=== PATIENT | female | born 2005 | race Caucasian/White ===

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

== ENCOUNTER 2024-11-23 14:45 | Emergency (ER) | payer BC, OTHER, SELFPAY ==
[2024-11-23 14:46] VITALS: BP 137/76; PULSE 130; RESP 18; TEMP 36.1; O2SAT 98; BMI 26.4
--- NOTE | 2024-11-23 15:07 | CT_ITS ---
PROCEDURE: ABDOMEN/PELVIS WITHOUT CONT 11/23/2024 REASON FOR EXAM: 19-year-old female, lower abdominal pain. TECHNIQUE: Abdomen and pelvis CT without intravenous contrast. Coronal and Sagittal reconstruction series were provided. One or more dose reduction techniques were used (e.g., Automated exposure control, adjustment of the mA and/or kV according to patient size, use of iterative reconstruction technique). PATIENT PREPARATION: Per protocol COMPARISON: None. FINDINGS: Noncontrast technique limits evaluation of the abdominal and pelvic viscera. Lung bases: The heart is normal in size. The lung bases are unremarkable. Liver: The unopacified liver is normal in size. No biliary ductal dilation. Gallbladder: No radiopaque stones within the gallbladder. Spleen: Unremarkable. Pancreas: The unopacified pancreas is unremarkable. Adrenals: Unremarkable. Kidneys: No hydronephrosis or nephrolithiasis. Bladder: The urinary bladder is minimally distended. Reproductive Organs: Normal uterine size and contour. Ovaries are unremarkable. Bowel: The bowel loops are normal in caliber. No ascites or pneumoperitoneum. Normal appendix. Lymph nodes: No suspicious lymph node enlargement. Vasculature: The abdominal aorta and IVC contours are normal. Noncontrast technique limits evaluation. Bones: No aggressive osseous lesions. CT/Abdomen/Pelvis without Cont IMPRESSION: NO ACUTE FINDINGS AT THE ABDOMEN OR PELVIS ON NONCONTRAST CT. Reading Location: [facility]
--- NOTE | 2024-11-23 15:08 | ED.VIS.GI ---
HPI HPI - GI History of Present Illness Chief Complaint: Abd Pain Detail of Chief Complaint: Abdominal pain Informant: patient Narrative Narrative: Patient presents with abdominal pain that started 6 days ago. Patient states that she has had pain off and on. She describes it like period cramping but her last menstrual period was about 2 weeks ago. She denies urinary symptoms. Yesterday the pain was severe and had nausea and did vomit once. She also had some watery stool over the last several days about twice a day. Denies any blood in her stool. No history of inflammatory bowel disease. Patient currently on control oral contraceptive. At his most severe the pain is about an 8 out of 10. No history of kidney stones or prior abdominal surgeries. [facility] Medical History (Updated 11/23/24 @ 16:[address] Graham Birmingham DO) Contraceptive management Home Medications ?Medication ?Instructions ?Recorded ?Last Taken ?Type desogestrel 0.15 mg-ethinyl 1 tab PO DAILY #84 tabs 11/01/24 Unknown Rx estradiol 0.03 mg tablet (Apri) dicyclomine 10 mg capsule 20 mg (2 x 10 mg) PO TIDAC #20 11/23/24 Unknown Rx CAPSULES Allergy/AdvReac Type Severity Reaction Status Date / Time No Known Allergies Allergy Verified 11/23/24 14:46 Family History Sister Asthma Surgical History (Updated 11/23/24 @ 14:56 by Swati Odonnell) H/O wrist surgery History of removal of cyst H/O of nasal cauterization Social History Smoking Status: Never smoker alcohol intake: never substance use type: does not use seatbelt use: always ROS ROS ED Review of Systems ROS Unobtainable: other Constitutional Constitutional ED: Reports lethargy; Denies chills, fever(s), sweats or weight loss Eyes Eyes: Denies blurry vision, change in vision or diplopia ENT ENT ED: Denies rhinorrhea or sore throat Cardiovascular Cardiovascular: Denies chest pain, orthopnea or racing heartbeat Respiratory/Chest Respiratory/Chest: Denies cough, dyspnea, dyspnea on exertion, orthopnea or sputum Gastrointestinal Gastrointestinal: Reports abdominal pain, diarrhea and nausea; Denies vomiting Genitourinary Genitourinary ED: Denies dysuria, hematuria or urinary frequency Musculoskeletal Musculoskeletal: Denies arthralgias, back pain, myalgias or neck pain Integumentary Denies abscess, Abrasions or rash Neurologic Neurologic: Denies headache(s) or weakness Psychiatric Psychiatric: Denies anxiety, depression or suicidal thoughts Endocrine Endocrinology: Denies polydipsia, polyphagia or polyuria Hematologic/Lymphatic Hematologic/Lymphatic: Denies easy bleeding, easy bruising or lymphadenopathy Allergic/Immunologic Allergic/Immunologic ED: Denies mouth swelling, tongue swelling or urticaria EXAM Physical Exam Const Vital Signs: 11/23/24 14:46 Temperature 97 F L Temperature Source Temporal Pulse Rate 130 H Respiratory Rate 18 Blood Pressure 137/76 H Blood Pressure Mean 96 Pulse Ox 98 Oxygen Delivery Method Room Air Positive well nourished and well developed General Appearance ED: well developed and NAD HEENT Reports TM's clear and moist mucous membranes normocephalic and atraumatic; Negative for trauma or tenderness Tympanic Membrane ED: Yes TM's clear Eyes PERRL and EOMs intact bilaterally General Eye ED: Negative for pale conjunctiva or scleral icterus Neck no lymphadenopathy, supple and no JVD General: Negative for tenderness Chest Wall inspection of chest normal and palpation of chest normal Chest: Negative for tenderness Resp normal respiratory effort and clear to auscultation bilaterally Effort and Inspection: Negative for respiratory distress or pain with movement Auscultation: Negative for rhonchi, wheezes or diminished lung sounds Cardio regular rhythm, S1 normal heart sound, S2 normal heart sound and no murmurs Rate: tachycardic Peripheral Pulses: pulses 2+ throughout GI normal to inspection, nondistended, normoactive bowel sounds, soft to palpation, non-distended and no masses GI Narrative: Mild tenderness over the right lower quadrant with some guarding. There is no rebound, rigidity, cranial signs. No mass palpated Back/Spine no CVA tenderness and no thoracic nor lumbar tenderness Extremity normal to inspection General Extremety ED: Negative for edema General Extremity: Negative for edema Neuro oriented x3, CN's II-XII intact bilaterally, no sensory deficits noted and gait normal Sensorium / Orientation: awake, alert, oriented to person, oriented to place and oriented to time Motor Exam: strength 5/5 throughout and strength abnormal Psych mental status grossly normal Skin no rashes or lesions noted and no wounds MDM MDM MDM Narrative Medical decision making narrative: Patient presented with abdominal pain off-and-on for last 6 days. She has had nausea and vomiting and also some water restool. Clinically looks well. Does have some tenderness over right lower quadrant. Last menstrual period was 2 weeks ago. In the differential would be appendicitis versus kidney stone or UTI. Also on the differential would be mittelschmerz or ovarian cyst with rupture. She was somewhat tachycardic on arrival. She had an IV line established. She was given a liter Mustain fluid bolus. CBC with differential obtained showed white count 6.5 with hemoglobin 12.4 and platelet count of 166. Chemistries unremarkable. LFTs unremarkable. Serum Prag was negative. Urinalysis without signs of infection. CT scan of the abdomen pelvis obtained was normal. This point patient will be discharged to home. Suspect possibly a gastroenteritis. Will order Bentyl for home. Advised to follow-up with primary care physician within next 3 to 5 days. Patient to return for [place]er pain, fever, vomiting, or condition worsening way. Lab Data Labs: Laboratory Results - last 24 hr 11/23/24 11/23/24 11/23/24 15:22 15:22 15:44 WBC Cancelled 6.5 Corrected WBC Cancelled RBC Cancelled 4.08 L Hgb Cancelled 12.4 Hct Cancelled 36.8 L MCV Cancelled 90.2 MCH Cancelled 30.4 MCHC Cancelled 33.7 RDW Std Deviation Cancelled 42.7 RDW Coeff of Carli Cancelled 12.9 Plt Count Cancelled 166 MPV Cancelled 11.5 Immature Gran % (Auto) Cancelled 0.200 Neut % (Auto) Cancelled 51.4 Lymph % (Auto) Cancelled 34.5 [place] % (Auto) Cancelled 9.9 Eos % (Auto) Cancelled 3.7 Baso % (Auto) Cancelled 0.3 Absolute Neuts (auto) Cancelled 3.3 Absolute Lymphs (auto) Cancelled 2.24 Total Counted Cancelled Neutrophils % (Manual) Cancelled Band Neutrophils % Cancelled Lymphocytes % (Manual) Cancelled Monocytes % (Manual) Cancelled Eosinophils % (Manual) Cancelled Basophils % (Manual) Cancelled Metamyelocytes % Cancelled Myelocytes % Cancelled Promyelocytes % Cancelled Blast Cells % Cancelled Plasma Cell % (Manual) Cancelled Other Cells % Cancelled Nucleated RBC % Cancelled 0 Nucleated RBCs/100 WBC Cancelled Differential Comment Cancelled Diff Path Review Cancelled Hypersegmented Neuts Cancelled Atypical Lymphocytes Cancelled Reactive Lymphocytes Cancelled Smudge Cells Cancelled Toxic Granulation Cancelled Toxic Vacuolation Cancelled Dohle Bodies Cancelled Kevin Rods Cancelled Platelet Estimate Cancelled Plt Morphology Comment Cancelled RBC Morphology Cancelled Cancelled Polychromasia Cancelled Hypochromasia Cancelled Basophilic Stippling Cancelled Anisocytosis Cancelled Microcytosis Cancelled Macrocytosis Cancelled Spherocytes Cancelled Sickle Cells Cancelled Target Cells Cancelled Tear Drop Cells Cancelled Ovalocytes Cancelled Stomatocytes Cancelled [place] [address] Bodies Cancelled Sammy Cells Cancelled Bite Cells Cancelled Crenated Cell Cancelled Acanthocytes (Spur) Cancelled Rouleaux Cancelled Schistocytes Cancelled Sodium 135 Potassium 4.5 Chloride 101 Carbon Dioxide 20.1 L Anion Gap 13 BUN 10 Creatinine 0.67 L Estim Creat Clear Calc 138.07 Est GFR (MDRD) Non-Af 128 BUN/Creatinine Ratio 14.8 Glucose 97 Calcium 9.6 Total Bilirubin 0.26 AST 47 H ALT 22 Alkaline Phosphatase 64 Total Protein 7.7 Albumin 4.5 Globulin 3.2 Albumin/Globulin Ratio 1.4 Serum , Qual NEGATIVE Urine Color Urine Clarity Urine pH Ur Specific [place] Urine Protein Urine Glucose (UA) Urine Ketones Urine Occult Blood Urine Nitrite Urine Bilirubin Urine Urobilinogen Ur Leukocyte Esterase 11/23/24 16:24 WBC Corrected WBC RBC Hgb Hct MCV MCH MCHC RDW Std Deviation RDW Coeff of Carli Plt Count MPV Immature Gran % (Auto) Neut % (Auto) Lymph % (Auto) [place] % (Auto) Eos % (Auto) Baso % (Auto) Absolute Neuts (auto) Absolute Lymphs (auto) Total Counted Neutrophils % (Manual) Band Neutrophils % Lymphocytes % (Manual) Monocytes % (Manual) Eosinophils % (Manual) Basophils % (Manual) Metamyelocytes % Myelocytes % Promyelocytes % Blast Cells % Plasma Cell % (Manual) Other Cells % Nucleated RBC % Nucleated RBCs/100 WBC Differential Comment Diff Path Review Hypersegmented Neuts Atypical Lymphocytes Reactive Lymphocytes Smudge Cells Toxic Granulation Toxic Vacuolation Dohle Bodies Kevin Rods Platelet Estimate Plt Morphology Comment RBC Morphology Polychromasia Hypochromasia Basophilic Stippling Anisocytosis Microcytosis Macrocytosis Spherocytes Sickle Cells Target Cells Tear Drop Cells Ovalocytes Stomatocytes [place] Bodies [place] Cells Bite Cells Crenated Cell Acanthocytes (Spur) Rouleaux Schistocytes Sodium Potassium Chloride Carbon Dioxide Anion Gap BUN Creatinine Estim Creat Clear Calc Est GFR (MDRD) Non-Af BUN/Creatinine Ratio Glucose Calcium Total Bilirubin AST ALT Alkaline Phosphatase Total Protein Albumin Globulin Albumin/Globulin Ratio Serum , Qual Urine Color Yellow Urine Clarity Sl. Cloudy Urine pH 6.0 Ur Specific [place] 1.015 Urine Protein 15 H Urine Glucose (UA) Normal Urine Ketones Negative Urine Occult Blood Negative Urine Nitrite Negative Urine Bilirubin Negative Urine Urobilinogen Normal Ur Leukocyte Esterase 25 H Radiography Diagnostic Testing: Clinical Impression(s) from Imaging Studies Abdomen/Pelvis CT 11/23/24 15:07 IMPRESSION: NO ACUTE FINDINGS AT THE ABDOMEN OR PELVIS ON NONCONTRAST CT. Reading Location: [facility] Discharge Plan Triage Chief Complaint: Abd Pain ED Provider: Graham Birmingham Dx/Rx/DC Orders Clinical Impression: Abdominal pain, Gastroenteritis Instructions: ED Abdominal Pain Unkn Cause Fem, ED Gastroenteritis, Viral (Adult) Prescriptions: New dicyclomine 10 mg capsule 20 mg PO TIDAC Qty: 20 0RF No Action desogestrel-ethinyl estradiol [Apri] 0.15-0.03 mg tablet 1 tab PO DAILY Qty: 84 3RF Primary Care Provider: Rea Polo Referrals: Rea Polo MD [Primary Care Provider] - 3-5 Days Print Language: Irish Disposition Disposition: Home, Self Care
[2024-11-23] MEDS: 0.9% Normal Saline (1000mL) 1,000 ML 999 ML IV (15:24)
[2024-11-23 15:56] LABS: Absolute Lymphocyte Count 2.24 X10^3/uL (0.83-4.51); Absolute Neutrophil Count 3.3 X10^3/uL (2.0-7.7); Basophil# 0.02 X10^3/uL; Basophil% 0.3 % (0-1); Eosinophil# 0.24 X10^3/uL; Eosinophils% 3.7 % (0-5); Hematocrit 36.8 % (37-47); Hemoglobin 12.4 g/dL (12.0-15.0); Lymphocyte # 2.24 X10^3/ul (0.83-4.51); Lymphocyte % 34.5 % (19-41); Mean Corp Hgb Conc 33.7 g/dL (32-36); Mean Corpuscular Hgb 30.4 pg (27.0-32.0); Mean Corpuscular Volume 90.2 fL (81-99); Mean Platelet Vol. 11.5 fl (6.2-12.0); Monocyte# 0.64 X10^3/uL; Monocyte% 9.9 % (0-10); NRBC Flagged by Analyzer 0 % (0-5); Neutrophil # 3.34 X10^3/uL (2.7-7.7); Neutrophil % 51.4 % (47-70); Platelet Count 166 K/mm3 (150-450); RBC Distribution Width CV 12.9 % (11.6-14.6); RBC Distribution Width SD 42.7 fl (35.1-43.9); Red Blood Count 4.08 M/mm3 (4.2-5.4); White Blood Count 6.5 K/mm3 (4.4-11.0)
[2024-11-23 16:05] LABS: Internal QC Validated? YES +Cl - CLEAR BKGD; Pregnancy, Serum, hCG Quali. NEGATIVE Negative
[2024-11-23 16:33] LABS: Mucous, Urine 0 SEEN /hpf (<or=2+)
[2024-11-23 16:36] LABS: Color, Urine Yellow (Yellow); Glucose, Dipstick Normal (Normal); Ketone-Dipstick Negative (Negative); Leukocyte Esterase-Dipstick 25 /ul (Negative); Nitrite-Dipstick Negative (Negative); Occult Blood-Urine Negative /ul (Negative); Protein-Dipstick 15 mg/dl (Negative); Specific Gravity, Urine 1.015 (1.002-1.030); Urine Bilirubin Dipstick Negative (Negative); Urine Clarity Sl. Cloudy (Clear); Urine Urobilinogen Normal (Normal)
[2024-11-23 16:37] LABS: ALB/GLOB Ratio 1.4 RATIO (0.9-2.4); AST(SGOT) 47 U/L (<=31); Alanine Aminotransfer ALT/SGPT 22 U/L (<=34); Albumin, Serum 4.5 g/dL (3.5-5.0); Alkaline Phosphatase 64 U/L (35-104); Anion Gap 13 (5-15); BUN 10 mg/dL (4-19); BUN/Creat Ratio 14.8 RATIO (10-20); Calcium,Total 9.6 mg/dL (7.6-11.0); Carbon Dioxide 20.1 mmol/L (21.0-32.0); Chloride 101 mmol/L (98-108); Creatinine, Serum 0.67 mg/dL (0.70-1.20); EST Glomerular Filtration Rate 128 (>60); Estimated Creatinine Clearance 138.07 ml/min (50-250); Globulin 3.2 g/dL (2.2-4.2); Glucose 97 mg/dL (70-99); Potassium 4.5 mmol/L (3.3-5.1); Protein, Total 7.7 g/dL (5.9-8.4); Sodium Level 135 mmol/L (133-145); Total Bilirubin 0.26 mg/dL (0.00-1.30)
[2024-11-23 16:59] LABS: Bacteria 1+ /hpf (None Seen); Red Blood Cells-Urine 0-5 SEEN /hpf (0-5); Squamous Epithelial Cells - UA 10-25 SEEN /hpf (5-10); White Blood Cells 5-10 SEEN /hpf (0-5)
[2024-11-23 17:01] VITALS: PULSE 73; RESP 14; O2SAT 100
[2024-11-23 17:06] VITALS: BP 106/69; PULSE 72; RESP 15; O2SAT 100
== END 2024-11-23 17:11 | disposition home or self-care (01) ==
PROVIDERS: Emergency Provider Emergency Medicine; PCP Pediatrics; Visit Provider Emergency Medicine
DX: K52.9 Noninfective gastroenteritis and colitis, unspecified (principal); Z79.3 Long term (current) use of hormonal contraceptives
CPT/HCPCS: 74176; 80053; 81001; 84703; 85025; 96360; 99282; A4216

== ENCOUNTER → 2024-11-28 | Outpatient (CLI) | payer BC, OTHER, SELFPAY ==
[2024-11-30 10:08] LABS: Chlamydia By Nucleic Acid AMP Negative (Negative); Gonococcus By Nucleic Acid AMP Negative (Negative)
== END | disposition home or self-care (01) ==
LOC: LABSPEC 09:52
PROVIDERS: PCP Pediatrics; Referring Provider Nurse Practitioner Family; Visit Provider Nurse Practitioner Family
DX: R10.2 Pelvic and perineal pain (principal)
CPT/HCPCS: 87070; 87077; 87205; 87491; 87591

== ENCOUNTER → 2024-12-09 | Outpatient (CLI) | payer BC, SELFPAY ==
--- NOTE | 2024-12-09 16:32 | US_ITS ---
PROCEDURE: PELVIC W/ TRANSVAGINAL (USPELTVAG), 12/09/2024 REASON FOR EXAM: PERSISTANT PELVIC PAIN TECHNIQUE: Grayscale and color doppler transabdominal and transvaginal pelvic ultrasound was performed. COMPARISON: 11/23/2024 FINDINGS: Uterus: 7.13.3 x 2.8 cm, Anteverted. Unremarkable echotexture. Endometrium: 4 mm, faintly trilaminar possibly proliferative phase appearance. Cervix: Unremarkable. Right ovary: 2.3 x 1.6 x 1.6 cm (estimated volume 4.5 mL), unremarkable. Left ovary: 3.8 x 2.7 x 2.6 cm (estimated volume 14.0 mL), unremarkable. Free fluid: None visualized. Other: Estimated bladder volume 284 mL. US/Pelvic w/ Transvaginal IMPRESSION: 1. Relative enlargement of the LEFT ovary is of uncertain significance and coul d indeed be related to small size of the RIGHT ovary given that LEFT ovarian volume is high-normal for age. If there is zeina rn for ovarian torsion, recommend a repeat exam with spectral Doppler for evaluation of arterial and venous waveforms. Otherwi se if unexplained symptoms persist, consider a repeat CT abdomen/pelvis with contrast. 2. Additional description as above. Reading Location: [facility]
== END | disposition home or self-care (01) ==
LOC: US 16:29
PROVIDERS: PCP Pediatrics; Referring Provider Nurse Practitioner Family; Visit Provider Nurse Practitioner Family
DX: R10.2 Pelvic and perineal pain (principal)
CPT/HCPCS: 76830; 76856

== ENCOUNTER → 2024-12-30 | Outpatient (CLI) | payer BC, SELFPAY ==
--- NOTE | 2024-12-30 10:11 | US_ITS ---
PROCEDURE: ABDOMEN LIMITED (USABDL), 12/30/2024 REASON FOR EXAM: ABDOMINAL PAIN. N/V COMPARISON: Noncontrast CT abdomen and pelvis 11/23/2024 FINDINGS: Liver: Unremarkable. 15.0 cm in length. Gallbladder: Question faint layering sludge versus artifact. No visualized stones, wall thickening or pericholecystic fluid. Reportedly, sonographic Koroma's was negative. Biliary tree: Unremarkable. CBD measures 4 mm. Pancreas: Partially obscured by shadowing bowel gas, grossly unremarkable as visualized. Right kidney: Unremarkable. 10.6 cm in length. Other: No visualized free fluid. US/Abdomen Limited IMPRESSION: 1. No acute findings. If unexplained symptoms persist, consider repeat CT abdo men/pelvis with IV contrast. 2. Additional description as above. Reading Location: [id number]
== END | disposition home or self-care (01) ==
LOC: US 10:08
PROVIDERS: PCP Pediatrics; Referring Provider Nurse Practitioner Acute Care; Visit Provider Nurse Practitioner Acute Care
DX: R19.7 Diarrhea, unspecified (principal); R10.2 Pelvic and perineal pain; R11.0 Nausea; R68.81 Early satiety; R63.4 Abnormal weight loss
CPT/HCPCS: 76705

== ENCOUNTER → 2025-02-26 | Outpatient (CLI) | payer BC, OTHER, SELFPAY ==
--- NOTE | 2025-02-26 08:40 | CT_ITS ---
PROCEDURE: ABDOMEN/PELVIS WITH CONTRAST 02/26/2025 REASON FOR EXAM: ABDOMINAL PAIN TECHNIQUE: ABDOMEN/PELVIS WITH CONTRAST Coronal and Sagittal reconstruction series were provided. CONTRAST: Isovue 3 7 VOLUME: 95 mL One or more dose reduction techniques were used (e.g., Automated exposure control, adjustment of the mA and/or kV according to patient size, use of iterative reconstruction technique. RADIATION DOSE SUMMARY: CTDlvol: 8.6 mGy DLP: 411.66 mGycm COMPARISON: Prior study dated November 23, 2024. FINDINGS: Lung bases: Clear. Liver: Normal size. No mass. Gallbladder: Unremarkable Spleen: Borderline splenomegaly. Pancreas: Normal size without evidence of mass surrounding inflammation or ductal dilation. Adrenals: Unremarkable Kidneys: Normal renal sizes. No hydronephrosis. Bladder: Unremarkable Reproductive Organs: Unremarkable Bowel: Unremarkable Appendix: Unremarkable Lymph nodes: No significant lymph nodes are seen. Vasculature: The abdominal aorta and IVC are normal. Peritoneum / Retroperitoneum: Unremarkable Bones: Straightening of the normal lumbar lordosis. Reading Location: [id number]
== END | disposition home or self-care (01) ==
PROVIDERS: PCP Pediatrics; Referring Provider Nurse Practitioner Acute Care; Visit Provider Nurse Practitioner Acute Care
DX: R11.0 Nausea (principal); R10.2 Pelvic and perineal pain; R19.7 Diarrhea, unspecified
CPT/HCPCS: 74177; Q9967

== ENCOUNTER → 2025-04-03 | Outpatient (CLI) | payer OTHER, BC, SELFPAY ==
[2025-04-03 10:18] LABS: Hematocrit 39.8 % (37-47); Hemoglobin 13.6 g/dL (12.0-15.0); Immature Granulocytes Count 0.010 X10^3/uL (0.0-0.0); Mean Corp Hgb Conc 34.2 g/dL (32-36); Mean Corpuscular Volume 88.1 fL (81-99); Mean Platelet Vol. 11.0 fl (6.2-12.0); NRBC Flagged by Analyzer 0 % (0-5); Platelet Count 191 K/mm3 (150-450); RBC Distribution Width CV 12.1 % (11.6-14.6); RBC Distribution Width SD 39.1 fl (35.1-43.9); Red Blood Count 4.52 M/mm3 (4.2-5.4); White Blood Count 5.1 K/mm3 (4.4-11.0)
[2025-04-03 11:12] LABS: AST(SGOT) 19 U/L (<=31); Alanine Aminotransfer ALT/SGPT 13 U/L (<=34); Albumin, Serum 4.7 g/dL (3.5-5.0); Alkaline Phosphatase 75 U/L (35-104); Anion Gap 13 (5-15); BUN 10 mg/dL (4-19); BUN/Creat Ratio 12.6 RATIO (10-20); Calcium,Total 9.6 mg/dL (7.6-11.0); Carbon Dioxide 22.1 mmol/L (21.0-32.0); Chloride 103 mmol/L (98-108); Globulin 3.0 g/dL (2.2-4.2); Glucose 84 mg/dL (70-99); Potassium 4.0 mmol/L (3.3-5.1)
== END | disposition home or self-care (01) ==
PROVIDERS: PCP Pediatrics; Referring Provider Nurse Practitioner Acute Care; Visit Provider Nurse Practitioner Acute Care
DX: R11.0 Nausea (principal); R19.7 Diarrhea, unspecified; R10.2 Pelvic and perineal pain; R10.84 Generalized abdominal pain; R63.4 Abnormal weight loss
CPT/HCPCS: 36415; 80053; 84443; 85025

== ENCOUNTER 2025-04-29 06:12 | Day surgery (SDC) | payer BC, SELFPAY ==
[2025-04-29] VITALS (7 sets, daily range): BP systolic 104–119; BP diastolic 57–85; PULSE 71–88; RESP 18; TEMP 36.1–36.9; O2SAT 99–100; BMI 24.2
--- OUTSIDE RECORDS SUMMARY | 2025-04-29 06:16 | XMS RPT_ITS | CCD ---
Author Organization [facility] Care Team Providers Care Analyst Name Role Phone Rea Polo MD Primary Care Provider SHRADDHA LOZOYA Referring Unavailable CHRIST, REA Primary Care Unavailable DRU NOWAK Referring Unavailable CHRIST, REA Primary Care Unavailable CHRIST, REA Primary Care Unavailable PROVIDER, UNKNOWN Attending Unavailable PROVIDER, UNKNOWN Admitting Unavailable Rea Polo MD Primary Care Provider Christ PAEZ, Dr. Lucia Primary Care Provider Dr. Rea Polo MD Referring Provider Bharati Beth CNM Attending Provider Dr. Graham Birmingham DO Emergency Provider Dr. Graham Birmingham DO Attending Provider Yashira DOUGH BRAKE MACHINE OPERATOR-CCourtney Attending Provider Yashira DOUGH BRAKE MACHINE OPERATOR-CCourtney Referring Provider Pranav DOUGH BRAKE MACHINE OPERATOR-COpal Attending Provider Pranav DOUGH BRAKE MACHINE OPERATOR-COpal Referring Provider Dr. Rea Polo MD Primary Care Provider [phone] Dr. Rea Polo MD Referring Provider [phone] Ariadne Westfall Attending Provider REA POLO Attending Unavailable CHRIST, REA Primary Care Unavailable CHRIST, REA Referring Unavailable CHRIST, REA Primary Care Unavailable JEANNETTE DALAL Attending Unavailable CHRIST, REA Primary Care Unavailable CHRIST, REA Primary Care Unavailable RAJGURU, JEANNETTE J Attending Unavailable RAJGURU, JEANNETTE J Referring Unavailable CHRIST, REA Primary Care Unavailable BRICE WHITE Attending Unavailable BRICE WHITE Referring Unavailable CHRIST, REA Primary Care Unavailable CHRIST, REA Primary Care Unavailable RAJGURU, JEANNETTE J Attending Unavailable RAJGURU, JEANNETTE J Referring Unavailable CHRIST, REA Primary Care Unavailable RAJGURU, JEANNETTE J Attending Unavailable RAJGURU, JENANETTE J Referring Unavailable CHRIST, REA Primary Care Unavailable CHRIST, REA Primary Care Unavailable KANDACE URRUTIA Attending Unavailable RAJGURU, JEANNETTE J Attending Unavailable RAJGURU, JEANNETTE J Referring Unavailable CHRIST, REA Primary Care Unavailable RAJGURU, JEANNETTE J Referring Unavailable CHRIST, REA Primary Care Unavailable RAJGURU, JEANNETTE J Attending Unavailable CHRIST, REA Primary Care Unavailable SHRADDHA LOZOYA Attending Unavailable BRICE WHITE Referring Unavailable CHRIST, REA Primary Care Unavailable CHRIST, RAE Attending Unavailable CHRIST, REA Primary Care Unavailable Christ , Dr. Lucia Primary Care Provider Christ Dr. Rea PAEZ Referring Provider [phone] Christ, Rea Primary Care Unavailable Courtney Ac Referring Unavailable Courtney Ac Attending Unavailable Graham Birmingham Attending Unavailable Christ, Rea Primary Care Unavailable Christ, Rea Primary Care Unavailable Christ, Rea Referring Unavailable Marvel Ogden Attending Unavailable PranavOpal Referring Unavailable PranavOpal Attending Unavailable Christ, Rea Primary Care Unavailable Christ, Rea Primary Care Unavailable Christ, Rea Referring Unavailable Bharati Beth Attending Unavailable Christ, Rea Primary Care Unavailable Christ, Rea Referring Unavailable Bharati Beth Attending Unavailable Christ, Rea Primary Care Unavailable Christ, Rea Referring Unavailable Pranav Opal Attending Unavailable Christ, Rea Primary Care Unavailable Christ, Rea Referring Unavailable Pranav, Opal Attending Unavailable Christ, Rea Referring Unavailable Christ, Rea Primary Care Unavailable Ariadne Garrett Attending Unavailable Christ, Rea Referring Unavailable Courtney Ac Attending Unavailable Christ, Rea Primary Care Unavailable [facility], Rea Referring Unavailable [facility], [place] Primary Care Unavailable Ariadne Garrett Attending Unavailable [facility], [facility] Care Unavailable Courtney Ac Referring Unavailable Courtney Ac Attending Unavailable [facility], [place] Primary Care Unavailable Opal Rock Referring Unavailable Opal Rock Attending Unavailable Opal Rock Referring Unavailable Opal Rock Attending Unavailable [facility], [facility] Care Unavailable Medications Current Medications Medication Drug Class(es) Dates Sig (Normalized) Sig (Original) acetaminophen 325 mg / HYDROcodone bitartrate 5 mg oral tablet (1 source) Opioid Agonist Start: 04-03-2024 End: 04-10-2024 take 1 tablet by mouth every eight hours as needed for pain HYDROcodone-acet aminophen (NORCO) 5-325 mg per tablet Indications: Ganglion cyst of dorsum of right wrist Take 1 tablet by mouth every 8 hours as needed for pain for up to 7 days. 10 tablet 0 04/03/2024 04/10/2024 Active 24 hr buPROPion hydrochloride 150 mg extended release oral tablet (5 sources) Aminoketone Start: 01-13-2025 End: 03-14-2025 take 1 tablet by mouth once daily in the morning buPROPion XL (WELLBUTRIN XL) 150 mg 24 hr tablet Take 1 tablet by mouth every morning. 30 tablet 1 01/13/2025 Active cetirizine hydrochloride 10 mg oral capsule (20 sources) Histamine-1 Receptor Antagonist Start: 03-03-2025 take 1 capsule by mouth once daily as needed Cetirizine (Zyrtec) 10 mg capsule Active 10 mg PO daily as needed March 03, 2025 12:00am Start: 02-16-2024 End: 03-05-2025 take 1 tablet by mouth once daily cetirizine (ZYRTEC) 10 mg tablet Indications: Seasonal allergies TAKE 1 TABLET BY MOUTH EVERY DAY 90 tablet 03/05/2025 Active Desogestrel / Ethinyl Estradiol (20 sources) Progestin, Estrogen Start: 11-10-2024 APRI 0.15- 0.03 mg per tablet 11/10/2024 Active Start: 11-01-2024 take 0.15 tablet by mouth once daily Desogestrel-Ethinyl Estradiol (Apri) 0.15-0.03 mg tablet Active 1 {tbl} PO DAILY 84 3 November 01, 2024 1:00am Start: 11-01-2024 take 0.15 tablet by mouth once daily Desogestrel-Ethinyl Estradiol (Apri) 0.15-0.03 mg tablet Active 1 {tbl} PO DAILY 84 November 01, 2024 1:00am Start: 09-24-2023 End: 04-12-2024 APRI 0.15-0.03 mg per tablet 09/24/2023 04/12/2024 Discontinued (Discontinued by another Health Care Provider) Start: 09-24-2023 End: 04-12-2024 APRI 0.15-0.03 mg per tablet Start: 09-24-2023 APRI 0.15-0.03 mg per tablet Start: 02-13-2023 End: 05-07-2024 take 0.15 tablet by mouth once daily Desogestrel-Ethinyl Estradiol (Apri) 0.15-0.03 mg tablet Discontinued 1 {tbl} PO daily 84 4 February 13, 2023 12:00am May 07, 2024 2:13pm Start: 02-13-2023 End: 05-07-2024 take 0.15 tablet by mouth once daily Desogestrel-Ethinyl Estradiol (Apri) 0.15-0.03 mg tablet Discontinued 1 {tbl} PO daily 84 February 13, 2023 12:00am May 07, 2024 2:13pm 24 hr desvenlafaxine 100 mg extended release oral tablet (20 sources) Serotonin and Norepinephrine Reuptake Inhibitor Start: 11-28-2024 take 1 tablet by mouth once daily Desvenlafaxine 100 mg tablet extended release 24 hr Active 100 mg PO daily November 28, 2024 12:00am Start: 11-18-2024 End: 04-13-2025 take 1 tablet by mouth once daily desvenlafaxine ER (PRISTIQ) 100 mg 24 hr tablet TAKE 1 TABLET BY MOUTH EVERY DAY 90 tablet 02/04/2025 03/21/2025 Discontinued Start: 07-12-2024 End: 01-26-2025 take 1 tablet by mouth once daily in the morning desvenlafaxine ER (PRISTIQ) 50 mg 24 hr tablet Take 1 tablet by mouth every morning. Take with 25 mg dose to equal 75 mg total. 90 tablet 10/28/2024 11/18/2024 Discontinued (Course of therapy completed) Start: 04-12-2024 End: 01-26-2025 take 1 tablet by mouth once daily in the morning desvenlafaxine ER (PRISTIQ) 25 mg 24 hr tablet Take 1 tablet by mouth every morning. Take with 50 mg dose to equal 75 mg. 90 tablet 10/28/2024 11/18/2024 Discontinued (Course of therapy completed) Start: 04-12-2024 End: 06-14-2024 take 1 tablet by mouth once daily at breakfast desvenlafaxine ER (PRISTIQ) 50 mg 24 hr tablet TAKE 1 TABLET BY MOUTH DAILY WITH BREAKFAST. START AFTER COMPLETING 7 DAYS OF THE 25 MG DOSE. 90 tablet 1 05/07/2024 06/14/2024 Discontinued etodolac 400 mg oral tablet (20 sources) Nonsteroidal Anti-inflammatory Drug Start: 01-20-2024 End: 05-09-2024 take 1 tablet by mouth twice daily etodolac (LODINE) 400 mg tablet Take 1 tablet by mouth two times a day. 30 tablet 02/21/2024 05/09/2024 Discontinued Start: 10-06-2023 End: 01-18-2024 take 1 tablet by mouth twice daily etodolac (LODINE) 400 mg tablet Take 1 tablet by mouth two times a day. 30 tablet 0 12/04/2023 01/18/2024 Discontinued Comment on above: Take 1 tablet by miko two times a day. famotidine 20 mg oral tablet (6 sources) Histamine-2 Receptor Antagonist Start: 03-03-20 End: 03-03-20 take 1 tablet by mouth at bedtime Famotidine 20 mg tablet Active 20 mg PO AT BEDTIME 30 March 03, 2025 8:33am hydrOXYzine hydrochloride 50 mg oral tablet (20 sources) Antihistamine Start: 01-14-20 End: 03-14-20 take 2 tablets by mouth once daily at bedtime hydrOXYzine HCl (ATARAX) 50 mg tablet Take 2 tablets by mouth daily at bedtime. 60 tablet 1 01/13/2025 03/14/2025 Active Start: 11-28-2024 take 1 tablet by miko th three times daily as needed Hydroxyzine Hcl 10 mg tablet Active 10 mg PO THREE TIMES A DAY as needed November 28, 2024 12:00am Start: 07-15-2024 End: 01-13-2025 take 1 tablet by mouth at bedtime Hydroxyzine Hcl 50 mg tablet Active 50 mg PO AT BEDTIME November 28, 2024 12:00am Start: 04-12-2024 End: 07-11-2024 take 1 tablet by mouth once daily at bedtime hydrOXYzine HCl (ATARAX) 50 mg tablet Take 1 tablet by mouth daily at bedtime. 90 tablet 04/12/2024 07/11/2024 Active Start: 01-26-2024 End: 04-25-2024 take 1 tablet by mouth once daily at bedtime hydrOXYzine HCl (ATARAX) 25 mg tablet Take 1 tablet by mouth daily at bedtime. 90 tablet 0 01/26/2024 04/12/2024 Discontinued Start: 12-22-2023 End: 04-25-2024 take 1 tablet by mouth every eight hours as needed hydrOXYzine HCl (ATARAX) 10 mg tablet Take 1 tablet by mouth three times a day as needed for anxiety. 270 tablet 01/26/2024 04/25/2024 Active meloxicam 15 mg oral tablet (6 sources) Nonsteroidal Anti-inflammatory Drug Start: 05-09-2024 End: 06-08-2024 take 1 tablet by mouth once daily meloxicam (MOBIC) 15 mg tablet Indications: Ganglion cyst of wrist, right Take 1 tablet by mouth once daily. 30 tablet 05/09/2024 06/08/2024 Active nitrofurantoin, macrocrystals 25 mg / nitrofurantoin, monohydrate 75 mg oral capsule (6 sources) Nitrofuran Antibacterial Start: 01-30-2025 End: 02-04-2025 take 1 capsule by mouth twice daily nitrofurantoin monohydrate and macrocrystal (MACROBID) 100 mg capsule Indications: Urinary frequency Take 1 capsule by mouth two times a day for 5 days. 10 capsule 01/30/2025 02/04/2025 Active Start: 11-04-2024 End: 11-09-2024 take 1 capsule by mouth twice daily nitrofurantoin monohydrate and macrocrystal (MACROBID) 100 mg capsule Take 1 capsule by mouth two times a day for 5 days. 10 capsule 11/04/2024 11/09/2024 Active Start: 01-28-2024 End: 02-02-2024 take 1 capsule by mouth twice daily at mealtime nitrofurantoin monohydrate and macrocrystal (MACROBID) 100 mg capsule Take 1 capsule by mouth two times a day with meals for 5 days. 10 capsule 0 01/28/2024 02/02/2024 Active ondansetron 4 mg oral tablet (10 sources) Serotonin-3 Receptor Antagonist Start: 04-12-2024 End: 04-27-2024 take 1 tablet by mouth every twelve hours as needed ondansetron (ZOFRAN) 4 mg tablet Take 1 tablet by mouth every 12 hours as needed for nausea/vomiting for up to 15 days. 15 tablet 04/12/2024 04/27/2024 Active Start: 12-20-2021 End: 06-22-2022 take 1 tablet by mouth every eight hours as needed for nausea and vomiting Ondansetron 4 mg tablet,disintegrating Discontinued 4 mg PO Q8H as needed for nausea and vomiting 14 0 December 20, 2021 12:00am June 22, 2022 2:10pm pantoprazole 40 mg delayed release oral tablet (8 sources) Proton Pump Inhibitor Start: 12-24-2024 End: 02-25-2025 take 1 tablet by mouth once daily Pantoprazole 40 mg tablet,delayed release (DR/EC) Active 40 mg PO daily 90 February 25, 2025 8:17am polymyxin b [id number] unt/ml / trimethoprim 1 mg/ml ophthalmic solution (1 source) Dihydrofolate Reductase Inhibitor Antibacterial, Polymyxin-class Antibacterial Start: 03-22-2024 End: 03-27-2024 take 2 drop(s) into the eye(s) three times daily trimethoprim-polymy kacie (POLYTRIM) 10,000 unit- 1 mg/mL ophthalmic solution Use 2 Drops in both eyes three times a day for 5 days. 10 mL 0 03/22/2024 03/27/2024 Active triamcinolone acetonide 5 mg/ml topical cream (20 sources) Corticosteroid Start: 05-09-2024 triamcinolone acetonide (KENALOG) 0.5 % cream Apply to affected area three times a day. 15 g 05/09/2024 Active Completed/Discontinued Medications Medication Drug Class(es) Dates Sig (Normalized) Sig (Original) amoxicillin 500 mg oral capsule (6 sources) Penicillin-class Antibacterial Start: 12-02-2024 End: 12-09-2024 take 1 capsule by mouth twice daily Amoxicillin 500 mg capsule Discontinued 500 mg PO TWICE A DAY 14 7 0 December 02, 2024 12:00am December 08, 2024 12:00am December 09, 2024 12:12am dicyclomine hydrochloride 10 mg oral capsule (11 sources) Anticholinergic Start: 12-24-2024 End: 01-09-2025 take 1 capsule by mouth three times daily before mealtime Dicyclomine 10 mg capsule Discontinued 10 mg PO THREE TIMES A DAY 90 December 24, 2024 12:00am January 09, 2025 3:17pm TID before meals Start: 11-23-2024 End: 12-24-2024 take 2 capsules by mouth three times daily before mealtime Dicyclomine 10 mg capsule Discontinued 20 mg PO THREE TIMES DAILY BEFORE MEALS 20 November 23, 2024 12:00am December 24, 2024 8:33am escitalopram 10 mg oral tablet (12 sources) Serotonin Reuptake Inhibitor Start: 11-03-2023 End: 12-22-2023 take 1.5 tablets by mouth once daily escitalopram oxalate (LEXAPRO) 10 mg tablet Indications: MDD (major depressive disorder), single episode, moderate (HCC) Take 1.5 tablets by mouth once daily. 45 tablet 0 11/03/2023 12/22/2023 Discontinued Start: 10-17-2023 End: 11-03-2023 take 1 tablet by mouth once daily escitalopram oxalate (LEXAPRO) 10 mg tablet Indications: MDD (major depressive disorder), single episode, moderate (HCC) Take 1 tablet by mouth once daily. 30 tablet 0 10/17/2023 11/03/2023 Discontinued Start: 10-02-2023 End: 10-17-2023 take 0.5 tablet by mouth once daily escitalopram oxalate (LEXAPRO) 10 mg tablet Indications: MDD (major depressive disorder), single episode, moderate (HCC) Take 0.5 tablets by mouth once daily. 30 tablet 0 10/02/2023 10/17/2023 Discontinued Comment on above: Take 0.5 tablets by mouth once daily. Take 1 tablet by miko th once daily. Take 1.5 tablets by mouth once daily. Levonorgestrel-Et hinyl Estrad (14 sources) Progestin, Estrogen, Progestin-containing Intrauterine Device Start: 12-26-2022 End: 02-13-2023 take 1 tablet by mouth once daily Levonorgestrel-Ethiny l Estrad (Aviane) 0.1-20 mg-mcg tablet Discontinued 1 {tbl} PO DAILY 84 December 26, 2022 11:53am February 13, 2023 11:48am Start: 12-26-2022 End: 02-13-2023 take 1 tablet by mouth once daily Levonorgestrel-Ethinyl Estrad (Aviane) 0.1-20 mg-mcg tablet Discontinued 1 {tbl} PO DAILY 84 December 26, 2022 11:53am February 13, 2023 11:48am Start: 08-15-2022 End: 12-26-2022 take 1 tablet by mouth once daily Levonorgestrel-Ethinyl Estrad (Aviane) 0.1-20 mg-mcg tablet Discontinued 1 {tbl} PO DAILY 84 August 15, 2022 1:00am December 26, 2022 11:53am Start: 08-15-2022 End: 12-26-2022 take 1 tablet by mouth once daily Levonorgestrel-Ethinyl Estrad (Aviane) 0.1-20 mg-mcg tablet Discontinued 1 {tbl} PO DAILY 84 August 15, 2022 1:00am December 26, 2022 11:53am etonogestrel 68 mg drug implant (18 sources) Progestin End: 11-18-2024 etonogestrel (NEXPLANON) 68 mg impl subdermal implant 68 mg by SUBDERMAL route one time only. 11/18/2024 Discontinued (Course of therapy completed) FLUoxetine 10 mg oral capsule (7 sources) Serotonin Reuptake Inhibitor Start: 11-24-2023 End: 12-22-2023 take 1 capsule by mouth once daily FLUoxetine (PROZAC) 10 mg capsule Take 1 capsule by mouth once daily. 30 capsule 0 12/09/2023 12/22/2023 Discontinued (Lack of Efficacy) Comment on above: Take 1 capsule by [facility] once daily. metroNIDAZOLE 250 mg oral tablet (4 sources) Nitroimidazole Antimicrobial Start: 01-01-2025 End: 01-11-2025 take 1 tablet by mouth three times daily Metronidazole 250 mg tablet Discontinued 250 mg PO THREE TIMES A DAY 30 January 01, 2025 12:00am January 10, 2025 12:00am January 11, 2025 12:10am predniSONE 10 mg oral tablet (1 source) Start: 09-25-2023 End: 10-03-2023 take 4 tablets by mouth once daily, then take 2 tablets by mouth once daily, then take 1 tablet by mouth once daily predniSONE (DELTASONE) 10 mg tablet Indications: Acute wrist pain, right Take 4 tablets by mouth once daily for 3 days, THEN 2 tablets once daily for 3 days, THEN 1 tablet once daily for 3 days. Take with food.. 21 tablet 09/25/2023 10/03/2023 tranexamic acid 650 mg oral tablet (7 sources) Antifibrinolytic Agent Start: 06-22-2022 End: 08-15-2022 Tranexamic Acid (Lysteda) 650 mg tablet Discontinued 1300 mg PO THREE TIMES A DAY 60 2 June 22, 2022 12:00am August 15, 2022 1:56pm may take up to 5 days Start: 06-22-2022 End: 08-15-2022 Tranexamic Acid (Lysteda) 65 0 mg tablet Discontinued 1300 mg PO THREE TIMES A DAY 60 June 22, 2022 12:00am August 15, 2022 1:56pm venlafaxine 50 mg oral tablet (20 sources) Serotonin and Norepinephrine Reuptake Inhibitor Start: 01-26-2024 End: 04-12-2024 take 1 tablet by mouth once daily at breakfast venlafaxine (EFFEXOR) 50 mg tablet TAKE 1 TABLET BY MOUTH EVERY DAY WITH BREAKFAST 90 tablet 1 02/19/2024 04/12/2024 Discontinued Start: 12-22-2023 End: 01-26-2024 take 1 tablet by mouth once daily at breakfast venlafaxine (EFFEXOR) 25 mg tablet TAKE 1 TABLET BY MOUTH EVERY DAY WITH BREAKFAST 90 tablet 1 01/15/2024 01/26/2024 Discontinued Problems Active Problems Problem Classification Problem Date Documented Da te Episodic/Chronic Abdominal pain (20 sources) Abdominal pain; Translations: [Unspecified abdominal pain] Onset: 11-29-2024 11-23-2024 Episodic Comment on above: improved since on di cyclomine. 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, unspecified] Onset: 08-11-2017 08-11-2017 Chronic Conditions associated with dizziness or vertigo (1 source) Dizziness; Translations: [Dizziness and giddiness] 04-12-2024 Episodic Genitourinary symptoms and ill-defined conditions (9 sources) Increased frequency of urination; Translations: [Frequency of micturition] Onset: 01-30-2025 11-04-2024 Episodic Immunizations and screening for infectious disease (20 sources) Patient encounter status; Translations: [Encounter for immunization] Episodic Comment on above: No PA needed with in surance type Inflammation; infection of eye (except that caused by tuberculosis or sexually transmitteddisease) (1 source) Acute infectious conjunctivitis; Translations: [Unspecified acute conjunctivitis, right eye] 03-22-2024 Episodic Menstrual disorders (20 sources) Dysmenorrhea; Translations: [Dysmenorrhea, unspecified] Onset: 04-18-2022 Chronic Miscellaneous mental health disorders (9 sources) Eating disorder; Translations: [Eating disorder, unspecified] Onset: 06-14-2024 12-27-2023 Chronic Mood disorders (20 sources) Moderate major depression, single episode; Translations: [Major depressive disorder, single episode, moderate] Onset: 11-03-2023 10-17-2023 Chronic Nausea and vomiting (17 sources) Nausea; Translations: [Nausea] Onset: 06-14-2024 04-12-2024 Episodic Noninfectious gastroenteritis (7 sources) Gastroenteritis; Translations: [Noninfective gastroenteritis and colitis, unspecified] 11-23-2024 Episodic Other aftercare (4 sources) Long-term current use of drug therapy; Translations: [Other chcf (current) drug therapy] 08-25-2024 Episodic Other connective tissue disease (2 sources) Ganglion cyst of right dorsal wrist; Translations: [Ganglion, right wrist] 10-06-2023 Episodic Other connective tissue disease (1 source) Ganglion cyst; Translations: [Ganglion, unspecified site] 12-18-2023 Episodic Other connective tissue disease (5 sources) Ganglion cyst of right wrist; Translations: [Ganglion, right wrist] 12-20-2023 Episodic Other gastrointestinal disorders (2 sources) Drug-induced constipation; Translations: [Drug induced constipation] 08-25-2024 Episodic Other gastrointestinal disorders (12 sources) Diarrhea; Translations: [Diarrhea, unspecified] 12-24-2024 Episodic Other gastrointestinal disorders (1 source) Diarrhea, unspecified; Translations: [Diarrhea, unspecified] Onset: 02-12-2025 Episodic Other inflammatory condition of skin (1 source) Pruritic rash; Translations: [Other prurigo] 03-03-2025 Episodic Other non-traumatic joint disorders (2 sources) Pain in wrist; Translations: [Pain in right wrist] 10-06-2023 Episodic Other non-traumatic joint disorders (3 sources) Pain of right wrist; Translations: [Pain in right wrist] 12-18-2023 Episodic Other nutritional; endocrine; and metabolic disorders (8 sources) Weight decreased; Translations: [Abnormal weight loss] 12-24-2024 Episodic Other nutritional; endocrine; and metabolic disorders (1 source) Abnormal weight loss; Translations: [Abnormal weight loss] Onset: 02-12-2025 Episodic Other skin disorders (2 sources) Eruption; Translations: [Rash and other nonspecific skin eruption] 03-22-2024 Episodic Other upper respiratory disease (8 sources) Seasonal allergy; Translations: [Other seasonal allergic rhinitis] 02-16-2024 Chronic Other upper respiratory infections (1 source) Acute upper respiratory infection; Translations: [Acute upper respiratory infection, unspecified] 02-16-2024 Episodic Residual codes; unclassified (1 source) Procedure not done; Translations: [Procedure and treatment not carried out, unspecified reason] Episodic Residual codes; unclassified (1 source) Reduced libido; Translations: [Decreased libido] 04-12-2024 Episodic Residual codes; unclassified (1 source) Pain; Translations: [Pain, unspecified] 02-25-2021 Episodic Residual codes; unclassified (7 sources) Past history of procedure; Translations: [Other specified postprocedural states] 06-22-2022 Episodic Residual codes; unclassified (8 sources) Early satiety; Translations: [Early satiety] 12-24-2024 Episodic Residual codes; unclassified (1 source) Early satiety; Translations: [Early satiety] Onset: 02-12-2025 Episodic Unclassified (1 source) First encounter by subject 11-21-2024 Unclassified (2 sources) Long-term current use of drug therapy 11-25-2024 Urinary tract infections (3 sources) Acute urinary tract infection; Translations: [Urinary tract infection, site not specified] Onset: 01-30-2025 01-28-2024 Episodic Past or Other Problems Problem Classification Problem Date Documented Da te Episodic/Chronic Contraceptive and procreative management (1 source) Encounter for contraceptive management, unspecified; Translations: [Encounter for contraceptive management, unspecified] Onset: 11-29-2024 Episodic Genitourinary symptoms and ill-defined conditions (20 sources) Nocturnal enuresis; Translations: [Nocturnal enuresis] Onset: 07-08-2014 Resolved: 04-18-2022 07-08-2014 Chronic Malaise and fatigue (3 sources) Malaise and fatigue; Translations: [Other malaise] Onset: 06-13-2024 06-13-2024 Episodic Other aftercare (1 source) 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; Translations: [Encounter for long-term (current) use of medications] Onset: 08-19-2024 Episodic Other connective tissue disease (2 sources) Ganglion, right wrist; Translations: [Ganglion cyst of wrist, right] Onset: 10-24-2023 Episodic Other gastrointestinal disorders (1 source) Drug induced constipation; Translations: [Drug-induced constipation] Onset: 08-19-2024 Episodic Substance-related disorders (5 sources) Marijuana user; Translations: [Cannabis use, unspecified, uncomplicated] Onset: 06-14-2024 12-27-2023 Episodic Results Test Name Value Interpretation Reference Range Facility Absolute lymphocyte countOrd ered By: Opal Rock on 04-03-2025 Lymphocytes Auto (Unsp spec) [#/Vol] 1.46 10*3/uL 0.83-4.51 [facility] Absolute neutrophil countOrd ered By: Opal Rock on 04-03-2025 Neutrophils (Bld) [#/Vol] 3.0 10*3/uL 2.0[facility]7 [facility] [place] Anion gap in Serum or Plasma Ordered By: Opal Rock on 04-03-2025 Anion gap [Moles/Vol] 13 mmol/L 5-[address] [facility] Automated lymphocyte count a s percentage of total leukocytesOrdered By: Opal Rock on 04-03-2025 Lymphocytes/100 WBC Auto (Unsp spec) 28.8 % 19- [facility] BUN/creatinine ratioOrdered By: Opal Rock on 04-03-2025 Urea nitrogen/Creatinine [Mass ratio] 12.6 mg/mg 10- [facility] Basophil percentageOrdered B y: Opal Rock on 04-03-2025 Basophils/100 WBC (Bld) 0.6 % 0-1 [facility] Bilirubin, totalOrdered By: Opal Rock on 04-03-2025 Bilirubin [Mass/Vol] 0.44 mg/dL 0.00-1.30 [facility] CBC W/Diff, Automatedon 03-06 Absolute Lymph 1.46 X10 3/uL Normal 0.83-4.51 [facility] Comment on above: Performed By: #### L 500.4050, L100.0100, L501.9520 #### [facility] [address] [place], [address] Absolute Neut 3.0 X10 3/uL Normal 2.0-7.7 [facility] Comment on above: Performed By: #### L 500.4050, L100.0100, L501.9520 #### [facility] [address] [place], [address] Basophils/100 WBC (Bld) 0.6 % Normal 0-1 [facility] Comment on above: Performed By: #### L 500.4050, L100.0100, L501.9520 #### [facility] [address] [place], [address] Eosinophils/100 WBC (Bld) 1.6 % Normal 0-5 [facility] Comment on above: Performed By: #### L 500.4050, L100.0100, L501.9520 #### [facility] [address] [place], [address] Erythrocyte distribution width (RBC) [Ratio] 12.1 % Normal 11.6-14.6 [facility] Comment on above: Performed By: #### L 500.4050, L100.0100, L501.9520 #### [facility] [address] [place], [address] Hematocrit (Bld) [Volume fraction] 39.8 % Normal 37-47 [facility] Comment on above: Performed By: #### L 500.4050, L100.0100, L501.9520 #### [facility] [address] [place], [address] Hemoglobin (Bld) [Mass/Vol] 13.6 g/dL Normal 12.0-15.0 [facility] Comment on above: Performed By: #### L 500.4050, L100.0100, L501.9520 #### [facility] [address] [place], [address] IG% 0.200 Normal 0.0-0.9 [facility] Comment on above: Result Comment: IG% - Immature Granulocytes (promyelocytes, myelocytes and metamyelocytes) > 1% indicates that a LEFT SHIFT is Present. Performed By: #### L 500.4050, L100.0100, L501.9520 #### [facility] [address] [place], [address] Lymphocytes/100 WBC (Bld) 28.8 % Normal 19-41 [facility] Comment on above: Performed By: #### L 500.4050, L100.0100, L501.9520 #### [facility] [address] [place], [address] MCH (RBC) [Entitic mass] 30.1 pg Normal 27.0-32.0 [facility] Comment on above: Performed By: #### L 500.4050, L100.0100, L501.9520 #### [facility] [address] [place], [address] MCHC (RBC) [Mass/Vol] 34.2 g/dL Normal 32-[address] [facility] Comment on above: Performed By: #### L 500.4050, L100.0100, L501.9520 #### [facility] [address] [place], [address] MCV (RBC) [Entitic vol] 88.1 fL Normal 81-99 [facility] Comment on above: Performed By: #### L 500.4050, L100.0100, L501.9520 #### [facility] [address] [place], [address] Monocytes/100 WBC (Bld) 10.1 % High 0-10 [facility] Comment on above: Performed By: #### L 500.4050, L100.0100, L501.9520 #### [facility] [address] [place], [address] Neutrophils/100 WBC (Bld) 58.7 % Normal 47-70 [facility] Comment on above: Performed By: #### L 500.4050, L100.0100, L501.9520 #### [facility] [address] [place], [address] Nucleated RBC (Bld) [#/Vol] 0 10*3/uL Normal 0-5 [facility] Comment on above: Performed By: #### L 500.4050, L100.0100, L501.9520 #### [facility] [address] [place], [address] Platelet mean volume (Bld) [Entitic vol] 11.0 fL Normal 6.2-12.0 [facility] Comment on above: Performed By: #### L 500.4050, L100.0100, L501.9520 #### [facility] [address] [place], [address] Platelets (Bld) [#/Vol] 191 10*3/uL Normal 150-450 [facility] Comment on above: Performed By: #### L 500.4050, L100.0100, L501.9520 #### [facility] [address] [place], [address] RBC (Bld) [#/Vol] 4.52 10*6/uL Normal 4.2-5.4 [facility] Comment on above: Performed By: #### L 500.4050, L100.0100, L501.9520 #### [facility] [address] [place], [address] RDW SD 39.1 fl Normal 35.1-43.9 [facility] Comment on above: Performed By: #### L 500.4050, L100.0100, L501.9520 #### [facility] [address] [place], [address] WBC (Bld) [#/Vol] 5.1 10*3/uL Normal 4.4-11.0 [facility] Comment on above: Performed By: #### L 500.4050, L100.0100, L501.9520 #### [facility] [address] [place], [address] Carbon dioxide, total [Moles /volume] in Central venous bloodOrdered By: Opal Rock on 04-03-2025 CO2 [Moles/Vol] 22.1 mmol/L 21.0-32.0 [facility] Chloride assayOrdered By: Lam bustoscong Rock on 04-03-2025 Chloride [Moles/Vol] 103 mmol/L 98-108 [facility] Comprehensive Metabolic Prof ilon 04-03-2025 Albumin [Mass/Vol] 4.7 g/dL Normal 3.5-5.0 [facility] Comment on above: Performed By: #### L 500.4050, L100.0100, L501.9520 #### [facility] [address] [place], [address] Albumin/Globulin [Mass ratio] 1.6 {ratio} Normal 0.9-2.4 [facility] Comment on above: Performed By: #### L 500.4050, L100.0100, L501.9520 #### [facility] [address] [place], [address] ALK PHOS 75 U/L Normal 35-104 [facility] Comment on above: Performed By: #### L 500.4050, L100.0100, L501.9520 #### [facility] [address] [place], [address] ALT [Catalytic activity/Vol] 13 U/L Normal <=34 [facility] Comment on above: Performed By: #### L 500.4050, L100.0100, L501.9520 #### [facility] [address] [place], [address] AST [Catalytic activity/Vol] 19 U/L Normal <=31 [facility] Comment on above: Performed By: #### L 500.4050, L100.0100, L501.9520 #### [facility] [address] [place], [address] Bilirubin [Mass/Vol] 0.44 mg/dL Normal 0.00-1.30 [facility] Comment on above: Performed By: #### L 500.4050, L100.0100, L501.9520 #### [facility] [address] [place], [address] BUN/CRE 12.6 RATIO Normal 10-20 [facility] Comment on above: Performed By: #### L 500.4050, L100.0100, L501.9520 #### [facility] [address] [place], [address] Calcium [Mass/Vol] 9.6 mg/dL Normal 7.6-11.0 [facility] Comment on above: Performed By: #### L 500.4050, L100.0100, L501.9520 #### [facility] [address] [place], [address] Chloride [Moles/Vol] 103 mmol/L Normal 98-108 [facility] Comment on above: Performed By: #### L 500.4050, L100.0100, L501.9520 #### [facility] [address] [place], [address] CO2 [Moles/Vol] 22.1 mmol/L Normal 21.0-32.0 [facility] Comment on above: Performed By: #### L 500.4050, L100.0100, L501.9520 #### [facility] [address] [place], [address] Creatinine [Mass/Vol] 0.79 mg/dL Normal 0.70-1.[address] [facility] Comment on above: Performed By: #### L 500.4050, L100.0100, L501.9520 #### [facility] [address] [place], [address] GAP 13 Normal 5-15 [facility] Comment on above: Performed By: #### L 500.4050, L100.0100, L501.9520 #### [facility] [address] [place], [address] GFR/1.73 sq M.predicted among non-blacks MDRD (S/P/Bld) [Vol rate/Area] 110 mL/min/{1.73_m2} Normal >60 [facility] Comment on above: Result Comment: mL/m in/1.73m2 CKD-EPI Creatinine Equation (2020) Performed By: #### L 500.4050, L100.0100, L501.9520 #### [facility] [address] [place], [address] Globulin (S) [Mass/Vol] 3.0 g/dL Normal 2.2-4.2 [facility] Comment on above: Performed By: #### L 500.4050, L100.0100, L501.9520 #### [facility] [address] [place], [address] Glucose [Mass/Vol] 84 mg/dL Normal 70-99 [facility] Comment on above: Performed By: #### L 500.4050, L100.0100, L501.9520 #### [facility] [address] [place], [address] Potassium [Moles/Vol] 4.0 mmol/L Normal 3.3-5.[address] [facility] Comment on above: Performed By: #### L 500.4050, L100.0100, L501.9520 #### [facility] [address] [place], [address] Sodium [Moles/Vol] 138 mmol/L Normal 133-145 [facility] Comment on above: Performed By: #### L 500.4050, L100.0100, L501.9520 #### [facility] [address] [place], [address] T PROT 7.7 g/dL Normal 5.9-8.4 [facility] Comment on above: Performed By: #### L 500.4050, L100.0100, L501.9520 #### [facility] [address] [place], [address] Urea nitrogen [Mass/Vol] 10 mg/dL Normal 4-19 [facility] Comment on above: Performed By: #### L 500.4050, L100.0100, L501.9520 #### [facility] [address] [place], [address] Comprehensive metabolic 2000 panelon 04-03-2025 Albumin [Mass/Vol] 4.6 g/dL Normal 3.9-4.[address] [facility] Comment on above: Order Comment: Speci men Type: BLOOD SPECIMENOrdering Facility: [facility] Address: [address] [place] [address] Performed By: #### 2 4323-8 ####[facility] LABCLIA [id number] [place] [address] [place] ALP [Catalytic activity/Vol] 71 U/L Normal 34-123 [facility] Comment on above: Order Comment: Speci men Type: BLOOD SPECIMENOrdering Facility: [facility] Address: [address] [place] [address] Performed By: #### 2 4323-8 ####[facility] LABCLIA [id number] [address] [address] [place] ALT [Catalytic activity/Vol] 14 U/L Normal 7-38 [facility] Comment on above: Order Comment: Speci men Type: BLOOD SPECIMENOrdering Facility: [facility] Address: [address] [place] [address] Performed By: #### 2 4323-8 ####[facility] LABCLIA [id number] [address] [address] [place] Anion gap [Moles/Vol] 15 mmol/L Normal 8-15 [facility] Comment on above: Order Comment: Speci men Type: BLOOD SPECIMENOrdering Facility: [facility] Address: [address] [place], [place] [address] Performed By: #### 2 4323-8 ####[facility] LABCLIA [id number] [address] [address] [place] AST [Catalytic activity/Vol] 15 U/L Normal 13-35 [facility] Comment on above: Order Comment: Speci men Type: BLOOD SPECIMENOrdering Facility: [facility] Address: [address] [place] [address] Performed By: #### 2 4323-8 ####[facility] LABCLIA [id number] [place] [id number] [place] Bilirubin [Mass/Vol] 0.4 mg/dL Normal 0.2-1.3 [facility] Comment on above: Order Comment: Speci men Type: BLOOD SPECIMENOrdering Facility: [facility] Address: [address] [place] [address] Performed By: #### 2 4323-8 ####[facility] LABCLIA [id number] [address] [address] [place] Calcium [Mass/Vol] 9.6 mg/dL Normal 8.5-10.[address] [facility] Comment on above: Order Comment: Speci men Type: BLOOD SPECIMENOrdering Facility: [facility] Address: [address] [place], [place] [address] Performed By: #### 2 4323-8 ####[facility] LABCLIA [id number] [address] [address] [place] Chloride [Moles/Vol] 101 mmol/L Normal 98-107 [facility] Comment on above: Order Comment: Speci men Type: BLOOD SPECIMENOrdering Facility: [facility] Address: [address] [place], [place] [address] Performed By: #### 2 4323-8 ####[facility] LABCLIA [id number] [address] [address] [place] CO2 [Moles/Vol] 21 mmol/L Low 22-30 [facility] Comment on above: Order Comment: Speci men Type: BLOOD SPECIMENOrdering Facility: [facility] Address: [address] [place] [address] Performed By: #### 2 4323-8 ####[facility] LABCLIA [id number] [place] [address] [place] Creatinine [Mass/Vol] 0.76 mg/dL Normal 0.58-0.96 [facility] Comment on above: Order Comment: Speci men Type: BLOOD SPECIMENOrdering Facility: [facility] Address: [address] [place] [address] Performed By: #### 2 4323-8 ####[facility] LABCLIA [id number] [place] [address] [place] eGFRcr SerPlBld CKD-EPI 2020 115 mL/min/1.73m??? Normal >=60 [facility] Comment on above: Order Comment: Speci men Type: BLOOD SPECIMENOrdering Facility: [facility] Address: [address] [place] [address] Result Comment: Ashely mated Glomerular Filtration Rate (eGFR) is calculated using the 2020 CKD-EPI creatinine equation. This equation utilizes serum creatinine, sex, and age as parameters. The creatinine assay has traceable calibration to isotope dilution-mass spectrometry. Refer to KDIGO guidelines for clinical interpretation. In patients with unstable renal function, e.g. those with acute kidney injury, the eGFR may not accurately reflect actual GFR. Performed By: #### 2 4323-8 ####[facility] LABCLIA [id number] [place] [address] [place] Glucose [Mass/Vol] 85 mg/dL Normal 74-[address] [facility] Comment on above: Order Comment: Speci men Type: BLOOD SPECIMENOrdering Facility: [facility] Address: [address] [place] [address] Result Comment: The [place] [employer] (ADA) provides guidance for cutoff values for fasting glucose and random glucose. The ADA defines fasting as no caloric intake for at least 8 hours. Fasting plasma glucose results between 100 to 125 mg/dL indicate increased risk for diabetes (prediabetes). Fasting plasma glucose results greater than or equal to 126 mg/dL meet the criteria for diagnosis of diabetes. In the absence of unequivocal hyperglycemia, results should be confirmed by repeat testing. In a patient with classic symptoms of hyperglycemia or hyperglycemic crisis, random plasma glucose results greater than or equal to 200 mg/dL meet the criteria for diagnosis of diabetes. Reference: Standards of Medical Care in Diabetes 2016, [place] [employer]. Diabetes Care. 2016.39(Suppl 1). Performed By: #### 2 4323-8 ####[facility] LABCLIA [id number] [place] [address] [place] Potassium [Moles/Vol] 3.8 mmol/L Normal 3.7-5.1 [facility] Comment on above: Order Comment: Speci men Type: BLOOD SPECIMENOrdering Facility: [facility] Address: [address] [place] [address] Performed By: #### 2 4323-8 ####[facility] LABCLIA [id number] [place] [address] [place] Protein [Mass/Vol] 7.6 g/dL Normal 6.3-8.[address] [facility] Comment on above: Order Comment: Speci men Type: BLOOD SPECIMENOrdering Facility: [facility] Address: [address] [place] [address] Performed By: #### 2 4323-8 ####[facility] LABCLIA [id number] [place] [id number] [place] Sodium [Moles/Vol] 137 mmol/L Normal 136-[address] [facility] Comment on above: Order Comment: Speci men Type: BLOOD SPECIMENOrdering Facility: [facility] Address: [address] [place] [address] Performed By: #### 2 4323-8 ####[facility] LABCLIA [id number] [place] [address] [place] Urea nitrogen [Mass/Vol] 9 mg/dL Normal 7-21 [facility] Comment on above: Order Comment: Speci men Type: BLOOD SPECIMENOrdering Facility: [facility] Address: [address] [place] [address] Performed By: #### 2 4323-8 ####[facility] [id number] [place] [address] [place] Eosinophil percentageOrdered By: Opal Rock on 04-03-2025 Eosinophils/100 WBC (Bld) 1.6 % 0-5 [facility] Erythrocyte distribution wid th ratioOrdered By: Opal Rock on 04-03-2025 Erythrocyte distribution width (RBC) [Ratio] 12.1 % 11.6-14.6 [facility] Erythrocyte distribution wid th standard deviationOrdered By: Opal Rock on 04-03-2025 Erythrocyte distribution width (RBC) [Ratio] 39.1 fl 35.1-43.9 [facility] Glomerular filtration rate ( GFR) estimation/1.73 sq m using serum, plasma, or whole bOrdered By: Opal Rock on 04-03-2025 GFR/1.73 sq M.predicted among non-blacks MDRD (S/P/Bld) [Vol rate/Area] 110 mL/min/{1.73_m2} >60 [facility] Comment on above: mL/min/1.73m2 CKD-EP I Creatinine Equation (2020) Hematocrit Auto (Bld) [Volum e fraction]Ordered By: Opal Rock on 04-03-2025 Hematocrit (Bld) [Volume fraction] 39.8 % 37-47 [facility] Hemoglobin measurementOrdere d By: Opal Rock on 04-03-2025 Hemoglobin (Bld) [Mass/Vol] 13.6 g/dL 12.0-15.0 [facility] Immature granulocytes/100 WB C Auto (Bld)Ordered By: Opal Rock on 04-03-2025 Immature granulocytes/100 WBC (Bld) 0.200 % 0.0-0.9 [facility] Comment on above: IG% - Immature Granu locytes (promyelocytes, myelocytes and metamyelocytes) > 1% indicates that a LEFT SHIFT is Present. Laboratory - Chemistry and C hemistry - challengeOrdered By: Opal Rock on 04-03-2025 AST [Catalytic activity/Vol] 19 U/L <32 [facility] MCV (mean corpuscular volume ) determinationOrdered By: Opal Rock on 04-03-2025 MCV (RBC) [Entitic vol] 88.1 fL 81-99 [facility] Mean corpuscular hemoglobin (MCH) determinationOrdered By: Opal Rock on 04-03-2025 MCH (RBC) [Entitic mass] 30.1 pg 27.0-32.0 [facility] Mean corpuscular hemoglobin concentration (MCHC) determinationOrdered By: Opal Rock on 04-03-2025 MCHC (RBC) [Mass/Vol] 34.2 g/dL 32-[address] [facility] Mean platelet volume determi nationOrdered By: Opal Rock on 04-03-2025 Platelet mean volume (Bld) [Entitic vol] 11.0 fL 6.2-12.0 [facility] Monocyte percentageOrdered B y: Opal Rock on 04-03-2025 Monocytes/100 WBC (Bld) 10.1 % High 0-10 [facility] Neutrophil percentageOrdered By: Opal Rock on 04-03-2025 Neutrophils/100 WBC (Bld) 58.7 % 47-70 [facility] Nucleated red blood cell per centageOrdered By: Opal Rock on 04-03-2025 Nucleated RBC/100 WBC (Bld) [Ratio] 0 % 0-5 [facility] Platelet countOrdered By: Lam Rock on 04-03-2025 Platelets (Bld) [#/Vol] 191 10*3/uL 150-450 [facility] Potassium measurement (mass/ volume)Ordered By: Opal Rock on 04-03-2025 Potassium (Unsp spec) [Mass/Vol] 4.0 mmol/L 3.3-5.1 [facility] RBC Auto (Bld) [#/Vol]Ordere d By: Opal Rock on 04-03-2025 RBC (Bld) [#/Vol] 4.52 10*6/uL 4.2-5.4 [facility] Serum creatinine measurement (mass/volume)Ordered By: Opal Rock on 04-03-2025 Creatinine [Mass/Vol] 0.79 mg/dL 0.70-1.[address] [facility] Serum globulin measurementOr dered By: Opal Rock on 04-03-2025 Globulin (S) [Mass/Vol] 3.0 g/dL 2.2-4.2 [facility] Serum glucose measurement (m ass/volume)Ordered By: Opal Rock on 04-03-2025 Glucose [Mass/Vol] 84 mg/dL 70-99 [facility] Serum or plasma alanine victor otransferase (ALT) measurementOrdered By: Opal Rock on 04-03-2025 ALT [Catalytic activity/Vol] 13 U/L <35 [facility] Serum or plasma albumin yady urement (mass/volume)Ordered By: Opal Rock on 04-03-2025 Albumin [Mass/Vol] 4.7 g/dL 3.5-5.0 [facility] Serum or plasma albumin/glob ulin mass ratioOrdered By: Opal Rock on 04-03-2025 Albumin/Globulin [Mass ratio] 1.6 {ratio} 0.9-2.4 [facility] Serum or plasma alkaline ava sphatase measurementOrdered By: Opal Rock on 04-03-2025 ALP [Catalytic activity/Vol] 75 U/L 35-104 [facility] Serum or plasma calcium yady urement (mass/volume)Ordered By: Opal Rock on 04-03-2025 Calcium [Mass/Vol] 9.6 mg/dL 7.6-11.0 [facility] Serum or plasma urea nitroge n measurement (mass/volume)Ordered By: Opal Rock on 04-03-2025 Urea nitrogen [Mass/Vol] 10 mg/dL 4-19 [facility] Sodium levelOrdered By: Luep Rock on 04-03-2025 Sodium [Moles/Vol] 138 mmol/L 133-145 [facility] TSH DL <= 0.005 mIU/L QnOrde red By: Opal Rock on 04-03-2025 TSH Qn 6.030 uIU/mL High 0.300-4.200 [facility] Thyroid Stim Hormone (TSH)on 04-03-2025 TSH 6.030 uIU/mL High 0.300-4.200 [facility] Comment on above: Performed By: #### L 500.4050, L100.0100, L501.9520 ####[facility] [id number] [facility] [place], [place], [id number] Total proteinOrdered By: Layla Rock on 04-03-2025 Protein [Mass/Vol] 7.7 g/dL 5.9-8.4 [facility] White blood cell (WBC) count Ordered By: Opal Rock on 04-03-2025 WBC (Bld) [#/Vol] 5.1 10*3/uL 4.4-11.0 [facility] Abdomen/Pelvis WITH Contrast on 02-26-2025 Abdomen/Pelvis WITH Contrast [facility] [address] [place] [address] Abdomen/Pelvis WITH Contrast MR#: [id number] Acct: [id number] Name: MARITZA GARAY Rep #: [id number] : 2005 F 19 From: José lindsey MD PCP: Dr. 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 CONTRAST: Isovue 3 7 VOLUME: 95 mL One or more dose reduction techniques were used (e.g., Automated exposure control, adjustment of the mA and/or kV according to patient size, use of iterative reconstruction technique. RADIATION DOSE SUMMARY: CTDlvol: 8.6 mGy DLP: 411.66 mGycm COMPARISON: Prior study dated November 23, 2024. FINDINGS: Lung bases: Clear. Liver: Normal size. No mass. Gallbladder: Unremarkable Spleen: Borderline splenomegaly. Pancreas: Normal size without evidence of mass surrounding inflammation or ductal dilation. Adrenals: Unremarkable Kidneys: Normal renal sizes. No hydronephrosis. Bladder: Unremarkable Reproductive Organs: Unremarkable Bowel: Unremarkable Appendix: Unremarkable Lymph nodes: No significant lymph nodes are seen. Vasculature: The abdominal aorta and IVC are normal. Peritoneum / Retroperitoneum: Unremarkable Bones: Straightening of the normal lumbar lordosis. Reading Location: [id number] CC: JOSH Rock; Dr. 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 Susceptibility testing not performed on beta hemolytic streptococci due to predictable susceptibility to penicillin and other beta lactams. For testing, call Microbiology within 72 hours. Normal [facility] Comment on above: Performed By: #### 6 30-4 ####[facility] LABCLIA [id number] [address] [place] CNOVon 01-30-2025 CNOV Office Visit (UCWSTR ) MARITZA GARAY ([id number]) 3 F Date Time Provider Department 01/30/25 2:15 PM KANDACE URRUTIA WSTR During your visit today, we recorded the following information about you: Temperature Pulse Respiration Blood pressure 97.4 degrees 81/minute 18/minute 119/82 Weight Last Period 72 kg 01/30/25 Kandace Urrutia APRN.PIER HAND 01/30/2025 2:42 PM Signed [facility] Subjective Maritza Garay is a 19 year old female. Patient presents with: Urinary Problem: Frequency and burning x 1 week HPI Urinary Symptoms: - Onset approximately one week ago. - Symptoms include urinary frequency, dysuria, and lower abdominal pain. - Took Azo for symptom relief. - Reports mild back pain. - Denies fever, chills, nausea, or emesis. - Recent menstruation ended about a week ago. Review of Systems Constitutional: Negative for chills and fever. Respiratory: Negative. Cardiovascular: Negative. Gastrointestinal: Positive for abdominal pain. Negative for nausea and vomiting. Genitourinary: Positive for dysuria and frequency. Negative for difficulty urinating, flank pain, hematuria and urgency. Musculoskeletal: Positive for back pain. Skin: Negative for rash. Constitutional: (-) fever, (-) chills Genitourinary: (+) urinary frequency, (+) dysuria, (+) lower abdominal pain Musculoskeletal: (+) back pain Objective BP 119/82 Pulse 81 Temp 36.3 ?C (97.4 ?F) Resp 18 Wt 72 kg (158 lb 11.7 oz) LMP 01/30/2025 (Approximate) SpO2 100% BMI 25.62 kg/m? PAST MEDICAL HISTORY Diagnosis Date - NEGATIVE MEDICAL HISTORY PAST SURGICAL HISTORY Procedure Laterality Date - EXCISION GANGLION WRIST DORSAL/VOLAR PRIMARY Right 04/03/2024 Right wrist, 4th extensor compartment tenosynovectomy - NASAL/SINUS NDSC DSTRJ RF ABLATION PST NSL NRV ALLERGIES Patient has no known allergies. MEDICATIONS - hydrOXYzine HCl (ATARAX) 50 mg tablet Take 2 tablets by mouth daily at bedtime. - desvenlafaxine ER (PRISTIQ) 100 mg 24 hr tablet Take 1 tablet by mouth once daily. - APRI 0.15-0.03 mg per tablet - nitrofurantoin monohydrate and macrocrystal (MACROBID) 100 mg capsule Take 1 capsule by mouth two times a day for 5 days. - buPROPion XL (WELLBUTRIN XL) 150 mg 24 hr tablet Take 1 tablet by mouth every morning. (Patient not taking: Reported on 01/30/2025) - cetirizine (ZYRTEC) 10 mg tablet TAKE 1 TABLET BY MOUTH EVERY DAY (Patient not taking: Reported on 01/30/2025) - triamcinolone acetonide (KENALOG) 0.5 % cream Apply to affected area three times a day. (Patient not taking: Reported on 01/30/2025) FAMILY HISTORY Problem Relation Age of Onset - other (MVP) Mother Social History Tobacco Use - Smoking status: Never - Smokeless tobacco: Never Vaping Use - Vaping status: Never Used Substance Use Topics - Alcohol use: Never - Drug use: Never Physical Exam Vitals and nursing note reviewed. Constitutional: General: She is not in acute distress. Appearance: Normal appearance. She is not ill-appearing. Cardiovascular: Rate and Rhythm: Normal rate and regular rhythm. Heart sounds: Normal heart sounds. Pulmonary: Effort: Pulmonary effort is normal. No respiratory distress. Breath sounds: Normal breath sounds. No wheezing or rales. Abdominal: General: There is no distension. Palpations: Abdomen is soft. There is no mass. Tenderness: There is no abdominal tenderness. There is no right CVA tenderness, left CVA tenderness or guarding. Skin: General: Skin is warm and dry. Neurological: Mental Status: She is alert. General: No acute distress. CV: Heart sounds auscultated. Resp: Lung sounds auscultated. Back: No costovertebral angle tenderness. Abd: Lower abdominal tenderness. {1. Urinary frequency (R35.0) 2. Urinary tract infection with hematuria, site unspecified (N39.0) 3. Hematuria, unspecified type (R31.9) 4. Proteinuria, unspecified type (R80.9) - Urinalysis shows hematuria, proteinuria, and pyuria. - Initiated antibiotic therapy; prescription sent to pharmacy. - Urine sample sent for culture to identify specific bacteria and confirm antibiotic sensitivity. - Advised patient to maintain adequate hydration and avoid sugary beverages. - Instructed to complete the full course of antibiotics unless notified of a change based on culture results. - Follow-up with your PCP in 3-5 days if symptoms have not improved or sooner if symptoms worsen - Discussed red flags and need for immediate medical evaluation if any occur. - Discussed supportive care treatment with fluids, rest and analgesia. - Discussed expected course of illness Kandace Urrutia APRN.PIER HAND and Recording using [employer]deal[employer] software for draft documentation of the visit was discussed with the patient/authorized manufacturing sales representative; all questions welcomed and answered. Patient/ (more content not included)... Normal [facility] UA DIP, URINE (POC)on 2024 BILIRUBIN UA (POCT) Negative Negative [facility] CLARITY UA (POCT) Turbid [facility] COLOR UA (POCT) Dark yellow [facility] GLUCOSE UA (POCT) Negative Negative mg/dL [facility] Hemoglobin Ql (U) Moderate Abnormal Negative [facility] Interpretation and review of laboratory results Abnormal [facility] KETONE UA (POCT) Negative Negative mg/dL [facility] LEUKOCYTES UA (POCT) Small Abnormal Negative [facility] NITRITE UA (POCT) Negative Negative [facility] PH UA (POCT) 5.5 4.5 - 8.0 [facility] Protein Ql (U) 100 mg/dL Abnormal Negative [facility] SPECIFIC GRAVITY UA (POCT) >=1.030 1.005 - 1.030 [facility] UROBILINOGEN UA (POCT) 0.2 Natalie l E.U./dL [facility] Location:[address], [place], [place], [id number] [place] [address] POINT OF CARE [facility] Gastroenterology Visit Repor ton 01-09-2025 Gastroenterology Visit Report [facility] Gastroenterology [address] [facility] [place] [address] OFFICE VISIT Date of Service: 01/09/25 MR#: [id number] Acct: [id number] Name: MARITZA GARAY Rep #: [id number] : 2005 Provider: JOSH tapia Age/Sex: 19/F Location: [facility] [place] Status: Signed Intake Vital Signs 12/24/24 08:39 01/09/25 15:02 Height 5 ft 6 in 5 ft 6 in Weight: 155 lb 162 lb 4 oz BMI 25.0 26.2 BP 114/80 106/83 H Respiration 16 16 Pulse 91 82 Pulse Oximetry (%) 98 95 Oxygen Delivery Method room air room air Intake Visit Reasons: 2 W FU Chief Complaint: abdominal pain Service Car Operator Required: No Accompanied by: Self Is patient in pain?: No Allergies No Known Allergies Allergy (Verified 01/09/25 15:00) Medications ???Medication ???Instructions ???Recorded ???Confirmed ???Type desogestrel 0.15 mg-ethinyl 1 tab PO DAILY #84 tabs 11/01/24 0 01/09/25 Rx estradiol 0.03 mg tablet (Apri) desvenlafaxine 100 mg 100 mg PO QDAY 11/28/24 01/09/25 H istory tablet,extended release 24 hr hydroxyzine HCl 10 mg tablet 10 mg PO TID PRN 11/28/24 01/09/25 History hydroxyzine HCl 50 mg tablet 50 mg PO QHS 11/28/24 01/09/25 His tory pantoprazole 40 mg tablet,delayed 40 mg PO QDAY #30 tabs 12/24/24 0 01/09/25 Rx release metronidazole 250 mg tablet 250 mg PO TID 10 days #30 tabs 01/09/25 Rx PFSH Medical History Contraceptive management Surgical History H/O wrist surgery History of removal of cyst H/O of nasal cauterization Family History Sister Asthma Grandmother Celiac disease IBS (irritable bowel syndrome) Stomach ulcer Social History Smoking Status: Never smoker alcohol intake: current alcohol intake frequency: a few times a month Alcohol type: beer substance use type: marijuana seatbelt use: always HPI HPI Chief Complaint: abdominal pain Details: MARITZA GARAY, is a 19 F who presents to the office today for OV 12/24/2024 19y/o female presents for consultation with complaints abdominal cramping/pain and diarrhea x4-6 weeks, early satiety, and nausea with a 10 pound weight loss over the past 3 weeks. She was seen in the emergency department on 11/23/2024 with complaints of abdominal cramping, nausea and [address] scan and labs were unremarkable. Her symptoms have been severe enough that she has been unable to work. She is experiencing frequent diarrhea, nocturnal diarrhea, urgency and episodes of fecal incontinence. She previously noted mild improvement in symptoms with dicyclomine. I have ordered stool testing, abdominal ultrasound and started her on pantoprazole 40 mg once daily. She will follow-up in the office in 2 weeks. Patient Instructions: Complete PD4 GI stool testing - kit provided to patient Resume Dicyclomine 10mg TID AC Start pantoprazole 40mg daily after completion of stool tetsing ABD US Follow-up in 2 weeks - STOOL: Blastocystis Hominis - started on Metronidazole 250mg TID x10 days - weight is up 7lbs in the past 2 weeks - she reports early satiety has improved and she is eating better - she reports abdominal cramping.pain remains in the lower abdomen - no change with dicyclomine - dicycmoine causes dizziness and blurry vision - she is still having diarrhea, watery stools, 1-2x a day - urgency - [place] 5-6 - symptoms now ongoing for a couple months - denies any dietary changes - she reports she is missing work due to symptoms due to nausea and urgency with stools and abdominal cramping - c/o hot flashes - missing full days or work - denies any fevers - c/o night sweats - menstrual cycles are regular ROS Const Constitutional: Positive for fatigue and headache(s); No fever(s) or weight change ENT ENT: Positive for headache(s); No difficulty swallowing Gastro GI: Positive for abdominal pain, bloating, change in bowel habits, diarrhea, heartburn and nausea/dyspepsia; No belching, change in stool character, coffee ground emesis, constipation, cramping, difficulty swallowing, feeling full early, excessive flatus, incontinent of stools, Vomiting blood/hematemesis, Blood in stool, loose stools, Black,tarry stools, pain with swallowing or other Musc Musculoskeletal: Positive for back pain; No joint pain Skin Skin: No yellowing of the eye or itchy eyes Neuro Neurology: Positive for headache(s) Psych Psychiatric: Positive for anxiety, Positive for depression and Positive for inattentiveness Endo Endocrine: Positive for fatigue; No weight change Aller/Imm Allergy/Immunologic: No itchy (more content not included)... Normal [facility] Abdomen Limitedon 12-30-2024 Abdomen Limited [facility] Imaging Services [address] [place] [address] Abdomen Limited MR#: [id number] Acct: [id number] Name: MARITZA GARAY Rep #: [id number] : 2005 F 19 From: Ayo Temple MD PCP: Dr. Rea Polo MD Status: REG CLI Study: Abdomen Limited Date of Exam: 12/30/24 Exam# [id number] Ordering Dr: Opal Rock PROCEDURE: ABDOMEN LIMITED (USABDL), 12/30/2024 REASON FOR EXAM: ABDOMINAL PAIN. N/V COMPARISON: Noncontrast CT abdomen and pelvis 11/23/2024 FINDINGS: Liver: Unremarkable. 15.0 cm in length. Gallbladder: Question faint layering sludge versus artifact. No visualized stones, wall thickening or pericholecystic fluid. Reportedly, sonographic Koroma's was negative. Biliary tree: Unremarkable. CBD measures 4 mm. Pancreas: Partially obscured by shadowing bowel gas, grossly unremarkable as visualized. Right kidney: Unremarkable. 10.6 cm in length. Other: No visualized free fluid. US/Abdomen Limited IMPRESSION: 1. No acute findings. If unexplained symptoms persist, consider repeat CT abdomen/pelvis with IV contrast. 2. Additional description as above. Reading Location: [id number] CC: JOSH Rock; Dr. Rea oPlo MD Barrel Lathe Operator Inside: Signed Normal [facility] Gastroenterology Visit Repor ton 12-24-2024 Gastroenterology Visit Report [facility] Gastroenterology [address] [place] [address] OFFICE VISIT Date of Service: 12/24/24 MR#: [id number] Acct: [id number] Name: MARITZA GARAY Rep #: [id number] : 2005 Provider: JOSH tapia Age/Sex: 19/F Location: [facility] [place] Status: Signed Intake Vital Signs 11/28/24 09:02 12/24/24 08:39 Height 5 ft 6 in 5 ft 6 in Weight: 162 lb 4 oz 155 lb BMI 26.2 25.0 BP 124/78 H 114/80 Respiration 16 Pulse 91 Pulse Oximetry (%) 98 Oxygen Delivery Method room air Intake Visit Reasons: PELVIC AND PERINEAL PAIN Chief Complaint: abdominal pain Service Car Operator Required: No Is patient in pain?: Yes Allergies No Known Allergies Allergy (Verified 12/24/24 08:33) Medications ???Medication ???Instructions ???Recorded ???Confirmed ???Type desogestrel 0.15 mg-ethinyl 1 tab PO DAILY #84 tabs 11/01/24 0 12/24/24 Rx estradiol 0.03 mg tablet (Apri) desvenlafaxine 100 mg 100 mg PO QDAY 11/28/24 12/24/24 H istory tablet,extended release 24 hr hydroxyzine HCl 10 mg tablet 10 mg PO TID PRN 11/28/24 12/24/24 History hydroxyzine HCl 50 mg tablet 50 mg PO QHS 11/28/24 12/24/24 His tory dicyclomine 10 mg capsule 10 mg PO TID #90 caps 12/24/24 Rx pantoprazole 40 mg tablet,delayed 40 mg PO QDAY #30 tabs 12/24/24 0 12/24/24 Rx release Nurse's Note: Cramp like pain in mid abdomen that comes and goes for no reason but is there more than it is not. Has a lot of nausea and gets really hot sometimes too. Has frequent diarrhea throughout the day. Had bleeding vaginally about two weeks ago that was after she saw GROUNDS [employer]ERSON and she reported it to them but didn't hear back. Was taking calcium, biotin, chlorophyl as a natural deodorant and probiotic but she stopped taking them when this all started. [facility] Medical History Contraceptive management Surgical History H/O wrist surgery History of removal of cyst H/O of nasal cauterization Family History Sister Asthma Grandmother Celiac disease IBS (irritable bowel syndrome) Stomach ulcer Social History Smoking Status: Never smoker alcohol intake: current alcohol intake frequency: a few times a month Alcohol type: beer substance use type: marijuana seatbelt use: always HPI HPI Chief Complaint: abdominal pain Details: MARITZA GARAY, is a 19 F who presents to the office today for ER 11/23/2024 Patient presents with abdominal pain that started 6 days ago. Patient states that she has had pain off and on. She describes it like period cramping but her last menstrual period was about 2 weeks ago. She denies urinary symptoms. Yesterday the pain was severe and had nausea and did vomit once. She also had some watery stool over the last several days about twice a day. Denies any blood in her stool. No history of inflammatory bowel disease. Patient currently on control oral contraceptive. At his most severe the pain is about an 8 out of 10. No history of kidney stones or prior abdominal surgeries. CBC CMP unremarkable 11/23/2024 CT 11/23/2024 NO ACUTE FINDINGS AT THE ABDOMEN OR PELVIS ON NONCONTRAST CT. AUDIO INSTALLER consult 11/28/2024 19 year old who presents for pelvic cramping; she reports they feel like period cramps--she is not due to start her menses until next week. Pelvic pain comes and goes; sometimes this is intense other times mild in nature. She reports this discomfort is across the pelvis; mildly worse on the right side. She has noticed this for about 2 weeks. She was given dicyclomine in the ER due to also having recent diarrhea-feels this has helped some. . She is currently sexually active. Denies fevers, chills, or vaginal symptoms. She is taking her OCP compliantly. test and urine UA in the ER on 11/23/24 negative. Pelvic US 12/09/2024 Right ovary: 2.3 x 1.6 x 1.6 cm (estimated volume 4.5 mL), unremarkable. Left ovary: 3.8 x 2.7 x 2.6 cm (estimated volume 14.0 mL), unremarkable. 1. Relative enlargement of the LEFT ovary is of uncertain significance and could indeed be related to small size of the RIGHT ovary given that LEFT ovarian volume is high-normal for age. If there is concern for ovarian torsion, recommend a repeat exam with spectral Doppler for evaluation of arterial and venous waveforms. Otherwise if unexplained symptoms persist, consider a repeat CT abdomen/pelvis with contrast. - c/o abdominal pain/cramping - diarrhea 5-6x a day - prior to onset of symptoms she rpeorts she would have occasional constipation and never more than 1 BM daily - symptoms for over a month - stomach (more content not included)... Normal [facility] Pelvic w/ Transvaginalon Pelvic w/ Transvaginal [facility] Imaging Services [address] [place] [address] Pelvic w/ Transvaginal MR#: [id number] Acct: [id number] Name: MARITZA GARAY Rep #: [id number] : 2005 F 19 From: Ayo Temple MD PCP: Dr. Rea Polo MD Status: REG CLI Study: Pelvic w/ Transvaginal Date of Exam: 12/09/24 Exam# [id number] Ordering Dr: Courtney Ac DOUGH BRAKE MACHINE OPERATOR-C PROCEDURE: PELVIC W/ TRANSVAGINAL (USPELTVAG), 12/09/2024 REASON FOR EXAM: PERSISTANT PELVIC PAIN TECHNIQUE: Grayscale and color doppler transabdominal and transvaginal pelvic ultrasound was performed. COMPARISON: 11/23/2024 FINDINGS: Uterus: 7.13.3 x 2.8 cm, Anteverted. Unremarkable echotexture. Endometrium: 4 mm, faintly trilaminar possibly proliferative phase appearance. Cervix: Unremarkable. Right ovary: 2.3 x 1.6 x 1.6 cm (estimated volume 4.5 mL), unremarkable. Left ovary: 3.8 x 2.7 x 2.6 cm (estimated volume 14.0 mL), unremarkable. Free fluid: None visualized. Other: Estimated bladder volume 284 mL. US/Pelvic w/ Transvaginal IMPRESSION: 1. Relative enlargement of the LEFT ovary is of uncertain significance and could indeed be related to small size of the RIGHT ovary given that LEFT ovarian volume is high-normal for age. If there is concern for ovarian torsion, recommend a repeat exam with spectral Doppler for evaluation of arterial and venous waveforms. Otherwise if unexplained symptoms persist, consider a repeat CT abdomen/pelvis with contrast. 2. Additional description as above. Reading Location: [id number] CC: JOSH Ac; Dr. Rea Polo MD Barrel Lathe Operator Inside: Signed Normal [facility] Genital Culture Comprehensiv kisha 12-01-2024 VAC Reason for Exam: pelvic pain Normal vaginal luc isolated. No yeast, Gardnerella, or Neisseria isolated. Genital Culture Comprehensive Streptococcus group B Amount Growth Rare Normal [facility] Comment on above: Performed By: #### M 100.3200, M100.1999, L7000.1800 ####[facility] [id number] [place], [address] Chlamydia/GC VERONICA aptimaon CHLAMY,NUC ACID Negative Normal Negative [facility] Comment on above: Performed By: #### M 100.3200, M100.1999, L7000.1800 ####[facility] [id number] [place], [address] GC BY NUC ACID Negative Normal Negative [facility] Comment on above: Result Comment: Perf ormed at: =G - [facility] [address] [id number] Drum Stock Clerk: Cady Salgado MD, Phone: [phone] Performed By: #### M 100.3200, M100.1999, L7000.1800 ####[facility] [id number] [place], [address] C. trachomatis rRNA VERONICA+prob e Ql (Unsp spec)Ordered By: Courtney Ac on 11-28-2024 Chlamydia DNA (VERONICA) Negative Negative [facility] Chlamydia trachomatis rRNA d etection by probe and target amplification methodOrdered By: Courtney Ac on 11-28-2024 C. trachomatis rRNA VERONICA+probe Ql (Unsp spec) Negative Negative [facility] Genital cultureOrdered By: Arlin Ac on 11-28-2024 Genital Culture Streptococcus group B Abnormal [facility] Gram Stainon 11-28-2024 GS Reason for Exam: pelvic pain Gram Stain 4+ Gram positive rods No Gram negative diplococci 1+ Epithelial cells Score = 0 Interpretation: 0-3 Normal, 4-6 Intermediate, 7-10 Positive BV Normal [facility] Comment on above: Performed By: #### M 100.3200, M100.2000, L7000.1800 ####[facility] [id number] [place], [place], [id number] Gram stainOrdered By: Courtney Ac on 11-28-2024 Microscopic observation Gram stain Nom (Unsp spec) [facility] Neisseria gonorrhoeae nuclei c acid detection by amplified probe techniqueOrdered By: Courtney Ac on 11-28-2024 N. gonorrhoeae DNA VERONICA+probe Ql (Unsp spec) Negative Negative [facility] Comment on above: Performed at: =[address] [id number] Director: Cady Salgado MD, Phone: [phone] No Panel InformationOrdered By: Courtney Ac on 11-28-2024 POC Bacterial Vaginitis (Rapid) Negative [facility] POC Trichomonas (Rapid) Negative [facility] Chair Frame Builder Office Visit Reporton 11-28-2024 Chair Frame Builder Office Visit Report [facility] [address], [address] [place] [address] OFFICE VISIT Date of Service: 11/28/24 MR#: [id number] Acct: [id number] Name: MARITZA GARAY Rep #: [id number] : 2005 Provider: JOSH Mcgraw Age/Sex: 19/F Location: [facility] [place] Status: Signed Intake Vital Signs 11/01/24 15:43 11/23/24 14:46 11/28/24 09:02 Height 5 ft 6 in 5 ft 6 in 5 ft 6 in Weight: 162 lb 4 oz BMI 26.2 BP 124/78 H Intake Visit Reasons: pelvic cramping no bleeding Service Car Operator Required: No Is patient in pain?: Yes (pelvic pain, seems to randomly come and go, no specific pattern) Allergies No Known Allergies Allergy (Verified 11/28/24 09:05) Medications ???Medication ???Instructions ???Recorded ???Confirmed ???Type desogestrel 0.15 mg-ethinyl 1 tab PO DAILY #84 tabs 11/01/24 0 11/28/24 Rx estradiol 0.03 mg tablet (Apri) dicyclomine 10 mg capsule 20 mg (2 x 10 mg) PO TIDAC #20 11/28/24 Rx CAPSULES desvenlafaxine 100 mg 100 mg PO QDAY 11/28/24 11/28/24 H istory tablet,extended release 24 hr hydroxyzine HCl 10 mg tablet 10 mg PO TID PRN 11/28/24 11/28/24 History hydroxyzine HCl 50 mg tablet 50 mg PO QHS 11/28/24 11/28/24 His tory Post menopausal: No Patient : No : No PFSH Medical History Contraceptive management Surgical History H/O wrist surgery History of removal of cyst H/O of nasal cauterization Family History Sister Asthma Social History Smoking Status: Never smoker alcohol intake: never substance use type: does not use seatbelt use: always HPI pelvic cramping no bleeding Details: MARITZA GARAY is a 19 year old who presents for pelvic cramping; she reports they feel like period cramps--she is not due to start her menses until next week. Pelvic pain comes and goes; sometimes this is intense other times mild in nature. She reports this discomfort is across the pelvis; mildly worse on the right side. She has noticed this for about 2 weeks. She was given dicyclomine in the ER due to also having recent diarrhea-feels this has helped some. . She is currently sexually active. Denies fevers, chills, or vaginal symptoms. She is taking her OCP compliantly. test and urine UA in the ER on 11/23/24 negative. Female Reproductive History Last Menstrual Period: 11/07/24 Cycle Length: 21-35 Questions: metorrhagia: No, sexually active: Yes, dyspareunia: Yes and PCB: Yes (occasional) ROS Const Constitutional: Denies chills, fatigue, fever(s) or weight loss Resp Resp: Denies dyspnea GI GI: Reports abdominal pain and cramping : Reports pelvic pain (see HPI); Denies difficulty voiding, dysuria, vaginal discharge, vaginal dryness, vaginal odor or vaginal pruritus Exam Const General: cooperative and no acute distress Orientation: oriented x3 HENMT Head: normal to inspection and normocephalic Eyes General: appearance normal, both eyes and all related structures Neck Neck: normal visual inspection Resp Effort Inspection: normal respiratory effort External Female Exam: normal external appearance and normal appearance of the urethra Urethra: normal appearance of the urethra Speculum Exam - Vagina: normal appearance of the vagina, normal vaginal discharge, No vaginal bleeding and nontender Speculum Exam - Cervix: normal appearance of the cervix and nontender Bimanual Exam- Vagina Uterus: normal bimanual exam, normal palpation, uterine size normal, No tender and non-tender Bimanual Exam- Adnexa, other: normal adnexae, no masses and normal Pelvic Support: normal OB/External Speculum: No vaginal bleeding Speculum Exam: no vaginal bleeding Neuro Cognition: normal cognition Speech: speech normal Psych Appearance: grossly normal Mood: congruent mood Affect: normal affect Speech and Movement: speech and movement normal Attitude: cooperative Judgment: judgment good Coding Level of Care Code Established Pt Off vis,est,level 3 Patient Type Established Diagnoses Possible exposure to STI Z20.2 Pelvic pain R10.2 Assessment and Plan Assessment and Plan (1) Possible exposure to STI: Status: Acute Plan: Cultures obtained today; final plan with results. (2) Pelvic pain: Status: Acute Comment: improved since on dicyclomine. Plan: expectant management x 1 week. If symptoms persist and cultures negative consider ultrasound. Orders: Orders Chlamydia/GC VERONICA aptima Today R10.2 - Pelvic and perineal pain POC BV Blue Test Today R10.2 - Pelvic and perineal pain POC Trichomonas Vaginalis (more content not included)... Normal [facility] Abdomen/Pelvis without Conto n 11-23-2024 Abdomen/Pelvis without Cont [facility] Services [address] [place], [place] [id number] Abdomen/Pelvis without Cont MR#: [id number] Acct: [id number] Name: MARITZA GARAY Rep #: [id number] : 2005 F 19 From: Karolyn Ledezma nd, MD PCP: Dr. Rea Polo MD Status: REG ER Study: Abdomen/Pelvis without Cont Date of Exam: 11/03 10/29 Exam# [id number] Ordering Dr: Graham Birmingham DO PROCEDURE: ABDOMEN/PELVIS WITHOUT CONT 11/23/2024 REASON FOR EXAM: 19-year-old female, lower abdominal pain. TECHNIQUE: Abdomen and pelvis CT without intravenous contrast. Coronal and Sagittal reconstruction series were provided. One or more dose reduction techniques were used (e.g., Automated exposure control, adjustment of the mA and/or kV according to patient size, use of iterative reconstruction technique). PATIENT PREPARATION: Per protocol COMPARISON: None. FINDINGS: Noncontrast technique limits evaluation of the abdominal and pelvic viscera. Lung bases: The heart is normal in size. The lung bases are unremarkable. Liver: The unopacified liver is normal in size. No biliary ductal dilation. Gallbladder: No radiopaque stones within the gallbladder. Spleen: Unremarkable. Pancreas: The unopacified pancreas is unremarkable. Adrenals: Unremarkable. Kidneys: No hydronephrosis or nephrolithiasis. Bladder: The urinary bladder is minimally distended. Reproductive Organs: Normal uterine size and contour. Ovaries are unremarkable. Bowel: The bowel loops are normal in caliber. No ascites or pneumoperitoneum. Normal appendix. Lymph nodes: No suspicious lymph node enlargement. Vasculature: The abdominal aorta and IVC contours are normal. Noncontrast technique limits evaluation. Bones: No aggressive osseous lesions. CT/Abdomen/Pelvis without Cont IMPRESSION: NO ACUTE FINDINGS AT THE ABDOMEN OR PELVIS ON NONCONTRAST CT. Reading Location: [facility] CC: Dr. Rea Polo MD; Dr. Graham Birmingham DO Barrel Lathe Operator Inside: Signed Normal [facility] Absolute lymphocyte countOrd ered By: Graham Birmingham on 11-23-2024 Lymphocytes Auto (Unsp spec) [#/Vol] 2.24 10*3/uL 0.83-4.51 [facility] Absolute neutrophil countOrd ered By: Graham Birmingham on 11-23-2024 Neutrophils (Bld) [#/Vol] 3.3 10*3/uL 2.0-7.7 [facility] Anion gap in Serum or Plasma Ordered By: Graham Birmingham on 11-23-2024 Anion gap [Moles/Vol] 13 mmol/L 5-[address] [facility] Automated lymphocyte count a s percentage of total leukocytesOrdered By: Graham Birmingham on 11-23-2024 Lymphocytes/100 WBC Auto (Unsp spec) 34.5 % 19-41 [facility] BUN/creatinine ratioOrdered By: Graham Birmingham on 11-23-2024 Urea nitrogen/Creatinine [Mass ratio] 14.8 mg/mg 10-20 [facility] Basophil percentageOrdered B y: Graham Birmingham on 11-23-2024 Basophils/100 WBC (Bld) 0.3 % 0-1 [facility] Beta HCG ( test) Ql Ordered By: Graham Birmingham on 11-23-2024 Serum Test, Qualitative Negative [facility] Bilirubin Test strip Ql (U)O rdered By: Graham Birmingham on 11-23-2024 Bilirubin Ql (U) Negative Negative [facility] Bilirubin, totalOrdered By: Graham Birmingham on 11-23-2024 Bilirubin [Mass/Vol] 0.26 mg/dL 0.00-1.30 [facility] CBC W/Diff, Automatedon 11-03 Absolute Lymph 2.24 X10 3/uL Normal 0.83-4.51 [facility] Comment on above: Performed By: #### L 100.0100 ####[facility] [address] [place], [place], [id number] Absolute Neut 3.3 X10 3/uL Normal 2.0-7.7 [facility] Comment on above: Performed By: #### L 100.0100 ####[facility] [address] [place], [address] Basophils/100 WBC (Bld) 0.3 % Normal 0-1 [facility] Comment on above: Performed By: #### L 100.0100 ####[facility] [address] [place], [address] Eosinophils/100 WBC (Bld) 3.7 % Normal 0-5 [facility] Comment on above: Performed By: #### L 100.0100 ####[facility] [address] [place], [address] Erythrocyte distribution width (RBC) [Ratio] 12.9 % Normal 11.6-14.6 [facility] Comment on above: Performed By: #### L 100.0100 ####[facility] [address] [place], [address] Hematocrit (Bld) [Volume fraction] 36.8 % Low 37-47 [facility] Comment on above: Performed By: #### L 100.0100 ####[facility] [address] [place], [address] Hemoglobin (Bld) [Mass/Vol] 12.4 g/dL Normal 12.0-15.0 [facility] Comment on above: Performed By: #### L 100.0100 ####[facility] [address] [place], [address] IG% 0.200 Normal 0.0-0.9 [facility] Comment on above: Result Comment: IG% - Immature Granulocytes (promyelocytes, myelocytes and metamyelocytes) > 1% indicates that a LEFT SHIFT is Present. Performed By: #### L 100.0100 ####[facility] [address] [place], [address] Lymphocytes/100 WBC (Bld) 34.5 % Normal 19-41 [facility] Comment on above: Performed By: #### L 100.0100 ####[facility] [address] [place], [address] MCH (RBC) [Entitic mass] 30.4 pg Normal 27.0-32.0 [facility] Comment on above: Performed By: #### L 100.0100 ####[facility] [address] [place], [address] MCHC (RBC) [Mass/Vol] 33.7 g/dL Normal 32-[address] [facility] Comment on above: Performed By: #### L 100.0100 ####[facility] [address] [place], [address] MCV (RBC) [Entitic vol] 90.2 fL Normal 81-99 [facility] Comment on above: Performed By: #### L 100.0100 ####[facility] [address] [place], [address] Monocytes/100 WBC (Bld) 9.9 % Normal 0-10 [facility] Comment on above: Performed By: #### L 100.0100 ####[facility] [address] [place], [address] Neutrophils/100 WBC (Bld) 51.4 % Normal 47-70 [facility] Comment on above: Performed By: #### L 100.0100 ####[facility] [address] [place], [address] Nucleated RBC (Bld) [#/Vol] 0 10*3/uL Normal 0-5 [facility] Comment on above: Performed By: #### L 100.0100 ####[facility] [address] [place], [address] Platelet mean volume (Bld) [Entitic vol] 11.5 fL Normal 6.2-12.0 [facility] Comment on above: Performed By: #### L 100.0100 ####[facility] [address] [place], [address] Platelets (Bld) [#/Vol] 166 10*3/uL Normal 150-450 [facility] Comment on above: Performed By: #### L 100.0100 ####[facility] [address] [place], [address] RBC (Bld) [#/Vol] 4.08 10*6/uL Low 4.2-5.4 [facility] Comment on above: Performed By: #### L 100.0100 ####[facility] [address] [place], [address] RDW SD 42.7 fl Normal 35.1-43.9 [facility] Comment on above: Performed By: #### L 100.0100 ####[facility] [address] [place], [address] WBC (Bld) [#/Vol] 6.5 10*3/uL Normal 4.4-11.0 [facility] Comment on above: Performed By: #### L 100.0100 ####[facility] [address] [place], [address] Absolute Neut Normal 2.0-7.7 [facility] Comment on above: Result Comment: This specimen has been REJECTED due to Laboratory criteria: Clotted. MARLENE OLMOS (ED) has been notified of need of recollection. 11/23/24 1540 Radha Giles Performed By: #### L 700.6800, L100.0100, L500.4050 #### [facility] [address] [place], [address] HCT Normal 37-47 [facility] Comment on above: Result Comment: This specimen has been REJECTED due to Laboratory criteria: Clotted. MARLENE OLMOS (ED) has been notified of need of recollection. 11/23/24 1540 Radha Lollo Performed By: #### L 700.6800, L100.0100, L500.4050 #### [facility] [address] [place], [address] HGB Normal 12.0-15.0 [facility] Comment on above: Result Comment: This specimen has been REJECTED due to Laboratory criteria: Clotted. MARLENE OLMOS (ED) has been notified of need of recollection. 11/23/24 1540 Radha Lollo Performed By: #### L 700.6800, L100.0100, L500.4050 #### [facility] [address] [place], [address] MCH Normal 27.0-32.0 [facility] Comment on above: Result Comment: This specimen has been REJECTED due to Laboratory criteria: Clotted. MARLENE OLMOS (ED) has been notified of need of recollection. 11/23/24 1540 Radha Lollo Performed By: #### L 700.6800, L100.0100, L500.4050 #### [facility] [address] [place], [address] MCHC Normal 32-36 [facility] Comment on above: Result Comment: This specimen has been REJECTED due to Laboratory criteria: Clotted. MARLENE OLMOS (ED) has been notified of need of recollection. 11/23/24 1540 Radha Lollo Performed By: #### L 700.6800, L100.0100, L500.4050 #### [facility] [address] [place], [address] MCV Normal 81-99 [facility] Comment on above: Result Comment: This specimen has been REJECTED due to Laboratory criteria: Clotted. MARLENE OLMOS (ED) has been notified of need of recollection. 11/23/24 1540 Radha Lollo Performed By: #### L 700.6800, L100.0100, L500.4050 #### [facility] [address] [place], [address] NEUT% Normal 47-70 [facility] Comment on above: Result Comment: This specimen has been REJECTED due to Laboratory criteria: Clotted. MARLENE OLMOS (ED) has been notified of need of recollection. 11/23/24 1540 Radha Lollo Performed By: #### L 700.6800, L100.0100, L500.4050 #### [facility] [address] [place], [address] PLT Normal 150-450 [facility] Comment on above: Result Comment: This specimen has been REJECTED due to Laboratory criteria: Clotted. MARLENE OLMOS (ED) has been notified of need of recollection. 11/23/24 1540 Radha Lollo Performed By: #### L 700.6800, L100.0100, L500.4050 #### [facility] [address] [place], [address] RBC Normal 4.2-5.4 [facility] Comment on above: Result Comment: This specimen has been REJECTED due to Laboratory criteria: Clotted. MARLENE OLMOS (ED) has been notified of need of recollection. 11/23/24 1540 Radha Lollo Performed By: #### L 700.6800, L100.0100, L500.4050 #### [facility] [address] [place], [address] RDW CV Normal 11.6-14.6 [facility] Comment on above: Result Comment: This specimen has been REJECTED due to Laboratory criteria: Clotted. MARLENE OLMOS (ED) has been notified of need of recollection. 11/23/24 1540 Radha Lollo Performed By: #### L 700.6800, L100.0100, L500.4050 #### [facility] [address] [place], [address] RDW SD Normal 35.1-43.9 [facility] Comment on above: Result Comment: This specimen has been REJECTED due to Laboratory criteria: Clotted. MARLENE OLMOS (ED) has been notified of need of recollection. 11/23/24 1540 Radha Lollo Performed By: #### L 700.6800, L100.0100, L500.4050 #### [facility] [address] [place], [address] WBC Normal 4.4-11.0 [facility] Comment on above: Result Comment: This specimen has been REJECTED due to Laboratory criteria: Clotted. MARLENE OLMOS (ED) has been notified of need of recollection. 11/23/24 1540 Radha Lollo Performed By: #### L 700.6800, L100.0100, L500.4050 #### [facility] [address] [place], [address] Carbon dioxide, total [Moles /volume] in Central venous bloodOrdered By: Graham Birmingham on 11-23-2024 CO2 [Moles/Vol] 20.1 mmol/L Low 21.0-32.0 [facility] Chloride assayOrdered By: Lizbeth Birmingham on 11-23-2024 Chloride [Moles/Vol] 101 mmol/L 98-108 [facility] Comprehensive Metabolic Prof ilon 11-23-2024 Albumin [Mass/Vol] 4.5 g/dL Normal 3.5-5.0 [facility] Comment on above: Order Comment: This specimen has been REJECTED due to Laboratory criteria: Clotted. MARLENE OLMOS (ED) has been notified of need of recollection. 11/23/24 1539 Radha Lollo Performed By: #### L 700.6800, L100.0100, L500.4050 #### [facility] [address] [place], [address] Albumin/Globulin [Mass ratio] 1.4 {ratio} Normal 0.9-2.4 [facility] Comment on above: Order Comment: This specimen has been REJECTED due to Laboratory criteria: Clotted. MARLNEE OLMOS (ED) has been notified of need of recollection. 11/23/24 1539 Radha Lollo Performed By: #### L 700.6800, L100.0100, L500.4050 #### [facility] [address] [place], [address] ALK PHOS 64 U/L Normal 35-104 [facility] Comment on above: Order Comment: This specimen has been REJECTED due to Laboratory criteria: Clotted. MARLENE OLMOS (ED) has been notified of need of recollection. 11/23/24 1539 Radha Lollo Result Comment: Hemo lysis Present, Results may be affected. Performed By: #### L 700.6800, L100.0100, L500.4050 #### [facility] [address] [place], [address] ALT [Catalytic activity/Vol] 22 U/L Normal <=34 [facility] Comment on above: Order Comment: This specimen has been REJECTED due to Laboratory criteria: Clotted. MARLENE OLMOS (ED) has been notified of need of recollection. 11/23/24 1539 Radha Lollo Result Comment: Hemo lysis present, Results??could be affected. ?? Performed By: #### L 700.6800, L100.0100, L500.4050 #### [facility] [address] [place], [address] AST [Catalytic activity/Vol] 47 U/L High <=31 [facility] Comment on above: Order Comment: This specimen has been REJECTED due to Laboratory criteria: Clotted. MARLENE OLMOS (ED) has been notified of need of recollection. 11/23/24 153 Radha Lollo Result Comment: Hemo lysis present, Results??could be affected. ?? Performed By: #### L 700.6800, L100.0100, L500.4050 #### [facility] [address] [place], [address] Bilirubin [Mass/Vol] 0.26 mg/dL Normal 0.00-1.30 [facility] Comment on above: Order Comment: This specimen has been REJECTED due to Laboratory criteria: Clotted. MARLENE OLMOS (ED) has been notified of need of recollection. 11/23/24 1539 Radha Lollo Performed By: #### L 700.6800, L100.0100, L500.4050 #### [facility] [address] [place], [address] BUN/CRE 14.8 RATIO Normal 10-20 [facility] Comment on above: Order Comment: This specimen has been REJECTED due to Laboratory criteria: Clotted. MARLENE OLMOS (ED) has been notified of need of recollection. 11/23/24 1539 Radha Lollo Performed By: #### L 700.6800, L100.0100, L500.4050 #### [facility] [address] [place], [address] Calcium [Mass/Vol] 9.6 mg/dL Normal 7.6-11.0 [facility] Comment on above: Order Comment: This specimen has been REJECTED due to Laboratory criteria: Clotted. MARLENE OLMOS (ED) has been notified of need of recollection. 11/23/24 1539 Radha Lollo Performed By: #### L 700.6800, L100.0100, L500.4050 #### [facility] [address] [place], [address] Chloride [Moles/Vol] 101 mmol/L Normal 98-108 [facility] Comment on above: Order Comment: This specimen has been REJECTED due to Laboratory criteria: Clotted. MARLENE OLMOS (ED) has been notified of need of recollection. 11/23/24 1539 Radha Lollo Performed By: #### L 700.6800, L100.0100, L500.4050 #### [facility] [address] [place], [address] CO2 [Moles/Vol] 20.1 mmol/L Low 21.0-32.0 [facility] Comment on above: Order Comment: This specimen has been REJECTED due to Laboratory criteria: Clotted. MARLENE OLMOS (ED) has been notified of need of recollection. 11/23/24 1539 Radha Lollo Performed By: #### L 700.6800, L100.0100, L500.4050 #### [facility] [address] [place], [address] Creatinine [Mass/Vol] 0.67 mg/dL Low 0.70-1.[address] [facility] Comment on above: Order Comment: This specimen has been REJECTED due to Laboratory criteria: Clotted. MARLENE OLMOS (ED) has been notified of need of recollection. 11/23/24 1539 Radha Lollo Performed By: #### L 700.6800, L100.0100, L500.4050 #### [facility] [address] [place], [address] ECRCL 138.07 ml/min Normal 50-250 [facility] Comment on above: Order Comment: This specimen has been REJECTED due to Laboratory criteria: Clotted. MARLENE OLMOS (ED) has been notified of need of recollection. 11/23/24 1539 Radha Lollo Performed By: #### L 700.6800, L100.0100, L500.4050 #### [facility] [address] [place], [address] GAP 13 Normal 5-15 [facility] Comment on above: Order Comment: This specimen has been REJECTED due to Laboratory criteria: Clotted. MARLENE OLMOS (ED) has been notified of need of recollection. 11/23/24 1539 Radha Lollo Performed By: #### L 700.6800, L100.0100, L500.4050 #### [facility] [address] [place], [address] GFR/1.73 sq M.predicted among non-blacks MDRD (S/P/Bld) [Vol rate/Area] 128 mL/min/{1.73_m2} Normal >60 [facility] Comment on above: Order Comment: This specimen has been REJECTED due to Laboratory criteria: Clotted. MARLENE OLMOS (ED) has been notified of need of recollection. 11/23/24 1539 Radha Lollo Result Comment: mL/m in/1.73m2 CKD-EPI Creatinine Equation (2020) Performed By: #### L 700.6800, L100.0100, L500.4050 #### [facility] [address] [place], [address] Globulin (S) [Mass/Vol] 3.2 g/dL Normal 2.2-4.2 [facility] Comment on above: Order Comment: This specimen has been REJECTED due to Laboratory criteria: Clotted. MARLENE OLMOS (ED) has been notified of need of recollection. 11/23/24 1539 Radha Lollo Performed By: #### L 700.6800, L100.0100, L500.4050 #### [facility] [address] [place], [address] Glucose [Mass/Vol] 97 mg/dL Normal 70-99 [facility] Comment on above: Order Comment: This specimen has been REJECTED due to Laboratory criteria: Clotted. MARLENE OLMOS (ED) has been notified of need of recollection. 11/23/24 1539 Radha Lollo Performed By: #### L 700.6800, L100.0100, L500.4050 #### [facility] [address] [place], [address] Potassium [Moles/Vol] 4.5 mmol/L Normal 3.3-5.[address] [facility] Comment on above: Order Comment: This specimen has been REJECTED due to Laboratory criteria: Clotted. MARLENE OLMOS (ED) has been notified of need of recollection. 11/23/24 1539 Radha Lollo Result Comment: Hemo lysis present, Results??could be affected. ?? Performed By: #### L 700.6800, L100.0100, L500.4050 #### [facility] [address] [place], [address] Sodium [Moles/Vol] 135 mmol/L Normal 133-145 [facility] Comment on above: Order Comment: This specimen has been REJECTED due to Laboratory criteria: Clotted. MARLENE OLMOS (ED) has been notified of need of recollection. 11/23/24 1539 Radha Lollo Performed By: #### L 700.6800, L100.0100, L500.4050 #### [facility] [address] [place], [address] T PROT 7.7 g/dL Normal 5.9-8.4 [facility] Comment on above: Order Comment: This specimen has been REJECTED due to Laboratory criteria: Clotted. MARLENE OLMOS (ED) has been notified of need of recollection. 11/23/24 1539 Radha Lollo Performed By: #### L 700.6800, L100.0100, L500.4050 #### [facility] [address] [place], [address] Urea nitrogen [Mass/Vol] 10 mg/dL Normal 4-19 [facility] Comment on above: Order Comment: This specimen has been REJECTED due to Laboratory criteria: Clotted. MARLENE OLMOS (ED) has been notified of need of recollection. 11/23/24 1539 Radha Lollo Performed By: #### L 700.6800, L100.0100, L500.4050 #### [facility] [address] [place], [address] Emergency Department Summary on 11-23-2024 Emergency Department Summary [facility] Medical Records Department [address] [place] [address] Emergency Department Summary 11/23/24 MR#: [id number] Acct: [id number] Name: MARITZA GARAY Rep #: [id number] : 2005 19 From: Graham Birmingham DO PCP: Dr. Rea Polo MD Status:DEP ER Location: ED HPI HPI - GI History of Present Illness Chief Complaint: Abd Pain Detail of Chief Complaint: Abdominal pain Informant: patient Narrative Narrative: Patient presents with abdominal pain that started 6 days ago. Patient states that she has had pain off and on. She describes it like period cramping but her last menstrual period was about 2 weeks ago. She denies urinary symptoms. Yesterday the pain was severe and had nausea and did vomit once. She also had some watery stool over the last several days about twice a day. Denies any blood in her stool. No history of inflammatory bowel disease. Patient currently on control oral contraceptive. At his most severe the pain is about an 8 out of 10. No history of kidney stones or prior abdominal surgeries. [facility] Medical History (Updated 11/23/24 @ 16:[address] Graham Birmingham DO) Contraceptive management Home Medications ???Medication ???Instructions ???Recorded ???Last Taken ???Type desogestrel 0.15 mg-ethinyl 1 tab PO DAILY #84 tabs 11/01/24 U nknown Rx estradiol 0.03 mg tablet (Apri) dicyclomine 10 mg capsule 20 mg (2 x 10 mg) PO TIDAC #20 Unknown Rx CAPSULES Allergy/AdvReac Type Severity Reaction Status Date / Time No Known Allergies Allergy Verified 11/23/24 14:46 Family History Sister Asthma Surgical History (Updated 11/23/24 @ 14:56 by Swati Olmos) H/O wrist surgery History of removal of cyst H/O of nasal cauterization Social History Smoking Status: Never smoker alcohol intake: never substance use type: does not use seatbelt use: always ROS ROS ED Review of Systems ROS Unobtainable: other Constitutional Constitutional ED: Reports lethargy; Denies chills, fever(s), sweats or weight loss Eyes Eyes: Denies blurry vision, change in vision or diplopia ENT ENT ED: Denies rhinorrhea or sore throat Cardiovascular Cardiovascular: Denies chest pain, orthopnea or racing heartbeat Respiratory/Chest Respiratory/Chest: Denies cough, dyspnea, dyspnea on exertion, orthopnea or sputum Gastrointestinal Gastrointestinal: Reports abdominal pain, diarrhea and nausea; Denies vomiting Genitourinary Genitourinary ED: Denies dysuria, hematuria or urinary frequency Musculoskeletal Musculoskeletal: Denies arthralgias, back pain, myalgias or neck pain Integumentary Denies abscess, Abrasions or rash Neurologic Neurologic: Denies headache(s) or weakness Psychiatric Psychiatric: Denies anxiety, depression or suicidal thoughts Endocrine Endocrinology: Denies polydipsia, polyphagia or polyuria Hematologic/Lymphatic Hematologic/Lymphatic : Denies easy bleeding, easy bruising or lymphadenopathy Allergic/Immunologic Allergic/Immunologic ED: Denies mouth swelling, tongue swelling or urticaria EXAM Physical Exam Const Vital Signs: 11/23/24 14:46 Temperature 97 F L Temperature Source Temporal Pulse Rate 130 H Respiratory Rate 18 Blood Pressure 137/76 H Blood Pressure Mean 96 Pulse Ox 98 Oxygen Delivery Method Room Air Positive well nourished and well developed General Appearance ED: well developed and NAD HEENT Reports TM's clear and moist mucous membranes normocephalic and atraumatic; Negative for trauma or tenderness Tympanic Membrane ED: Yes TM's clear Eyes PERRL and EOMs intact bilaterally General Eye ED: Negative for pale conjunctiva or scleral icterus Neck no lymphadenopathy, supple and no JVD General: Negative for tenderness Chest Wall inspection of chest normal and palpation of chest normal Chest: Negative for tenderness Resp normal respiratory effort and clear to auscultation bilaterally Effort and Inspection: Negative for respiratory distress or pain with movement Auscultation: Negative for rhonchi, wheezes or diminished lung sounds Cardio regular rhythm, S1 normal heart sound, S2 normal heart sound and no murmurs Rate: tachycardic Peripheral Pulses: pulses 2+ throughout GI normal to inspection, nondistended, normoactive bowel sounds, soft to palpation, non-distended and no masses GI Narrative: Mild tenderness over the right lower quadrant with some guarding. There is no rebound, rigidity, cranial signs. No mass palpated Back/Spine no CVA tenderness and no thoracic nor lumbar tenderness Extremity normal to inspection General Extremety ED: Negative for edema General Extremity: Negative for edema Reginald (more content not included)... Normal [facility] Eosinophil percentageOrdered By: Graham Birmingham on 11-23-2024 Eosinophils/100 WBC (Bld) 3.7 % 0-5 [facility] Epithelial cells.squamous LM Ql (Urine sed)Ordered By: Graham Birmingham on 11-23-2024 Epithelial cells.squamous LM.HPF (Urine sed) [#/Area] 10 /[HPF] 5-10 [facility] Erythrocyte distribution wid th ratioOrdered By: Graham Birmingham on 11-23-2024 Erythrocyte distribution width (RBC) [Ratio] 12.9 % 11.6-14.6 [facility] Erythrocyte distribution wid th standard deviationOrdered By: Graham Birmingham on 11-23-2024 Erythrocyte distribution width (RBC) [Entitic vol] 42.7 fL 35.1-43.9 [facility] Erythrocyte distribution width (RBC) [Ratio] 42.7 fl 35.1-43.9 [facility] Estimation of creatinine suleman aranceOrdered By: Graham Birmingham on 11-23-2024 Estimated Creatinine Clearance Calc 138.07 ml/min 50-250 [facility] GFR/1.73 sq M.predicted kira g non-blacks MDRD (S/P/Bld) [Vol rate/Area]Ordered By: Graham Birmingham on 11-23-2024 Estimated GFR (MDRD) Non-Af Amer 128 >60 [facility] Comment on above: mL/min/1.73m2 CKD-EP I Creatinine Equation (2020) Glomerular filtration rate ( GFR) estimation/1.73 sq m using serum, plasma, or whole bOrdered By: Graham Birminhgam on 11-23-2024 GFR/1.73 sq M.predicted among non-blacks MDRD (S/P/Bld) [Vol rate/Area] 128 mL/min/{1.73_m2} >60 [facility] Comment on above: mL/min/1.73m2 CKD-EP I Creatinine Equation (2020) Glucose Ql (U)Ordered By: Lizbeth Birmingham on 11-23-2024 Urine Glucose (UA) Normal mg/dl Normal [facility] Hematocrit Auto (Bld) [Volum e fraction]Ordered By: Grhaam Birmingham on 11-23-2024 Hematocrit (Bld) [Volume fraction] 36.8 % Low 37-47 [facility] Hemoglobin measurementOrdere d By: Graham Birmingham on 11-23-2024 Hemoglobin (Bld) [Mass/Vol] 12.4 g/dL 12.0-15.0 [facility] Immature granulocytes/100 WB C Auto (Bld)Ordered By: Graham Birmingham on 11-23-2024 Immature granulocytes/100 WBC (Bld) 0.200 % 0.0-0.9 [facility] Comment on above: IG% - Immature Granu locytes (promyelocytes, myelocytes and metamyelocytes) > 1% indicates that a LEFT SHIFT is Present. Ketones Test strip Ql (U)Ord ered By: Graham Birmingham on 11-23-2024 Ketones Ql (U) Negative Negative [facility] Laboratory - Chemistry and C hemistry - challengeOrdered By: Graham Birmingham on 11-23-2024 AST [Catalytic activity/Vol] 47 U/L High <32 [facility] Comment on above: Hemolysis present, R esults could be affected. Lymphocytes Auto (Unsp spec) [#/Vol]Ordered By: Graham Birmingham on 11-23-2024 Lymphocytes (Bld) [#/Vol] 2.24 10*3/uL 0.83-4.51 [facility] Lymphocytes/100 WBC Auto (Un sp spec)Ordered By: Graham Birmingham on 11-23-2024 Lymphocytes/100 WBC (Bld) 34.5 % 19-41 [facility] MCV (mean corpuscular volume ) determinationOrdered By: Graham Birmingham on 11-23-2024 MCV (RBC) [Entitic vol] 90.2 fL 81-99 [facility] Mean corpuscular hemoglobin (MCH) determinationOrdered By: Graham Birmingham on 11-23-2024 MCH (RBC) [Entitic mass] 30.4 pg 27.0-32.0 [facility] Mean corpuscular hemoglobin concentration (MCHC) determinationOrdered By: Graham Birmingham on 11-23-2024 MCHC (RBC) [Mass/Vol] 33.7 g/dL 32-[address] [facility] Mean platelet volume determi nationOrdered By: Graham Birmingham on 11-23-2024 Platelet mean volume (Bld) [Entitic vol] 11.5 fL 6.2-12.0 [facility] Microscopic analysis of urin e for red blood cells (RBC)Ordered By: Graham Birmingham on 11-23-2024 Microscopic analysis of urine for red blood cells (RBC) 0-5 SEEN /hpf 0-5 [facility] Urine RBC 0-5 SEEN /hpf 0-5 [facility] Monocyte percentageOrdered B y: Graham Birmingham on 11-23-2024 Monocytes/100 WBC (Bld) 9.9 % 0-10 [facility] Mucus LM Ql (Urine sed)Order ed By: Graham Birmingham on 11-23-2024 Mucus Ql (Urine sed) 0 SEEN /hpf [facility] Neutrophil percentageOrdered By: Graham Birmingham on 11-23-2024 Neutrophils/100 WBC (Bld) 51.4 % 47-70 [facility] Nitrite Test strip Ql (U)Ord ered By: Graham Birmingham on 11-23-2024 Nitrite Ql (U) Negative Negative [facility] Nucleated red blood cell per centageOrdered By: Graham Birmingham on 11-23-2024 Nucleated RBC/100 WBC (Bld) [Ratio] 0 % 0-5 [facility] Platelet countOrdered By: Lizbeth Birmingham on 11-23-2024 Platelets (Bld) [#/Vol] 166 10*3/uL 150-450 [facility] Potassium (Unsp spec) [Mass/ Vol]Ordered By: Graham Birmingham on 11-23-2024 Potassium [Moles/Vol] 4.5 mmol/L 3.3-5.[address] [facility] Comment on above: Hemolysis present, R esults could be affected. Potassium measurement (mass/ volume)Ordered By: Graham Birmingham on 11-23-2024 Potassium (Unsp spec) [Mass/Vol] 4.5 mmol/L 3.3-5.1 [facility] Comment on above: Hemolysis present, R esults could be affected. ,Serum,hCG Quali.on 11-23-2024 HCG, SERUM QUAL Negative Normal [facility] Comment on above: Performed By: #### L 700.6800, L100.0100, L500.4050 #### [facility] [address] [place], [address] Protein Test strip Ql (U)Ord ered By: Graham Birmingham on 11-23-2024 Protein Ql (U) 15 mg/dl High Negative [facility] RBC Auto (Bld) [#/Vol]Ordere d By: Graham Birmingham on 11-23-2024 RBC (Bld) [#/Vol] 4.08 10*6/uL Low 4.2-5.4 [facility] Serum beta-hCG test, qualita tiveOrdered By: Graham Birmingham on 11-23-2024 Beta HCG ( test) Ql Negative [facility] Serum creatinine measurement (mass/volume)Ordered By: Graham Birmingham on 11-23-2024 Creatinine [Mass/Vol] 0.67 mg/dL Low 0.70-1.[address] [facility] Serum globulin measurementOr dered By: Graham Birmingham on 11-23-2024 Globulin (S) [Mass/Vol] 3.2 g/dL 2.2-4.2 [facility] Serum glucose measurement (m ass/volume)Ordered By: Graham Birmingham on 11-23-2024 Glucose [Mass/Vol] 97 mg/dL 70-99 [facility] Serum or plasma alanine victor otransferase (ALT) measurementOrdered By: [facility] Birmingham on 11-23-2024 ALT [Catalytic activity/Vol] 22 U/L <35 [facility] Comment on above: Hemolysis present, R esults could be affected. Serum or plasma albumin yady urement (mass/volume)Ordered By: Graham Birmingham on 11-23-2024 Albumin [Mass/Vol] 4.5 g/dL 3.5-5.0 [facility] Serum or plasma albumin/glob ulin mass ratioOrdered By: Graham Birmingham 11-23-2024 Albumin/Globulin [Mass ratio] 1.4 {ratio} 0.9-2.4 [facility] Serum or plasma alkaline ava sphatase measurementOrdered By: Graham Birmingham 11-23-2024 ALP [Catalytic activity/Vol] 64 U/L 35-104 [facility] Comment on above: Hemolysis Present, R esults may be affected. Serum or plasma calcium yady urement (mass/volume)Ordered By: Graham Birmingham on 11-23-2024 Calcium [Mass/Vol] 9.6 mg/dL 7.6-11.0 [facility] Serum or plasma urea nitroge n measurement (mass/volume)Ordered By: Graham Birmingham on 11-23-2024 Urea nitrogen [Mass/Vol] 10 mg/dL 4-19 [facility] Sodium levelOrdered By: Bebe s Valencia on 11-23-2024 Sodium [Moles/Vol] 135 mmol/L 133-145 [facility] Squamous epithelial cells de tection in urine sediment by light microscopyOrdered By: Graham Birmingham on 11-23-2024 Epithelial cells.squamous LM Ql (Urine sed) 10-25 SEEN /hpf 5-10 [facility] Total proteinOrdered By: Tamera Birmingham on 11-23-2024 Protein [Mass/Vol] 7.7 g/dL 5.9-8.4 [facility] Urinalysis, Completeon 11-23 BACTERIA 1+ /hpf Normal None Seen [facility] Comment on above: Order Comment: CLEAN CATCH Performed By: #### L 400.0001 #### [facility] [address] [place], [place], [id number] EPI,SQUAMOUS 10-25 SEEN Normal 5-10 [facility] Comment on above: Order Comment: CLEAN CATCH Performed By: #### L 400.0001 #### [facility] [address] [place], [address] RBC 0-5 SEEN Normal 0-5 [facility] Comment on above: Order Comment: CLEAN CATCH Performed By: #### L 400.0001 #### [facility] [address] [place], [address] WBC 5-10 SEEN Normal 0-5 [facility] Comment on above: Order Comment: CLEAN CATCH Performed By: #### L 400.0001 #### [facility] [address] [place], [address] Mucus Ql (Urine sed) 0 SEEN Normal [facility] Comment on above: Order Comment: CLEAN CATCH Performed By: #### L 400.0001 #### [facility] [address] [place], [place], [address] Urine blood detectionOrdered By: Remus Valencia on 11-23-2024 Urine Occult Blood Negative Negative [facility] Urine clarityOrdered By: Rem us Ungramin on 11-23-2024 Clarity (U) Sl. Cloudy Clear [facility] Urine color determinationOrd ered By: Remus Valencia on 11-23-2024 Color (U) Yellow Yellow [facility] Urine glucose detectionOrder ed By: Remus Valencia on 11-23-2024 Glucose Ql (U) Normal mg/dl Normal [facility] Urine leukocyte esterase det ection by dipstickOrdered By: Remus Valencia on 11-23-2024 Leukocyte esterase Test strip Ql (U) 25 /ul High Negative [facility] Urine pHOrdered By: Remus Un gur on 11-23-2024 pH (U) 6.0 [pH] 5.0 - 8.0 [facility] Urine sediment bacteria coun t by microscopy (number/high power field)Ordered By: Remus Birmingham on 11-23-2024 Bacteria LM.HPF (Urine sed) [#/Area] 1 /[HPF] None Seen [facility] Urine specific gravity measu rementOrdered By: Remus Valencia on 11-23-2024 Specific gravity (U) [Rel density] 1.015 1.002-1.030 [facility] Urine urobilinogen measureme ntOrdered By: Remus Ungramin on 11-23-2024 Urobilinogen Ql (U) Normal mg/dl Normal [facility] Urobilinogen Ql (U)Ordered B y: Remus Ungur on 11-23-2024 Urine Urobilinogen Normal mg/dl Normal [facility] White blood cell (WBC) count Ordered By: Remus Ungramin on 11-23-2024 WBC (Bld) [#/Vol] 6.5 10*3/uL 4.4-11.0 [facility] White blood cell countOrdere d By: Graham Birmingham on 11-23-2024 Urine WBC 5-10 SEEN /hpf 0-5 [facility] White blood cell count 5-10 SEEN /hpf 0-5 [facility] Bacteria Ur Culton Bacteria identified Cx Nom (U) ORGANISM ID: 1 50,000-<100,000 CFU/ml Normal urogenital luc Streptococcus agalactiae (Group B streptococcus) was identified in this specimen, which is clinically relevant if the individual is . Normal [facility] Comment on above: Performed By: #### 6 30-4 ####[facility] LABCLIA [id number] [address] CNOVon 11-19-2024 CNOV Office Visit (UCWSTR ) MARITZA GARAY ([id number]) 3 F Date Time Provider Department 11/19/24 5:45 PM LANI NUR [facility] During your visit today, we recorded the following information about you: Temperature Pulse Respiration Blood pressure 98.8 degrees 76/minute 18/minute 112/80 Weight 73 kg Lani Nur PA 11/19/2024 5:53 PM Signed [facility] Subjective Maritza Lópeze is a 19 year old female. Patient presents with: Urinary Frequency: Frequency and lower abdominal pain and cramping x 1 week HPI 19-year-old female presents for UTI symptoms. Patient has had urinary frequency, urgency and some lower abdominal pain for the past week. She denies any fevers or vomiting. No back pain. She was seen here 3/ for UTI and was prescribed Macrobid. She states that she took several days of the medication and then did not finish it and then waited a couple of days and then finish the medication. She feels symptoms have now returned. She denies any vaginal discharge or itching. No concern for STD or . LMP 2 weeks ago. No other complaint PAST MEDICAL HISTORY Diagnosis Date NEGATIVE MEDICAL HISTORY PAST SURGICAL HISTORY Procedure Laterality Date EXCISION GANGLION WRIST DORSAL/VOLAR PRIMARY Right 04/03/2024 Right wrist, 4th extensor compartment tenosynovectomy NASAL/SINUS NDSC DSTRJ RF ABLATION PST NSL NRV ALLERGIES Patient has no known allergies. MEDICATIONS APRI 0.15-0.03 mg per tablet hydrOXYzine HCl (ATARAX) 50 mg tablet Take 1 tablet by mouth daily at bedtime. desvenlafaxine ER (PRISTIQ) 100 mg 24 hr tablet Take 1 tablet by mouth once daily. cetirizine (ZYRTEC) 10 mg tablet TAKE 1 TABLET BY MOUTH EVERY DAY triamcinolone acetonide (KENALOG) 0.5 % cream Apply to affected area three times a day. FAMILY HISTORY Problem Relation Age of Onset other (MVP) Mother Social History Tobacco Use Smoking status: Never Smokeless tobacco: Never Vaping Use Vaping status: Never Used Substance Use Topics Alcohol use: Never Drug use: Never Review of Systems Constitutional: Negative for chills and fever. HENT: Negative for congestion, ear pain and sore throat. Respiratory: Negative for cough and shortness of breath. Cardiovascular: Negative for chest pain. Gastrointestinal: Negative for abdominal pain, diarrhea and vomiting. Genitourinary: Positive for dysuria, frequency and urgency. Negative for hematuria, vaginal bleeding and vaginal discharge. Objective BP 112/80 Pulse 76 Temp 37.1 ?C (98.8 ?F) (Tympanic) Resp 18 Wt 73 kg (160 lb 15 oz) LMP 02/28/2024 (Approximate) SpO2 97% BMI 25.98 kg/m? Physical Exam Vitals and nursing note reviewed. Constitutional: General: She is not in acute distress. Appearance: Normal appearance. She is not toxic-appearing. HENT: Nose: Nose normal. Mouth/Throat: Mouth: Mucous membranes are moist. Eyes: Conjunctiva/sclera: Conjunctivae normal. Cardiovascular: Rate and Rhythm: Normal rate and regular rhythm. Pulmonary: Effort: Pulmonary effort is normal. Breath sounds: Normal breath sounds. Abdominal: General: Abdomen is flat. Palpations: Abdomen is soft. Tenderness: There is no abdominal tenderness. There is no right CVA tenderness, left CVA tenderness, guarding or rebound. Skin: General: Skin is warm and dry. Neurological: Mental Status: She is alert. {ASSESSMENT/PLAN: 1. Urinary frequency - ICD9: 788.41, ICD10: R35.0 acute - UA positive for proteinuria-trace -Will send urine for culture. Please treat based on result -Patient declines STD or testing. LMP 2 weeks ago - Patient education for prevention given - UA DIP, URINE (POC) - BACTERIAL CULTURE, URINE Diagnosis and treatment plan were discussed and questions were answered to the patient's satisfaction. Pt acknowledged understanding of concepts and follow up plan. Specific signs and symptoms that would indicate the need for higher level of care were discussed in detail warranting prompt ER evaluation. MASSIEL Hyman History and Record Review External record(s) reviewed: prior outpatient record. Findings from review of outpatient records: Seen /, urine culture grew E. coli. Treated with Macrobid Differential Diagnoses - Urinary frequency is more likely for the following reason(s): suggested by HANDP - Pyelonephritis is less likely for the following reason(s): HANDP not suggestive - Nephrolithiasis is less likely for the following reason(s): HANDP not suggestive Disposition The patient was discharged. Procedures Allergies As of Date: 11/19/2024 (No Known Allergies) Date Reviewed: 11/19/2024 Reviewed by: Erinn Solis LPN - Fully Assessed Reason for Visit: Urinary Frequency [1086] Cmt: Frequency and lower abdominal pain and cramping x 1 week Primary Visit Diagnosis:Uri (more content not included)... Normal [facility] UA DIP, URINE (POC)on 2024 BILIRUBIN UA (POCT) Negative Negative [facility] CLARITY UA (POCT) Clear [facility] COLOR UA (POCT) Yellow [facility] GLUCOSE UA (POCT) Negative Negative mg/dL [facility] Hemoglobin Ql (U) Negative [facility] Interpretation and review of laboratory results Abnormal [facility] KETONE UA (POCT) Negative Negative mg/dL [facility] LEUKOCYTES UA (POCT) Negative Negative [facility] NITRITE UA (POCT) Negative Negative [facility] PH UA (POCT) 7 4.5 - 8.0 [facility] Protein Ql (U) Trace Abnormal Negative mg/dL [facility] SPECIFIC GRAVITY UA (POCT) 1.025 1.005 - 1.030 [facility] UROBILINOGEN UA (POCT) 0.2 Natalie l E.U./dL [facility] Location:[facility], [address], [place], [address] [facility] CNCOon 11-07-2024 CNCO Letter Text Normal [facility] CNPNon 11-07-2024 CNPN Telephone (PSWSTR) MARITZA GARAY ([id number]) 3 F Date Time Provider Department 11/07/24 JEANNETTE DALAL PSWSTR During your visit today, we recorded the following information about you: Vandana Barrera LPN 11/07/2024 9:59 AM Signed SELMA letter is on your desk ready to go. SHELBIE Steanrs Nishi J, [facility] 11/12/2024 4:13 PM Signed Letter signed and sent to the patient. Allergies As of Date: 11/07/2024 (No Known Allergies) Date Reviewed: 11/04/2024 Reviewed by: Erinn Solis LPN - Fully Assessed Prescriptions as of 11/12/2024 - desvenlafaxine ER (PRISTIQ) 25 mg 24 hr tablet Take 1 tablet by mouth every morning. Take with 50 mg dose to equal 75 mg. - desvenlafaxine ER (PRISTIQ) 50 mg 24 hr tablet Take 1 tablet by mouth every morning. Take with 25 mg dose to equal 75 mg total. - hydrOXYzine HCl (ATARAX) 50 mg tablet TAKE 1 TABLET BY MOUTH EVERYDAY AT BEDTIME - cetirizine (ZYRTEC) 10 mg tablet TAKE 1 TABLET BY MOUTH EVERY DAY - etonogestrel (NEXPLANON) 68 mg impl subdermal implant 68 mg by SUBDERMAL route one time only. - triamcinolone acetonide (KENALOG) 0.5 % cream Apply to affected area three times a day. Problem List As Of Date 11/07/2024 Noted Resolved Nocturnal enuresis [N39.44] 07/08/2014 04/18/2022 Social anxiety disorder of childhood [F40.10] 08/11/2017 Dysmenorrhea [N94.6] 04/18/2022 MDD (major depressive disorder), single episode*11/03/2023 Encounter Status:Closed by VANDANA BARRERA on 11/07/24 Normal [facility] Bacteria Ur Culton Bacteria identified Cx Nom (U) ORGANISM ID: 1 50,000-<100,000 CFU/ml Escherichia coli ORGANISM ID: 2 50,000-<100,000 CFU/ml Normal urogenital luc ORGANISM ID: 1 (ESCHERICHIA COLI) ------ ANTIBIOTIC INTERPRETATION DEMETRI STATUS REFERENCE RANGE ------ Ampicillin S <=2 F Susceptible <=8 , Intermediate >8 , Resistant >16 Cefazolin S <=4 F Susceptible 0-16 , Intermediate <0 or >16 , Resistant >16 For uncomplicated urinary tract infections, cefazolin results can be used to predict susceptibility or resistance to cephalexin. Ceftriaxone S <=1 F Susceptible <=1 , Intermediate >1 , Resistant >=4 Cefepime S <=1 F Susceptible <=2 , Susceptible-Dose Dependent >2 , Resistant >=16 Ertapenem S <=0.5 F Susceptible <=0.5 , Intermediate >.5 , Resistant >1 Meropenem S <=0.25 F Susceptible <=1 , Intermediate >1 , Resistant >2 Ampicillin/Sulbact S <=2 F Susceptible <=8 , Intermediate >8 , Resistant >16 Piperacillin/Tazobac S <=4 F Susceptible <16 , Susceptible-Dose Dependent >=16 , Resistant >=32 Gentamicin S <=1 F Susceptible <=2 , Intermediate >2 , Resistant >=8 Tobramycin S <=1 F Susceptible <4 , Intermediate >=4 , Resistant >=8 Trimeth sulfameth S <=20 F Susceptible <=40 , Resistant >40 Ciprofloxacin S <=0.25 F Susceptible <0.5 , Intermediate >=.5 , Resistant >=1 Nitrofurantoin S <=16 F Susceptible <=32 , Intermediate >32 , Resistant >64 Abnormal [facility] Comment on above: Performed By: #### 6 30-4 ####[facility] LABIA [id number] [address] CNOVon 11-04-2024 CNOV Office Visit (UCWSTR ) MARITZA GARAY ([id number]) 3 F Date Time Provider Department 11/04/24 3:45 PM LANI NUR [facility] During your visit today, we recorded the following information about you: Temperature Pulse Respiration Blood pressure 97.8 degrees 92/minute 18/minute 128/82 Weight 76.1 kg Lani Nur PA 11/04/2024 4:05 PM Signed This note was created using NoteWriter. Subjective Samanguru Arlin Dumont Tanisha is a 19 year old female. HPI 19-year-old female presents for urinary frequency, urgency and dysuria x 4 days. Patient denies any hematuria, abdominal pain. States she has had a little bit of back pain. No vomiting. She has had UTIs in the past and this feels similar. She took Azo for symptoms which did help. Patient denies any vaginal discharge. She denies any concern for STD. No concern for . She just had her Nexplanon implant removed, but again denies any concern for . PAST MEDICAL HISTORY Diagnosis Date NEGATIVE MEDICAL HISTORY PAST SURGICAL HISTORY Procedure Laterality Date EXCISION GANGLION WRIST DORSAL/VOLAR PRIMARY Right 04/03/2024 Right wrist, 4th extensor compartment tenosynovectomy NASAL/SINUS NDSC DSTRJ RF ABLATION PST NSL NRV ALLERGIES Patient has no known allergies. MEDICATIONS desvenlafaxine ER (PRISTIQ) 25 mg 24 hr tablet Take 1 tablet by mouth every morning. Take with 50 mg dose to equal 75 mg. desvenlafaxine ER (PRISTIQ) 50 mg 24 hr tablet Take 1 tablet by mouth every morning. Take with 25 mg dose to equal 75 mg total. hydrOXYzine HCl (ATARAX) 50 mg tablet TAKE 1 TABLET BY MOUTH EVERYDAY AT BEDTIME cetirizine (ZYRTEC) 10 mg tablet TAKE 1 TABLET BY MOUTH EVERY DAY triamcinolone acetonide (KENALOG) 0.5 % cream Apply to affected area three times a day. etonogestrel (NEXPLANON) 68 mg impl subdermal implant 68 mg by SUBDERMAL route one time only. (Patient not taking: Reported on 11/04/2024) FAMILY HISTORY Problem Relation Age of Onset other (MVP) Mother Social History Tobacco Use Smoking status: Never Smokeless tobacco: Never Vaping Use Vaping status: Never Used Substance Use Topics Alcohol use: Never Drug use: Never Review of Systems Constitutional: Negative for chills and fever. HENT: Negative for congestion, ear pain and sore throat. Respiratory: Negative for cough and shortness of breath. Cardiovascular: Negative for chest pain. Gastrointestinal: Negative for diarrhea and vomiting. Genitourinary: Positive for dysuria, frequency and urgency. Negative for vaginal discharge. Objective BP 128/82 Pulse 92 Temp 36.6 ?C (97.8 ?F) (Tympanic) Resp 18 Wt 76.1 kg (167 lb 12.3 oz) LMP 02/28/2024 (Approximate) SpO2 96% BMI 27.08 kg/m? Physical Exam Vitals and nursing note reviewed. Constitutional: General: She is not in acute distress. Appearance: Normal appearance. She is not toxic-appearing. HENT: Nose: Nose normal. Mouth/Throat: Mouth: Mucous membranes are moist. Eyes: Conjunctiva/sclera: Conjunctivae normal. Cardiovascular: Rate and Rhythm: Normal rate and regular rhythm. Pulmonary: Effort: Pulmonary effort is normal. Breath sounds: Normal breath sounds. Abdominal: General: Abdomen is flat. Palpations: Abdomen is soft. Tenderness: There is no abdominal tenderness. There is no right CVA tenderness, left CVA tenderness, guarding or rebound. Skin: General: Skin is warm and dry. Neurological: Mental Status: She is alert. Assessment and Plan ASSESSMENT/PLAN: 1. Urinary frequency - ICD9: 788.41, ICD10: R35.0 acute - UA positive for dallin esterase, hematuria, proteinuria, and nitrates (on AZO) - Send urine for culture - Begin treatment with Macrobid 100 mg BID for 5 days - Patient education for prevention given - UA DIP, URINE (POC) - BACTERIAL CULTURE, URINE Diagnosis and treatment plan were discussed and questions were answered to the patient's satisfaction. Pt acknowledged understanding of concepts and follow up plan. Specific signs and symptoms that would indicate the need for higher level of care were discussed in detail warranting prompt ER evaluation. MASSIEL Hyman Allergies As of Date: 11/04/2024 (No Known Allergies) Date Reviewed: 11/04/2024 Reviewed by: Erinn Solis LPN - Fully Assessed Reason for Visit: Urinary Frequency [1086] Cmt: Frequency x 4 days Primary Visit Diagnosis:Urinary frequency [R35.0] Order(s):UA DIP, URINE (POC) [1544845] Order #: [id number]. #:[id number] BACTERIAL CULTURE, URINE [SQURCUL] Order #: [id number]. #:[id number] nitrofurantoin monohydrate and macrocrystal (MACROBID) 100 mg capsuleTake 1 capsule by mouth two times a day for 5 days.Disp: 10 capsuleRfl: 0 Prescriptions as of 11/04/2024 - nitrofurantoin monohydrate and macrocrystal (MACROBID) 100 mg capsule Take 1 cap (more content not included)... Normal [facility] UA DIP, URINE (POC)on 2024 BILIRUBIN UA (POCT) Small Abnormal Negative [facility] CLARITY UA (POCT) Slightly Cloudy [facility] COLOR UA (POCT) Red [facility] GLUCOSE UA (POCT) 250 mg/dL Abnormal [facility] Hemoglobin Ql (U) Trace-intact Abnormal Negative [facility] Interpretation and review of laboratory results Abnormal [facility] KETONE UA (POCT) 15 mg/dL Abnormal Negative [facility] LEUKOCYTES UA (POCT) Large Abnormal [facility]) Positive Abnormal Negative [facility] PH UA (POCT) 5 4.5 - 8.0 [facility] Protein Ql (U) 100 mg/dL Abnormal Negative [facility] SPECIFIC GRAVITY UA (POCT) 1.02 1.005 - 1.030 [facility] UROBILINOGEN UA (POCT) 4 Abnormal Natalie l E.U./dL [facility] Location:[address], [address] [place] [address] POINT OF CARE [facility] Chair Frame Builder Office Visit Reporton 11-01-2024 Chair Frame Builder Office Visit Report [facility], [address] [place] [address] OFFICE VISIT Date of Service: 11/01/24 MR#: [id number] Acct: [id number] Name: MARITZA GARAY Rep #: [id number] : 2005 Provider: MARK Hernandez ams Age/Sex: 19/F Location: [facility] Status: Signed Intake Vital Signs 05/07/24 14:07 11/01/24 15:39 11/01/24 15:43 Height 5 ft 6 in 5 ft 6 in 5 ft 6 in Weight: 162 lb 6 oz BMI 26.2 BP 114/62 Intake Visit Reasons: NEXPLANON REMOVAL/DISCUSS DIFFERENT BC Chief Complaint: Nexplanon removal Service Car Operator Required: No Is patient in pain?: No Allergies No Known Allergies Allergy (Verified 11/01/24 15:43) Medications ???Medication ???Instructions ???Recorded ???Confirmed ???Type desogestrel 0.15 mg-ethinyl 1 tab PO DAILY #84 tabs 11/01/24 0 11/01/24 Rx estradiol 0.03 mg tablet (Apri) Is last menstrual period known: No Post menopausal: No Patient : No : No PFSH PFSH Medical History Contraceptive management Surgical History H/O of nasal cauterization Family History Sister Asthma Social History Smoking Status: Never smoker alcohol intake: never substance use type: does not use seatbelt use: always HPI NEXPLANON REMOVAL/DISCUSS DIFFERENT BC Details: MARITZA GARAY is a 19 year old who presents for Nexplanon removal. Reports it is making her face breaking out and she is not having menses with the nexplanon, which concerns her. She would like to go back on OCP. ROS Const Constitutional: Reports system reviewed and no additional complaints, except as documented Cardio Card: Reports system reviewed and no additional complaints, except as documented Resp Resp: Reports system reviewed and no additional complaints, except as documented GI GI: Reports system reviewed and no additional complaints, except as documented : Reports system reviewed and no additional complaints, except as documented Musc Musc: Reports system reviewed and no additional complaints, except as documented Skin Skin/Breast: Reports system reviewed and no additional complaints, except as documented Neuro Neuro: Reports system reviewed and no additional complaints, except as documented Psych Psych: Reports system reviewed and no additional complaints, except as documented Endo Endo: Reports system reviewed and no additional complaints, except as documented [place]/Lymph Hematologic/Lymphatic : Reports system reviewed and no additional complaints, except as documented Aller/Immun Allergic/Immunologic: Reports system reviewed and no additional complaints, except as documented Exam Const General: cooperative, healthy appearing and comfortable Neck Neck: normal visual inspection and full ROM Resp Effort Inspection: normal respiratory effort, able to speak in complete sentences and symmetric chest movement GI Inspection: normal to inspection Palpation: soft Neuro General: patient alert, patient awake and patient oriented x3 Cognition: normal cognition Speech: speech normal Gait: normal gait Extrem General: normal to inspection and full ROM Psych Appearance: grossly normal and well kempt Mental Status: mental status grossly normal Mood: congruent mood Affect: normal affect Speech and Movement: speech and movement normal Attitude: cooperative Thought Process: normal Thought Content: normal Office Procedures Nexplanon Removal Nexplanon Removal Consent Signed: Yes Time out checklist: patient, procedure, site marked/identified, positioning of patient, supplies available, allergies confirmed and team agrees on procedure Time out time: 15:45 Details: Sign in Communication: Completed Sign out Discussion: Completed Technique: Patient place din supine position with left arm bent at the elbow and placed of the head. Skin cleansed with betadine. 1 mL of 1% lidocaine with epi injected subQ along insertion site. Scalpel used to make a 5mm stab incision superficially at distal end of nexplanon. Device removed under sterile technique with a small hemostat. Sterile pressure dressing applied. Coding Level of Care Code Attention Lianne Diagnoses Contraceptive management Z30.9 CPT Codes Nexplanon Removal (97990) Assessment and Plan Assessment and Plan (1) Contraceptive management: Status: Acute Comment: No PA needed with insurance type Plan: nexplanon removed without difficulty OCP started Discussed the use, risks, benefits, and side effects of oral contraception. Instructed on how and when to start. Condoms now and firs (more content not included)... Normal [facility] 07-10-2024 [facility] Telephone (PSWSTR) MARITZA GARAY ([id number]) 3 F Date Time Provider Department 07/10/24 JEANNETTE DALAL PSWSTR During your visit today, we recorded the following information about you: Vandana Barrera LPN 07/10/2024 12:00 PM Signed Call placed to patient after receiving refill request on Pristiq. Medication was increased at last visit and wanted to make sure patient was tolerating medication well without side effects. Message left for patient to return call to [phone]. Vandana Barrera LPN Allergies As of Date: 07/10/2024 (No Known Allergies) Date Reviewed: 06/13/2024 Reviewed by: Kiara Maya LPN - Fully Assessed Prescriptions as of 07/10/2024 - desvenlafaxine ER (PRISTIQ) 25 mg 24 hr tablet Take 3 tablets by mouth daily with breakfast. Start after completing 7 days of the 25 mg dose. - cetirizine (ZYRTEC) 10 mg tablet Take 1 tablet by mouth once daily. - etonogestrel (NEXPLANON) 68 mg impl subdermal implant 68 mg by SUBDERMAL route one time only. - triamcinolone acetonide (KENALOG) 0.5 % cream Apply to affected area three times a day. - hydrOXYzine HCl (ATARAX) 50 mg tablet Take 1 tablet by mouth daily at bedtime. 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] 08/11/2017 Dysmenorrhea [N94.6] 04/18/2022 MDD (major depressive disorder), single episode*11/03/2023 Encounter Status:Closed by VANDANA BARRERA on 07/10/24 Normal [facility] CBC panel Auto (Bld)on 06-13 Erythrocyte distribution width (RBC) [Ratio] 12.7 % Normal 11.5-15.0 [facility] Comment on above: Order Comment: Speci men Type: BLOOD SPECIMENOrdering Facility: [facility] Address: [address] [place] [address] Performed By: #### 5 8410-2 ####[facility] LABCLIA [id number] [place] [address] [place] Hematocrit (Bld) [Volume fraction] 40.4 % Normal 36.0-46.0 [facility] Comment on above: Order Comment: Speci men Type: BLOOD SPECIMENOrdering Facility: [facility] Address: [address] [place] [address] Performed By: #### 5 8410-2 ####[facility] LABIA [id number] [place] [address] [place] Hemoglobin (Bld) [Mass/Vol] 13.3 g/dL Normal 11.5-15.5 [facility] Comment on above: Order Comment: Speci men Type: BLOOD SPECIMENOrdering Facility: [facility] Address: [address] [place] [address] Performed By: #### 5 8410-2 ####[facility] LABIA [id number] [place] [address] [place] MCH (RBC) [Entitic mass] 29.6 pg Normal 26.0-34.0 [facility] Comment on above: Order Comment: Speci men Type: BLOOD SPECIMENOrdering Facility: [facility] Address: [address] [place] [address] Performed By: #### 5 8410-2 ####[facility] [id number] [place] [address] [place] MCHC (RBC) [Mass/Vol] 32.9 g/dL Normal 30.5-36.0 [facility] Comment on above: Order Comment: Speci men Type: BLOOD SPECIMENOrdering Facility: [facility] Address: [address] [place] [address] Performed By: #### 5 8410-2 ####[facility] LABIA [id number] [place] [address] [place] MCV (RBC) [Entitic vol] 89.8 fL Normal 80.0-100.0 C [facility] Comment on above: Order Comment: Speci men Type: BLOOD SPECIMENOrdering Facility: [facility] Address: [address] [place] [address] Performed By: #### 5 8410-2 ####[facility] LABIA [id number] [place] [address] [place] Nucleated RBC (Bld) [#/Vol] 10*3/uL Normal <0.01 [facility] Comment on above: Order Comment: Speci men Type: BLOOD SPECIMENOrdering Facility: [facility] Address: [address] [place] [address] Performed By: #### 5 8410-2 ####[facility] LABCLIA [id number] [place] [address] [place] Platelet mean volume (Bld) [Entitic vol] 11.7 fL Normal 9.0-12.7 [facility] Comment on above: Order Comment: Speci men Type: BLOOD SPECIMENOrdering Facility: [facility] Address: [address] [place] [address] Performed By: #### 5 8410-2 ####[facility] LABCLIA [id number] [place] [address] [place] Platelets (Bld) [#/Vol] 211 10*3/uL Normal 150-400 [facility] Comment on above: Order Comment: Speci men Type: BLOOD SPECIMENOrdering Facility: [facility] Address: [address] [place] [address] Performed By: #### 5 8410-2 ####[facility] LABCLIA [id number] [place] [address] [place] RBC (Bld) [#/Vol] 4.50 10*6/uL Normal 3.90-5.20 [facility] Comment on above: Order Comment: Speci men Type: BLOOD SPECIMENOrdering Facility: [facility] Address: [address] [place] [address] Performed By: #### 5 8410-2 ####[facility] LABCLIA [id number] [place] [address] [place] WBC (Bld) [#/Vol] 6.42 10*3/uL Normal 3.70-11.00 [facility] Comment on above: Order Comment: Jeffy plasencia Type: BLOOD SPECIMENOrdering Facility: [facility] Address: [address] [place] [address] Performed By: #### 5 8410-2 ####[facility] LABCLIA [id number] [place] [address] [place] CELIAC SCREENon 06-13-2024 GLIAD DEAMIDATED IGA QUAL Negative Normal Negative, Test not Indicated [facility] Comment on above: Order Comment: Specfco men Type: BLOOD SPECIMENOrdering Facility: [facility] Address: [address] [place] [address] Result Comment: This is used as an aid in diagnosis of celiac disease. Clinical correlation is required. The following results were obtained with an Bio[employer]antis QUANTA Lite Gliadin IgA JESSICA Gliadin. Gliadin IgA values obtained with different manufacturers' assay methods may not be used interchangeably. The magnitude of the reported IgA levels cannot be correlated to an endpoint titer. Performed By: #### L [id number] ####[facility] LABCLIA [id number] [place] [address] [place] Gliadin peptide IgA Qn (S) 4 Units Normal <20 [facility] Comment on above: Order Comment: Jeffy plasencia Type: BLOOD SPECIMENOrdering Facility: [facility] Address: [address] [place] [address] Performed By: #### L [id number] ####[facility] LABCLIA [id number] [place] [address] [place] INTERPRETATION No serological evidence of celiac disease, however, if celiac disease is clinically suspected and patient is not on gluten-free diet, histological diagnosis may be considered. HLA testing may help with risk assessment. Normal [facility] Comment on above: Order Comment: Jeffy plasencia Type: BLOOD SPECIMENOrdering Facility: [facility] Address: [address] [place] [address] Performed By: #### L [id number] ####[facility] LABCLIA [id number] [address] [place] TRANSGLUTAMINASE IGA ABS INTERPRETATION Negative Normal Negative [facility] Comment on above: Order Comment: Jeffy plasencia Type: BLOOD SPECIMENOrdering Facility: [facility] Address: [address] [place] [address] Result Comment: The following results were obtained with [employer] QUANTA Lite R h-tTG IgA JESSICA.???R h-tTG IgA values obtained with different manufacturers' assay methods may not be used interchangeably. The magnitude of the reported IgA levels cannot be corelated to an endpoint???concentration. This is used as an aid in diagnosis of celiac disease. Clinical correlation is required. Performed By: #### L [id number] ####[facility] LABCLIA [id number] [address] [place] tTG IgA Qn (S) <2 Normal <4 [facility] Comment on above: Order Comment: Jeffy plasencia Type: BLOOD SPECIMENOrdering Facility: [facility] Address: [address] [place] [address] Performed By: #### L [id number] ####[facility] LABCLIA [id number] [address] [place] CNOVon 06-13-2024 CNOV Office Visit (PEDSWS ) MARITZA GARAY ([id number]) 3 F Date Time Provider Department 06/13/24 3:45 PM REA POLO During your visit today, we recorded the following information about you: Temperature Pulse Respiration Blood pressure 98.4 degrees 96/minute 20/minute 126/82 Weight 75.3 kg Rea Polo MD 06/13/2024 5:26 PM Signed Patient brought in today by self presents today with fatigue for the past few years. This has been present even when Paiten is getting enough sleep. More recently, she has not been sleeping well b/c she and her boyfriend got two kittens. She also recently moved in with her boyfriend. She does not snore. She does not fall asleep while at work or while driving She drinks coffee and tea, not usually past 4pm. Feels that mood is good ROS Gen; weight has been stable HEENT: neg Resp; neg GI; neg Skin nails are thin, no changes in hair Neuro: sometimes has a CAMPBELL in the morning PAST MEDICAL HISTORY Diagnosis Date NEGATIVE MEDICAL HISTORY ACTIVE PROBLEM LIST Social Anxiety Disorder of Childhood Dysmenorrhea Mdd (Major Depressive Disorder), Single Episode, Moderate (Hcc) Current Outpatient Medications on File Prior to Visit Medication Sig etonogestrel (NEXPLANON) 68 mg impl subdermal implant 68 mg by SUBDERMAL route one time only. cetirizine (ZYRTEC) 10 mg tablet Take 1 tablet by mouth once daily. triamcinolone acetonide (KENALOG) 0.5 % cream Apply to affected area three times a day. desvenlafaxine ER (PRISTIQ) 50 mg 24 hr tablet TAKE 1 TABLET BY MOUTH DAILY WITH BREAKFAST. START AFTER COMPLETING 7 DAYS OF THE 25 MG DOSE. desvenlafaxine ER (PRISTIQ) 25 mg 24 hr tablet Take 1 tablet by mouth daily with breakfast for 7 days. hydrOXYzine HCl (ATARAX) 50 mg tablet Take 1 tablet by mouth daily at bedtime. No current facility-administered medications on file prior to visit. GENERAL: alert and active in no apparent distress EYES: conjunctiva clear, no drainage EARS: Right color pale, light reflex normal, Left color pale, light reflex normal NOSE/SINUSES : no drainage OROPHARYNX:moist mucous membranes, tonsils without hypertrophy, and no exudates present NECK: supple, no adenopathy CARDIOVASCULAR : Regular Rate and Rhythm without murmurs or clicks LUNGS: clear to auscultation ABDOMEN : Abdomen is soft, nontender, without organomegaly or masses. ASSESSMENT: fatigue PLAN: Per orders. Will check screening labs I spent a total of 30 minutes on the date of the service which included preparing to see the patient, [id number] patient care, completing clinical documentation, obtaining and/or reviewing separately obtained history, performing a medically appropriate examination, counseling and educating the patient/family/caregi amando, and ordering medications, tests, or procedures. Rea Polo MD Allergies As of Date: 06/13/2024 (No Known Allergies) Date Reviewed: 06/13/2024 Reviewed by: Kiara Maya LPN - Fully Assessed Reason for Visit: Fatigue [46] Cmt: Chronic issue, headache every morning, would like to get bloodwork to check for anemia, eats a vegetarian diet Primary Visit Diagnosis:Malaise and fatigue [R53.81, R53.83] Order(s):THYROID STIMULATING HORMONE [SQTSH] Order #: [id number] FUTURE T4 FREE/FREE THYROXINE [SQFT4] Order #: [id number] FUTURE FERRITIN [SQFERR] Order #: [id number] FUTURE IRON AND TIBC [SQIRON] Order #: [id number] FUTURE COMPLETE BLOOD COUNT [SQCBC] Order #: [id number] FUTURE CELIAC SCREEN WITH REFLEX [SQCELSCR] Order #: [id number] FUTURE Prescriptions as of 06/13/2024 - cetirizine (ZYRTEC) 10 mg tablet Take 1 tablet by mouth once daily. - etonogestrel (NEXPLANON) 68 mg impl subdermal implant 68 mg by SUBDERMAL route one time only. - triamcinolone acetonide (KENALOG) 0.5 % cream Apply to affected area three times a day. - desvenlafaxine ER (PRISTIQ) 50 mg 24 hr tablet TAKE 1 TABLET BY MOUTH DAILY WITH BREAKFAST. START AFTER COMPLETING 7 DAYS OF THE 25 MG DOSE. - desvenlafaxine ER (PRISTIQ) 25 mg 24 hr tablet Take 1 tablet by mouth daily with breakfast for 7 days. - hydrOXYzine HCl (ATARAX) 50 mg tablet Take 1 tablet by mouth daily at bedtime. Problem List As Of Date 06/13/2024 Noted Resolved Nocturnal enuresis [N39.44] 07/08/2014 04/18/2022 Social anxiety disorder of childhood [F40.10] 08/11/2017 Dysmenorrhea [N94.6] 04/18/2022 MDD (major depressive disorder), single episode*11/03/2023 Encounter Status:Closed by REA POLO on 06/13/24 Normal [facility] Fer[facility]in [Mass/Vol] 55.5 ng/mL Normal 14.7-205.1 [facility] Comment on above: Order Comment: Speci men Type: BLOOD SPECIMENOrdering Facility: [facility] Address: [address] [place] [address] Performed By: #### 2 276-4, 3024-7, 3016-3, 24288-1 ####[facility] LABCLIA [id number] [place] [address] [place] IgA SerPl-mCncon 06-13-2024 IgA [Mass/Vol] 140 mg/dL Normal 61-348 [facility] Comment on above: Order Comment: Speci men Type: BLOOD SPECIMENOrdering Facility: [facility] Address: [address] [place] [address] Performed By: #### 2 458-8 ####[facility] LABCLIA [id number] [address] [address] [place] Iron and Iron binding capaci panel 06-13-2024 Iron [Mass/Vol] 65 ug/dL Normal 41-186 [facility] Comment on above: Order Comment: Speci men Type: BLOOD SPECIMENOrdering Facility: [facility] Address: [address] [place] [address] Performed By: #### 2 276-4, 3024-7, 3016-3, 72834-5 ####[facility] LABCLIA [id number] [address] [address] [place] Iron binding capacity [Mass/Vol] 307 ug/dL Normal 232-386 [facility] Comment on above: Order Comment: Speci men Type: BLOOD SPECIMENOrdering Facility: [facility] Address: [address] [place] [address] Performed By: #### 2 276-4, 3024-7, 3016-3, 14368-3 ####[facility] LABCLIA [id number] [address] [address] [place] Iron/TIBC [Molar ratio] 21.2 % Normal 15.0-57.0 C [facility] Comment on above: Order Comment: Speci men Type: BLOOD SPECIMENOrdering Facility: [facility] Address: [address] [place] [address] Performed By: #### 2 276-4, 3024-7, 3016-3, 36622-7 ####[facility] LABCLIA [id number] [place] [id number] [place] T4 [facility] 0[facility] Free T4 [Mass/Vol] 1.2 ng/dL Normal 0.9-1.[address] [facility] Comment on above: Order Comment: Speci men Type: BLOOD SPECIMENOrdering Facility: [facility] Address: [address] [place] [address] Performed By: #### 2 276-4, 3024-7, 3016-3, 82585-8 ####[facility] LABCLIA [id number] [place] [id number] [place] TSH SerPl-aCncon 06-13-2024 TSH Qn 3.130 m[IU]/L Normal 0.510-4.300 [facility] Comment on above: Order Comment: Speci men Type: BLOOD SPECIMENOrdering Facility: [facility] Address: [address] [place] [address] Result Comment: If t he patient is , TSH reference range varies by gestational period: First Trimester (weeks 9-12): 0.180-2.990 mIU/L Second Trimester: 0.110-3.980 mIU/L Third Trimester: 0.480-4.710 mIU/L Dax Roca et al. A Practical Approach for the Verifications and Determination of Site- and Trimester-Specific Reference Intervals for Thyroid Function tests in . Thyroid, 2019:29:3:412-420. Jg Lara, et al. 2017 Guidelines of the [place] Thyroid Association for the Diagnosis and Management of Thyroid Disease during and the . Thyroid, 2017:27:3:315-389. Reference ranges were not locally established for this patient's age group. The normal values are based on the following source: Maura Mccollum V. Reference Ranges for Adults and Children: Pre-analytical Considerations. [employer] Performed By: #### 2 276-4, 3024-7, 3016-3, 72616-6 ####[facility] LABCLIA [id number] [place] [id number] [facility] [id number] 05-15-2024 [id number] HNO ID: [id number] Author: MEY AGUILERA OT/L Service: ? Author Type: Occupational Therapist Type: [id number] Filed: 05/15/2024 10:22 Note Text: [facility] Occupational Therapy Plan of Care Certification Patient Name: Maritza Garay : 2005 [facility] #: [id number] Date: 05/14/2024 To: Shraddha Lozoya PA-C From Therapist: IVELISSE Cook RE: Patient Certification/ Recertification Your review, approval and electronic signature are required in order to comply with Payor: REGI / Plan: BLUE ACCESS PPO / Product Type: PPO / regulations. The identified Occupational Therapy PLAN OF CARE for the patient is as follows: M67.431 Ganglion cyst of wrist, right PLAN OF CARE: Assessment: Maritza Garay presents with chief complaint of wrist stiffness after surgery that interferes with lifting, gripping, weight bearing, pinching . She presents with impairments in range of motion. PROMIS? (Patient-Reported Outcomes Measurement Information System) scores were reviewed and identified as a rehabilitation concern. Prognosis for therapy is Good due to: current objective clinical presentation . She will benefit from skilled therapy services to meet the goals established for this plan of care as noted below. Goals for Episode of Care: established 05/14/24 Patient will report a good understanding of diagnosis and OT recommendations for progression of program. Patient will have normal wrist AROM Patient will have increased outsole cutter machine strength by 5 lbs Patient Goals: to regain full motion Time Frame for Goals and Treatment : 07/12/24 Planned Interventions, Frequency, and Duration: Current Frequency: 1x/week Duration: 2 weeks Total Number of Visits Planned: 2 Planned Treatment Interventions: Therapeutic exercise (56954), Self-correction management (71894) PLAN FOR NEXT VISIT:JAMIE wills Patient demonstrates good understanding of plan of care and treatment. The above goals and plan of care were discussed and agreed upon by patient/family. For further details regarding this patient refer to the Occupational Therapy electronically documented visit dated 05/14/2024. Provider Attestation I have reviewed the treatment plan for Maritza Garay, [facility]# [id number] for the period of 05/14/24 -- 06/21/24, established on 05/14/2024. Signature certifies the need for therapy services. [facility] CNTHERAPYon 05-14-2024 CNTHERAPY OT/PT/Speech Visit (OTMMC) MARITZA GARAY ([id number]) 3 F Date Time Provider Department 05/14/24 5:15 PM MEY AGUILERA [facility] Date Time Provider Department Center 05/14/2024 5:15 PM [id number] AGUILERA [facility] Reason for Visit: OT EVAL [748] OT Discharge [750] Visit Diagnosis:Ganglion cyst of wrist, right [M67.431] Allergies As of Date: 05/14/2024 (No Known Allergies) Date Reviewed: 05/13/2024 Reviewed by: Sophia Quevedo MA - Fully Assessed Prescriptions as of 09/24/2024 - cetirizine (ZYRTEC) 10 mg tablet TAKE 1 TABLET BY MOUTH EVERY DAY - desvenlafaxine ER (PRISTIQ) 50 mg 24 hr tablet Take 1 tablet by mouth every morning. Take with 25 mg dose to equal 75 mg total. - desvenlafaxine ER (PRISTIQ) 25 mg 24 hr tablet Take 1 tablet by mouth every morning. Take with 50 mg dose to equal 75 mg. - hydrOXYzine HCl (ATARAX) 50 mg tablet TAKE 1 TABLET BY MOUTH EVERYDAY AT BEDTIME - etonogestrel (NEXPLANON) 68 mg impl subdermal implant 68 mg by SUBDERMAL route one time only. - triamcinolone acetonide (KENALOG) 0.5 % cream Apply to affected area three times a day. Annotated image of OT HAND POST-OPERATIVE WRIST EXERCISES last updated by Mey Aguilera OT/L on 05/14/2024 5:32 PM Annotated image of OT HAND SCAR MANAGEMENT PAGE 1 OF 2 last updated by Mey Aguilera OT/L on 05/14/2024 5:32 PM Annotated image of OT HAND POST-OPERATIVE ELBOW/FOREARM EXERCISES last updated by Mey Aguilera OT/Abelino on 05/14/2024 5:32 PM [facility] 05-13-2024 [facility] Office Visit (ADI ) MARITZA GARAY ([id number]) 3 F Date Time Provider Department 05/13/24 8:00 AM BRICE WHITE During your visit today, we recorded the following information about you: Brice White MD 05/13/2024 8:33 AM Signed Brice White MD Department of Orthopaedics Orthopaedics [address] [facility] [address] Dept: [phone] Dept May 13, 2024 CHIEF COMPLAINT: Post Op of the Right Wrist and 5 weeks 5 days post op Right 4th compartment syndrome. HPI Patient here for post op visit right wrist. States she is continuing to still have some pain. Patient is continuing to have stiffness in her wrist. She is starting Occupational therapy tomorrow. Taking no med's for the pain. ASSESSMENT: M67.431 Ganglion cyst of wrist, right (primary encounter diagnosis) M25.531 Right wrist pain SUMMARY/PLAN: She is just a bit stiff and sore, appropriately for surgery. She is can get in with occupational therapy tomorrow. She does feel the meloxicam is helping. She can follow-up as needed. Exam: Healed surgical incision. Swelling is down from even preoperatively. Some limitations with motion as noted. Supporting Information Below: Medications: Current Outpatient Medications Medication Sig meloxicam (MOBIC) 15 mg tablet Take 1 tablet by mouth once daily. etonogestrel (NEXPLANON) 68 mg impl subdermal implant 68 mg by SUBDERMAL route one time only. triamcinolone acetonide (KENALOG) 0.5 % cream Apply to affected area three times a day. desvenlafaxine ER (PRISTIQ) 50 mg 24 hr tablet TAKE 1 TABLET BY MOUTH DAILY WITH BREAKFAST. START AFTER COMPLETING 7 DAYS OF THE 25 MG DOSE. hydrOXYzine HCl (ATARAX) 50 mg tablet Take 1 tablet by mouth daily at bedtime. cetirizine (ZYRTEC) 10 mg tablet Take 1 tablet by mouth once daily. desvenlafaxine ER (PRISTIQ) 25 mg 24 hr tablet Take 1 tablet by mouth daily with breakfast for 7 days. No current facility-administered medications for this visit. Allergies: Patient has no known allergies. Brice White MD Referring Provider: BRICE WHITE [[id number]] Allergies As of Date: 05/13/2024 (No Known Allergies) Date Reviewed: 05/13/2024 Reviewed by: Sophia Quevedo MA - Fully Assessed Reason for Visit: Post Op [174] 5 weeks 5 days post op Right 4th compartment syndrome [Other] Primary Visit Diagnosis:Ganglion cyst of wrist, right [M67.431] Other Visit Diagnosis:Right wrist pain [M25.531] Prescriptions as of 05/13/2024 - meloxicam (MOBIC) 15 mg tablet Take 1 tablet by mouth once daily. - etonogestrel (NEXPLANON) 68 mg impl subdermal implant 68 mg by SUBDERMAL route one time only. - triamcinolone acetonide (KENALOG) 0.5 % cream Apply to affected area three times a day. - desvenlafaxine ER (PRISTIQ) 50 mg 24 hr tablet TAKE 1 TABLET BY MOUTH DAILY WITH BREAKFAST. START AFTER COMPLETING 7 DAYS OF THE 25 MG DOSE. - desvenlafaxine ER (PRISTIQ) 25 mg 24 hr tablet Take 1 tablet by mouth daily with breakfast for 7 days. - hydrOXYzine HCl (ATARAX) 50 mg tablet Take 1 tablet by mouth daily at bedtime. - cetirizine (ZYRTEC) 10 mg tablet Take 1 tablet by mouth once daily. Problem List As Of Date 05/13/2024 Noted Resolved Nocturnal enuresis [N39.44] 07/08/2014 04/18/2022 Social anxiety disorder of childhood [F40.10] 08/11/2017 Dysmenorrhea [N94.6] 04/18/2022 MDD (major depressive disorder), single episode*11/03/2023 Encounter Status:Closed by BRICE WHITE on 05/13/24 [facility] CNOVon 05-09-2024 CNOV Office Visit (PEDSWS ) MARITZA GARAY ([id number]) 3 F Date Time Provider Department 05/09/24 9:00 AM REA POLO During your visit today, we recorded the following information about you: Temperature Pulse Respiration Weight 98.8 degrees 88/minute 16/minute 77.1 kg Rea Polo MD 05/17/2024 5:15 PM Signed Patient brought in today by self presents today for f/u scalp lesion. Maritza had been Dx with possible tinea and has been applying clotrimazole cream for the past few wks. Fungal cx of hair was negative. Lesion is slightly pruritic ROS Gen; no fever Skin; no other lesions GENERAL: alert and active in no apparent distress SKIN : posterior/inferior scalp with slightly rash pink lesion about 3mm x 7mm, no scaling or flaking ASSESSMENT: Skin lesion - most c/w mild eczema. Could be early psoriasis PLAN: Per orders Call if not improved in 1 month Rea Polo MD Allergies As of Date: 05/09/2024 (No Known Allergies) Date Reviewed: 04/15/2024 Reviewed by: Polina Griffiths MA - Fully Assessed Reason for Visit: Rash [1087] Cmt: On scalp, back of head-ongoing issue, also has bump behind right ear and left axilla Primary Visit Diagnosis:Rash and nonspecific skin eruption [R21] Order(s):triamcinolon e acetonide (KENALOG) 0.5 % creamApply to affected area three times a day.Disp: 15 gRfl: 0 Prescriptions as of 05/17/2024 - meloxicam (MOBIC) 15 mg tablet Take 1 tablet by mouth once daily. - etonogestrel (NEXPLANON) 68 mg impl subdermal implant 68 mg by SUBDERMAL route one time only. - triamcinolone acetonide (KENALOG) 0.5 % cream Apply to affected area three times a day. - desvenlafaxine ER (PRISTIQ) 50 mg 24 hr tablet TAKE 1 TABLET BY MOUTH DAILY WITH BREAKFAST. START AFTER COMPLETING 7 DAYS OF THE 25 MG DOSE. - desvenlafaxine ER (PRISTIQ) 25 mg 24 hr tablet Take 1 tablet by mouth daily with breakfast for 7 days. - hydrOXYzine HCl (ATARAX) 50 mg tablet Take 1 tablet by mouth daily at bedtime. - cetirizine (ZYRTEC) 10 mg tablet Take 1 tablet by mouth once daily. Problem List As Of Date 05/09/2024 Noted Resolved Nocturnal enuresis [N39.44] 07/08/2014 04/18/2022 Social anxiety disorder of childhood [F40.10] 08/11/2017 Dysmenorrhea [N94.6] 04/18/2022 MDD (major depressive disorder), single episode*11/03/2023 Prescriptions ordered this encounter Disp Refills Start End TRIAMCINOLONE ACETONIDE 0.5 % TOPICA* 15 g 0 05/09/2024 Route: TOPICAL Sig: Apply to affected area three times a day. Encounter Status:Closed by REA POLO on 05/17/24 Normal [facility] Chair Frame Builder Office Visit Reporton 05-07-2024 Chair Frame Builder Office Visit Report [facility] [address] [place] [address], [address] [place] [address] OFFICE VISIT Date of Service: 05/07/24 MR#: [id number] Acct: [id number] Name: MARITZA GARAY Rep #: [id number] : 2005 Provider: MARK Hernandez ams Age/Sex: 18/F Location[facility] Status: Signed Intake Vital Signs 02/13/23 11:44 05/07/24 14:02 05/07/24 14:07 Height 5 ft 6 in 5 ft 6 in 5 ft 6 in Weight: 166 lb BMI 26.8 BP 126/81 H Intake Visit Reasons: NEXPLANON INSERTION Service Car 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 Female Reproductive History Cycle Length: 21-35 Questions: sexually active: Yes, dyspareunia: No and PCB: No ROS Const Constitutional: Reports system reviewed and no additional complaints, except as documented Cardio Card: Reports system reviewed and no additional complaints, except as documented Resp Resp: Reports system reviewed and no additional complaints, except as documented GI GI: Reports system reviewed and no additional complaints, except as documented : Reports system reviewed and no additional complaints, except as documented Musc Musc: Reports system reviewed and no additional complaints, except as documented Skin Skin/Breast: Reports system reviewed and no additional complaints, except as documented Neuro Neuro: Reports system reviewed and no additional complaints, except as documented Psych Psych: Reports system reviewed and no additional complaints, except as documented Endo Endo: Reports system reviewed and no additional complaints, except as documented [place]/Lymph Hematologic/Lymphatic : Reports system reviewed and no additional complaints, except as documented Aller/Immun Allergic/Immunologic: Reports system reviewed and no additional complaints, except as documented Exam Const General: cooperative, healthy appearing and comfortable Neck Neck: normal visual inspection and full ROM Resp Effort Inspection: normal respiratory effort, able to speak in complete sentences and symmetric chest movement GI Inspection: normal to inspection Palpation: soft Neuro General: patient alert, patient awake and patient oriented x3 Cognition: normal cognition Speech: speech normal Gait: normal gait Extrem General: normal to inspection and full ROM Psych Appearance: grossly normal and well kempt Mental Status: mental status grossly normal Mood: congruent mood Affect: normal affect Speech and Movement: speech and movement normal Attitude: cooperative Thought Process: normal Thought Content: normal Office Procedures Nexplanon Insertion Nexplanon Insertion Test: Yes Negative Consent Signed: Yes Time out checklist: patient, procedure, site marked/identified, positioning of patient, supplies available, allergies confirmed and team agrees on procedure Time out time: 14:00 Details: Sign in Communication: Completed Sign out Discussion: Completed Technique: Patient placed in supine position with left arm bent at the elbow and placed over the head. Skin cleansed with betadine. 1mL of 1% lidocaine with epinephrine injected subQ along insertion site. 5mm stab incision made with a scalpel and Nexplanon gin inserted under sterile technique. The gin was palpable under the skin after insertion and the notch visible on the trochar after insertion. Steristrips and sterile pressure dressing applied. Nexplanon Insertion Nexplanon Insertion Details: Sign in Communication: Completed Sign out Discussion: Completed Technique: Patient placed in supine position with left arm bent at the elbow and placed over the head. Skin cleansed with betadine. 1mL of 1% lidocaine with epinephrine injected subQ along insertion site. 5mm stab incision made with a scalpel and Nexplanon gin inserted under sterile technique. The gin was palpable under the skin after insertion and the notch visible on the trochar after insertion. Steristrips and sterile pressure dressing applied. Office Meds Nexplanon 68 mg subdermal implant Performing Provider: Bharati Beth CNM Performing Location: [facility] Administered by: NAYA Tomlinson (more content not included)... [place] 04-22-2024 CNPN Telephone (PEDSWS) MARITZA GARAY ([id number]) 3 F Date Time Provider Department 04/22/24 REA POLO During your visit today, we recorded the following information about you: Rea Polo MD 04/22/2024 2:37 PM Signed Please notify pt that hair Cx was negative for fungal infection. If the pink lesion is still present, I recommend that she schedule an appt MD Mel Green Amanda S, RN 04/22/2024 2:48 PM Signed Message left for patient to return call. BEBA Stone Cherryle, RN 04/23/2024 9:04 AM Signed unable to reach patient via telephone, message left for patient to call office, also below information sent via [employer] BEBA Calero Cherryle, RN 04/24/2024 12:52 PM Signed per [employer] message with below information has been read by patient Allergies As of Date: 04/22/2024 (No Known Allergies) Date Reviewed: 04/15/2024 Reviewed by: Polina Griffiths MA - Fully Assessed Reason for Visit: Results [95] Prescriptions as of 04/24/2024 - ondansetron (ZOFRAN) 4 mg tablet Take 1 tablet by mouth every 12 hours as needed for nausea/vomiting for up to 15 days. - desvenlafaxine ER (PRISTIQ) 25 mg 24 hr tablet Take 1 tablet by mouth daily with breakfast for 7 days. - desvenlafaxine ER (PRISTIQ) 50 mg 24 hr tablet Take 1 tablet by mouth daily with breakfast. Start after completing 7 days of the 25 mg dose. - hydrOXYzine HCl (ATARAX) 50 mg tablet Take 1 tablet by mouth daily at bedtime. - etodolac (LODINE) 400 mg tablet Take 1 tablet by mouth two times a day. - cetirizine (ZYRTEC) 10 mg tablet Take 1 tablet by mouth once daily. - hydrOXYzine HCl (ATARAX) 10 mg tablet Take 1 tablet by mouth three times a day as needed for anxiety. Problem List As Of Date 04/22/2024 Noted Resolved Nocturnal enuresis [N39.44] 07/08/2014 04/18/2022 Social anxiety disorder of childhood [F40.10] 08/11/2017 Dysmenorrhea [N94.6] 04/18/2022 MDD (major depressive disorder), single episode*11/03/2023 Encounter Status:Closed by LIOR JIANG on 04/24/24 [facility] CNOVjesse 04-15-2024 CNOV Office Visit (ORTHWS ) MARITZA GARAY ([id number]) 3 F Date Time Provider Department 04/15/24 8:30 AM SHRADDHA LOZOYA During your visit today, we recorded the following information about you: Polina Griffiths MA 04/15/2024 8:58 AM Signed AMB ROOMING INTAKE FLOWSHEET DATA Pain Pain Level: 3 (as high as 7) Pain Location: Wrist-Right Description: Aching, Sharp Duration Amount of Time: (post op) Frequency: Continuous Intervention/Comfort measure: Other: See comment (none) Patient is 1 week 5 days post op right wrist 4th extensor compartment tenosynovectomy. Patient has a small amount of pain. She has been taking tylenol and icing for pain relief. Shraddha Lozoya PA-C 04/15/2024 8:58 AM Signed Shraddha Lozoya PA-C Department of Orthopaedics Orthopaedics [address] [facility] [address] Dept: [phone] Dept April 15, 2024 CHIEF COMPLAINT: Established Patient and Post Op of the Right Wrist. ASSESSMENT: M67.431 Ganglion cyst of wrist, right (primary encounter diagnosis) M25.531 Right wrist pain SUMMARY/PLAN: Patient presents 1 week and 4 days status post right fourth extensor compartment release. She is having some 3-7 out of 10 aching pain in the wrist especially with activity, has some bruising as well. We discussed some gentle range of motion and scar massage. She can continue with her functional brace as needed during activities. She will be off work for an additional month, works at [employer]. Will see her back prior to her return to work. Exam: Incision site is well-approximated without erythema or drainage. Mild but appropriate edema in the dorsum of the wrist extending up into the hand. Patient is able to form a loose composite fist and extend all digits. Sensation is intact to the right hand. Imaging: Deferred today. Ms. Maritza Garay was advised as to contrast therapies and/or to take analgesics/anti-infla mmatories as needed and all contraindications were reviewed. Supporting Information Below: Medications: Current Outpatient Medications Medication Sig hydrOXYzine HCl (ATARAX) 50 mg tablet Take 1 tablet by mouth daily at bedtime. cetirizine (ZYRTEC) 10 mg tablet Take 1 tablet by mouth once daily. ondansetron (ZOFRAN) 4 mg tablet Take 1 tablet by mouth every 12 hours as needed for nausea/vomiting for up to 15 days. desvenlafaxine ER (PRISTIQ) 25 mg 24 hr tablet Take 1 tablet by mouth daily with breakfast for 7 days. desvenlafaxine ER (PRISTIQ) 50 mg 24 hr tablet Take 1 tablet by mouth daily with breakfast. Start after completing 7 days of the 25 mg dose. etodolac (LODINE) 400 mg tablet Take 1 tablet by mouth two times a day. hydrOXYzine HCl (ATARAX) 10 mg tablet Take 1 tablet by mouth three times a day as needed for anxiety. No current facility-administered medications for this visit. Allergies: Patient has no known allergies. This note was partially generated using [employer] voice recognition system, and there may be some incorrect words, spellings, and punctuation that were not noted in checking the note before saving. Shraddha Lozoya PA-C Referring Provider: BRICE WHITE [[id number]] Allergies As of Date: 04/15/2024 (No Known Allergies) Date Reviewed: 04/15/2024 Reviewed by: Polina Griffiths MA - Fully Assessed Reason for Visit: Established Patient [175] Post Op [174] Primary Visit Diagnosis:Ganglion cyst of wrist, right [M67.431] Other Visit Diagnosis:Right wrist pain [M25.531] Prescriptions as of 04/15/2024 - ondansetron (ZOFRAN) 4 mg tablet Take 1 tablet by mouth every 12 hours as needed for nausea/vomiting for up to 15 days. - desvenlafaxine ER (PRISTIQ) 25 mg 24 hr tablet Take 1 tablet by mouth daily with breakfast for 7 days. - desvenlafaxine ER (PRISTIQ) 50 mg 24 hr tablet Take 1 tablet by mouth daily with breakfast. Start after completing 7 days of the 25 mg dose. - hydrOXYzine HCl (ATARAX) 50 mg tablet Take 1 tablet by mouth daily at bedtime. - etodolac (LODINE) 400 mg tablet Take 1 tablet by mouth two times a day. - cetirizine (ZYRTEC) 10 mg tablet Take 1 tablet by mouth once daily. - hydrOXYzine HCl (ATARAX) 10 mg tablet Take 1 tablet by mouth three times a day as needed for anxiety. 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] 08/11/2017 Dysmenorrhea [N94.6] 04/18/2022 MDD (major depressive disorder), single episode*11/03/2023 Encounter Status:Closed by SHRADDHA LOZOYA on 04/15/24 [facility] ANES POSTPROC EVALon 024 ANES POSTPROC EVAL HNO ID: [id number] Author: MICHAEL VEE MD Service: Anesthesiology Author Type: Anesthesiologist Type: Anesthesia Postprocedure Evaluation Filed: 04/03/2024 12:59 Note Text: POST ANESTHESIA EVALUATION NOTE : 2004 Procedure Summary Date: 04/03/24 Room / Location: [place] OR / [place] OR Anesthesia Start: 1049 Anesthesia Stop: 1138 Procedure: EXCISION GANGLION WRIST (Right: Wrist) Diagnosis: Ganglion cyst of wrist, right (Ganglion cyst of wrist, right [M67.431]) Surgeons: Brice White MD Responsible Provider: Michael Vee MD Anesthesia Type: MAC ASA Status: 3 Anesthesia Type: MAC Last Vitals Vitals Value Taken Time BP 119/68 04/03/24 1215 Temp 36.1 ?C (97 ?F) 04/03/24 1140 Pulse 67 04/03/24 1232 Resp 12 04/03/24 1218 SpO2 95 % 04/03/24 1232 Vitals shown include unfiled device data. Post Anesthesia Patient Status Patient Evaluation: PACU. PACU/ICU Patient Condition: stable. Anticipated Disposition: phase 2 then home. Neurological Status: aware and responsive. Pulmonary Status: breathing comfortably on room air Airway Control: returned to baseline unsupported. Cardiovascular Status: stable. Pain Management: clinically adequate - multimodal analgesia pain management approach Postoperative Hydration: acceptable. Intraoperative Events: no significant anesthesia events Recommendation: continue current plan of care. Anesthesia Observations No Documentation SIGNATURE: Michael Vee MD PATIENT NAME: Maritaz Garay DATE: April 03, 2024 TIME: 12:59 PM CSN: [id number] [facility] ANES PRE-OPon 04-03-2024 ANES PRE-OP HNO ID: [id number] Author: MICHAEL VEE MD Service: Anesthesiology Author Type: Anesthesiologist Type: Anesthesia Preprocedure Evaluation Filed: 04/03/2024 08:19 Note Text: ANESTHESIOLOGY DAY OF SURGERY NOTE : 2004 Procedure Information Date/Time: 04/03/24 0855 Procedure: EXCISION GANGLION WRIST (Right: Wrist) Location: [place] [address] / [place] Surgeons: Brice White MD Estimated body mass index is 26.31 kg/m? as calculated from the following: Height as of 03/20/24: 167.6 cm (5' 6). Weight as of 03/22/24: 73.9 kg (163 lb). Most recent hematocrit and potassium results: Hematocrit 37.1 01/21/2013 Relevant Problems No relevant active problems I - PHYSICAL EVALUATION AIRWAY Patient intubated: No. Tracheostomy tube not present Mallampati: II. TM distance: >3 FB. Neck ROM: full ROM without neurological symptoms. Short neck: no. Thick neck: no DENTAL Dental findings: poor dentition. Additional exam findings: no II - ANESTHESIA PLAN ASA Score: 3 Anesthetic Plan: MAC NPO Status: adequate Beta Maddie Monitoring Plan Monitoring plan: Standard ASA. Post Procedure Analgesic Plan Postoperative analgesic plan: parenteral or oral opioids. Informed Consent Anesthetic risks, benefits, alternatives, personnel and consent discussed: yes. Patient / Responsible Republican agrees to proceed: yes Patient / Surrogate agrees to blood products: blood products not planned DNR status not reviewed with patient and/or family prior to surgery. Significant changes in the patient condition since the History and Physical, not otherwise documented in primary service progress note: no. Potential Anesthesia issues that may suggest increased risk of complications or contraindication to planned procedure: none. No vitals data found for the desired time range. Facility-Administered Medications as of 04/03/2024 Medication Dose Route Frequency - lidocaine (PF) 10 mg/mL (1 %) 1-2 mg injection (XYLOCAINE) 0.1-0.2 mL INTRADERMAL PRN - lactated ringers iv infusion 5-30 mL/hr INTRAVENOUS CONTINUOUS - NaCl 0.9% iv flush bag 20 mL INTRAVENOUS PRN - acetaminophen 1,000 mg tab(s) (TYLENOL) 1,000 mg ORAL As Directed - promethazine 12.5 mg tab(s) (PHENERGAN) 12.5 mg ORAL ONCE - lactated ringers iv infusion 5-30 mL/hr INTRAVENOUS CONTINUOUS - scopolamine 1 mg over 3 days 1 Patch (TRANSDERM-SCOP) 1 Patch TRANSDERMAL ONCE Outpatient Medications as of 04/03/2024 Medication Sig - APRI 0.15-0.03 mg per tablet I have interviewed and examined the patient. I have reviewed the medical record and/or the pre-anesthesia evaluation, pertinent labs, and test results. This contains updated information obtained within 48 hours of Surgery/Procedure. SIGNATURE: Michael Vee MD PATIENT NAME: Maritza Garay DATE: April 03, 2024 TIME: 8:18 AM CSN: [id number] [facility] OPERATIVE NOon 04-03-2024 OPERATIVE NO HNO ID: [id number] Author: BRICE WHITE MD Service: Orthopaedic Surgery Author Type: Physician Type: Operative Report Filed: 04/05/2024 15:24 Note Text: OPERATIVE/PROCEDURE REPORT LOG ID: [id number] SURGERY/PROCEDURE DATE: 04/03/2024 INCISION/PROCEDURE START TIME: 11:14 AM INCISION CLOSE/PROCEDURE END TIME: 11:29 AM SURGEON(S)/PROCEDURAL IST(S) AND ENGINEERING RECRUITER(S): Surgeon(s) and Role: * Brice White MD - Primary Physician Drama Critic: Shraddha Lozoya PA-C SURGERY/PROCEDURE(S): Right wrist, fourth extensor compartment tenosynovectomy. ANESTHESIA: Monitored Anesthesia Care with local. SURGERY/PROCEDURE DETAILS: PT reported fluctuating swelling on the dorsum of the wrist which caused pain and functional problems at times. Today, there did not appear to have much swelling, however reviewed the risks, benefits, alternatives and potential complications with op and non-op and she wished to proceed with surgery for the wrist. She was identified in the preoperative area marked accordingly on the right wrist just ulnar to the Ana Paula's tubercle. No antibiotics were necessary as it was a soft tissue procedure of less than 2 hours. She was taken the operative suite and placed in a supine position with an armboard on the right. Anesthesia assumed care of the head and neck for the remainder the case and began a MAC anesthetic. A well-padded upper brachium tourniquet was applied with cotton padding and set at 250 mmHg but not yet inflated. All other bony landmarks were appropriately padded in standard fashion. The right upper extremity was then sterilely prepped and draped in standard fashion. An appropriate timeout was conducted and all in the room were in agreement, signed consent form was on the chart. Local anesthetic was provided with 1% lidocaine 1-200,000 epinephrine for total of 3 cc on the dorsum of the wrist. The upper extremity was then exsanguinated with an Esmarch bandage and the tourniquet was applied at 250 mmHg. Longitudinal incision was made with a 15 blade superficially through the dermis and I dissected down to the level of the retinaculum. Small crossing vein was cauterized with bipolar. There did not appear to be any obvious ganglion per se, however some fullness at the fourth compartment. I released the distal edge of the retinaculum to get into the fourth compartment and there was a moderate amount of synovitis. I debrided the synovium off of the fourth compartment tendons and decompressing the fourth compartment. I copiously irrigated and then closed the retinaculum down with an 0 Vicryl. The wound was again irrigated and the skin edges were closely approximated with 3-0 Monocryl'sand the final skin closure was done with a 4-0 Monocryl in a subcuticular weaves with Steri-Strips, Xeroform, 4 x 4 and final bandages with a light Brant wrap. There were no complications during the procedure. Patient was safely awoken and transferred to the postanesthetic care unit in stable condition. PRE-OP/PRE-PROCEDURE DIAGNOSIS: Right wrist, ganglion cyst POST-OP/POST-PROCEDUR E DIAGNOSIS: Right wrist, dorsal fourth compartment tenosynovitis. ESTIMATED BLOOD LOSS: 0 ml SPECIMENS: None IMPLANTABLE DEVICES: NONE DRAINS: None COMPLICATIONS: None CLOSURE TECHNIQUE: Primary PARTICIPATION IN SURGERY/PROCEDURE: I/primary surgeon/proceduralist performed the entire procedure. Patient was accompanied to the next level of care by a licensed practitioner from the surgical team pending completion of this brief op note (or operative note) SIGNATURE: Brice White MD PATIENT NAME: Maritza Garay DATE: April 03, 2024 TIME: 12:01 PM Normal [facility] UA DIP, URINE (POC)on 2023 BILIRUBIN UA (POCT) Moderate Abnormal Negative [facility] CLARITY UA (POCT) Cloudy [facility] COLOR UA (POCT) Yellow [facility] GLUCOSE UA (POCT) Negative Negative mg/dL [facility] Hemoglobin Ql (U) Negative Negative [facility] Interpretation and review of laboratory results Abnormal [facility] KETONE UA (POCT) Negative Negative mg/dL [facility] LEUKOCYTES UA (POCT) Small Abnormal Negative [facility] NITRITE UA (POCT) Positive Abnormal Negative [facility] PH UA (POCT) 6.0 4.5 - 8.0 [facility] Protein Ql (U) Negative Negative mg/dL [facility] SPECIFIC GRAVITY UA (POCT) 1.020 1.005 - 1.030 [facility] UROBILINOGEN UA (POCT) 0.2 Natalie l E.U./dL [facility] Location:[facility], [address], [place], [address] [facility] POINT OF CARE [facility] MRI WRIST WO IVCON RTon 02-2 MRI WRIST WO IVCON RT * * *Final Report* * * DATE OF EXAM: Oct 24 2023 6:50PM MDM 0266 - MRI WRIST WO IVCON RT / PROCEDURE REASON: M67.431-Ganglion cyst of dorsum of right wrist * * * * Physician Interpretation * * * * EXAMINATION: MRI WRIST WO IVCON RT PATIENT/TECHNOLOGIST PROVIDED HISTORY: right wrist pain/mass off and on x3 years CLINICAL HISTORY: 18 years old Female with Ganglion cyst of dorsum of right wrist. Mass. COMPARISON: Right wrist radiographs 09/25/2023 TECHNIQUE: Multiplanar PD, T1 and T2 weighted images. RESULT: Two markers are placed in dorsal aspect of the wrist at the site of palpable abnormality. Triangular fibrocartilage: Intact. Scapholunate ligament: Intact. Lunotriquetral ligament: Intact. Flexor tendons and carpal tunnel: Within normal limits. Carpal tunnel is within normal limits. Extensor tendons: There is trace fluid within the 2nd and 3rd extensor compartments (5: 13-20). There is fluid signal surrounding the EPL tendon as it crosses the 2nd extensor compartment (5:15-17) with adjacent 9 x 4 x 11 mm ganglion cyst just distal to the Ana Paula's tubercle at the site of palpable abnormality. Remainder of the extensor compartments are within normal limits. Bones and bone marrow: No fractures or marrow replacing lesions. Joint fluid: Trace fluid within the pisotriquetral recess. No joint effusion or synovitis. Other: 4 x 2 x 5 mm ganglion volar radial aspect of the radiocarpal joint (5:16, 7:8). 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 Barrel Lathe Operator Inside: [facility] Transcribe Date/Time: Oct 26 2023 11:11A Dictated by : JT MCKEON DO This examination was interpreted and the report reviewed and electronically signed by: JT MCKEON DO on Oct 26 2023 11:41AM EST [id number] [facility] NURSING PROGon 10-24-2023 NURSING PROG HNO ID: [id number] Author: LORRAINE SOSA RT(R) Service: Radiology Author Type: Technologist Type: Nursing Progress Note Filed: 10/24/2023 18:23 Note Text: Radiology Service Progress Note PATIENT NAME: Maritza Garay DATE OF SERVICE: October 24, 2023 TIME: 6:23 PM PATIENT IDENTITY VERIFICATION COMPLETED USING TWO (2) IDENTIFIERS: Name and Date of confirmed by patient verbally and Name and Date of confirmed by identification band. FALL SCREENING: Has the patient had 2 falls in the last year or 1 fall with injury or currently using an Ambulatory Assistive Device (Walker, Cane, Wheelchair, Crutches, etc.)? No PATIENT GENDER DATA: Female. status: : No status: NO. PATIENT RELEVANT IMPLANT DATA REVIEWED: Yes PATIENT PRESENTS WITH AN IMPLANTABLE OR ATTACHED CURRENCY EXAMINER: No RADIOLOGY DEPARTMENT: MR; Exam(s) Completed: Upper MSK: Wrist, right PERIPHERAL IV DATA: Not applicable SIGNED BY: RT Boris(R) October 24, 2023 6:23 PM [facility] XR Wrist - right PA and Late ral and Obliqueon 09-25-2023 IMPRESSION: Within normal limits. No acute changes. Barrel Lathe Operator Inside: [facility] Transcribe Date/Time: Sep 25 2023 6:27P Dictated by : GAYLE WHITE MD This examination was interpreted and the report reviewed and electronically signed by: GAYLE WHITE MD on Sep 25 2023 6:29PM [facility] DIVISION OF RADIOLOGY * * *Final Report* * * DATE OF EXAM: Sep 25 2023 5:56PM WOX 5271 - XR WRIST 3V PA/LAT/OBL RT / PROCEDURE REASON: Acute wrist pain, right * * * * Physician Interpretation * * * * RIGHT WRIST, 3 VIEWS, 09/25/2023 HISTORY: Acute right wrist pain. COMPARISON: 02/25/2021 TECHNIQUE: AP, lateral, and oblique views. RESULTS: The bones appear intact. There is a old small corticated ossicle distal to the ulna. This could be developmental or from remote trauma. Bone alignment is normal. No underlying bone lesions are seen. The joint spaces appear normal. There are no periarticular calcifications. DIVISION OF RADIOLOGY Provider, [facility] Tomkarina [facility] - 09/25/2023 * * *Final Report* * * DATE OF EXAM: Sep 25 2023 5:56PM WOX 5271 - XR WRIST 3V PA/LAT/OBL RT / PROCEDURE REASON: Acute wrist pain, right * * * * Physician Interpretation * * * * RIGHT WRIST, 3 VIEWS, 09/25/2023 HISTORY: Acute right wrist pain. COMPARISON: 02/25/2021 TECHNIQUE: AP, lateral, and oblique views. RESULTS: The bones appear intact. There is a old small corticated ossicle distal to the ulna. This could be developmental or from remote trauma. Bone alignment is normal. No underlying bone lesions are seen. The joint spaces appear normal. There are no periarticular calcifications. IMPRESSION IMPRESSION: Within normal limits. No acute changes. Barrel Lathe Operator [facility] Transcribe Date/Time: Sep 25 2023 6:27P Dictated by : GAYLE WHITE MD This examination was interpreted and the report reviewed and electronically signed by: GAYLE WHITE MD on Sep 25 2023 6:29PM [facility] Radiology Study observation (narrative) [facility] XR Wrist - right PA and Late ral and ObliqueOrdered By: [facility] Provider on 09-25-2023 [facility] XR Wrist - right PA and Late ral and Obliqueon 02-25-2021 IMPRESSION: Mild wrist soft tissue swelling. No acute radiographic abnormality. Barrel Lathe Operator Inside: [facility] Transcribe Date/Time: Feb 25 2021 9:33A Dictated by : BIANCA LOU DO This examination was interpreted and the report reviewed and electronically signed by: MILTON COMBS MD on Feb 25 2021 10:57AM [facility] DIVISION OF RADIOLOGY * * *Final Report* * * DATE OF EXAM: Feb 25 2021 9:08AM STX 5271 - XR WRIST 3V PA/LAT/OBL RT / PROCEDURE REASON: Pain * * * * Physician Interpretation * * * * EXAMINATION: XR WRIST 3V PA/LAT/OBL RT HISTORY: BUMP ON DORSAL WRIST FOR 2 WEEKS. NO KNOWN INJURIES. Pain . TECHNIQUE: XR WRIST 3V PA/LAT/OBL RT Laterality: RIGHT Number of different views (projections): 3 M: XB_1 COMPARISON: None. RESULT: Mild soft tissue swelling about the dorsal wrist. No acute fracture. Carpal bone alignment is within normal limits. No bony erosion. Bone mineralization is normal. Tiny rounded ossific density in the ulnocarpal joint likely heterotopic calcification. DIVISION OF RADIOLOGY Provider, Charlotte Briseno [facility] - 02/25/2021 * * *Final Report* * * DATE OF EXAM: Feb 25 2021 9:08AM STX 5271 - XR WRIST 3V PA/LAT/OBL RT / PROCEDURE REASON: Pain * * * * Physician Interpretation * * * * EXAMINATION: XR WRIST 3V PA/LAT/OBL RT HISTORY: BUMP ON DORSAL WRIST FOR 2 WEEKS. NO KNOWN INJURIES. Pain . TECHNIQUE: XR WRIST 3V PA/LAT/OBL RT Laterality: RIGHT Number of different views (projections): 3 M: XB_1 COMPARISON: None. RESULT: Mild soft tissue swelling about the dorsal wrist. No acute fracture. Carpal bone alignment is within normal limits. No bony erosion. Bone mineralization is normal. Tiny rounded ossific density in the ulnocarpal joint likely heterotopic calcification. IMPRESSION IMPRESSION: Mild wrist soft tissue swelling. No acute radiographic abnormality. 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 Rea Polo MD Work Phone: [facility] 03-03-2025 08:09-0400 Body mass index (BMI) [Ratio] 26.5 kg/m2 Dr. Rea Polo MD Work Phone: [facility] 03-03-2025 08:09-0400 Body temperature 97.8 [degF] Dr. Rea Polo MD Work Phone: [facility] 03-03-2025 08:09-0400 Body weight 74.[address] Rea Polo MD Work Phone: [facility] 03-03-2025 08:09-0400 Diastolic blood pressure 81 mm[Hg] Dr. Rea Polo MD Work Phone: 7(479)311-390428 [place] [address] 03-03-2025 08:09-0400 Heart rate 85 /min Dr. Rea Polo MD Work Phone: [facility] 03-03-2025 08:09-0400 Respiratory rate 16 /min Dr. Rea Polo MD Work Phone: [facility] 03-03-2025 08:09-0400 SaO2% (BldA) [Mass fraction] 98 % Dr. Rea Polo MD Work Phone: [facility] 03-03-2025 08:09-0400 Systolic blood pressure 116 mm[Hg] Dr. Rea Polo MD Work Phone: [facility] 01-30-2025 14:16-0400 Body mass index (BMI) [Ratio] 25.62 kg/m2 Kandace Lombardi-Kyle GLOVERN.PIER HAND Work Phone: [facility] 01-30-2025 14:16-0400 Body temperature 97.39 [degF] Kandace Zamoraler-Kyle MEDICAL CASE WORKER.PIER HAND Work Phone: [facility] 01-30-2025 14:16-0400 Body weight 72 kg Kandace Praeliasler-Kyle MEDICAL CASE WORKER.PIER HAND Work Phone: [facility] 01-30-2025 14:16-0400 Diastolic blood pressure 82 mm[Hg] Kandace Praeliasler-Kyle MEDICAL CASE WORKER.PIER HAND Work Phone: [facility] 01-30-2025 14:16-0400 Heart rate 81 /min Kandace Zamoraler-Kyle MEDICAL CASE WORKER.PIER HAND Work Phone: [facility] 01-30-2025 14:16-0400 Respiratory rate 18 /min Kandace Lombardi-Kyle MEDICAL CASE WORKER.PIER HAND Work Phone: [facility] 01-30-2025 14:16-0400 SaO2% (BldA) [Mass fraction] 100 % Kandace Lombardi-Kyle MEDICAL CASE WORKER.PIER HAND Work Phone: [facility] 01-30-2025 14:16-0400 Systolic blood pressure 119 mm[Hg] Kandace Lombardi-Kyle MEDICAL CASE WORKER.PIER HAND Work Phone: [facility] 01-09-2025 15:02-0400 Body height 167.[address] Rea Polo MD Work Phone: 4(084)452-641528 [place] [address] 01-09-2025 15:02-0400 Body mass index (BMI) [Ratio] 26.2 kg/m2 Dr. Rea Polo MD Work Phone: 8(698)819-240486 [place] [address] 01-09-2025 15:02-0400 Body weight 73.[address] Rea Polo MD Work Phone: 0(152)671-685986 [place] [address] 01-09-2025 15:02-0400 Diastolic blood pressure 83 mm[Hg] Dr. Rea Polo MD Work Phone: 9(915)632-369628 [place] [address] 01-09-2025 15:02-0400 Heart rate 82 /min Dr. Rea Polo MD Work Phone: 8(664)243-496628 [place] [address] 01-09-2025 15:02-0400 Respiratory rate 16 /min Dr. Rea Polo MD Work Phone: 6(673)531-701128 [place] [address] 01-09-2025 15:02-0400 SaO2% (BldA) [Mass fraction] 95 % Dr. Rea Polo MD Work Phone: 5(095)554-161386 [place] [address] 01-09-2025 15:02-0400 Systolic blood pressure 106 mm[Hg] Dr. Rea Polo MD Work Phone: 9(254)899-414686 [place] [address] 12-24-2024 08:39-0400 Body mass index (BMI) [Ratio] 25 kg/m2 Dr. Rea Polo MD Work Phone: 1(156)723-269886 [place] [address] 12-24-2024 08:39-0400 Body weight 70.[address] Rea Polo MD Work Phone: 7(159)312-973486 [place] [address] 12-24-2024 08:39-0400 Diastolic blood pressure 80 mm[Hg] Dr. Rea Polo MD Work Phone: 5(722)613-680086 [place] [address] 12-24-2024 08:39-0400 Heart rate 91 /min Dr. Rea Polo MD Work Phone: 5(159)461-897386 [place] [address] 12-24-2024 08:39-0400 Respiratory rate 16 /min Dr. Rea Polo MD Work Phone: 2(364)061-549586 [place] [address] 12-24-2024 08:39-0400 SaO2% (BldA) [Mass fraction] 98 % Dr. Rea Polo MD Work Phone: 0(250)886-712386 [place] [address] 12-24-2024 08:39-0400 Systolic blood pressure 114 mm[Hg] Dr. Rea Polo MD Work Phone: 0(241)469-206386 [place] [address] 11-28-2024 09:02-0400 Body height 167.[address] Rea Polo MD Work Phone: 2(044)462-466586 [place] [address] 11-28-2024 09:02-0400 Body mass index (BMI) [Ratio] 26.2 kg/m2 Dr. Rea Polo MD Work Phone: 8(134)535-449286 [place] [address] 11-28-2024 09:02-0400 Body weight 73.[address] Rea Polo MD Work Phone: 8(837)177-899986 [place] [address] 11-28-2024 09:02-0400 Diastolic blood pressure 78 mm[Hg] Dr. Rea Polo MD Work Phone: 4(176)943-972386 [place] [address] 11-28-2024 09:02-0400 Systolic blood pressure 124 mm[Hg] Dr. Rea Polo MD Work Phone: 5(892)668-133886 [place] [address] 11-23-2024 17:06-0400 Diastolic blood pressure 69 mm[Hg] Dr. Rea Polo MD Work Phone: 2(031)106-893328 [place] [address] 11-23-2024 17:06-0400 Heart rate 72 /min Dr. Rea Polo MD Work Phone: 3(486)900-713386 [place] [address] 11-23-2024 17:06-0400 Respiratory rate 15 /min Dr. Rea Polo MD Work Phone: 2(010)481-373486 [place] [address] 11-23-2024 17:06-0400 SaO2% (BldA) [Mass fraction] 100 % Dr. Rea Polo MD Work Phone: 6(958)942-541586 [place] [address] 11-23-2024 17:06-0400 Systolic blood pressure 106 mm[Hg] Dr. Rea Polo MD Work Phone: 5(377)780-352886 [place] [address] 11-23-2024 14:46-0400 Body height 167.[address] Rea Polo MD Work Phone: 3(827)414-421986 [place] [address] 11-23-2024 14:46-0400 Body mass index (BMI) [Ratio] 26.4 kg/m2 Dr. Rea Polo MD Work Phone: 8(829)855-945586 [place] [address] 11-23-2024 14:46-0400 Body temperature 97 [degF] Dr. Rea Polo MD Work Phone: 3(698)969-241986 [place] [address] 11-23-2024 14:46-0400 Body weight 74.[address] Rea Polo MD Work Phone: 9(617)485-364886 [place] [address] 11-19-2024 17:44-0400 Body mass index (BMI) [Ratio] 25.98 kg/m2 Lani Nur PA Work Phone: 5(259)758-883566 [place] [address] 11-19-2024 17:44-0400 Body temperature 98.8 [degF] Krispapo Nur PA Work Phone: 7(932)926-244366 [place] [address] 11-19-2024 17:44-0400 Body weight 73 kg Krispapo Nur PA Work Phone: [facility] 11-19-2024 17:44-0400 Diastolic blood pressure 80 mm[Hg] Krislyn Aberegg PA Work Phone: [facility] 11-19-2024 17:44-0400 Heart rate 76 /min Krislyn Aberegg PA Work Phone: [facility] 11-19-2024 17:44-0400 Respiratory rate 18 /min Krislyn Aberegg PA Work Phone: [facility] 11-19-2024 17:44-0400 SaO2% (BldA) [Mass fraction] 97 % Krislyn Aberegg PA Work Phone: [facility] 11-19-2024 17:44-0400 Systolic blood pressure 112 mm[Hg] Krislyn Aberegg PA Work Phone: [facility] 11-04-2024 15:55-0500 Body mass index (BMI) [Ratio] 27.08 kg/m2 Krislyn Aberegg PA Work Phone: [facility] 11-04-2024 15:55-0500 Body temperature 97.81 [degF] Krislyn Aberegg PA Work Phone: [facility] 11-04-2024 15:55-0500 Body weight 76.1 kg Krislyn Aberegg PA Work Phone: [facility] 11-04-2024 15:55-0500 Diastolic blood pressure 82 mm[Hg] Krislyn Aberegg PA Work Phone: [facility] 11-04-2024 15:55-0500 Heart rate 92 /min Krislyn Aberegg PA Work Phone: [facility] 11-04-2024 15:55-0500 Respiratory rate 18 /min Krislyn Aberegg PA Work Phone: [facility] 11-04-2024 15:55-0500 SaO2% (BldA) [Mass fraction] 96 % Krislyn Aberegg PA Work Phone: [facility] 11-04-2024 15:55-0500 Systolic blood pressure 128 mm[Hg] Lani Nur PA Work Phone: [facility] 11-01-2024 15:39-0500 Body mass index (BMI) [Ratio] 26.2 kg/m2 Dr. Rea Polo MD Work Phone: [facility] 11-01-2024 15:39-0500 Body weight 73.[address] Rea Polo MD Work Phone: 2([phone] [place] [address] 11-01-2024 15:39-0500 Diastolic blood pressure 62 mm[Hg] Dr. Rea Polo MD Work Phone: 3(814)[phone] [place] [address] 11-01-2024 15:39-0500 Systolic blood pressure 114 mm[Hg] Dr. Rea Polo MD Work Phone: [facility] 06-13-2024 15:47-0400 Body mass index (BMI) [Ratio] 26.79 kg/m2 Rea Polo MD Work Phone: [facility] 06-13-2024 15:47-0400 Body temperature 98.4 [degF] Rea Polo MD Work Phone: [facility] 06-13-2024 15:47-0400 Body weight 75.3 kg Rea Polo MD Work Phone: [facility] 06-13-2024 15:47-0400 Diastolic blood pressure 82 mm[Hg] Rea Polo MD Work Phone: [facility] 06-13-2024 15:47-0400 Heart rate 96 /min Rea Polo MD Work Phone: [facility] 06-13-2024 15:47-0400 Respiratory rate 20 /min Rea Polo MD Work Phone: [facility] 06-13-2024 15:47-0400 Systolic blood pressure 126 mm[Hg] Rea Polo MD Work Phone: [facility] 05-09-2024 09:04-0400 Body mass index (BMI) [Ratio] 27.44 kg/m2 Rea Polo MD Work Phone: [facility] 05-09-2024 09:04-0400 Body temperature 98.8 [degF] Rea Polo MD Work Phone: [facility] 05-09-2024 09:04-0400 Body weight 77.11 kg Rea Polo MD Work Phone: [facility] 05-09-2024 09:04-0400 Heart rate 88 /min Rea Polo MD Work Phone: [facility] 05-09-2024 09:04-0400 Respiratory rate 16 /min Rea Polo MD Work Phone: [facility] 03-22-2024 14:46-0400 Body mass index (BMI) [Ratio] 26.31 kg/m2 Rea Polo MD Work Phone: [facility] 03-22-2024 14:46-0400 Body temperature 98.01 [degF] Rea Polo MD Work Phone: [facility] 03-22-2024 14:46-0400 Body weight 73.94 kg Rea Polo MD Work Phone: [facility] 03-22-2024 14:46-0400 Heart rate 96 /min Rea Polo MD Work Phone: [facility] 03-22-2024 14:46-0400 Respiratory rate 20 /min Rea Polo MD Work Phone: [facility] 03-20-2024 15:39-0400 Body height 167.6 cm [facility] 1 Work Phone: [facility] 03-20-2024 15:39-0400 Body mass index (BMI) [Ratio] 26.31 kg/m2 Pac 1 Work Phone: [place] [address]-17-2024 15:39-0400 Body temperature 99 [degF] Pacc 1 Work Phone: [facility] 03-20-2024 15:39-0400 Body weight 73.94 kg Pacc 1 Work Phone: [facility] 03-20-2024 15:39-0400 Diastolic blood pressure 82 mm[Hg] Pacc 1 Work Phone: [facility] 03-20-2024 15:39-0400 Heart rate 96 /min Pacc 1 Work Phone: [facility] 03-20-2024 15:39-0400 Respiratory rate 14 /min Pacc 1 Work Phone: [facility] 03-20-2024 15:39-0400 SaO2% (BldA) [Mass fraction] 99 % Pacc 1 Work Phone: [facility] 03-20-2024 15:39-0400 Systolic blood pressure 130 mm[Hg] Pacc 1 Work Phone: [facility] 02-16-2024 15:52-0400 Body mass index (BMI) [Ratio] 25.61 kg/m2 Yvonne Cotterf MEDICAL CASE WORKER.PIER HAND Work Phone: [facility] 02-16-2024 15:52-0400 Body temperature 99.19 [degF] Yvonne Hansonhof MEDICAL CASE WORKER.PIER HAND Work Phone: [facility] 02-16-2024 15:52-0400 Body weight 72.7 kg Yvonne Hansonhof MEDICAL CASE WORKER.PIER HAND Work Phone: [facility] 02-16-2024 15:52-0400 Diastolic blood pressure 80 mm[Hg] Yvonne Tannhof MEDICAL CASE WORKER.PIER HAND Work Phone: [facility] 02-16-2024 15:52-0400 Heart rate 82 /min Yvonne Cotterf MEDICAL CASE WORKER.PIER HAND Work Phone: [facility] 02-16-2024 15:52-0400 Respiratory rate 18 /min Yvonne Cotterf MEDICAL CASE WORKER.PIER HAND Work Phone: [facility] 02-16-2024 15:52-0400 SaO2% (BldA) [Mass fraction] 100 % Yvonne Hansonhof MEDICAL CASE WORKER.PIER HAND Work Phone: [facility] 02-16-2024 15:52-0400 Systolic blood pressure 124 mm[Hg] Yvonne Cotterf MEDICAL CASE WORKER.PIER HAND Work Phone: [facility] 01-28-2024 08:59-0400 Body mass index (BMI) [Ratio] 25.46 kg/m2 Delfina Athy PA-C Work Phone: [facility] 01-28-2024 08:59-0400 Body temperature 97.9 [degF] Delfina Athy PA-C Work Phone: [facility] 01-28-2024 08:59-0400 Body weight 72.3 kg Delfina Athy PA-C Work Phone: [facility] 01-28-2024 08:59-0400 Diastolic blood pressure 80 mm[Hg] Delfina Athy PA-C Work Phone: [facility] 01-28-2024 08:59-0400 Heart rate 95 /min Delfina Athy PA-C Work Phone: [facility] 01-28-2024 08:59-0400 Respiratory rate 20 /min Delfina Athy PA-C Work Phone: [facility] 01-28-2024 08:59-0400 SaO2% (BldA) [Mass fraction] 99 % Delfina Athy PA-C Work Phone: [facility] 01-28-2024 08:59-0400 Systolic blood pressure 110 mm[Hg] Delfina Athy PA-C Work Phone: [facility] 11-24-2023 15:34-0400 Body height 168.5 cm Rea Polo MD Work Phone: [facility] 11-24-2023 15:34-0400 Body temperature 97.39 [degF] Rea Polo MD Work Phone: [facility] 11-24-2023 15:34-0400 Body weight 70.03 kg Rea Polo MD Work Phone: [facility] 11-24-2023 15:34-0400 Diastolic blood pressure 68 mm[Hg] Rea Polo MD Work Phone: [facility] 11-24-2023 15:34-0400 Heart rate 90 /min Rea Polo MD Work Phone: [facility] 11-24-2023 15:34-0400 Respiratory rate 16 /min Rea Polo MD Work Phone: [facility] 11-24-2023 15:34-0400 Systolic blood pressure 114 mm[Hg] Rea Polo MD Work Phone: [facility] 11-03-2023 15:46-0500 Body temperature 97.39 [degF] Rea Polo MD Work Phone: [facility] 11-03-2023 15:46-0500 Body weight 71.03 kg eRa Polo MD Work Phone: [facility] 11-03-2023 15:46-0500 Heart rate 88 /min Rea Polo MD Work Phone: [facility] 11-03-2023 15:46-0500 Respiratory rate 16 /min Rea Polo MD Work Phone: [facility] 10-17-2023 14:00-0500 Body temperature 98.1 [degF] Rea Polo MD Work Phone: [facility] 10-17-2023 14:00-0500 Body weight 68.86 kg Rea Polo MD Work Phone: [facility] 10-17-2023 14:00-0500 Heart rate 72 /min Rea Polo MD Work Phone: [facility] 10-17-2023 14:00-0500 Respiratory rate 16 /min Rea Polo MD Work Phone: [facility] 04-18-2022 16:37-0400 Body height 167.9 cm Rea Polo MD Work Phone: [facility] 04-18-2022 16:37-0400 Body mass index (BMI) [Percentile] Per age and sex 76.19 % Rea Polo MD Work Phone: [facility] 04-18-2022 16:37-0400 Body temperature 97.7 [degF] Rea Polo MD Work Phone: [facility] 04-18-2022 16:37-0400 Body weight 67.13 kg Rea Polo MD Work Phone: [facility] 04-18-2022 16:37-0400 Diastolic blood pressure 78 mm[Hg] Rea Polo MD Work Phone: [facility] 04-18-2022 16:37-0400 Heart rate 80 /min Rea Polo MD Work Phone: [facility] 04-18-2022 16:37-0400 Respiratory rate 20 /min Rea Polo MD Work Phone: [facility] 04-18-2022 16:37-0400 Systolic blood pressure 116 mm[Hg] Rea Polo MD Work Phone: [facility] Encounters Encounter Date Encounter Type Care Provider Facility Start: 04-03-2025 End: 04-03-2025 Patient encounter procedure Opal Rock DOUGH BRAKE MACHINE OPERATOR-C -Laboratory Work Phone: Start: 04-03-2025 End: 04-03-2025 ambulatory JEANNETTE DALAL Facility:[facility] Start: 04-03-2025 End: 04-03-2025 ambulatory Opal Rock Facility:[facility] Start: 03-21-2025 End: 03-21-2025 ambulatory JEANNETTE DALAL Facility:[facility] Start: 03-21-2025 End: 03-21-2025 [facility] Jeannette Dalal APRN.PIER HAND Work Phone: Psychiatry Comment on above: MDD (major depressiv e disorder), recurrent episode, moderate (HCC) (Primary Dx); KAREEM (generalized anxiety disorder); Psychosocial stressors; Encounter for long-term (current) use of medications; Insomnia due to other mental disorder Start: 03-04-2025 ambulatory Rea Polo Facilit y:[facility] Start: 03-03-2025 End: 03-03-2025 Patient encounter procedure Ariadne MORENO -[facility] Work Phone: Start: 03-03-2025 End: 03-03-[address] Rea Polo MD Work Phone: [facility] Start: 03-03-2025 End: 03-03-[address] Rea Polo MD Work Phone: -[facility] Start: 03-03-2025 End: 03-03-2025 Patient encounter procedure Opal MORENO -[facility] Work Phone: Start: 02-26-2025 End: 02-26-[address] Rea Polo MD Work Phone: -[facility] Start: 02-26-2025 End: 02-26-2025 Patient encounter procedure Opal MORENO -[facility] Work Phone: Start: 02-26-2025 End: 02-26-2025 ambulatory Opal Rock Facility:[facility] Start: 02-16-2025 End: 03-05-2025 Refill Rea Polo MD Work Phone: [facility] Comment on above: Refill Request Start: 02-04-2025 End: 02-04-2025 Refill Jeannette Dalal APRN.PIER HAND Work Phone: Psychiatry Comment on above: Med Change Request Start: 01-30-2025 End: 01-30-2025 Patient encounter procedure Kandace Urrutia APRN.PIER HAND Work Phone: [facility] Comment on above: Urinary frequency (P rimary Dx); Urinary tract infection with hematuria, site unspecified; Hematuria, unspecified type; Proteinuria, unspecified type Start: 01-30-2025 End: 01-30-2025 [facility] Facility:[facility] Start: 01-13-2025 End: 01-13-2025 [facility] Jeannette Dalal APRN.CNP Work Phone: Psychiatry Comment on above: KAREEM (generalized anx iety disorder) (Primary Dx); Encounter for long-term (current) use of medications; Severe episode of recurrent major depressive disorder, without psychotic features (HCC); Psychosocial stressors; Social anxiety disorder; Insomnia due to other mental disorder Start: 01-13-2025 End: 01-13-2025 [facility] JEANNETTE DALAL Facility:[facility] Start: 01-09-2025 End: 01-09-2025 [facility] Start: 01-09-2025 End: 01-09-2025 ambulatory [facility] Facility:[facility] Start: 12-30-2024 End: 12-30-2024 Patient encounter procedure Opal StevensUltrasound [facility] Work Phone: Start: 12-30-2024 End: 12-30-2024 [facility] Facility:[facility] Start: 12-24-2024 End: 12-24-2024 [facility] Start: 12-24-2024 End: 12-24-2024 ambulatory [facility] Facility:[facility] Start: 12-09-2024 End: 12-09-[address] Rea Polo MD Work Phone: [facility] Work Phone: Start: 12-09-2024 End: 12-09-2024 Patient encounter procedure Courtney StevensUltrasound, [facility] Work Phone: Start: 12-09-2024 End: 12-09-2024 ambulatory [facility] Facility:[facility] Start: 11-28-2024 End: 11-28-2024 Patient encounter procedure Courtney MORENO -[facility] Work Phone: Start: 11-28-2024 End: 11-28-[address] Rea Polo MD Work Phone: [facility] Work Phone: Start: 11-28-2024 End: 11-28-2024 ambulatory [facility] Facility:[facility] Start: 11-23-2024 End: 11-23-2024 Emergency department patient visit Dr. Rea Polo MD Work Phone: -Emergency Department Work Phone: Start: 11-19-2024 End: 11-19-2024 ambulatory [facility] Facility:[facility] Start: 11-19-2024 End: 11-19-2024 Patient encounter procedure Lani RANKIN Work Phone: [facility] Comment on above: Urinary frequency (P rimary Dx) Start: 11-19-2024 End: 11-21-2024 Refill Rea Polo MD Work Phone: [facility] Comment on above: Refill Request Start: 11-18-2024 End: 11-18-2024 [facility] Jeannette Dalal APRN.PIER HAND Work Phone: Psychiatry Comment on above: Encounter for long-t erm (current) use of medications (Primary Dx); KAREEM (generalized anxiety disorder); MDD (major depressive disorder), single episode, moderate (HCC); Social anxiety disorder; Eating disorder, unspecified type; Drug-induced constipation Start: 11-18-2024 End: 11-18-2024 ambulatory JEANNETTE DALAL Facility:[facility] Start: 11-07-2024 End: 11-07-2024 Telephone encounter Jeannette Dalal APRN.CNP Work Phone: Psychiatry Start: 11-06-2024 End: 01-06-2025 Follow-up encounter Anna Pearson APRN.PIER HAND Work Phone: [facility] Start: 11-04-2024 End: 11-04-2024 ambulatory [facility] Facility:[facility] Start: 11-04-2024 End: 11-04-2024 Patient encounter procedure Lani RANKIN Work Phone: [facility] Comment on above: Urinary frequency (P rimary Dx) Start: 11-01-2024 End: 11-01-2024 Patient encounter procedure Bharati Beth [facility] Work Phone: Start: 11-01-2024 End: 11-01-2024 ambulatory [facility] Facility:[facility] Start: 10-28-2024 End: 10-28-2024 Get Medical Advice Jeannette Dalal APRN.PIER HAND Work Phone: Psychiatry Comment on above: medication refill Start: 10-24-2024 End: 10-24-2024 Refill Jeannette Dalal APRN.PIER HAND Work Phone: Psychiatry Comment on above: Refill Request Start: 08-23-2024 End: 08-23-2024 Refill Rea Polo MD Work Phone: [facility] Comment on above: Refill Request Start: 08-19-2024 End: 08-19-2024 [facility] Jeannette Dalal APRN.PIER HAND Work Phone: Psychiatry Comment on above: KAREEM (generalized anx iety disorder) (Primary Dx); MDD (major depressive disorder), single episode, moderate (HCC); Social anxiety disorder; Eating disorder, unspecified type; Nausea; Drug-induced constipation; Encounter for long-term (current) use of medications Start: 08-19-2024 End: 08-19-2024 ambulatory JEANNETTE DALAL Facility:[facility] Start: 07-14-2024 End: 07-15-2024 Refill Jeannette Dalal APRN.PIER HAND Work Phone: Psychiatry Comment on above: Refill Request Start: 07-10-2024 End: 07-12-2024 Refill Jeannette Dalal APRN.PIER HAND Work Phone: Psychiatry Comment on above: Med Change Request Start: 07-10-2024 End: 07-10-2024 Telephone encounter Jeannette Dalal APRN.PIER HAND Work Phone: Psychiatry Start: 06-14-2024 End: 06-14-2024 [facility] Jeannette Dalal APRN.PIER HAND Work Phone: Psychiatry Comment on above: KAREEM (generalized anx iety disorder) (Primary Dx); MDD (major depressive disorder), single episode, moderate (HCC); Social anxiety disorder; Eating disorder, unspecified type; Marijuana use; Nausea Start: 06-13-2024 End: 06-13-2024 Patient encounter procedure Rea Polo MD Work Phone: [facility] Comment on above: Malaise and fatigue (Primary Dx) Start: 06-13-2024 End: 06-13-2024 ambulatory REA POLO Facility:[facility] Start: 05-28-2024 End: 05-28-2024 Refill Yvonne Huynh APRN.PIER HAND Work Phone: [facility] Comment on above: Refill Request Start: 05-14-2024 End: 05-15-2024 Patient encounter procedure Mey Aguilera OT/L Work Phone: [facility] Comment on above: Ganglion cyst of [address], right Start: 05-14-2024 End: 05-15-2024 ambulatory Mey Aguilera OT/L Work Phone: [facility] Start: 05-13-2024 End: 05-13-2024 ambulatory BRICE WHITE Facility:[facility] Start: 05-13-2024 End: 05-13-2024 Patient encounter procedure Brice White MD Work Phone: Orthopaedics Comment on above: Ganglion cyst of wri st, right (Primary Dx); Right wrist pain Start: 05-11-2024 End: 05-27-2024 Refill Jeannette Dalal APRN.CNP Work Phone: Psychiatry Comment on above: Refill Request Start: 05-09-2024 End: 05-09-2024 Orders Only Shraddha Vetovitz PA-C Work Phone: Orthopaedics Comment on above: Ganglion cyst of [address] st, right (Primary Dx) Rash and nonspecific skin eruption (Primary Dx) Start: 05-07-2024 End: 05-07-2024 Refill Jeannette Dalal APRN.PIER HAND Work Phone: Psychiatry Comment on above: Med Change Request Start: 05-07-2024 End: 05-07-2024 ambulatory Rea Polo Facility:[facility] Start: 05-03-2024 End: 05-07-2024 ambulatory Shraddha Vetovitz PA-C Work Phone: Orthopaedics Comment on above: Wrist movement Start: 05-02-2024 End: 05-02-2024 Refill Yvonne Huynh APRN.PIER HAND Work Phone: [facility] Comment on above: Med Change Request Start: 04-22-2024 End: 04-24-2024 Telephone encounter Rea Polo MD Work Phone: [facility] Comment on above: Results Start: 04-15-2024 End: 04-15-2024 ambulatory SHRADDHA VETOVITZ Facility:[facility] Start: 04-15-2024 End: 04-15-2024 Patient encounter procedure Shraddha Vetovitz PA-C Work Phone: Orthopaedics Comment on above: Ganglion cyst of [address]ri st, right (Primary Dx); Right wrist pain Start: 04-12-2024 End: 04-12-2024 [facility] Jeannette Dalal APRN.CNP Work Phone: Psychiatry Comment on above: KAREEM (generalized anx iety disorder) (Primary Dx); MDD (major depressive disorder), single episode, moderate (HCC); Social anxiety disorder; Eating disorder, unspecified type; Marijuana use; Decreased libido; Nausea; Dizziness Start: 04-05-2024 Refill Yvonne Huynh APRN.PIER HAND Work Phone: [facility] Comment on above: Med Change Request Start: 04-03-2024 End: 04-03-2024 ambulatory REA POLO Facility:[facility] Start: 03-25-2024 Telephone encounter Brice jean MD Work Phone: Orthopaedics Comment on above: Short term disabilit y paperwork Start: 03-22-2024 End: 03-22-2024 Patient encounter procedure Rea Polo MD Work Phone: [facility] Comment on above: Rash and nonspecific skin eruption (Primary Dx); Acute bacterial conjunctivitis of right eye Start: 03-20-2024 End: 03-20-2024 PAT [facility] 1 Work Phone: Pre Anesthesia Comment on above: Pre-operative examin ation (Primary Dx); MDD (major depressive disorder), single episode, moderate (HCC); Social anxiety disorder of childhood Start: 03-20-2024 End: 03-20-2024 Preprocedural examination done [facility] Vitaly 1 Work Phone: [facility] Work Phone: Start: 03-09-2024 Refill Yvonne Huynh APRN.PIER HAND Work Phone: [facility] Comment on above: Med Change Request Start: 02-20-2024 Refill Dru Meehan Work Phone: [facility] [place] Comment on above: Refill Request Start: 02-19-2024 Refill Jeannette camargo MEDICAL CASE WORKER.PIER HAND Work Phone: Psychiatry Comment on above: Med Change Request Start: 02-16-2024 End: 02-16-2024 Patient encounter procedure Yvonne Huynh APRN.PIER HAND Work Phone: [facility] Comment on above: URI, acute (Primary Dx); Seasonal allergies Start: 01-30-2024 Telephone encounter Iveth Key APRN.PIER HAND Work Phone: [facility] Comment on above: Results Start: 01-28-2024 End: 01-28-2024 Patient encounter procedure Delfina Jacobs PA-C Work Phone: [facility] Comment on above: Acute UTI (Primary D x) Start: 01-26-2024 End: 01-26-2024 [facility] Jeannette Dalal APRN.PIER HAND Work Phone: Psychiatry Comment on above: KAREEM (generalized anx iety disorder) (Primary Dx); MDD (major depressive disorder), single episode, moderate (HCC); Social anxiety disorder; Eating disorder, unspecified type; Marijuana use Start: 01-18-2024 Refill Dru Meehan Work Phone: [facility] Comment on above: Refill Request Start: 01-15-2024 Refill Jeannette camargo APRN.PIER HAND Work Phone: Psychiatry Comment on above: Med Change Request Start: 12-25-2023 Telephone encounter Brice jean MD Work Phone: Orthopaedics Comment on above: Patient Update Start: 12-22-2023 End: 12-22-2023 Telemedicine consultation with patient Jeannette Dalal APRN.PIER HAND Work Phone: Psychiatry Start: 12-22-2023 End: 12-22-2023 Admission to same day surgery center Shraddha Lozoya PA-C Work Phone: Orthopaedics Comment on above: Reschedule Surgery KAREEM (generalized anx iety disorder) (Primary Dx); MDD (major depressive disorder), single episode, moderate (HCC); Social anxiety disorder; Eating disorder, unspecified type; Marijuana use Start: 12-22-2023 ambulatory Shraddha sterling PA-C Work Phone: Orthopaedics Start: 12-20-2023 Telephone encounter Brice jean MD Work Phone: Orthopaedics Comment on above: Schedule Surgery Start: 12-18-2023 End: 12-18-2023 Patient encounter procedure Shraddha Lozoya PA-C Work Phone: Orthopaedics Comment on above: Ganglion cyst (Prima ry Dx); Right wrist pain Start: 12-09-2023 Refill Rea byrne MD Work Phone: [facility] Comment on above: Refill Request Start: 12-04-2023 Refill Dru Meehan Work Phone: [facility] [place] Comment on above: Refill Request Start: 11-24-2023 End: 11-24-2023 Patient encounter procedure Rea Polo MD Work Phone: [facility] Comment on above: MDD (major depressiv e disorder), single episode, moderate (HCC) (Primary Dx) Start: 11-03-2023 End: 11-03-2023 Patient encounter procedure Rea Polo MD Work Phone: [facility] Comment on above: MDD (major depressiv e disorder), single episode, moderate (HCC) Start: 10-27-2023 Telephone encounter Dru griffin DO Work Phone: Orthopaedics Comment on above: Results Start: 10-24-2023 ambulatory DRU NOWAK Facility:[facility] Start: 10-24-2023 End: 10-24-2023 Subsequent hospital visit by physician [facility] (1.5t) Radiology Comment on above: Ganglion cyst of robinson sum of right wrist [M67.431] Start: 10-17-2023 End: 10-17-2023 Patient encounter procedure Rea Polo MD Work Phone: [facility] Comment on above: MDD (major depressiv e disorder), single episode, moderate (HCC) Start: 10-06-2023 End: 10-06-2023 Patient encounter procedure Dru Nowak DO Work Phone: Family [facility] Comment on above: Ganglion cyst of robinson sum of right wrist (Primary Dx); Acute wrist pain, right Start: 09-25-2023 End: 09-25-2023 Subsequent hospital visit by physician [facility] Work Phone: Radiology Comment on above: Acute wrist pain, ri ght [M25.531] Start: 04-18-2022 End: 04-18-2022 Patient encounter procedure Rea Polo MD Work Phone: [facility] Comment on above: Encounter for immuni zation (Primary Dx); Dysmenorrhea; Encounter for routine child health examination without abnormal findings Start: 04-18-2022 End: 04-18-2022 Patient encounter status Rea Polo MD Work Phone: [facility] Start: 12-20-2021 End: 12-20-2021 Patient encounter procedure Jan Umberto MEDICAL CASE WORKER.[employer] Work Phone: [facility] Comment on above: Procedure not gómez d out (Primary Dx) Start: 02-25-2021 End: 02-25-2021 [facility] Comment on above: Pain [R52] Procedures Date Procedure Procedure Detail Performing Clinician Start: 02-26-2025 Computed tomography of abdomen and pelvis with contrast Dr. Rea Polo MD Work Phone: Start: 01-30-2025 Urnls dip stick/tabl et rgnt auto w/o microscopy Kandace Urrutia MEDICAL CASE WORKER.[employer] Work Phone: Start: 12-30-[address] Rea Polo MD Work Phone: Start: 12-09-[address] Karol Polo MD Work Phone: Start: 11-28-2024 Gram stain microscopy Leobardo Polo MD Work Phone: Start: 11-28-2024 End: 11-28-[address] Rea tavares MD Work Phone: Start: 11-23-2024 Urnls dip stick/tabl et reagent auto microscopy Dr. Rea Polo MD Work Phone: Start: 11-23-[address] Rea Polo MD Work Phone: Start: 11-23-2024 CT of abdomen and pe lvis without contrast Dr. Rea Polo MD Work Phone: Start: 11-19-2024 Urnls dip stick/tabl et rgnt auto w/o microscopy Lani RANKIN Work Phone: Start: 11-04-2024 Urnls dip stick/tabl et rgnt auto w/o microscopy Lani RANKIN Work Phone: Start: 01-28-2024 Urnls dip stick/tabl et rgnt auto w/o microscopy Anna Pearson MEDICAL CASE WORKER.[employer] Work Phone: Start: 09-25-2023 Radex wrist complete minimum 3 views Kevin Randolph MD Work Phone: Start: 04-18-2022 Menacwy-tt conj vacc serogroups acwy for im use Rea Polo MD Work Phone: Start: 04-18-2022 Adult depression scr eening assessment Rea Polo MD Work Phone: Start: 02-25-2021 Radex wrist complete minimum 3 views Vera Maki PA-C Work Phone: Start: 06-09-2017 Adult depression scr eening assessment Jan Shipman MEDICAL CASE WORKER.[employer] Work Phone: Plan of Treatment Date Care Activity Detail Author Start: 06-03-2026 Urine microalbumin profile [facility] Start: 05-05-2025 Influenza vaccination [facility] Start: 04-29-2025 ambulatory Ambulatory Facility:[facility] Start: 03-21-2025 End: 03-21-2025 ambulatory 03/21/2025 3:30 PM EDT [facility] [address] [place] [address] Jeannette Dalal, MEDICAL CASE WORKER.[employer] [address] [place] [address] Psychiatry Start: 01-21-2025 End: 01-21-2025 ambulatory 01/21/2025 4:00 PM EDT Results Only [facility] [address] [place] [address] [facility] Start: 01-13-2025 End: 04-14-2025 Comprehensive metabolic 2000 panel - Serum or Plasma COMPREHENSIVE METABOLIC PANEL Lab Routine Encounter for long-term (current) use of medications Expected: 01/13/2025, Expires: 04/14/2025 [facility] Work Phone: Comment on above: Expected: 01/13/2025 , Expires: 04/14/2025 Start: 01-13-2025 End: 01-13-2025 ambulatory 01/13/2025 1:30 PM EDT [facility] [address] [place] [id number] Jeannette Dalal, MEDICAL CASE WORKER.[employer] [address] [place] [address] Psychiatry Start: 11-23-2024 [facility] Start: 11-18-2024 End: 11-18-2024 Follow-up encounter 11/18/2024 3:00 PM EDT [facility] [address] [place] [phone] Jeannette Dalal, MEDICAL CASE WORKER.[employer] [address] [place] [address] 3 month follow up Psychiatry Comment on above: 3 month follow up Start: 08-19-2024 End: 08-19-2024 Follow-up encounter 08/19/2024 4:30 PM EST [facility] [address] [place] [phone] Jeannette Dalal, MEDICAL CASE WORKER.[employer] [address] [place] [phone] 2 month follow up Psychiatry Comment on above: 2 month follow up Start: 06-21-2024 End: 06-21-2024 Patient encounter procedure 06/21/2024 3:45 PM EDT Office Visit [facility] [address] [place] [address] Rea Polo MD [address] [place] [address] general feeling of unwell, tired, and weak [facility] Comment on above: general feeling of u nwell, tired, and weak Start: 06-14-2024 End: 06-14-2024 Follow-up encounter 06/14/2024 4:00 PM EDT [facility] [address] [place] [address] Jeanentte Dalal, MEDICAL CASE WORKER.[employer] [address] [place] [address] 2 month follow up Psychiatry Comment on above: 2 month follow up Start: 06-13-2024 End: 09-12-2024 CBC panel - Blood by Automated count [facility] Comment on above: Expected: 06/13/2024 , Expires: 09/12/2024 Start: 06-13-2024 End: 09-12-2024 CELIAC SCREEN WITH REFLEX [facility] Comment on above: Expected: 06/13/2024 , Expires: 09/12/2024 Start: 06-13-2024 End: 09-12-2024 Ferritin [Mass/volume] in Serum or Plasma [facility] Comment on above: Expected: 06/13/2024 , Expires: 09/12/2024 Start: 06-13-2024 End: 09-12-2024 Iron and Iron binding capacity panel - Serum or Plasma [facility] Comment on above: Expected: 06/13/2024 , Expires: 09/12/2024 Start: 06-13-2024 End: 09-12-2024 Thyrotropin [Units/volume] in Serum or Plasma [facility] Work Phone: Comment on above: Expected: 06/13/2024 , Expires: 09/12/2024 Start: 06-13-2024 End: 09-12-2024 Thyroxine (T4) free [Mass/volume] in Serum or Plasma [facility] Comment on above: Expected: 06/13/2024 , Expires: 09/12/2024 Start: 05-14-2024 End: 05-14-2024 Patient encounter procedure 05/14/2024 5:15 PM EDT OT/PT/Speech Visit [facility] [address] [place] [address] Mey Aguilera, OT/L [address] [place] [address] increase wrist range of motion [facility] Comment on above: increase wrist range of motion Start: 05-13-2024 End: 05-13-2024 Patient encounter procedure 05/13/2024 8:00 AM EDT Office Visit Orthopaedics [address] [place] [address] Brice White MD [address] [facility] [place] [address] Post op right wrist ganglion cyst excision Orthopaedics Comment on above: Post op right wrist ganglion cyst excision Start: 05-09-2024 End: 05-09-2024 Patient encounter procedure 05/09/2024 9:00 AM EDT Office Visit [facility] [address] [place] [address] Rea Polo MD [address] [place] [address] rash on scalp [facility] Comment on above: rash on scalp Start: 05-05-2024 Covid-19 Vaccine ( season) Covid-19 Vaccine ( season) [facility] Start: 05-05-2024 Covid-19 Vaccine ( season) Covid-19 Vaccine ( season) [facility] Start: 05-05-2024 Influenza vaccination [facility] Start: 04-15-2024 End: 04-15-2024 Patient encounter procedure 04/15/2024 8:30 AM EDT Office Visit Orthopaedics [address] [place] [address] Shraddha Lozoya PA-C [address] [place] [address] Post op right wrist ganglion cyst excision Orthopaedics Comment on above: Post op right wrist ganglion cyst excision Start: 04-12-2024 End: 04-12-2024 Follow-up encounter 04/12/2024 4:00 PM EDT [facility] [address] [place] [address] Jeannette Dalal, MEDICAL CASE WORKER.[facility] [address] [place] [address] 2 MONTH FOLLOW UP Psychiatry Comment on above: 2 MONTH FOLLOW UP Start: 04-03-2024 End: 04-03-2024 Admission to same day surgery center 04/03/2024 10:15 AM EDT - 04/03/2024 11:21 AM EDT Surgery [facility] [address] [place] [address] Brice White MD [address] [place] [address] EXCISION GANGLION WRIST [facility] Comment on above: EXCISION GANGLION WR IST Start: 04-03-2024 End: 04-03-2024 Excision ganglion wrist dorsal/volar primary EXCISION GANGLION WRIST Ganglion cyst of wrist, right 04/03/2024 10:15 AM EDT ME OR Start: 04-03-2024 Subsequent hospital visit by physician 04/03/2024 10:15 AM EDT Hospital Encounter [facility] [address] [place] [address] Brice White MD [address] [place] [address] Ganglion cyst of wrist, right [M67.431] [facility] Comment on above: Ganglion cyst of wri st, right [M67.431] Start: 04-03-2024 End: 04-03-2024 Admission to same day surgery center 04/03/2024 8:55 AM EDT - 04/03/2024 10:01 AM EDT Surgery [facility] [address] [place] [address] Brice White MD [address] [facility] [address] EXCISION GANGLION WRIST [facility] Comment on above: EXCISION GANGLION WR IST Start: 04-03-2024 End: 04-03-2024 Excision ganglion wrist dorsal/volar primary EXCISION GANGLION WRIST Ganglion cyst of wrist, right 04/03/2024 8:55 AM EDT ME OR Start: 04-03-2024 Subsequent hospital visit by physician 04/03/2024 8:55 AM EDT Hospital Encounter [facility] [address] [place] [address] Brice White MD [address] [facility] [place] [address] Ganglion cyst of wrist, right [M67.431] [facility] Comment on above: Ganglion cyst of wri st, right [M67.431] Start: 03-22-2024 End: 03-22-2024 Patient encounter procedure 03/22/2024 2:45 PM EDT Office Visit [facility] [address] [place] [address] Rea Polo MD [address] [place] [address] ringworm [facility] Comment on above: ringworm Start: 03-20-2024 End: 03-20-2024 Anesthesia consultation 03/20/2024 3:40 PM EDT PAT Pre Anest[facility] [address] [facility] [place] [address] 1, [facility] [address] [place] [address] REFUSED VV//EXCISION GANGLION WRIST [1884] - Wrist - Right Pre Anesthesia Comment on above: REFUSED VV//EXCISION GANGLION WRIST [1884] - Wrist - Right Start: 03-11-2024 End: 03-11-2024 Anesthesia consultation 03/11/2024 3:40 PM EDT PAT Pre Anesthesia [address] [place] [address] [facility] [address] [place] [address] REFUSED VV//EXCISION GANGLION WRIST [1884] - Wrist - Right Pre Anesthesia Comment on above: REFUSED VV//EXCISION GANGLION WRIST [1884] - Wrist - Right Start: 01-26-2024 End: 01-26-2024 Follow-up encounter 01/26/2024 4:30 PM EDT [facility] [address] [place] [address] Jeannette Dalal, MEDICAL CASE WORKER.[employer]ER [employer] [address] [place] [address] 3 TO 4 WEEK FOLLOW UP Psychiatry Comment on above: 3 TO 4 WEEK FOLLOW U P Start: 01-19-2024 End: 01-19-2024 Follow-up encounter 01/19/2024 9:00 AM EDT [facility] [address] [place] [address] Jeannette Dalal, MEDICAL CASE WORKER.[employer] [address] [place] [address] 3 TO 4 WEEK FOLLOW UP Psychiatry Comment on above: 3 TO 4 WEEK FOLLOW U P Start: 01-03-2024 End: 01-03-2024 Admission to same day surgery center 01/03/2024 2:24 PM EDT - 01/03/2024 3:30 PM EDT Surgery [facility] [address] [place] [address] Brice White MD [address] [place] [address] EXCISION GANGLION WRIST [facility] Comment on above: EXCISION GANGLION WR IST Start: 01-03-2024 End: 01-03-2024 Excision ganglion wrist dorsal/volar primary EXCISION GANGLION WRIST Ganglion cyst of wrist, right 01/03/2024 2:24 PM EDT ME OR Start: 01-03-2024 Subsequent hospital visit by physician 01/03/2024 2:24 PM EDT Hospital Encounter [facility] [address] [place] [address] Brice White MD [address] [place] [address] Ganglion cyst of wrist, right [M67.431] [facility] Comment on above: Ganglion cyst of wri st, right [M67.431] Start: 09-04-2023 Depression Assessment Depression Ass essment [facility] Start: 05-05-2023 Covid-19 Vaccine ( season) Covid-19 Vaccine ( season) [facility] Start: 05-05-2023 Influenza vaccination Influenza Vacc ine (#1) [facility] Start: 04-18-2023 Adult depression screening assessment DEPRESSION SCREENING [facility] Start: 2022 GC (Gonorrhea) Screening (18-24) GC (Gonorrhea) Screening (18-24) [facility] Start: 2022 Hepatitis C screening Hepatitis C [facility] Start: 2022 HIV screening HIV Screening [facility] Start: 2022 Screening for Chlamy lex trachomatis Chlamydia Screening (18-24) [facility] Start: 05-05-2022 Influenza vaccination [facility] Start: 2020 Meningococcal B Vacc ine (1 of 2 - Standard) Meningococcal B Vaccine (1 of 2 - Standard) [facility] Start: 2020 Meningococcal B Vaccine: Consider Based On Risk (1 of 2 - Patient Seeks Protection) Meningococcal B Vaccine: Consider Based On Risk (1 of 2 - Patient Seeks Protection) [facility] Start: 2020 MENINGOCOCCAL CONJUG ATE (2 - 2-dose series) MENINGOCOCCAL CONJUGATE (2 - 2-dose series) [facility] Start: 2019 CHLAMYDIA SCREENING (<18) CHLAMYDIA SCREENING (<18) [facility] Start: 2019 GC (GONORRHEA) SCREENING (<18) GC (GONORRHEA) SCREENING (<18) [facility] Start: 2018 PEDS TO ADULT TRANSITION ANNUAL ASSESSMENT PEDS TO ADULT TRANSITION ANNUAL ASSESSMENT [facility] Start: 06-09-2018 Adult depression screening assessment DEPRESSION SCREENING [facility] Start: 2016 PEDS TO ADULT TRANSITION INITIAL DISCUSSION PEDS TO ADULT TRANSITION INITIAL DISCUSSION [facility] Start: 2014 MENINGOCOCCAL B: Consider based on risk (1 of 2 - Risk Bexsero 2-dose series) MENINGOCOCCAL B: Consider based on risk (1 of 2 - Risk Bexsero 2-dose series) [facility] Start: 2009 COVID-19 VACCINE (1) COVID-19 VACCIN E (1) [facility] Start: 03-13-2005 COVID-19 VACCINE (#1) COVID-19 VACCI NE (#1) [facility] Bacteria identified in Urine by Culture URINE CULTURE Microbiology Routine Acute UTI Ordered: 01/28/2024 [facility] Work Phone: Comment on above: Ordered: 01/28/2024 Bacteria identified in Urine by Culture BACTERIAL CULTURE, URINE Microbiology Routine Urinary frequency Ordered: 11/04/2024 [facility] Work Phone: Comment on above: Ordered: 11/04/2024 Bacteria identified in Urine by Culture BACTERIAL CULTURE, URINE Microbiology Routine Urinary frequency Ordered: 11/19/2024 [facility] Work Phone: Comment on above: Ordered: 11/19/2024 Bacteria identified in Urine by Culture BACTERIAL CULTURE, URINE Microbiology Routine Urinary frequency Ordered: 01/30/2025 [facility] Work Phone: Comment on above: Ordered: 01/30/2025 Comprehensive metabo lic 2000 panel - Serum or Plasma [facility] Fungus identified in Unspecified specimen by Culture FUNGAL CULTURE - DERMAL (HAIR, SKIN AND NAIL) Microbiology Routine Rash and nonspecific skin eruption 03/22/2024 3:04 PM EDT [facility] Work Phone: MR Wrist - right WO contrast MRI WRIST WO IVCON RIGHT Radiology Routine Ganglion cyst of dorsum of right wrist 10/24/2023 6:50 PM EST [facility] Work Phone: End: 11-04-2024 MRI WRIST WO IVCON RIGHT MRI WRIST WO IVCON RIGHT Radiology Routine Ganglion cyst of dorsum of right wrist 1 Occurrences starting 10/06/2023 until 11/04/2024 [facility] Work Phone: Comment on above: 1 Occurrences starti ng 10/06/2023 until 11/04/2024 Patient Education ED Abdominal P ain Unkn Cause Fem ED Gastroenteritis, Viral (Adult) [facility] Work Phone: Patient referral [facility] Work Phone: [facility] [place] Immunizations Immunization Date Immunization Notes Care Provider Sonali dallas 04-18-2022 meningococcal (MenACWY-TT) vaccine, quadrivalent (MENQUADFI) Rea Polo MD Work Phone: [facility] 12-12-2016 Human Papillomavirus 9-valent vaccine Jan Shipman MEDICAL CASE WORKER.[employer] Work Phone: [facility] 06-03-2016 Human Papillomavirus 9-valent vaccine Jan Shipman MEDICAL CASE WORKER.[employer]ER [employer] Work Phone: [facility] 06-03-2016 meningococcal polysaccharide (groups A, C, Y and W-135) diphtheria toxoid conjugate vaccine (MCV4P) Jan Shipman MEDICAL CASE WORKER.[employer] Work Phone: [facility] 06-03-2016 tetanus toxoid, redu favian diphtheria toxoid, and acellular pertussis vaccine, adsorbed Jan Shipman MEDICAL CASE WORKER.[employer]ER [employer] Work Phone: [facility] 12-23-2011 Diphtheria, tetanus toxoids and acellular pertussis vaccine, and poliovirus vaccine, inactivated Jan Shipman MEDICAL CASE WORKER.[employer] Work Phone: [facility] 12-23-2011 measles, mumps and rubella virus vaccine Jan Shipman MEDICAL CASE WORKER.[employer]ER [employer] Work Phone: [facility] 12-23-2011 varicella virus vaccine Bairon justice Shipman MEDICAL CASE WORKER.[employer]ER [employer] Work Phone: [facility] 07-17-2008 influenza virus vacc ine, unspecified formulation Jan Shipman MEDICAL CASE WORKER.[employer] Work Phone: [facility] Work Phone: 07-10-2006 influenza virus vacc ine, unspecified formulation Jan Shipman MEDICAL CASE WORKER.[employer] Work Phone: [facility] Work Phone: 12-14-2005 diphtheria, tetanus toxoids and acellular pertussis vaccine Jan Shipman MEDICAL CASE WORKER.[employer] Work Phone: [facility] Work Phone: 12-14-2005 haemophilus influenz ae type b vaccine, HbOC conjugate Jan Shipman MEDICAL CASE WORKER.[employer] Work Phone: [facility] Work Phone: 12-14-2005 pneumococcal conjuga te vaccine, 7 valent Jan Shipman MEDICAL CASE WORKER.[facility] Work Phone: [facility] Work Phone: 09-15-2005 influenza virus vacc ine, unspecified formulation Jan Shipman MEDICAL CASE WORKER.[employer] Work Phone: [facility] Work Phone: 09-15-2005 measles, mumps and rubella virus vaccine Jan Shipman MEDICAL CASE WORKER.[employer] Work Phone: [facility] Work Phone: 09-15-2005 poliovirus vaccine, inactivated Jan Shipman MEDICAL CASE WORKER.[employer] Work Phone: [facility] Work Phone: 09-15-2005 varicella virus vaccine Bairon justice Shipman MEDICAL CASE WORKER.[employer] Work Phone: [facility] Work Phone: 06-09-2005 hepatitis B vaccine, pediatric or pediatric/adolescent dosage Jan Shipman MEDICAL CASE WORKER.[employer] Work Phone: [facility] 03-22-2005 diphtheria, tetanus toxoids and acellular pertussis vaccine Jan Shipman MEDICAL CASE WORKER.[employer]ER HAND Work Phone: [facility] Work Phone: 03-22-2005 haemophilus influenz ae type b vaccine, HbOC conjugate Jan [facility] MEDICAL CASE WORKER.[facility] Work Phone: [facility] Work Phone: 03-22-2005 pneumococcal conjuga te vaccine, 7 valent Jan [facility] MEDICAL CASE WORKER.[facility] Work Phone: [facility] Work Phone: 01-11-2005 diphtheria, tetanus toxoids and acellular pertussis vaccine Jan [facility] MEDICAL CASE WORKER.[facility] Work Phone: [facility] Work Phone: 01-11-2005 haemophilus influenz ae type b vaccine, HbOC conjugate [facility] MEDICAL CASE WORKER.[facility] Work Phone: [facility] Work Phone: 01-11-2005 pneumococcal conjuga te vaccine, 7 valent Jan [place] MEDICAL CASE WORKER.[facility] Work Phone: [facility] Work Phone: 01-11-2005 poliovirus vaccine, inactivated Jan [place] MEDICAL CASE WORKER.[facility] Work Phone: [facility] Work Phone: 2004 diphtheria, tetanus toxoids and acellular pertussis vaccine Jan [facility] MEDICAL CASE WORKER.[facility] Work Phone: [facility] Work Phone: 2004 haemophilus influenz ae type b vaccine, HbOC conjugate [facility] MEDICAL CASE WORKER.[employer] Work Phone: [facility] Work Phone: 2004 pneumococcal conjuga te vaccine, 7 valent Jan [place] MEDICAL CASE WORKER.[facility] Work Phone: [facility] Work Phone: 2004 poliovirus vaccine, inactivated Jan [place] MEDICAL CASE WORKER.[facility] Work Phone: [facility] Work Phone: 2004 hepatitis B vaccine, pediatric or pediatric/adolescent dosage Jan Shipman MEDICAL CASE WORKER.[employer] Work Phone: [facility] Work Phone: 2004 hepatitis B vaccine, pediatric or pediatric/adolescent dosage Jan Shipman MEDICAL CASE WORKER.[employer]ER [employer] Work Phone: [facility] Work Phone: Payers Date Payer Category Payer Self-pay 2023 Government (not [facility] or Medicaid) [id number] 2023 Department [facility] ( and others) [id number] 2020 Blue Cross Blue Shield [id number] 2020 Unknown [employer] BLUE CARD PPO OOS [id number] 2020-Present [phone] [address] [place] [address] PPO [id number] 2020 Unknown [id number] 2013 Unknown [id number] 2012 Unknown [id number] 2012 Unknown [id number] 2003 Medicaid [place] [employer] [facility] MEDICAID [id number] 2003-Present [phone] [address] [place] [address] Medicaid [id number] 2003 Medicaid [id number] Unknown [id number]. 462 Unknown [id number]. 462 Unknown [id number]. 462 Unknown [id number]. 462 Unknown [id number]. 462 Unknown [id number]. 462 Unknown [id number] 2.16.840.1.657233.3.579.2. 462 Unknown [id number] [id number]. 462 Unknown [id number]. 462 Unknown [id number]. 462 Unknown [id number]. 462 Unknown [id number]. 462 Unknown [id number]. 462 Unknown [id number]. 462 Social History Date Type Detail Facility Start: 12-31-2012 End: 03-03-2025 Tobacco smoking status NHIS Never smoked tobacco [facility] Work Phone: Start: 07-25-2018 End: 12-20-2021 Alcohol intake Not Asked [facility] Start: 2004 Sex Assigned At Female [facility] Start: 01-25-2021 End: 04-18-2022 Exposure to SARS-CoV-2 (event) Not sure [facility] Start: 12-31-2012 Tobacco use and exposure Smokeless tobacco non-user [facility] Start: 04-15-2022 History SDOH Housing Unable to Pay 3 [facility] Start: 10-06-2023 End: 01-30-2025 Alcohol intake Lifetime non-drinker (finding) [facility] Start: 10-06-2023 End: 11-18-2024 History of Social function [facility] Start: 10-06-2023 End: 11-18-2024 Tobacco use panel [facility] How hard is it for y ou to pay for the very basics like food, housing, medical care, and heating Patient refused [facility] (I/We) worried [facility] (my/our) food would run out before (I/we) got money to buy more. DK or Refused [facility] Start: 03-28-2020 Gender identity Identifies as female gender (finding) [facility] Start: 11-23-2024 End: 12-12-2024 Sex Female (finding) [facility] Functional Status Date Assessment Result Facility 02-06-2015 Are you deaf, or do you have serious difficulty hearing No 02/06/2015 3:08 PM Pauline Miller RN No [facility] Work Phone: 02-06-2015 Are you blind, or do you have serious difficulty seeing, even when wearing glasses No 02/06/2015 3:08 PM Pauline Miller RN No [facility] 02-06-2015 Do you have serious difficulty walking or climbing stairs No 02/06/2015 3:08 PM Pauline Miller RN No [facility] 02-06-2015 Do you have difficul ty dressing or bathing No 02/06/2015 3:08 PM Pauline Miller RN No [facility] Mental Status Date Assessment Result Facility 02-06-2015 Because of a physica l, mental, or emotional condition, do you have serious difficulty concentrating, remembering, or making decisions No 02/06/2015 3:08 PM Pauline Miller RN No [facility] Clinical Notes 07-08-2014 to 03-21-2025 Patient InstructionsRaJeannette perry, MEDICAL CASE WORKER.PIER HAND - 03/21/2025 3:34 PM EDTTelephone Encounter - Jerod Toussaint MD - 03/05/2025 2:51 PM EDTPatient InstructionsPatient Instructions Note Date & Type Note Facility 03-21-2025 Instructions Jeannette Dalal APRN.THELMA - 03/21/2025 4:11 PM EDT We discussed your ongoing health concerns, including your stomach issues, skin symptoms, and mental health: - Stomach Issues: - You have a colonoscopy scheduled for April 29. Please proceed with this as planned. - You mentioned being able to eat small, regular meals more easily. Please continue focusing on eating smaller, nutritionally dense meals to support your health. - Mental Health: - Restart Wellbutrin 150 mg daily. This is a low dose, and we will monitor how it affects your mood and overall health. After 7-10 days of taking Wellbutrin, please complete the lab work I previously ordered. If any other lab work is ordered by your GI doctor, you can upload those results to [employer]. - I have sent a refill for Pristiq to your pharmacy. Please continue taking it as prescribed. - Be aware that both Wellbutrin and Pristiq can cause dehydration and increased sensitivity to heat. Stay hydrated by drinking plenty of water or electrolyte drinks like Gatorade, especially if you are active or outdoors. - Follow-Up Plan: - Send me a message in 2-3 weeks to let me know how Wellbutrin is working for you. If you tolerate it well but feel it is not fully effective, we can consider increasing the dose to 300 mg. If it works well at the current dose, I will send a refill for 150 mg. - Let me know if you experience any side effects from Wellbutrin or if your symptoms worsen. Please continue to monitor your symptoms and reach out if you have any concerns. Good luck with your upcoming colonoscopy, and I look forward to hearing from you about your progress. For those experiencing a suicidal crisis: --call the National Suicide Prevention Lifeline at 982 (597-486-3348) --text the Crisis Text Line (text HOME to 551324) --call 911 and let them know you are having a mental health crisis or go to your nearest Emergency Room for stabilization. --You can also call Mobile Crisis at [phone]. -- You may call the department appointment line at [phone] to schedule your appointment. -- Please call my nurse at [phone] or send me a message in [facility] with any questions or concerns between appointments. documented in this encounter [facility] 03-21-2025 Note HNO ID: [id number] Author: JEANNETTE DALAL APRN.THELMA Service: ? Author Type: Nurse Practitioner Type: Progress Notes Filed: 03/21/2025 16:11 Note Text: FOLLOW UP - PSYCHIATRIC PROGRESS NOTE Visit Type:Virtual Visit utilizing two-way audio and video for at least a portion of the visit. Consent for virtual visit obtained verbally. Confidentiality limitations with virtual visits reviewed with the patient and guardian, if present, who have accepted the risk verbally prior to proceeding with encounter. I have communicated my name and active licensure. The patient's identity and physical location were verified at the time of this visit. Either the patient or their legal manufacturing sales representative has been informed of the risks and benefits of -- and alternatives to -- treatment through a remote evaluation and consents to proceed with the evaluation remotely. Recording using [employer]Ideal[employer] software for draft documentation of the visit was discussed with the patient/authorized manufacturing sales representative; all questions welcomed and answered. Patient/authorized manufacturing sales representative agreed to proceed CC: Outpatient follow-up and safety monitoring of previously prescribed psychiatric medication, psychotherapy or other treatment HPI: Patient is a 19-year-old female with a history of depression and anxiety, presenting for follow-up on medication management. The patient reports experiencing red, itchy spots on her body, which she initially attributed to starting Wellbutrin. However, these spots persisted even after discontinuing the medication. She now believes they may be related to her ongoing gastrointestinal issues. She is currently taking hydroxyzine 50 mg nightly for the itching, which helps her fall asleep but does not alleviate the itching or prevent the appearance of new spots. She also reports feeling groggy upon waking. She was prescribed famotidine by her GI specialist, who suggested that the skin issues might be related to her stomach problems. She describes her gastrointestinal symptoms as feeling full easily, experiencing nausea, and getting very hot. These symptoms had improved but are now worsening again. She has a colonoscopy scheduled for 04/29. She has been able to eat small, regular meals more easily recently. Her depression varies daily, with both good and bad days. 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 She switched to part-time work because she couldn't handle a full-time job but is uncertain if she can continue due to her worsening stomach issues and the financial discrepancies in her pay. She reports a slight improvement in intrusive thoughts and a decrease in her depression score from 22 to 15. She only took Wellbutrin for a few days previously and did not notice any improvement in her mood during that time. She lives with her boyfriend and identifies him, her mother, and her family as her primary support system. Risks and benefits of the medication, including any black box warnings, were discussed with the patient. Interval Progress: Slightly improved PATIENT DATA: Generalized Anxiety Disorder Scale (KAREEM-7) 11/18/2024 01/13/2025 03/21/2025 KAREEM - 7 SCORES Score 12 14 13 (0-4) minimal anxiety, (5-9) mild anxiety, (10-14) moderate anxiety, (15-21) severe anxiety Patient Health Questionnaire (PHQ-9) 11/18/2024 01/13/2025 03/21/2025 PHQ-9 Score 15 22 15 (0-4) minimal depression, (5-9) mild depression, (10-14) moderate depression, (15-19) moderately severe depression, (20-27) severe depression PROMIS Global Health 06/14/2024 11/18/2024 03/21/2025 PROMIS Global Health - (T-Scores - the mean of general population = 50. Five points is a clinically meaningful difference.) Physical T-Score 47.7 47.7 44.9 Mental T-Score 38.8 36.3 31.3 PAST MEDICAL HISTORY Diagnosis Date NEGATIVE MEDICAL HISTORY PAST SURGICAL HISTORY Procedure Laterality Date EXCISION GANGLION WRIST DORSAL/VOLAR PRIMARY Right 04/03/2024 Right wrist, 4th extensor compartment tenosynovectomy NASAL/SINUS NDSC DSTRJ RF ABLATION PST NSL NRV Current Outpatient Medications Medication Sig Dispense Refill desvenlafaxine ER (PRISTIQ) 100 mg 24 hr tablet Take 1 tablet by mouth once daily. 90 tablet 0 cetirizine (ZYRTEC) 10 mg tablet TAKE 1 TABLET BY MOUTH EVERY DAY 90 tablet 0 buPROPion XL (WELLBUTRIN XL) 150 mg 24 hr tablet Take 1 tablet by mouth every morning. (Patient not taking: Reported on 01/30/2025) 30 tablet 1 APRI 0.15-0.03 mg per tablet triamcinolone acetonide (KENALOG) 0.5 % cream Apply to affected area three times a day. (Patient not taking: Reported on 01/30/2025) 15 g 0 No current facility-administered medications for this visit. ROS: See HPI PFSH: See HPI VITAL SIGNS: There were no vitals filed for this visit. MENTAL STATUS EXAM: Mental Status Exam General/Sen (more content not included)... [facility] 03-21-2025 History of Presen t illness Narrative Images from the original note were not included. FOLLOW UP - PSYCHIATRIC PROGRESS NOTE Visit Type:Virtual Visit utilizing two-way audio and video for at least a portion of the visit. Consent for virtual visit obtained verbally. Confidentiality limitations with virtual visits reviewed with the patient and guardian, if present, who have accepted the risk verbally prior to proceeding with encounter. I have communicated my name and active licensure. The patient's identity and physical location were verified at the time of this visit. Either the patient or their legal manufacturing sales representative has been informed of the risks and benefits of -- and alternatives to -- treatment through a remote evaluation and consents to proceed with the evaluation remotely. Recording using L'Idealist software for draft documentation of the visit was discussed with the patient/authorized manufacturing sales representative; all questions welcomed and answered. Patient/authorized manufacturing sales representative agreed to proceed CC: Outpatient follow-up and safety monitoring of previously prescribed psychiatric medication, psychotherapy or other treatment HPI: Patient is a 19-year-old female with a history of depression and anxiety, presenting for follow-up on medication management. The patient reports experiencing red, itchy spots on her body, which she initially attributed to starting Wellbutrin. However, these spots persisted even after discontinuing the medication. She now believes they may be related to her ongoing gastrointestinal issues. She is currently taking hydroxyzine 50 mg nightly for the itching, which helps her fall asleep but does not alleviate the itching or prevent the appearance of new spots. She also reports feeling groggy upon waking. She was prescribed famotidine by her GI specialist, who suggested that the skin issues might be related to her stomach problems. She describes her gastrointestinal symptoms as feeling full easily, experiencing nausea, and getting very hot. These symptoms had improved but are now worsening again. She has a colonoscopy scheduled for 04/29. She has been able to eat small, regular meals more easily recently. Her depression varies daily, with both good and bad days. 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 She switched to part-time work because she couldn't handle a full-time job but is uncertain if she can continue due to her worsening stomach issues and the financial discrepancies in her pay. She reports a slight improvement in intrusive thoughts and a decrease in her depression score from 22 to 15. She only took Wellbutrin for a few days previously and did not notice any improvement in her mood during that time. She lives with her boyfriend and identifies him, her mother, and her family as her primary support system. Risks and benefits of the medication, including any black box warnings, were discussed with the patient. Interval Progress: Slightly improved PATIENT DATA: Generalized Anxiety Disorder Scale (KAREEM-7) 11/18/2024 01/13/2025 03/21/2025 KAREEM - 7 SCORES Score 12 14 13 (0-4) minimal anxiety, (5-9) mild anxiety, (10-14) moderate anxiety, (15-21) severe anxiety Patient Health Questionnaire (PHQ-9) 11/18/2024 01/13/2025 03/21/2025 PHQ-9 Score 15 22 15 (0-4) minimal depression, (5-9) mild depression, (10-14) moderate depression, (15-19) moderately severe depression, (20-27) severe depression PROMIS Global Health 06/14/2024 11/18/2024 03/21/2025 PROMIS Global Health - (T-Scores - the mean of general population = 50. Five points is a clinically meaningful difference.) Physical T-Score 47.7 47.7 44.9 Mental T-Score 38.8 36.3 31.3 PAST MEDICAL HISTORY Diagnosis Date NEGATIVE MEDICAL HISTORY PAST SURGICAL HISTORY Procedure Laterality Date EXCISION GANGLION WRIST DORSAL/VOLAR PRIMARY Right 04/03/2024 Right wrist, 4th extensor compartment tenosynovectomy NASAL/SINUS NDSC DSTRJ RF ABLATION PST NSL NRV Current Outpatient Medications Medication Sig Dispense Refill desvenlafaxine ER (PRISTIQ) 100 mg 24 hr tablet Take 1 tablet by mouth once daily. 90 tablet 0 cetirizine (ZYRTEC) 10 mg tablet TAKE 1 TABLET BY MOUTH EVERY DAY 90 tablet 0 buPROPion XL (WELLBUTRIN XL) 150 mg 24 hr tablet Take 1 tablet by mouth every morning. (Patient not taking: Reported on 01/30/2025) 30 tablet 1 APRI 0.15-0.03 mg per tablet triamcinolone acetonide (KENALOG) 0.5 % cream Apply to affected area three times a day. (Patient not taking: Reported on 01/30/2025) 15 g 0 No current facility-administered medications for this visit. ROS: See HPI PFSH: See HPI VITAL SIGNS: There were no vitals filed for this visit. MENTAL STATUS EXAM: Mental Status Exam General/Sensorium: Alert Orientation: AAOx3 Appearance: Casually dressed and appropriately groomed Eye contact: Appropriate Demeanor: Appropriately interactive Motor activity: Normal Speech: Articulate with appropriate rhythm and volume Mood: Anxious and sad Affect: Anxious and congruent with mood Thought process: Linear, logical, and goal-directed Associations: Normal Thought content: Focused on history, symptoms, and management Suicidal ideation: SI: no Plan: no Intent: no none Homicidal ideation: HI: no Plan: no Intent: no none Abnormal/psychotic thoughts: Absent Perceptions: She does not appear internally stimulated. Attention: Intact Memory: Short-term: Intact Long-term: Intact Language: Intact Fund of knowledge: Appropriate Insight: Improving Judgment: Improving DATA REVIEWED: Psychiatric scales, Labs, and Electronic medical record ASSESSMENT & PLAN: 1. 1. MDD (major depressive disorder), recurrent episode, moderate (HCC) (F33.1) Depression has shown some improvement, as evidenced by a decrease in PHQ-9 score from 22 to 15. Intrusive thoughts have also slightly improved. Wellbutrin was previously discontinued due to suspected side effects but is now being considered for reinitiation. - Restart Wellbutrin 150 mg daily. - Monitor for side effects and effectiveness over the next 2-3 weeks. - Ordered lab work to be completed after 7-10 days of Wellbutrin use to ensure no adverse effects on electrolytes. - Refill Pristiq. - Patient to send a message in 2-3 weeks to report on Wellbutrin's effectiveness and any side effects. 2. KAREEM (generalized anxiety disorder) (F41.1) Anxiety levels have increased, likely due to financial and occupational stressors. Patient is experiencing situational anxiety related to job changes and financial instability. - Continue current anxiety management strategies. - Monitor anxiety levels in conjunction with Wellbutrin reinitiation. 3. Psychosocial stressors (Z65.8) Significant stressors include financial instability, job changes, and ongoing gastrointestinal issues. Patient has support from family and boyfriend. - Discussed importance of maintaining support systems. - Encouraged open communication with support network. 4. Encounter for long-term (current) use of medications (Z79.899) Currently on Pristiq and hydroxyzine. Hydroxyzine is effective for sleep but not for pruritus. - Continue hydroxyzine 50 mg at night for sleep. - Continue Pepcid as prescribed by GI specialist. - Educated on potential side effects of Wellbutrin, Pristiq, and Zyrtec, including dehydration and increased sensitivity to heat. - Advised to stay hydrated and monitor for side effects. 5. Insomnia due to other mental disorder (F51.05) Insomnia is currently managed with hydroxyzine, which is effective in aiding sleep but causes some morning grogginess. - Continue hydroxyzine 50 mg at night. - Monitor for any changes in sleep patterns with the reinitiation of Wellbutrin. Prescriptions given Patient denies any history of experiencing seizures. Aware that Wellbutrin can lower seizure threshold and is contraindicated in someone who has a seizure disorder. Medical Decision Making: Problems: Moderate: 1+ chronic illnesses with change Risk: Moderate: Moderate risk from testing/treatment and Drug management Medical Decision Making Level: 4 - Moderate . ADD ON PSYCHOTHERAPY CODE : No SIGNATURE: Jeannette Dalal APRN.THELMA PATIENT NAME: Maritza Garay DATE: March 21, 2025 TIME: 3:34 PM documented in this encounter [facility] 03-05-2025 Telephone encounter Note The following approved medication requests have been transmitted electronically. Requested Prescriptions Pending Prescriptions Disp Refills cetirizine (ZYRTEC) 10 mg tablet [Pharmacy Med Name: CETIRIZINE HCL 10 MG TABLET] 90 tablet 0 Sig: TAKE 1 TABLET BY MOUTH EVERY DAY Jerod Toussaint MD [facility] 03-05-2025 Miscellaneous Notes The following approved medication requests have been transmitted electronically. Requested Prescriptions Pending Prescriptions Disp Refills cetirizine (ZYRTEC) 10 mg tablet [Pharmacy Med Name: CETIRIZINE HCL 10 MG TABLET] 90 tablet 0 Sig: TAKE 1 TABLET BY MOUTH EVERY DAY Jerod Toussaint MD Last WCC: greater than one year ago last office visit 06-13-24 Verify RX Benefits Completed Last medication refill date: 11-21-24 Requesting 90 day supply Retail pharmacy updated: Completed Patient aware RX will be sent to pharmacy. No need to notify patient. Health Maintenance due: Meningococcal B Vaccine(1 of 2 - Standard) Never done GC (Gonorrhea) Screening () Never done Hepatitis C Screening Never done HIV Screening Never done Chlamydia Screening () Never done Covid-19 Vaccine( season) Never done Lior Jiang RN Left message for patient to call the office. Left message for parent to call the office to verify Rx is needed as the request came via pharmacy. documented in this encounter [facility] 03-05-2025 Telephone encounter Note Last WC: greater than one year ago last office visit 06-13-24 Verify RX Benefits Completed Last medication refill date: 11-21-24 Requesting 90 day supply Retail pharmacy updated: Completed Patient aware RX will be sent to pharmacy. No need to notify patient. Health Maintenance due: Meningococcal B Vaccine(1 of 2 - Standard) Never done GC (Gonorrhea) Screening () Never done Hepatitis C Screening Never done HIV Screening Never done Chlamydia Screening () Never done Covid-19 Vaccine() Never done Lior Jiang RN [facility] 03-01-2025 Telephone encounter Note Left message for patient to call the office. [facility] 02-26-2025 Radiology Diagnostic study note [facility] Imaging Services [address] [place] [id number] Abdomen/Pelvis WITH Contrast MR#: [id number] Acct: [id number] Name: MARITZA GARAY Rep #: [id number] : 2005 F 19 From: Braulio Weinberg MD PCP: Dr. Rea Polo MD Status: RE G CLI Study:Abdomen/Pelvis WITH Contrast Date of Ex am: 02/26/25 Exam# [id number] Ordering Dr: Opal Rock DOUGH BRAKE MACHINE OPERATOR-Arlin PROCEDURE: ABDOMEN/PELVIS WITH CONTRAST 02/26/2025 REASON FOR EXAM: ABDOMINAL PAIN TECHNIQUE: ABDOMEN/PELVIS WITH CONTRAST Coronal and Sagittal reconstruction series were provided. CONTRAST: Isovue 3 7 VOLUME: 95 mL One or more dose reduction techniques were used (e.g., Automated exposure control, adjustment of the mA and/or kV according to patient size, use of iterative reconstruction technique. RADIATION DOSE SUMMARY: CTDlvol: 8.6 mGy DLP: 411.66 mGycm COMPARISON: Prior study dated November 23, 2024. FINDINGS: Lung bases: Clear. Liver: Normal size. No mass. Gallbladder: Unremarkable Spleen: Borderline splenomegaly. Pancreas: Normal size without evidence of mass surrounding inflammation or ductal dilation. Adrenals: Unremarkable Kidneys: Normal renal sizes. No hydronephrosis. Bladder: Unremarkable Reproductive Organs: Unremarkable Bowel: Unremarkable Appendix: Unremarkable Lymph nodes: No significant lymph nodes are seen. Vasculature: The abdominal aorta and IVC are normal. Peritoneum / Retroperitoneum: Unremarkable Bones: Straightening of the normal lumbar lordosis. Reading Location: [id number] CC: JOSH Rock; Dr. Rea Polo MD ~ Barrel Lathe Operator Inside: Signed [facility] 02-17-2025 Telephone encounter Note Left message for parent to call the office to verify Rx is needed as the request came via pharmacy. [facility] 02-04-2025 Telephone encounter Note 90 day refill provided due to insurance and pharmacy request. [facility] 02-04-2025 Miscellaneous Notes 90 day refill provided due to insurance and pharmacy request. Last: 01/13/25 TREATMENT PLAN: 1. 1. Encounter for long-term (current) use of medications (Z79.899) Currently on Pristiq 100 mg daily and hydroxyzine 50 mg nightly. No reported side effects from Pristiq. Hydroxyzine previously effective for sleep, but now insufficient. - Continue Pristiq 100 mg daily. - Increase hydroxyzine to 75 mg nightly; if ineffective, increase to 100 mg nightly. - Initiate Wellbutrin 150 mg daily in the morning, no later than lunchtime. - Ordered CMP to monitor electrolytes, liver, and kidney function; to be completed after one week of Wellbutrin therapy. - Follow-up scheduled for March 21 at 15:30. 2. KAREEM (generalized anxiety disorder) (F41.1) Partial improvement with Pristiq 100 mg daily. - Continue Pristiq 100 mg daily. - Initiate Wellbutrin 150 mg daily in the morning, no later than lunchtime. - Follow-up scheduled for March 21 at 15:30. 3. 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 Recent social isolation and loss of close friends contributing to symptoms. Current medication regimen not adequately addressing depressive symptoms. - Continue Pristiq 100 mg daily. - Initiate Wellbutrin 150 mg daily in the morning, no later than lunchtime. - Ordered CMP to monitor electrolytes, liver, and kidney function; to be completed after one week of Wellbutrin therapy. - Follow-up scheduled for March 21 at 15:30. - Patient to message on the or to report progress. 4. Psychosocial stressors (Z65.8) Recent loss of close friends and social isolation contributing to increased depression and anxiety. - Discussed importance of focusing on present and expressing gratitude for current support system. - Encouraged patient to continue discussing feelings with supportive individuals, including boyfriend. 5. Social anxiety disorder (F40.10) Increased anxiety related to returning to work and potential interactions with former friends. - Continue Pristiq 100 mg daily. - Initiate Wellbutrin 150 mg daily in the morning, no later than lunchtime. - Follow-up scheduled for March 21 at 15:30. 6. Insomnia due to other mental disorder (F51.05) Difficulty falling asleep, possibly related to increased stress and anxiety. Hydroxyzine 50 mg nightly previously effective, but now insufficient. - Increase hydroxyzine to 75 mg nightly; if ineffective, increase to 100 mg nightly. - Follow-up scheduled for March 21 at 15:30. Next: 03/21/25 documented in this encounter [facility] 02-04-2025 Telephone encounter Note Last: 01/13/25 TREATMENT PLAN: 1. 1. Encounter for long-term (current) use of medications (Z79.899) Currently on Pristiq 100 mg daily and hydroxyzine 50 mg nightly. No reported side effects from Pristiq. Hydroxyzine previously effective for sleep, but now insufficient. - Continue Pristiq 100 mg daily. - Increase hydroxyzine to 75 mg nightly; if ineffective, increase to 100 mg nightly. - Initiate Wellbutrin 150 mg daily in the morning, no later than lunchtime. - Ordered CMP to monitor electrolytes, liver, and kidney function; to be completed after one week of Wellbutrin therapy. - Follow-up scheduled for March 21 at 15:30. 2. KAREEM (generalized anxiety disorder) (F41.1) Partial improvement with Pristiq 100 mg daily. - Continue Pristiq 100 mg daily. - Initiate Wellbutrin 150 mg daily in the morning, no later than lunchtime. - Follow-up scheduled for March 21 at 15:30. 3. 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 Recent social isolation and loss of close friends contributing to symptoms. Current medication regimen not adequately addressing depressive symptoms. - Continue Pristiq 100 mg daily. - Initiate Wellbutrin 150 mg daily in the morning, no later than lunchtime. - Ordered CMP to monitor electrolytes, liver, and kidney function; to be completed after one week of Wellbutrin therapy. - Follow-up scheduled for March 21 at 15:30. - Patient to message on the or to report progress. 4. Psychosocial stressors (Z65.8) Recent loss of close friends and social isolation contributing to increased depression and anxiety. - Discussed importance of focusing on present and expressing gratitude for current support system. - Encouraged patient to continue discussing feelings with supportive individuals, including boyfriend. 5. Social anxiety disorder (F40.10) Increased anxiety related to returning to work and potential interactions with former friends. - Continue Pristiq 100 mg daily. - Initiate Wellbutrin 150 mg daily in the morning, no later than lunchtime. - Follow-up scheduled for March 21 at 15:30. 6. Insomnia due to other mental disorder (F51.05) Difficulty falling asleep, possibly related to increased stress and anxiety. Hydroxyzine 50 mg nightly previously effective, but now insufficient. - Increase hydroxyzine to 75 mg nightly; if ineffective, increase to 100 mg nightly. - Follow-up scheduled for March 21 at 15:30. Next: 03/21/25 [facility] 01-30-2025 Instructions Kandace Urrutia APRN.PIER HAND - 01/30/2025 2:41 PM EDT 1. Urinary frequency (R35.0) 2. Urinary tract infection with hematuria, site unspecified (N39.0) 3. Hematuria, unspecified type (R31.9) 4. Proteinuria, unspecified type (R80.9) - Urinalysis shows hematuria, proteinuria, and pyuria. - Initiated antibiotic therapy; prescription sent to pharmacy. - Urine sample sent for culture to identify specific bacteria and confirm antibiotic sensitivity. - Advised patient to maintain adequate hydration and avoid sugary beverages. - Instructed to complete the full course of antibiotics unless notified of a change based on culture results. - A prescription for an antibiotic has been sent to your pharmacy; take it exactly as directed and finish the full course unless we contact you to change it. - A urine culture was sent to the lab to identify the bacteria; we will only call you if the antibiotic needs to be changed. - Drink plenty of water while you re taking the antibiotic. - Avoid sugary beverages such as soda (pop), sweet tea, and wine. documented in this encounter [facility] 01-30-2025 Note HNO ID: [id number] Author: KANDACE URRUTIA APRN.THELMA Service: ? Author Type: Nurse Practitioner Type: Progress Notes Filed: 01/30/2025 14:42 Note Text: [facility] Subjective Maritza Garay is a 19 year old female. Patient presents with: Urinary Problem: Frequency and burning x 1 week HPI Urinary Symptoms: - Onset approximately one week ago. - Symptoms include urinary frequency, dysuria, and lower abdominal pain. - Took Azo for symptom relief. - Reports mild back pain. - Denies fever, chills, nausea, or emesis. - Recent menstruation ended about a week ago. Review of Systems Constitutional: Negative for chills and fever. Respiratory: Negative. Cardiovascular: Negative. Gastrointestinal: Positive for abdominal pain. Negative for nausea and vomiting. Genitourinary: Positive for dysuria and frequency. Negative for difficulty urinating, flank pain, hematuria and urgency. Musculoskeletal: Positive for back pain. Skin: Negative for rash. Constitutional: (-) fever, (-) chills Genitourinary: (+) urinary frequency, (+) dysuria, (+) lower abdominal pain Musculoskeletal: (+) back pain Objective BP 119/82 Pulse 81 Temp 36.3 ?C (97.4 ?F) Resp 18 Wt 72 kg (158 lb 11.7 oz) LMP 01/30/2025 (Approximate) SpO2 100% BMI 25.62 kg/m? PAST MEDICAL HISTORY Diagnosis Date - NEGATIVE MEDICAL HISTORY PAST SURGICAL HISTORY Procedure Laterality Date - EXCISION GANGLION WRIST DORSAL/VOLAR PRIMARY Right 04/03/2024 Right wrist, 4th extensor compartment tenosynovectomy - NASAL/SINUS NDSC DSTRJ RF ABLATION PST NSL NRV ALLERGIES Patient has no known allergies. MEDICATIONS - hydrOXYzine HCl (ATARAX) 50 mg tablet Take 2 tablets by mouth daily at bedtime. - desvenlafaxine ER (PRISTIQ) 100 mg 24 hr tablet Take 1 tablet by mouth once daily. - APRI 0.15-0.03 mg per tablet - nitrofurantoin monohydrate and macrocrystal (MACROBID) 100 mg capsule Take 1 capsule by mouth two times a day for 5 days. - buPROPion XL (WELLBUTRIN XL) 150 mg 24 hr tablet Take 1 tablet by mouth every morning. (Patient not taking: Reported on 01/30/2025) - cetirizine (ZYRTEC) 10 mg tablet TAKE 1 TABLET BY MOUTH EVERY DAY (Patient not taking: Reported on 01/30/2025) - triamcinolone acetonide (KENALOG) 0.5 % cream Apply to affected area three times a day. (Patient not taking: Reported on 01/30/2025) FAMILY HISTORY Problem Relation Age of Onset - other (MVP) Mother Social History Tobacco Use - Smoking status: Never - Smokeless tobacco: Never Vaping Use - Vaping status: Never Used Substance Use Topics - Alcohol use: Never - Drug use: Never Physical Exam Vitals and nursing note reviewed. Constitutional: General: She is not in acute distress. Appearance: Normal appearance. She is not ill-appearing. Cardiovascular: Rate and Rhythm: Normal rate and regular rhythm. Heart sounds: Normal heart sounds. Pulmonary: Effort: Pulmonary effort is normal. No respiratory distress. Breath sounds: Normal breath sounds. No wheezing or rales. Abdominal: General: There is no distension. Palpations: Abdomen is soft. There is no mass. Tenderness: There is no abdominal tenderness. There is no right CVA tenderness, left CVA tenderness or guarding. Skin: General: Skin is warm and dry. Neurological: Mental Status: She is alert. General: No acute distress. CV: Heart sounds auscultated. Resp: Lung sounds auscultated. Back: No costovertebral angle tenderness. Abd: Lower abdominal tenderness. {1. Urinary frequency (R35.0) 2. Urinary tract infection with hematuria, site unspecified (N39.0) 3. Hematuria, unspecified type (R31.9) 4. Proteinuria, unspecified type (R80.9) - Urinalysis shows hematuria, proteinuria, and pyuria. - Initiated antibiotic therapy; prescription sent to pharmacy. - Urine sample sent for culture to identify specific bacteria and confirm antibiotic sensitivity. - Advised patient to maintain adequate hydration and avoid sugary beverages. - Instructed to complete the full course of antibiotics unless notified of a change based on culture results. - Follow-up with your PCP in 3-5 days if symptoms have not improved or sooner if symptoms worsen - Discussed red flags and need for immediate medical evaluation if any occur. - Discussed supportive care treatment with fluids, rest and analgesia. - Discussed expected course of illness Kandace Urrutia APRN.PIER HAND and Recording using [employer]Ideal[employer] software for draft documentation of the visit was discussed with the patient/authorized manufacturing sales representative; all questions welcomed and answered. Patient/authorized manufacturing sales representative agreed to proceed History and Record Review Clinical information obtained from an independent historian. History obtained from or confirmed by: friend. Disposition The patient was discharged. Procedures [facility] 01-30-2025 History of Presen t illness Narrative [facility] Subjective Maritza Garay is a 19 year old female. Patient presents with: Urinary Problem: Frequency and burning x 1 week HPI Urinary Symptoms: - Onset approximately one week ago. - Symptoms include urinary frequency, dysuria, and lower abdominal pain. - Took Azo for symptom relief. - Reports mild back pain. - Denies fever, chills, nausea, or emesis. - Recent menstruation ended about a week ago. Review of Systems Constitutional: Negative for chills and fever. Respiratory: Negative. Cardiovascular: Negative. Gastrointestinal: Positive for abdominal pain. Negative for nausea and vomiting. Genitourinary: Positive for dysuria and frequency. Negative for difficulty urinating, flank pain, hematuria and urgency. Musculoskeletal: Positive for back pain. Skin: Negative for rash. Constitutional: (-) fever, (-) chills Genitourinary: (+) urinary frequency, (+) dysuria, (+) lower abdominal pain Musculoskeletal: (+) back pain Objective BP 119/82 Pulse 81 Temp 36.3 C (97.4 F) Resp 18 Wt 72 kg (158 lb 11.7 oz) LMP 01/30/2025 (Approximate) SpO2 100% BMI 25.62 kg/m PAST MEDICAL HISTORY Diagnosis Date NEGATIVE MEDICAL HISTORY PAST SURGICAL HISTORY Procedure Laterality Date EXCISION GANGLION WRIST DORSAL/VOLAR PRIMARY Right 04/03/2024 Right wrist, 4th extensor compartment tenosynovectomy NASAL/SINUS NDSC DSTRJ RF ABLATION PST NSL NRV ALLERGIES Patient has no known allergies. MEDICATIONS hydrOXYzine HCl (ATARAX) 50 mg tablet Take 2 tablets by mouth daily at bedtime. desvenlafaxine ER (PRISTIQ) 100 mg 24 hr tablet Take 1 tablet by mouth once daily. APRI 0.15-0.03 mg per tablet nitrofurantoin monohydrate and macrocrystal (MACROBID) 100 mg capsule Take 1 capsule by mouth two times a day for 5 days. buPROPion XL (WELLBUTRIN XL) 150 mg 24 hr tablet Take 1 tablet by mouth every morning. (Patient not taking: Reported on 01/30/2025) cetirizine (ZYRTEC) 10 mg tablet TAKE 1 TABLET BY MOUTH EVERY DAY (Patient not taking: Reported on 01/30/2025) triamcinolone acetonide (KENALOG) 0.5 % cream Apply to affected area three times a day. (Patient not taking: Reported on 01/30/2025) FAMILY HISTORY Problem Relation Age of Onset other (MVP) Mother Social History Tobacco Use Smoking status: Never Smokeless tobacco: Never Vaping Use Vaping status: Never Used Substance Use Topics Alcohol use: Never Drug use: Never Physical Exam Vitals and nursing note reviewed. Constitutional: General: She is not in acute distress. Appearance: Normal appearance. She is not ill-appearing. Cardiovascular: Rate and Rhythm: Normal rate and regular rhythm. Heart sounds: Normal heart sounds. Pulmonary: Effort: Pulmonary effort is normal. No respiratory distress. Breath sounds: Normal breath sounds. No wheezing or rales. Abdominal: General: There is no distension. Palpations: Abdomen is soft. There is no mass. Tenderness: There is no abdominal tenderness. There is no right CVA tenderness, left CVA tenderness or guarding. Skin: General: Skin is warm and dry. Neurological: Mental Status: She is alert. General: No acute distress. CV: Heart sounds auscultated. Resp: Lung sounds auscultated. Back: No costovertebral angle tenderness. Abd: Lower abdominal tenderness. {1. Urinary frequency (R35.0) 2. Urinary tract infection with hematuria, site unspecified (N39.0) 3. Hematuria, unspecified type (R31.9) 4. Proteinuria, unspecified type (R80.9) - Urinalysis shows hematuria, proteinuria, and pyuria. - Initiated antibiotic therapy; prescription sent to pharmacy. - Urine sample sent for culture to identify specific bacteria and confirm antibiotic sensitivity. - Advised patient to maintain adequate hydration and avoid sugary beverages. - Instructed to complete the full course of antibiotics unless notified of a change based on culture results. - Follow-up with your PCP in 3-5 days if symptoms have not improved or sooner if symptoms worsen - Discussed red flags and need for immediate medical evaluation if any occur. - Discussed supportive care treatment with fluids, rest and analgesia. - Discussed expected course of illness Kandace Urrutia APRN.PIER HAND and Recording using L[employer]Idealist software for draft documentation of the visit was discussed with the patient/authorized manufacturing sales representative; all questions welcomed and answered. Patient/authorized manufacturing sales representative agreed to proceed History and Record Review Clinical information obtained from an independent historian. History obtained from or confirmed by: friend. Disposition The patient was discharged. Procedures documented in this encounter [facility] 01-13-2025 Instructions Jeannette Dalal APRN.THELMA - 01/13/2025 2:10 PM EDT We discussed your depression: - Your depression score is in the severe range. We are starting you on Wellbutrin 150 mg daily in the morning, in addition to your current Pristiq 100 mg daily. Take Wellbutrin in the morning, and if you forget, do not take it later than lunchtime. If you miss a dose, it is okay; there are no withdrawal effects. - Continue taking Pristiq 100 mg daily as prescribed. - I have ordered a complete metabolic panel to monitor your electrolytes, liver function, and kidney function while on this medication combination. This test is not fasting, so you can complete it at any time of the day. Please complete the lab work after one week of starting Wellbutrin. - If you experience any side effects from Wellbutrin, stop taking it and contact our office. Nurse practitioners are available to assist while I am on vacation until the . - Reach out to me on or after February 23 to update me on how you are feeling. We may consider increasing the Wellbutrin dose at that time if needed. We discussed your sleep difficulties: - You are struggling to fall asleep despite taking hydroxyzine 50 mg nightly. I am increasing your dose to 75 mg nightly. If this does not help, you may increase to 100 mg nightly, which is the maximum dose for sleep. I have prescribed 50 mg tablets so you can adjust the dose as needed. - Since you are increasing hydroxyzine, you likely will not need to take Zyrtec. Discontinue Zyrtec while taking the higher dose of hydroxyzine. - Consider trying [id number] melatonin if sleep issues persist. We discussed your recent stressors and coping strategies: - You have been feeling unwanted and hopeless, particularly after losing close friends. It is important to focus on the present and practice gratitude. Try grounding techniques, such as identifying 1-3 things you are grateful for in the moment, to help shift your focus. - Continue talking to your boyfriend, as he is a supportive listener. Remember to appreciate the people who are present in your life. Follow-up: - Your next virtual visit is scheduled for March 21, at 3:30 PM. - Complete the lab work one week after starting Wellbutrin. You can walk in to the lab at any time, preferably in the afternoon when wait times are shorter. - Contact me on or after February 23 to discuss how you are feeling and whether the Wellbutrin is helping. If you experience side effects or have concerns before then, please reach out to our office. Medications: - Wellbutrin 150 mg daily in the morning (new prescription). - Pristiq 100 mg daily in the morning (continue as prescribed). - Hydroxyzine 75-100 mg nightly for sleep (adjust dose as needed; new prescription). Please let us know if you have any questions or concerns. For those experiencing a suicidal crisis: --call the National Suicide Prevention Lifeline at 988 (566-514-7062) --text the Crisis Text Line (text HOME to 575103) --call 911 and let them know you are having a mental health crisis or go to your nearest Emergency Room for stabilization. --You can also call Mobile Crisis at [phone]. -- You may call the department appointment line at [phone] to schedule your appointment. -- Please call my nurse at [phone] or send me a message in [employer] with any questions or concerns between appointments. documented in this encounter [facility] 01-13-2025 Note HNO ID: [id number] Author: JEANNETTE DALAL APRN.THELMA Service: ? Author Type: Nurse Practitioner Type: Progress Notes Filed: 01/13/2025 14:12 Note Text: FOLLOW UP - PSYCHIATRIC PROGRESS NOTE Visit Type: Virtual Visit utilizing two-way audio and video for at least a portion of the visit. Consent for virtual visit obtained verbally. Confidentiality limitations with virtual visits reviewed with the patient and guardian, if present, who have accepted the risk verbally prior to proceeding with encounter. I have communicated my name and active licensure. The patient's identity and physical location were verified at the time of this visit. Either the patient or their legal manufacturing sales representative has been informed of the risks and benefits of -- and alternatives to -- treatment through a remote evaluation and consents to proceed with the evaluation remotely. Recording using ambient [employer] software for draft documentation of the visit was discussed with the patient/authorized manufacturing sales representative; all questions welcomed and answered. Patient/authorized manufacturing sales representative agreed to proceed CC: Outpatient follow-up and safety monitoring of previously prescribed psychiatric medication, psychotherapy or other treatment HPI: Patient is a 19-year-old female with a history of depression and anxiety, presenting for follow-up. The patient reports a recent increase in depressive symptoms, which she attributes to several stressors. She has been experiencing significant stomach issues due to a parasitic infection, for which she was treated with antibiotics. Although she started feeling better on Monday, the gastrointestinal symptoms previously caused nausea and limited her ability to work. Additionally, she recently lost several close friends due to a miscommunication, which has led to feelings of social isolation. This incident occurred about a month ago and continues to weigh on her. She describes a pervasive sense of not feeling wanted and expresses a lack of desire to exist. She has discussed these feelings with her boyfriend, who attempts to reassure her, but she struggles to accept his support. She is currently taking Pristiq 100 mg daily and reports that it may have helped with anxiety but not her mood. She denies experiencing any side effects from the medication. She has abstained from marijuana use for several months. She reports difficulty falling asleep, despite taking hydroxyzine every night. These sleep issues began around the time of the conflict with her friends. She denies experiencing racing thoughts or physical sensations that prevent sleep and has not tried other sleep aids. She has a history of disordered eating, characterized by fluctuating between eating too much and too little, but does not report any worsening of these behaviors currently. She denies any history of seizures. She does not attribute her depressive symptoms to her control and denies any premenstrual worsening of symptoms. Has not used any marijuana for months now. Risks and benefits of the medication, including any black box warnings, were discussed with the patient. Interval Progress: Worse PATIENT DATA: Generalized Anxiety Disorder Scale (KAREEM-7) 08/18/2024 11/18/2024 01/13/2025 KAREEM - 7 SCORES Score 7 12 14 (0-4) minimal anxiety, (5-9) mild anxiety, (10-14) moderate anxiety, (15-21) severe anxiety Patient Health Questionnaire (PHQ-9) 08/18/2024 11/18/2024 01/13/2025 PHQ-9 Score 12 15 22 (0-4) minimal depression, (5-9) mild depression, (10-14) moderate depression, (15-19) moderately severe depression, (20-27) severe depression PAST MEDICAL HISTORY Diagnosis Date NEGATIVE MEDICAL HISTORY PAST SURGICAL HISTORY Procedure Laterality Date EXCISION GANGLION WRIST DORSAL/VOLAR PRIMARY Right 04/03/2024 Right wrist, 4th extensor compartment tenosynovectomy NASAL/SINUS NDSC DSTRJ RF ABLATION PST NSL NRV ALLERGIES No Known Allergies Current Outpatient Medications on File Prior to Visit Medication Sig cetirizine (ZYRTEC) 10 mg tablet TAKE 1 TABLET BY MOUTH EVERY DAY APRI 0.15-0.03 mg per tablet hydrOXYzine HCl (ATARAX) 50 mg tablet Take 1 tablet by mouth daily at bedtime. desvenlafaxine ER (PRISTIQ) 100 mg 24 hr tablet Take 1 tablet by mouth once daily. triamcinolone acetonide (KENALOG) 0.5 % cream Apply to affected area three times a day. No current facility-administered medications on file prior to visit. ROS: See HPI PFSH: See HPI VITAL SIGNS: VITAL SIGNS: There were no vitals filed for this visit. Last 3 Encounter BP Readings: Date: BP: 11/19/2024 112/80 11/04/2024 128/82 06/13/2024 126/82 Labwork: CBC and Differential: WBC Date Value Ref Range Status 06/13/2024 6.42 3.70 - 11.00 k/uL Final RBC Date Value Ref Range Status 06/13/2024 4.50 3.90 - 5.20 m/uL Final Hematocrit Date Value Ref Range Status 06/13/2024 40.4 36.0 - 46.0 % Final MCV Date Value Ref (more content not included)... [place] [id number] History of Presen t illness Narrative Images from the original note were not included. FOLLOW UP - PSYCHIATRIC PROGRESS NOTE Visit Type: Virtual Visit utilizing two-way audio and video for at least a portion of the visit. Consent for virtual visit obtained verbally. Confidentiality limitations with virtual visits reviewed with the patient and guardian, if present, who have accepted the risk verbally prior to proceeding with encounter. I have communicated my name and active licensure. The patient's identity and physical location were verified at the time of this visit. Either the patient or their legal manufacturing sales representative has been informed of the risks and benefits of -- and alternatives to -- treatment through a remote evaluation and consents to proceed with the evaluation remotely. Recording using L[employer]Idealist software for draft documentation of the visit was discussed with the patient/authorized manufacturing sales representative; all questions welcomed and answered. Patient/authorized manufacturing sales representative agreed to proceed CC: Outpatient follow-up and safety monitoring of previously prescribed psychiatric medication, psychotherapy or other treatment HPI: Patient is a 19-year-old female with a history of depression and anxiety, presenting for follow-up. The patient reports a recent increase in depressive symptoms, which she attributes to several stressors. She has been experiencing significant stomach issues due to a parasitic infection, for which she was treated with antibiotics. Although she started feeling better on Monday, the gastrointestinal symptoms previously caused nausea and limited her ability to work. Additionally, she recently lost several close friends due to a miscommunication, which has led to feelings of social isolation. This incident occurred about a month ago and continues to weigh on her. She describes a pervasive sense of not feeling wanted and expresses a lack of desire to exist. She has discussed these feelings with her boyfriend, who attempts to reassure her, but she struggles to accept his support. She is currently taking Pristiq 100 mg daily and reports that it may have helped with anxiety but not her mood. She denies experiencing any side effects from the medication. She has abstained from marijuana use for several months. She reports difficulty falling asleep, despite taking hydroxyzine every night. These sleep issues began around the time of the conflict with her friends. She denies experiencing racing thoughts or physical sensations that prevent sleep and has not tried other sleep aids. She has a history of disordered eating, characterized by fluctuating between eating too much and too little, but does not report any worsening of these behaviors currently. She denies any history of seizures. She does not attribute her depressive symptoms to her control and denies any premenstrual worsening of symptoms. Has not used any marijuana for months now. Risks and benefits of the medication, including any black box warnings, were discussed with the patient. Interval Progress: Worse PATIENT DATA: Generalized Anxiety Disorder Scale (KAREEM-7) 08/18/2024 11/18/2024 01/13/2025 KAREEM - 7 SCORES Score 7 12 14 (0-4) minimal anxiety, (5-9) mild anxiety, (10-14) moderate anxiety, (15-21) severe anxiety Patient Health Questionnaire (PHQ-9) 08/18/2024 11/18/2024 01/13/2025 PHQ-9 Score 12 15 22 (0-4) minimal depression, (5-9) mild depression, (10-14) moderate depression, (15-19) moderately severe depression, (20-27) severe depression PAST MEDICAL HISTORY Diagnosis Date NEGATIVE MEDICAL HISTORY PAST SURGICAL HISTORY Procedure Laterality Date EXCISION GANGLION WRIST DORSAL/VOLAR PRIMARY Right 04/03/2024 Right wrist, 4th extensor compartment tenosynovectomy NASAL/SINUS NDSC DSTRJ RF ABLATION PST NSL NRV ALLERGIES No Known Allergies Current Outpatient Medications on File Prior to Visit Medication Sig cetirizine (ZYRTEC) 10 mg tablet TAKE 1 TABLET BY MOUTH EVERY DAY APRI 0.15-0.03 mg per tablet hydrOXYzine HCl (ATARAX) 50 mg tablet Take 1 tablet by mouth daily at bedtime. desvenlafaxine ER (PRISTIQ) 100 mg 24 hr tablet Take 1 tablet by mouth once daily. triamcinolone acetonide (KENALOG) 0.5 % cream Apply to affected area three times a day. No current facility-administered medications on file prior to visit. ROS: See HPI PFSH: See HPI VITAL SIGNS: VITAL SIGNS: There were no vitals filed for this visit. Last 3 Encounter BP Readings: Date: BP: 11/19/2024 112/80 11/04/2024 128/82 06/13/2024 126/82 Labwork: CBC and Differential: WBC Date Value Ref Range Status 06/13/2024 6.42 3.70 - 11.00 k/uL Final RBC Date Value Ref Range Status 06/13/2024 4.50 3.90 - 5.20 m/uL Final Hematocrit Date Value Ref Range Status 06/13/2024 40.4 36.0 - 46.0 % Final MCV Date Value Ref Range Status 06/13/2024 89.8 80.0 - 100.0 fL Final MCH Date Value Ref Range Status 06/13/2024 29.6 26.0 - 34.0 pg Final MCHC Date Value Ref Range Status 06/13/2024 32.9 30.5 - 36.0 g/dL Final Platelet Count Date Value Ref Range Status 06/13/2024 211 150 - 400 k/uL Final MPV Date Value Ref Range Status 06/13/2024 11.7 9.0 - 12.7 fL Final Comprehensive Metabolic Panel: No results found for: BUN, CREAT, GLUCOSE, CL, NA, K, CALCIUM, CO2, ANIONGAP, TP, ALB, ALKPS, ALT, AST, EGFR Gamma-Glutamyltransferase (GGT), Serum: No results found for: GGT Vitamin B12: No components found for: [id number] Vitamin D, Total: No results found for: VITD Thyroid Stimulating Hormone (TSH): TSH Date Value Ref Range Status 06/13/2024 3.130 0.510 - 4.300 mIU/L Final Comment: If the patient is , TSH reference range varies by gestational period: First Trimester (weeks 9-12): 0.180-2.990 mIU/L Second Trimester: 0.110-3.980 mIU/L Third Trimester: 0.480-4.710 mIU/L Dax Roca, et al. A Practical Approach for the Verifications and Determination of Site- and Trimester-Specific Reference Intervals for Thyroid Function tests in . Thyroid, 2019:29:3:412-420. Jg E, et al. 2017 Guidelines of the [place] Thyroid [employer] for the Diagnosis and Management of Thyroid Disease during and the . Thyroid, 2017:27:3:315-389. Reference ranges were not locally established for this patient's age group. The normal values are based on the following source: Maura Mccollum V. Reference Ranges for Adults and Children: Pre-analytical Considerations. [facility] Hemoglobin A1C: No results found for: HGBA1C Lipid Panel: No results found for: CHOL, TRIG, HDL, LDL MENTAL STATUS EXAM: Appearance: Casually dressed, well groomed Behavior: Behaves appropriately during the encounter Social relatedness: Euthymic Speech/Language: The patient demonstrates appropriate tone, prosody, keven, phonetics, and syntax Mood: sad, depressed Affect: Full and appropriate to topic Orientation: Person, Place, Time and Situation Associations: Intact and linear Hallucinations: None Delusions: None Suicidal Ideation: Intrusive thoughts of not wanting to exist. Denies any SI plans or intentions. Homicidal Ideation: No homicidal ideation, intent or plan. Insight: Appropriate Judgment: Appropriate DATA REVIEWED: Psychiatric scales, Electronic medical record, lab results DIAGNOSIS: Encounter for long-term (current) use of medications Kareem (generalized anxiety disorder) (primary encounter diagnosis) Severe episode of recurrent major depressive disorder, without psychotic features (hcc) Psychosocial stressors Social anxiety disorder Insomnia due to other mental disorder GAF: -60-51 Moderate symptoms or moderate difficulty in social, occupational or school functioning. TREATMENT PLAN: 1. 1. Encounter for long-term (current) use of medications (Z79.899) Currently on Pristiq 100 mg daily and hydroxyzine 50 mg nightly. No reported side effects from Pristiq. Hydroxyzine previously effective for sleep, but now insufficient. - Continue Pristiq 100 mg daily. - Increase hydroxyzine to 75 mg nightly; if ineffective, increase to 100 mg nightly. - Initiate Wellbutrin 150 mg daily in the morning, no later than lunchtime. - Ordered CMP to monitor electrolytes, liver, and kidney function; to be completed after one week of Wellbutrin therapy. - Follow-up scheduled for March 21 at 15:30. 2. KAREEM (generalized anxiety disorder) (F41.1) Partial improvement with Pristiq 100 mg daily. - Continue Pristiq 100 mg daily. - Initiate Wellbutrin 150 mg daily in the morning, no later than lunchtime. - Follow-up scheduled for March 21 at 15:30. 3. 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 Recent social isolation and loss of close friends contributing to symptoms. Current medication regimen not adequately addressing depressive symptoms. - Continue Pristiq 100 mg daily. - Initiate Wellbutrin 150 mg daily in the morning, no later than lunchtime. - Ordered CMP to monitor electrolytes, liver, and kidney function; to be completed after one week of Wellbutrin therapy. - Follow-up scheduled for March 21 at 15:30. - Patient to message on the or to report progress. 4. Psychosocial stressors (Z65.8) Recent loss of close friends and social isolation contributing to increased depression and anxiety. - Discussed importance of focusing on present and expressing gratitude for current support system. - Encouraged patient to continue discussing feelings with supportive individuals, including boyfriend. 5. Social anxiety disorder (F40.10) Increased anxiety related to returning to work and potential interactions with former friends. - Continue Pristiq 100 mg daily. - Initiate Wellbutrin 150 mg daily in the morning, no later than lunchtime. - Follow-up scheduled for March 21 at 15:30. 6. Insomnia due to other mental disorder (F51.05) Difficulty falling asleep, possibly related to increased stress and anxiety. Hydroxyzine 50 mg nightly previously effective, but now insufficient. - Increase hydroxyzine to 75 mg nightly; if ineffective, increase to 100 mg nightly. - Follow-up scheduled for March 21 at 15:30. MEDICATION CHANGES: Prescriptions given Patient denies any history of experiencing seizures. Aware that Wellbutrin can lower seizure threshold and is contraindicated in someone who has a seizure disorder. Risks and benefits of the medication, including any black box warnings, were discussed with the patient. Patient is aware to reach out with any questions, concerns, or worsening of symptoms prior to the next appointment. Patient educated on risks of substance use in combination with medications and advised that any substance use along with medications may alter their effectiveness. Follow Up: March 21 as scheduled. Medical Decision Making: Problems: Moderate: 2+ stable chronic illnesses High: Chronic illness with severe change Data: Unique source(s) for external note(s) reviewed: 3+ Unique test result(s) reviewed: 3+ Unique test(s) ordered: 1 Risk: Moderate: Moderate risk from testing/treatment and Drug management Medical Decision Making Level: 4 - Moderate ADD ON PSYCHOTHERAPY CODE : No SIGNATURE: Jeannette Dalal APRN.CNP PATIENT NAME: Maritza Garay DATE: January 13, 2025 TIME: 2:09 PM documented in this encounter [facility] 12-24-2024 Evaluation note Diagnosis Onset Date Resolution Diarrhea acute December 24 8:09am Early satiety acute December 24, 2024 8:09am Nausea acute December 24 8:09am Pelvic pain acute December 24, 025 8:09am Weight loss acute December 24 025 8:09am Diarrhea acute January 09, 2025 2:47pm Nausea acute January 09, 2025 2:47pm Pelvic pain acute January 09, 2025 2:47pm [facility] Work Phone: 1(149) 923-597104-07-2025 Radiology Diagnostic study note [facility] Imaging Services [address] [place] [address] Pelvic w/ Transvaginal MR#: [id number] Acct: [id number] Name: MARITZA GARAY Rep #: [id number] : 2005 F 19 From: Yani Temple MD PCP: Dr. 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 COMPARISON: 11/23/2024 FINDINGS: Uterus: 7.13.3 x 2.8 cm, Anteverted. Unremarkable echotexture. Endometrium: 4 mm, faintly trilaminar possibly proliferative phase appearance. Cervix: Unremarkable. Right ovary: 2.3 x 1.6 x 1.6 cm (estimated volume 4.5 mL), unremarkable. Left ovary: 3.8 x 2.7 x 2.6 cm (estimated volume 14.0 mL), unremarkable. Free fluid: None visualized. Other: Estimated bladder volume 284 mL. US/Pelvic w/ Transvaginal IMPRESSION: 1. Relative enlargement of the LEFT ovary is of uncertain significance and couldindeed be related to small size of the RIGHT ovary given that LEFT ovarian volume is high-normal for age. If there is concern for ovarian torsion, recommend a repeat exam with spectral Doppler for evaluation of arterial and venous waveforms. Otherwise if unexplained symptoms persist, consider a repeat CT abdomen/pelvis with contrast. 2. Additional description as above. Reading Location: [id number] CC: JOSH Ac; Dr. Rea Polo MD ~ Barrel Lathe Operator Inside: Signed [facility]03-27-2025 Evaluation note* Diagnosis Onset Date Resolution Status Admit Date Pelvic pain acute November 28, 025 8:59am Possible exposure to STI acute November 28, 2024 8:59am Diarrhea acute December 24 8:09am Early satiety acute December 24, 2024 8:09am Nausea acute December 24 8:09am Pelvic pain acute December 24, 025 8:09am Weight loss acute December 24 025 8:09am Diarrhea acute January 09, 2025 2:47pm Nausea acute January 09, 2025 2:47pm Pelvic pain acute January 09, 2025 2:47pm [facility] Work Phone: [phone] Instructions* Patient Instructions* Jeannette Dalal, MISAEL.PIER HAND - 11/25/2024 12:28 AM EDT TREATMENT PLAN: Increase Pristiq to 100 mg once every morning to help address the depressive symptoms. Use a light therapy lamp since mood is impacted by the seasonal changes. More information has been sent via [employer] message. Utilize Hydroxyzine 50 mg every night at bedtime to address the difficulty you are experiencing staying asleep. Schedule an appointment to engage in talk therapy. Resources for these were shared previously through [employer]. Continue to manage constipation side effect with the prunes. Follow up in 2 months. For those experiencing a suicidal crisis: --call the National Suicide Prevention Lifeline at 382 (237-247-8802) --text the Crisis Text Line (text HOME to 822377) --call 911 and let them know you are having a mental health crisis or go to your nearest Emergency Room for stabilization. --You can also call Mobile Crisis at [phone]. -- You may call the department appointment line at [phone] to schedule your appointment. -- Please call my nurse at [phone] or send me a message in [employer] with any questions or concerns between appointments. [facility] Radiology Diagnostic study note [facility] Imaging Services [address] [place] [address] Abdomen/Pelvis without Cont MR#: [id number] Acct: [id number] Name: MARITZA GARAY Rep #: [id number] : 2005 F 19 From: Deepti Blake MD PCP: Dr. Rea Polo MD Status: LIZBETH Joshua ER Study:Abdomen/Pelvis without Cont Date of Exa m: 11/23/24 Exam# [id number] Ordering Dr: Lizbeth Birmingham DO PROCEDURE: ABDOMEN/PELVIS WITHOUT CONT 11/23/2024 REASON FOR EXAM: 19-year-old female, lower abdominal pain. TECHNIQUE: Abdomen and pelvis CT without intravenous contrast. Coronal and Sagittal reconstruction series wereprovided. One or more dose reduction techniques were used (e.g., Automated exposure control, adjustment of the mA and/or kV according to patient size, use of iterative reconstruction technique). PATIENT PREPARATION: Per protocol COMPARISON: None. FINDINGS: Noncontrast technique limits evaluation of the abdominal and pelvic viscera. Lung bases: The heart is normal in size. The lung bases are unremarkable. Liver: The unopacified liver is normal in size. No biliary ductal dilation. Gallbladder: No radiopaque stones within the gallbladder. Spleen: Unremarkable. Pancreas: The unopacified pancreas is unremarkable. Adrenals: Unremarkable. Kidneys: No hydronephrosis or nephrolithiasis. Bladder: The urinary bladder is minimally distended. Reproductive Organs: Normal uterine size and contour. Ovaries are unremarkable. Bowel: The bowel loops are normal in caliber. No ascites or pneumoperitoneum. Normal appendix. Lymph nodes: No suspicious lymph node enlargement. Vasculature: The abdominal aorta and IVC contours are normal. Noncontrast technique limits evaluation. Bones: No aggressive osseous lesions. CT/Abdomen/Pelvis without Cont IMPRESSION: NO ACUTE FINDINGS AT THE ABDOMEN OR PELVIS ON NONCONTRAST CT. Reading Location: [facility] CC: Dr. Rea Polo MD; Dr. Graham Birmingham, DO ~ Barrel Lathe Operator Inside: Signed [facility]03-20-2025 Telephone encounter Note* Telephone Encounter - Rea Polo MD - 11/21/2024 3:39 PM EDT Patient's request for medication is as follows Requested Prescriptions Pending Prescriptions Disp Refills cetirizine (ZYRTEC) 10 mg tablet [Pharmacy Med Name: CETIRIZINE HCL 10 MG TABLET] 90 tablet 0 Sig: TAKE 1 TABLET BY MOUTH EVERY DAY Order entered - please phone pharmacy and notify patient. Rea Polo MD [facility]03-20-2025 Miscellaneous Notes* Telephone Encounter - Rea Polo MD - 11/21/2024 3:39 PM EDT Patient's request for medication is as follows Requested Prescriptions Pending Prescriptions Disp Refills cetirizine (ZYRTEC) 10 mg tablet [Pharmacy Med Name: CETIRIZINE HCL 10 MG TABLET] 90 tablet 0 Sig: TAKE 1 TABLET BY MOUTH EVERY DAY Order entered - please phone pharmacy and notify patient. Rea Polo MD * Telephone Encounter - Shraddha Faye RN - 11/21/2024 3:32 PM EDT Spoke with patient and would like this refilled. She would like to transition to adult family [facility] if in agreement, consult pended Shraddha Faye RN * Telephone Encounter - Traci Leal RN - 11/20/2024 4:49 PM EDT Left message to call office. 11/20/2024 4:49 PM Traci Leal RN * Telephone Encounter - Bernadette Olivera LPN - 11/19/2024 9:04 AM EDT Left message for parent to call the office to verify Rx is needed as the request came via pharmacy. [facility] Telephone encounter Note * Telephone Encounter - Shraddha Faye RN - 11/21/2024 3:32 PM EDT Spoke with patient and would like this refilled. She would like to transition to adult family med if in agreement, consult pended Shraddha Faye RN [facility]03-19-2025 Telephone encounter Note* Telephone Encounter - Traci Leal RN - 11/20/2024 4:49 PM EDT Left message to call office. 11/20/2024 4:49 PM Traci Leal RN [facility]03-18-2025 NoteHNO ID: [id number] Author: LANI NUR PA Service: ? Author Type: Physician Drama Critic Type: Progress Notes Filed: 11/19/2024 17:53 Note Text: [facility] Subjective Maritza Garay is a 19 year old female. Patient presents with: Urinary Frequency: Frequency and lower abdominal pain and cramping x 1 week HPI 19-year-old female presents for UTI symptoms. Patient has had urinary frequency, urgency and some lower abdominal pain for the past week. She denies any fevers or vomiting. No back pain. She was seen here 3/3 for UTI and was prescribed Macrobid. She states that she took several days of the medication and then did not finish it and then waited a couple of days and then finish the medication. She feels symptoms have now returned. She denies any vaginal discharge or itching. No concern for STD or . LMP 2 weeks ago. No other complaint PAST MEDICAL HISTORY Diagnosis Date NEGATIVE MEDICAL HISTORY PAST SURGICAL HISTORY Procedure Laterality Date EXCISION GANGLION WRIST DORSAL/VOLAR PRIMARY Right 04/03/2024 Right wrist, 4th extensor compartment tenosynovectomy NASAL/SINUS NDSC DSTRJ RF ABLATION PST NSL NRV ALLERGIES Patient has no known allergies. MEDICATIONS APRI 0.15-0.03 mg per tablet hydrOXYzine HCl (ATARAX) 50 mg tablet Take 1 tablet by mouth daily at bedtime. desvenlafaxine ER (PRISTIQ) 100 mg 24 hr tablet Take 1 tablet by mouth once daily. cetirizine (ZYRTEC) 10 mg tablet TAKE 1 TABLET BY MOUTH EVERY DAY triamcinolone acetonide (KENALOG) 0.5 % cream Apply to affected area three times a day. FAMILY HISTORY Problem Relation Age of Onset other (MVP) Mother Social History Tobacco Use Smoking status: Never Smokeless tobacco: Never Vaping Use Vaping status: Never Used Substance Use Topics Alcohol use: Never Drug use: Never Review of Systems Constitutional: Negative for chills and fever. HENT: Negative for congestion, ear pain and sore throat. Respiratory: Negative for cough and shortness of breath. Cardiovascular: Negative for chest pain. Gastrointestinal: Negative for abdominal pain, diarrhea and vomiting. Genitourinary: Positive for dysuria, frequency and urgency. Negative for hematuria, vaginal bleeding and vaginal discharge. Objective BP 112/80 Pulse 76 Temp 37.1 ?C (98.8 ?F) (Tympanic) Resp 18 Wt 73 kg (160 lb 15 oz) LMP 02/28/2024 (Approximate) SpO2 97% BMI 25.98 kg/m? Physical Exam Vitals and nursing note reviewed. Constitutional: General: She is not in acute distress. Appearance: Normal appearance. She is not toxic-appearing. HENT: Nose: Nose normal. Mouth/Throat: Mouth: Mucous membranes are moist. Eyes: Conjunctiva/sclera: Conjunctivae normal. Cardiovascular: Rate and Rhythm: Normal rate and regular rhythm. Pulmonary: Effort: Pulmonary effort is normal. Breath sounds: Normal breath sounds. Abdominal: General: Abdomen is flat. Palpations: Abdomen is soft. Tenderness: There is no abdominal tenderness. There is no right CVA tenderness, left CVA tenderness, guarding or rebound. Skin: General: Skin is warm and dry. Neurological: Mental Status: She is alert. {ASSESSMENT/PLAN: 1. Urinary frequency - ICD9: 788.41, ICD10: R35.0 acute - UA positive for proteinuria-trace -Will send urine for culture. Please treat based on result -Patient declines STD or testing. LMP 2 weeks ago - Patient education for prevention given - UA DIP, URINE (POC) - BACTERIAL CULTURE, URINE Diagnosis and treatment plan were discussed and questions were answered to the patient's satisfaction. Pt acknowledged understanding of concepts and follow up plan. Specific signs and symptoms that would indicate the need for higher level of care were discussed in detail warranting prompt ER evaluation. MASSIEL Hyman History and Record Review External record(s) reviewed: prior outpatient record. Findings from review of outpatient records: Seen 11/04, urine culture grew E. coli. Treated with Macrobid Differential Diagnoses - Urinary frequency is more likely for the following reason(s): suggested by HANDP - Pyelonephritis is less likely for the following reason(s): HANDP not suggestive - Nephrolithiasis is less likely for the following reason(s): HANDP not suggestive Disposition The [facility] was [facility]. [facility] History of Present illness Narrative* Lani Nur PA - 11/19/2024 5:51 PM EDT [facility] Subjective Maritza Garay is a 19 year old female. Patient presents with: Urinary Frequency: Frequency and lower abdominal pain and cramping x 1 week HPI 19-year-old female presents for UTI symptoms. Patient has had urinary frequency, urgency and some lower abdominal pain for the past week. She denies any fevers or vomiting. No back pain. She was seenhere 11/04 for UTI and was prescribed Macrobid. She states that she took several days of the medication and then did not finish it and then waited a couple of days and then finish the medication. She feels symptoms have now returned. She denies any vaginal discharge or itching. No concern for STD or . LMP 2 weeks ago. No other complaint PAST MEDICAL HISTORY Diagnosis Date NEGATIVE MEDICAL HISTORY PAST SURGICAL HISTORY Procedure Laterality Date EXCISION GANGLION WRIST DORSAL/VOLAR PRIMARY Right 04/03/2024 Right wrist, 4th extensor compartment tenosynovectomy NASAL/SINUS NDSC DSTRJ RF ABLATION PST NSL NRV ALLERGIES Patient has no known allergies. MEDICATIONS APRI 0.15-0.03 mg per tablet hydrOXYzine HCl (ATARAX) 50 mg tablet Take 1 tablet by mouth daily at bedtime. desvenlafaxine ER (PRISTIQ) 100 mg 24 hr tablet Take 1 tablet by mouth once daily. cetirizine (ZYRTEC) 10 mg tablet TAKE 1 TABLET BY MOUTH EVERY DAY triamcinolone acetonide (KENALOG) 0.5 % cream Apply to affected area three times a day. FAMILY HISTORY Problem Relation Age of Onset other (MVP) Mother Social History Tobacco Use Smoking status: Never Smokeless tobacco: Never Vaping Use Vaping status: Never Used Substance Use Topics Alcohol use: Never Drug use: Never Review of Systems Constitutional: Negative for chills and fever. HENT: Negative for congestion, ear pain and sore throat. Respiratory: Negative for cough and shortness of breath. Cardiovascular: Negative for chest pain. Gastrointestinal: Negative for abdominal pain, diarrhea and vomiting. Genitourinary: Positive for dysuria, frequency and urgency. Negative for hematuria, vaginal bleeding and vaginal discharge. Objective BP 112/80 Pulse 76 Temp 37.1 C (98.8 F) (Tympanic) Resp 18 Wt 73 kg (160 lb 15 oz) LMP 02/28/2024 (Approximate) SpO2 97% BMI 25.98 kg/m Physical Exam Vitals and nursing note reviewed. Constitutional: General: She is not in acute distress. Appearance: Normal appearance. She is not toxic-appearing. HENT: Nose: Nose normal. Mouth/Throat: Mouth: Mucous membranes are moist. Eyes: Conjunctiva/sclera: Conjunctivae normal. Cardiovascular: Rate and Rhythm: Normal rate and regular rhythm. Pulmonary: Effort: Pulmonary effort is normal. Breath sounds: Normal breath sounds. Abdominal: General: Abdomen is flat. Palpations: Abdomen is soft. Tenderness: There is no abdominal tenderness. There is no right CVA tenderness, left CVA tenderness, guarding or rebound. Skin: General: Skin is warm and dry. Neurological: Mental Status: She is alert. {ASSESSMENT/PLAN: 1. Urinary frequency - ICD9: 788.41, ICD10: R35.0 acute - UA positive for proteinuria-trace -Will send urine for culture. Please treat based on result -Patient declines STD or testing. LMP 2 weeks ago - Patient education for prevention given - UA DIP, URINE (POC) - BACTERIAL CULTURE, URINE Diagnosis and treatment plan were discussed and questions were answered to the patient's satisfaction. Pt acknowledged understanding of concepts and follow up plan. Specific signs and symptoms that would indicate the need for higher level of care were discussed in detail warranting prompt ER evaluation. MASSIEL Hyman History and Record Review External record(s) reviewed: prior outpatient record. Findings from review of outpatient records: Seen 3/3, urine culture grew E. coli. Treated with Macrobid Differential Diagnoses - Urinary frequency is more likely for the following reason(s): suggested by H&P - Pyelonephritis is less likely for the following reason(s): H&P not suggestive - Nephrolithiasis is less likely for the following reason(s): H&P not suggestive Disposition The patient was discharged. Procedures documented in [facility] Telephone encounter Note * Telephone Encounter - Bernadette Olivera LPN - 11/19/2024 9:04 AM EDT Left message for parent to call the office to verify Rx is needed as the request came via pharmacy. [facility]03-[facility]25 NoteHNO ID: [id number] Author: JEANNETTE DALAL APRN.PIER HAND Service: ? Author Type: Nurse Practitioner Type: Progress Notes Filed: 11/25/2024 00:28 Note Text: FOLLOW UP - PSYCHIATRIC PROGRESS NOTE PATIENT: Maritza Garay DATE: November 18, 2024 Visit Type: Virtual Visit utilizing two-way audio and video for at least a portion of the visit. Consent for virtual visit obtained verbally. Confidentiality limitations with virtual visits reviewed with the patient and guardian, if present, who have accepted the risk verbally prior to proceeding with encounter. I have communicated my name and active licensure. The patient's identity and physical location were verified at the time of this visit. Either the patient or their legal manufacturing sales representative has been informed of the risks and benefits of -- and alternatives to -- treatment through a remote evaluation and consents to proceed with the evaluation remotely. All information is from Patient report except when noted. This evaluation is NOT intended for forensic, disability or child custody purposes. CC: Presenting today for follow up regarding psychiatric medication management. HPI: Treatment Plan from Last Visit on 08/19/2024: TREATMENT PLAN: Continue Pristiq at the current dose of 75 mg to address mood and anxiety symptoms. Utilize Hydroxyzine as needed to manage break through anxiety concerns. Manage constipation related side effect by incorporating fiber in your diet, eating yogurt with probiotics, as well as incorporating movement such as bicycling and yoga. Schedule an appointment to start individual psychotherapy. A list of resources have been shared via [employer] message. Follow up in 3 months or sooner if needed. Today Maritza shares that I am okay. Discussed the increase in KAREEM-7 and PHQ-9 scores. Shares that her step-grandfather in October. Was not very close to him. But cannot think of any other stressors. Her constipation related side effects is better. She has been eating prunes every day. Does verbalize that some of the efficacy related to Pristiq has decreased. Reports more difficulty with motivation and energy. Yesterday patient and boyfriend were thinking of going out but she struggles with desire to go out and do something. I wake up tired and stay tired. Takes hydroxyzine as needed. Does not think that it is attributing to fatigue. Shares that she is having trouble staying asleep most nights. She does share that she has noticed a seasonal change to her mood. Takes a multi-vitamin. Denies a history of vitamin D deficiency. Discussed incorporation of light therapy. Started a new birthcontrol medication last week. Takes it around lunch time. Communicated that letter was sent to her landlord for SELMA. Interval Progress: Slightly worse PATIENT DATA: Generalized Anxiety Disorder Scale (KAREEM-7) 06/14/2024 08/18/2024 11/18/2024 KAREEM - 7 SCORES Score 9 7 12 (0-4) minimal anxiety, (5-9) mild anxiety, (10-14) moderate anxiety, (15-21) severe anxiety Patient Health Questionnaire (PHQ-9) 06/14/2024 08/18/2024 11/18/2024 PHQ-9 Score 17 12 15 (0-4) minimal depression, (5-9) mild depression, (10-14) moderate depression, (15-19) moderately severe depression, (20-27) severe depression PAST MEDICAL HISTORY Diagnosis Date NEGATIVE MEDICAL HISTORY PAST SURGICAL HISTORY Procedure Laterality Date EXCISION GANGLION WRIST DORSAL/VOLAR PRIMARY Right 04/03/2024 Right wrist, 4th extensor compartment tenosynovectomy NASAL/SINUS NDSC DSTRJ RF ABLATION PST NSL NRV ALLERGIES No Known Allergies Current Outpatient Medications on File Prior to Visit Medication Sig desvenlafaxine ER (PRISTIQ) 25 mg 24 hr tablet Take 1 tablet by mouth every morning. Take with 50 mg dose to equal 75 mg. desvenlafaxine ER (PRISTIQ) 50 mg 24 hr tablet Take 1 tablet by mouth every morning. Take with 25 mg dose to equal 75 mg total. hydrOXYzine HCl (ATARAX) 50 mg tablet TAKE 1 TABLET BY MOUTH EVERYDAY AT BEDTIME cetirizine (ZYRTEC) 10 mg tablet TAKE 1 TABLET BY MOUTH EVERY DAY etonogestrel (NEXPLANON) 68 mg impl subdermal implant 68 mg by SUBDERMAL route one time only. (Patient not taking: Reported on 11/04/2024) triamcinolone acetonide (KENALOG) 0.5 % cream Apply to affected area three times a day. No current facility-administered medications on file prior to visit. ROS: See HPI PFSH: See HPI VITAL SIGNS: There were no vitals filed for this visit. Last 3 Encounter BP Readings: Date: BP: 11/04/2024 128/82 06/13/2024 126/82 04/03/2024 102/54 MENTAL STATUS EXAMINATION: Appearance: Well dressed, well groomed Behavior: Behaves appropriately during the encounter Social relatedness: Withdrawn Speech/Language: The patient demonstrates appropriate tone, prosody, keven, phonetics, and syntax Mood: Withdrawn, guarded, and anxious Affect: Full and appropriate to topic Orientation: Pe (more content not included)...[facility] 11-18-2024 History of Present illness Narrative* Jeannette Dalal APRN.PIER HAND - 11/18/2024 3:05 PM EDT Images from the original note were not included. FOLLOW UP - PSYCHIATRIC PROGRESS NOTE PATIENT: Maritza Garay DATE: November 18, 2024 Visit Type: Virtual Visit utilizing two-way audio and video for at least a portion of the visit. Consent for virtual visit obtained verbally. Confidentiality limitations with virtual visits reviewed with the patient and guardian, if present, who have accepted the risk verbally prior to proceeding wi th encounter. I have communicated my name and active licensure. The patient's identity and physicallocation were verified at the time of this visit. Either the patient or their legal manufacturing sales representative has been informed of the risks and benefits of -- and alternatives to -- treatment through a remote evaluation and consents to proceed with the evaluation remotely. All information is from Patient report except when noted. This evaluation is NOT intended for forensic, disability or child custody purposes. CC: Presenting today for follow up regarding psychiatric medication management. HPI: Treatment Plan from Last Visit on 08/19/2024: TREATMENT PLAN: Continue Pristiq at the current dose of 75 mg to address mood and anxiety symptoms. Utilize Hydroxyzine as needed to manage break through anxiety concerns. Manage constipation related side effect by incorporating fiber in your diet, eating yogurt with probiotics, as well as incorporating movement such as bicycling and yoga. Schedule an appointment to start individual psychotherapy. A list of resources have been shared viaMychart message. Follow up in 3 months or sooner if needed. Today Maritza shares that I am okay. Discussed the increase in KAREEM-7 and PHQ-9 scores. Shares that her step-grandfather in October. Was not very close to him. But cannot think of any other stressors. Her constipation related side effects is better. She has been eating prunes every day. Does verbalize that some of the efficacy related to Pristiq has decreased. Reports more difficulty with motivation and energy. Yesterday patient and boyfriend were thinking of going out but she struggles with desire to go out and do something. I wake up tired and stay tired. Takes hydroxyzine as needed. Does not think that it is attributing to fatigue. Shares that she is having trouble staying asleep most nights. She does share that she has noticed a seasonal change to her mood. Takes a multi-vitamin. Denies a history of vitamin D deficiency. Discussed incorporation of light therapy. Started a new birthcontrol medication last week. Takes it around lunch time. Communicated that [facility]. Interval Progress: Slightly worse PATIENT DATA: Generalized Anxiety Disorder Scale (KAREEM-7) 06/14/2024 08/18/2024 11/18/2024 KAREEM - 7 SCORES Score 9 7 12 (0-4) minimal anxiety, (5-9) mild anxiety, (10-14) moderate anxiety, (15-21) severe anxiety Patient Health Questionnaire (PHQ-9) 06/14/2024 08/18/2024 11/18/2024 PHQ-9 Score 17 12 15 (0-4) minimal depression, (5-9) mild depression, (10-14) moderate depression, (15-19) moderately severe depression, (20-27) severe depression PAST MEDICAL HISTORY Diagnosis Date NEGATIVE MEDICAL HISTORY PAST SURGICAL HISTORY Procedure Laterality Date EXCISION GANGLION WRIST DORSAL/VOLAR PRIMARY Right 04/03/2024 Right wrist, 4th extensor compartment tenosynovectomy NASAL/SINUS NDSC DSTRJ RF ABLATION PST NSL NRV ALLERGIES No Known Allergies Current Outpatient Medications on File Prior to Visit Medication Sig desvenlafaxine ER (PRISTIQ) 25 mg 24 hr tablet Take 1 tablet by mouth every morning. Take with 50 mg dose to equal 75 mg. desvenlafaxine ER (PRISTIQ) 50 mg 24 hr tablet Take 1 tablet by mouth every morning. Take with 25 mg dose to equal 75 mg total. hydrOXYzine HCl (ATARAX) 50 mg tablet TAKE 1 TABLET BY MOUTH EVERYDAY AT BEDTIME cetirizine (ZYRTEC) 10 mg tablet TAKE 1 TABLET BY MOUTH EVERY DAY etonogestrel (NEXPLANON) 68 mg impl subdermal implant 68 mg by SUBDERMAL route one time only. (Patient not taking: Reported on 11/04/2024) triamcinolone acetonide (KENALOG) 0.5 % cream Apply to affected area three times a day. No current facility-administered medications on file prior to visit. ROS: See HPI PFSH: See HPI VITAL SIGNS: There were no vitals filed for this visit. Last 3 Encounter BP Readings: Date: BP: 11/04/2024 128/82 06/13/2024 126/82 04/03/2024 102/54 MENTAL STATUS EXAMINATION: Appearance: Well dressed, well groomed Behavior: Behaves appropriately during the encounter Social relatedness: Withdrawn Speech/Language: The patient demonstrates appropriate tone, prosody, keven, phonetics, and syntax Mood: Withdrawn, guarded, and anxious Affect: Full and appropriate to topic Orientation: Person, Place, Time and Situation Associations: Intact and linear Hallucinations: None Delusions: None Suicidal Ideation: No suicidal ideation, intent or plan. Homicidal Ideation: No homicidal ideation, intent or plan. Insight: Appropriate Judgment: Appropriate DATA REVIEWED: Psychiatric scales, Electronic medical record, Labs DIAGNOSIS: Encounter for long-term (current) use of medications (primary encounter diagnosis) Kareem (generalized anxiety disorder) Mdd (major depressive disorder), single episode, moderate (hcc) Social anxiety disorder Eating disorder, unspecified type Drug-induced constipation GAF: -60-51 Moderate symptoms or moderate difficulty in social, occupational or school functioning. TREATMENT PLAN: Increase Pristiq to 100 mg once every morning to help address the depressive symptoms. Use a light therapy lamp since mood is impacted by the seasonal changes. More information has been sent via [employer] message. Utilize Hydroxyzine 50 mg every night at bedtime to address the difficulty you are experiencing staying asleep. Schedule an appointment to engage in talk therapy. Resources for these were shared previously through [employer]. Continue to manage constipation side effect with the prunes. Follow up in 2 months. MEDICATION CHANGES: Prescriptions given See above Risks and benefits of the medication, including any black box warnings, were discussed with the patient. Patient is aware to reach out with any questions, concerns, or worsening of symptoms prior to the next appointment. Patient educated on risks of substance use in combination with medications and advised that any substance use along with medications may alter their effectiveness. Follow Up: See Treatment Plan Medical Decision Making: Problems: Moderate: 1+ chronic illnesses with change and 2+ stable chronic illnesses Data: Unique source(s) for external note(s) reviewed: 3+ Unique test result(s) reviewed: 3+ Independent interpretation of test from other physician/QHCP Risk: Moderate: Moderate risk from testing/treatment and Drug management Medical Decision Making Level: 4 - Moderate ADD ON PSYCHOTHERAPY CODE : No SIGNATURE: Jeannette Dalal APRN.CNP PATIENT NAME: Maritza Garay DATE: November 18, 2024 TIME: 3:06 PM documented in this encounterC[facility] Telephone encounter Note * Telephone Encounter - Vandana Barrera LPN - 11/07/2024 9:58 AM EST SELMA letter is on your desk ready to go. Vandana Barrera LPN [facility]03-06-2025 Miscellaneous Notes* Telephone Encounter - Vandana Barrera LPN - 11/07/2024 9:58 AM EST SELMA letter is on your desk ready to go. Vandana Barrera LPN documented in this encounterC[facility]03-[facility]25 NoteHNO ID: [id number] Author: LANI NUR PA Service: ? Author Type: Physician Drama Critic Type: Progress Notes Filed: 11/04/2024 16:05 Note Text: This note was created using [employer]. Subjective Maritza Garay is a 19 year old female. HPI 19-year-old female presents for urinary frequency, urgency and dysuria x 4 days. Patient denies any hematuria, abdominal pain. States she has had a little bit of back pain. No vomiting. She has had UTIs in the past and this feels similar. She took Azo for symptoms which did help. Patient denies any vaginal discharge. She denies any concern for STD. No concern for . She just had her Nexplanon implant removed, but again denies any concern for . PAST MEDICAL HISTORY Diagnosis Date NEGATIVE MEDICAL HISTORY PAST SURGICAL HISTORY Procedure Laterality Date EXCISION GANGLION WRIST DORSAL/VOLAR PRIMARY Right 04/03/2024 Right wrist, 4th extensor compartment tenosynovectomy NASAL/SINUS NDSC DSTRJ RF ABLATION PST NSL NRV ALLERGIES Patient has no known allergies. MEDICATIONS desvenlafaxine ER (PRISTIQ) 25 mg 24 hr tablet Take 1 tablet by mouth every morning. Take with 50 mg dose to equal 75 mg. desvenlafaxine ER (PRISTIQ) 50 mg 24 hr tablet Take 1 tablet by mouth every morning. Take with 25 mg dose to equal 75 mg total. hydrOXYzine HCl (ATARAX) 50 mg tablet TAKE 1 TABLET BY MOUTH EVERYDAY AT BEDTIME cetirizine (ZYRTEC) 10 mg tablet TAKE 1 TABLET BY MOUTH EVERY DAY triamcinolone acetonide (KENALOG) 0.5 % cream Apply to affected area three times a day. etonogestrel (NEXPLANON) 68 mg impl subdermal implant 68 mg by SUBDERMAL route one time only. (Patient not taking: Reported on 11/04/2024) FAMILY HISTORY Problem Relation Age of Onset other (MVP) Mother Social History Tobacco Use Smoking status: Never Smokeless tobacco: Never Vaping Use Vaping status: Never Used Substance Use Topics Alcohol use: Never Drug use: Never Review of Systems Constitutional: Negative for chills and fever. HENT: Negative for congestion, ear pain and sore throat. Respiratory: Negative for cough and shortness of breath. Cardiovascular: Negative for chest pain. Gastrointestinal: Negative for diarrhea and vomiting. Genitourinary: Positive for dysuria, frequency and urgency. Negative for vaginal discharge. Objective BP 128/82 Pulse 92 Temp 36.6 ?C (97.8 ?F) (Tympanic) Resp 18 Wt 76.1 kg (167 lb 12.3 oz) LMP 02/28/2024 (Approximate) SpO2 96% BMI 27.08 kg/m? Physical Exam Vitals and nursing note reviewed. Constitutional: General: She is not in acute distress. Appearance: Normal appearance. She is not toxic-appearing. HENT: Nose: Nose normal. Mouth/Throat: Mouth: Mucous membranes are moist. Eyes: Conjunctiva/sclera: Conjunctivae normal. Cardiovascular: Rate and Rhythm: Normal rate and regular rhythm. Pulmonary: Effort: Pulmonary effort is normal. Breath sounds: Normal breath sounds. Abdominal: General: Abdomen is flat. Palpations: Abdomen is soft. Tenderness: There is no abdominal tenderness. There is no right CVA tenderness, left CVA tenderness, guarding or rebound. Skin: General: Skin is warm and dry. Neurological: Mental Status: She is alert. Assessment and Plan ASSESSMENT/PLAN: 1. Urinary frequency - ICD9: 788.41, ICD10: R35.0 acute - UA positive for dallin esterase, hematuria, proteinuria, and nitrates (on AZO) - Send urine for culture - Begin treatment with Macrobid 100 mg BID for 5 days - Patient education for prevention given - UA DIP, URINE (POC) - BACTERIAL CULTURE, URINE Diagnosis and treatment plan were discussed and questions were answered to the patient's satisfaction. Pt acknowledged understanding of concepts and follow up plan. Specific signs and symptoms that would indicate the need for higher level of care were discussed in detail warranting prompt ER evaluation. Lani Nur [facility]03-03-2025 History of Present illness Narrative* Lani Nur, PA - 11/04/2024 4:03 PM EST This note was created using [employer]. Subjective Maritza Garay is a 19 year old female. HPI 19-year-old female presents for urinary frequency, urgency and dysuria x 4 days. Patient deniesany hematuria, abdominal pain. States she has had a little bit of back pain. No vomiting. She has had UTIs in the past and this feels similar. She took Azo for symptoms which did help. Patient deniesany vaginal discharge. She denies any concern for STD. No concern for . She just had her Nexplanon implant removed, but again denies any concern for . PAST MEDICAL HISTORY Diagnosis Date NEGATIVE MEDICAL HISTORY PAST SURGICAL HISTORY Procedure Laterality Date EXCISION GANGLION WRIST DORSAL/VOLAR PRIMARY Right 04/03/2024 Right wrist, 4th extensor compartment tenosynovectomy NASAL/SINUS NDSC DSTRJ RF ABLATION PST NSL NRV ALLERGIES Patient has no known allergies. MEDICATIONS desvenlafaxine ER (PRISTIQ) 25 mg 24 hr tablet Take 1 tablet by mouth every morning. Take with 50 mg dose to equal 75 mg. desvenlafaxine ER (PRISTIQ) 50 mg 24 hr tablet Take 1 tablet by mouth every morning. Take with 25 mg dose to equal 75 mg total. hydrOXYzine HCl (ATARAX) 50 mg tablet TAKE 1 TABLET BY MOUTH EVERYDAY AT BEDTIME cetirizine (ZYRTEC) 10 mg tablet TAKE 1 TABLET BY MOUTH EVERY DAY triamcinolone acetonide (KENALOG) 0.5 % cream Apply to affected area three times a day. etonogestrel (NEXPLANON) 68 mg impl subdermal implant 68 mg by SUBDERMAL route one time only. (Patient not taking: Reported on 11/04/2024) FAMILY HISTORY Problem Relation Age of Onset other (MVP) Mother Social History Tobacco Use Smoking status: Never Smokeless tobacco: Never Vaping Use Vaping status: Never Used Substance Use Topics Alcohol use: Never Drug use: Never Review of Systems Constitutional: Negative for chills and fever. HENT: Negative for congestion, ear pain and sore throat. Respiratory: Negative for cough and shortness of breath. Cardiovascular: Negative for chest pain. Gastrointestinal: Negative for diarrhea and vomiting. Genitourinary: Positive for dysuria, frequency and urgency. Negative for vaginal discharge. Objective BP 128/82 Pulse 92 Temp 36.6 C (97.8 F) (Tympanic) Resp 18 Wt 76.1 kg (167 lb 12.3 oz) LMP 02/28/2024 (Approximate) SpO2 96% BMI 27.08 kg/m Physical Exam Vitals and nursing note reviewed. Constitutional: General: She is not in acute distress. Appearance: Normal appearance. She is not toxic-appearing. HENT: Nose: Nose normal. Mouth/Throat: Mouth: Mucous membranes are moist. Eyes: Conjunctiva/sclera: Conjunctivae normal. Cardiovascular: Rate and Rhythm: Normal rate and regular rhythm. Pulmonary: Effort: Pulmonary effort is normal. Breath sounds: Normal breath sounds. Abdominal: General: Abdomen is flat. Palpations: Abdomen is soft. Tenderness: There is no abdominal tenderness. There is no right CVA tenderness, left CVA tenderness, guarding or rebound. Skin: General: Skin is warm and dry. Neurological: Mental Status: She is alert. Assessment and Plan ASSESSMENT/PLAN: 1. Urinary frequency - ICD9: 788.41, ICD10: R35.0 acute - UA positive for dallin esterase, hematuria, proteinuria, and nitrates (on AZO) - Send urine for culture - Begin treatment with Macrobid 100 mg BID for 5 days - Patient education for prevention given - UA DIP, URINE (POC) - BACTERIAL CULTURE, URINE Diagnosis and treatment plan were discussed and questions were answered to the patient's satisfaction. Pt acknowledged understanding of concepts and follow up plan. Specific signs and symptoms that would indicate the need for higher level of care were discussed in detail warranting prompt ER evaluation. MASSIEL Hyman documented in this encounterC[facility] Evaluation note* Diagnosis Onset Date Resolution Status Admit Date Contraceptive management acute November 01, 2024 3:33pm [facility] Work Phone: 1(596) 886-626902-28-2025 Evaluation note* Diagnosis Onset Date Resolution Status Admit Date Contraceptive management acute November 01, 2024 3:33pm Pelvic pain acute November 28, 2 025 8:59am Possible exposure to STI acute November 28, 2024 8:59am [facility] Work Phone: 1(345) 890-277002-28-2025 Evaluation note* Diagnosis Onset Date Resolution Status Admit Date Contraceptive management acute November 01, 2024 3:33pm Pelvic pain acute November 28, 2 025 8:59am Possible exposure to STI acute November 28, 2024 8:59am Diarrhea acute December 24 8:09am Early satiety acute December 24, 2024 8:09am Nausea acute December 24 8:09am Pelvic pain acute December 24, 2 025 8:09am Weight loss acute December 24, 2 025 8:09am Diarrhea acute January 09, 2025 2:47pm Nausea acute January 09, 2025 2:47pm Pelvic pain acute January 09, 2025 2:47pm [facility] Work Phone: 1(932) 745-644702-20-2025 Telephone encounter Note* Telephone Encounter - Christy Burgos - 10/24/2024 9:10 AM EST Last: 08/09/24 TREATMENT PLAN: Continue Pristiq at the current dose of 75 mg to address mood and anxiety symptoms. Utilize Hydroxyzine as needed to manage break through anxiety concerns. Manage constipation related side effect by incorporating fiber in your diet, eating yogurt with probiotics, as well as incorporating movement such as bicycling and yoga. Schedule an appointment to start individual psychotherapy. A list of resources have been shared viaPhasor Solutionschart message. Follow up in 3 months or sooner if needed. Next: 11/18/24 [facility] Miscellaneous Notes* Telephone Encounter - Christy Burgos - 10/24/2024 9:10 AM EST Last: 08/09/24 TREATMENT PLAN: Continue Pristiq at the current dose of 75 mg to address mood and anxiety symptoms. Utilize Hydroxyzine as needed to manage break through anxiety concerns. Manage constipation related side effect by incorporating fiber in your diet, eating yogurt with probiotics, as well as incorporating movement such as bicycling and yoga. Schedule an appointment to start individual psychotherapy. A list of resources have been shared viaPhasor Solutionschart message. Follow up in 3 months or sooner if needed. Next: 11/18/24 documented in this encounterC[facility]12-22-2024 Instructions* Patient Instructions* Jeannette Dalal, [facility] - 08/25/2024 11:58 PM EST TREATMENT PLAN: Continue Pristiq at the current dose of 75 mg to address mood and anxiety symptoms. Utilize Hydroxyzine as needed to manage break through anxiety concerns. Manage constipation related side effect by incorporating fiber in your diet, eating yogurt with probiotics, as well as incorporating movement such as bicycling and yoga. Schedule an appointment to start individual psychotherapy. A list of resources have been shared viaPhasor Solutionschart message. Follow up in 3 months or sooner if needed. For those experiencing a suicidal crisis: --call the National Suicide Prevention Lifeline at 988 (110.197.5052) --text the Crisis Text Line (text HOME to 717902) --call 911 and let them know you are having a mental health crisis or go to your nearest Emergency Room for stabilization. --You can also call Mobile Crisis at [phone]. -- You may call the department appointment line at [phone] to schedule your appointment. -- Please call my nurse at [phone] or send me a message in Quibb with any questions or concerns between appointments. [facility] Tele[facility] encounter Note * Telephone Encounter - Rea Polo MD - 08/23/2024 9:52 AM EST Patient's request for medication is as follows Requested Prescriptions Pending Prescriptions Disp Refills cetirizine (ZYRTEC) 10 mg tablet [Pharmacy Med Name: CETIRIZINE HCL 10 MG TABLET] 90 tablet 0 Sig: TAKE 1 TABLET BY MOUTH EVERY DAY Order entered - please phone pharmacy and notify patient. Rea Polo MD [facility]12-[facility] Miscellaneous Notes* Telephone Encounter - Rea Polo MD - 08/23/2024 9:52 AM EST Patient's request for medication is as follows Requested Prescriptions Pending Prescriptions Disp Refills cetirizine (ZYRTEC) 10 mg tablet [Pharmacy Med Name: CETIRIZINE HCL 10 MG TABLET] 90 tablet 0 Sig: TAKE 1 TABLET BY MOUTH EVERY DAY Order entered - please phone pharmacy and notify patient. Rea Polo MD * Telephone Encounter - Malcolm Kapadia RN - 08/23/2024 8:35 AM EST Patient phones requesting refills as follows: Requested Prescriptions Pending Prescriptions Disp Refills cetirizine (ZYRTEC) 10 mg tablet [Pharmacy Med Name: CETIRIZINE HCL 10 MG TABLET] 90 tablet 0 Sig: TAKE 1 TABLET BY MOUTH EVERY DAY Please review and advise. Malcolm Kapadia RN documented in this encounterC[facility] Telephone encounter Note * Telephone Encounter - Malcolm Kapadia RN - 08/23/2024 8:35 AM EST Patient phones requesting refills as follows: Requested Prescriptions Pending Prescriptions Disp Refills cetirizine (ZYRTEC) 10 mg tablet [Pharmacy Med Name: CETIRIZINE HCL 10 MG TABLET] 90 tablet 0 Sig: TAKE 1 TABLET BY MOUTH EVERY DAY Please review and advise. Malcolm Kapadia RN [facility]12[facility]24 NoteHNO ID: [id number] Author: JEANNETTE DALAL APRN.PIER HAND Service: ? Author Type: Nurse Practitioner Type: Progress Notes Filed: 08/25/2024 23:58 Note Text: FOLLOW UP - PSYCHIATRIC PROGRESS NOTE PATIENT: Maritza Garay DATE: August 19, 2024 Visit Type: Virtual Visit utilizing two-way audio and video for at least a portion of the visit. Consent for virtual visit obtained verbally. Confidentiality limitations with virtual visits reviewed with the patient and guardian, if present, who have accepted the risk verbally prior to proceeding with encounter. I have communicated my name and active licensure. The patient's identity and physical location were verified at the time of this visit. Either the patient or their legal manufacturing sales representative has been informed of the risks and benefits of -- and alternatives to -- treatment through a remote evaluation and consents to proceed with the evaluation remotely. All information is from Patient report except when noted. This evaluation is NOT intended for forensic, disability or child custody purposes. CC: Presenting today for follow up regarding psychiatric medication management. HPI: Treatment Plan from Last Visit on 06/14/2024: TREATMENT PLAN: Increase Pristiq to 75 mg to address mood and anxiety symptoms. Utilize Hydroxyzine 50 mg as needed at bedtime to help with anxiety and sleep difficulties. Utilize Hydroxyzine 10 mg as needed to manage breakthrough symptoms of anxiety. Provided a list of resources to explore and schedule an appointment for individual psychotherapy. Today Maritza shares that I am good. She has been feeling better since the increase in the Pristiq. Concerned about feeling more bloated and constipated. Thinks this side effect began after 1 week of increase in Pristiq. She is going more days without a bowel movement and reports some stomach discomfort. She has been drinking a lot of water. Took a stimulant laxative just once but it made me very nauseous and hot. It did help her have a bowel movement. Feels that the benefit from Pristiq at 75 mg outweighs the side effects. Discussed ways of managing constipation that she could try. Pristiq has helped with her mood and social anxiety. Has not needed to take the hydroxyzine. Interval Progress: Slightly improved PATIENT DATA: Generalized Anxiety Disorder Scale (KAREEM-7) 04/08/2024 06/14/2024 08/18/2024 KAREEM - 7 SCORES Score 17 9 7 (0-4) minimal anxiety, (5-9) mild anxiety, (10-14) moderate anxiety, (15-21) severe anxiety Patient Health Questionnaire (PHQ-9) 04/08/2024 06/14/2024 08/18/2024 PHQ-9 Score 19 17 12 (0-4) minimal depression, (5-9) mild depression, (10-14) moderate depression, (15-19) moderately severe depression, (20-27) severe depression PAST MEDICAL HISTORY Diagnosis Date NEGATIVE MEDICAL HISTORY PAST SURGICAL HISTORY Procedure Laterality Date EXCISION GANGLION WRIST DORSAL/VOLAR PRIMARY Right 04/03/2024 Right wrist, 4th extensor compartment tenosynovectomy NASAL/SINUS NDSC DSTRJ RF ABLATION PST NSL NRV ALLERGIES No Known Allergies Current Outpatient Medications on File Prior to Visit Medication Sig hydrOXYzine HCl (ATARAX) 50 mg tablet TAKE 1 TABLET BY MOUTH EVERYDAY AT BEDTIME desvenlafaxine ER (PRISTIQ) 25 mg 24 hr tablet Take 1 tablet by mouth every morning. Take with 50 mg dose to equal 75 mg. desvenlafaxine ER (PRISTIQ) 50 mg 24 hr tablet Take 1 tablet by mouth every morning. Take with 25 mg dose to equal 75 mg total. cetirizine (ZYRTEC) 10 mg tablet Take 1 tablet by mouth once daily. etonogestrel (NEXPLANON) 68 mg impl subdermal implant 68 mg by SUBDERMAL route one time only. triamcinolone acetonide (KENALOG) 0.5 % cream Apply to affected area three times a day. No current facility-administered medications on file prior to visit. ROS: See HPI PFSH: See HPI VITAL SIGNS: There were no vitals filed for this visit. Last 3 Encounter BP Readings: Date: BP: 06/13/2024 126/82 04/03/2024 102/54 03/20/2024 130/82 MENTAL STATUS EXAMINATION: Appearance: Well dressed, well groomed Behavior: Behaves appropriately during the encounter Social relatedness: Guarded and quiet Speech/Language: The patient demonstrates appropriate tone, prosody, keven, phonetics, and syntax Mood: Anxious Affect: Full and appropriate to topic Orientation: Person, Place, Time and Situation Associations: Intact and linear Hallucinations: None Delusions: None Suicidal Ideation: No suicidal ideation, intent or plan. Homicidal Ideation: No homicidal ideation, intent or plan. Insight: Appropriate Judgment: Appropriate DATA REVIEWED: Psychiatric scales, Electronic medical record, Labs DIAGNOSIS: Kareem (generalized anxiety disorder) (primary encounter diagnosis) Mdd (major depressive disorder), single episode, moderate (hcc) Social anxiety disorder Eating disorder, unspecified type Nausea Drug-in (more content not included)...[facility]12-16-2024 History of Present illness Narrative* Jeannette Dalal APRN.PIER HAND - 08/19/2024 4:39 PM EST Images from the original note were not included. FOLLOW UP - PSYCHIATRIC PROGRESS NOTE PATIENT: Maritza Garay DATE: August 19, 2024 Visit Type: Virtual Visit utilizing two-way audio and video for at least a portion of the visit. Consent for virtual visit obtained verbally. Confidentiality limitations with virtual visits reviewed with the patient and guardian, if present, who have accepted the risk verbally prior to proceeding wi encounter. I have communicated my name and active licensure. The patient's identity and physicallocation were verified at the time of this visit. Either the patient or their legal manufacturing sales representative has been informed of the risks and benefits of -- and alternatives to -- treatment through a remote evaluation and consents to proceed with the evaluation remotely. All information is from Patient report except when noted. This evaluation is NOT intended for forensic, disability or child custody purposes. CC: Presenting today for follow up regarding psychiatric medication management. HPI: Treatment Plan from Last Visit on 06/14/2024: TREATMENT PLAN: Increase Pristiq to 75 mg to address mood and anxiety symptoms. Utilize Hydroxyzine 50 mg as needed at bedtime to help with anxiety and sleep difficulties. Utilize Hydroxyzine 10 mg as needed to manage breakthrough symptoms of anxiety. Provided a list of resources to explore and schedule an appointment for individual psychotherapy. Today Maritza shares that I am good. She has been feeling better since the increase in the Pristiq. Concerned about feeling more bloated and constipated. Thinks this side effect began after 1 week of increase in Pristiq. She is going more days without a bowel movement and reports some stomach discomfort. She has been drinking a lot of water. Took a stimulant laxative just once but it made me very nauseous and hot. It did help her have a bowel movement. Feels that the benefit from Pristiq at 75 mg outweighs the side effects. Discussed ways of managing constipation that she could try. Pristiq has helped with her mood and social anxiety. Has not needed to take the hydroxyzine. Interval Progress: Slightly improved PATIENT DATA: Generalized Anxiety Disorder Scale (KAREEM-7) 04/08/2024 06/14/2024 08/18/2024 KAREEM - 7 SCORES Score 17 9 7 (0-4) minimal anxiety, (5-9) mild anxiety, (10-14) moderate anxiety, (15-21) severe anxiety Patient Health Questionnaire (PHQ-9) 04/08/2024 06/14/2024 08/18/2024 PHQ-9 Score 19 17 12 (0-4) minimal depression, (5-9) mild depression, (10-14) moderate depression, (15-19) moderately severe depression, (20-27) severe depression PAST MEDICAL HISTORY Diagnosis Date NEGATIVE MEDICAL HISTORY PAST SURGICAL HISTORY Procedure Laterality Date EXCISION GANGLION WRIST DORSAL/VOLAR PRIMARY Right 04/03/2024 Right wrist, 4th extensor compartment tenosynovectomy NASAL/SINUS NDSC DSTRJ RF ABLATION PST NSL NRV ALLERGIES No Known Allergies Current Outpatient Medications on File Prior to Visit Medication Sig hydrOXYzine HCl (ATARAX) 50 mg tablet TAKE 1 TABLET BY MOUTH EVERYDAY AT BEDTIME desvenlafaxine ER (PRISTIQ) 25 mg 24 hr tablet Take 1 tablet by mouth every morning. Take with 50 mg dose to equal 75 mg. desvenlafaxine ER (PRISTIQ) 50 mg 24 hr tablet Take 1 tablet by mouth every morning. Take with 25 mg dose to equal 75 mg total. cetirizine (ZYRTEC) 10 mg tablet Take 1 tablet by mouth once daily. etonogestrel (NEXPLANON) 68 mg impl subdermal implant 68 mg by SUBDERMAL route one time only. triamcinolone acetonide (KENALOG) 0.5 % cream Apply to affected area three times a day. No current facility-administered medications on file prior to visit. ROS: See HPI PFSH: See HPI VITAL SIGNS: There were no vitals filed for this visit. Last 3 Encounter BP Readings: Date: BP: 06/13/2024 126/82 04/03/2024 102/54 03/20/2024 130/82 MENTAL STATUS EXAMINATION: Appearance: Well dressed, well groomed Behavior: Behaves appropriately during the encounter Social relatedness: Guarded and quiet Speech/Language: The patient demonstrates appropriate tone, prosody, keven, phonetics, and syntax Mood: Anxious Affect: Full and appropriate to topic Orientation: Person, Place, Time and Situation Associations: Intact and linear Hallucinations: None Delusions: None Suicidal Ideation: No suicidal ideation, intent or plan. Homicidal Ideation: No homicidal ideation, intent or plan. Insight: Appropriate Judgment: Appropriate DATA REVIEWED: Psychiatric scales, Electronic medical record, Labs DIAGNOSIS: Kareem (generalized anxiety disorder) (primary encounter diagnosis) Mdd (major depressive disorder), single episode, moderate (hcc) Social anxiety disorder Eating disorder, unspecified type Nausea Drug-induced constipation Encounter for long-term (current) use of medications GAF: -60-51 Moderate symptoms or moderate difficulty in social, occupational or school functioning. TREATMENT PLAN: Continue Pristiq at the current dose of 75 mg to address mood and anxiety symptoms. Utilize Hydroxyzine as needed to manage break through anxiety concerns. Manage constipation related side effect by incorporating fiber in your diet, eating yogurt with probiotics, as well as incorporating movement such as bicycling and yoga. Schedule an appointment to start individual psychotherapy. A list of resources have been shared viaMychart message. Follow up in 3 months or sooner if needed. MEDICATION CHANGES: Current medication regimen unchanged. Prescriptions given See above. Risks and benefits of the medication, including any black box warnings, were discussed with the patient. Patient is aware to reach out with any questions, concerns, or worsening of symptoms prior to the next appointment. Patient educated on risks of substance use in combination with medications and advised that any substance use along with medications may alter their effectiveness. Follow Up: See Treatment Plan I spent a total of 38 minutes on the date of the service which included preparing to see the patient, [id number] patient care, completing clinical documentation, and counseling and educating the patient/family/caregiver, ordering medications/labs. ADD ON PSYCHOTHERAPY CODE : No SIGNATURE: Jeannette Dalal APRN.CNP PATIENT NAME: Maritza Garay DATE: August 19, 2024 TIME: 4:39 PM documented [facility] Tele[facility] encounter Note * Telephone Encounter - Christy Burgos - 07/15/2024 7:46 AM EST Last: 06/14/24 TREATMENT PLAN: 1.Increase Pristiq to 75 mg to address mood and anxiety symptoms. 2.Utilize Hydroxyzine 50 mg as needed at bedtime to help with anxiety and sleep difficulties. 3.Utilize Hydroxyzine 10 mg as needed to manage breakthrough symptoms of anxiety. 4.Provided a list of resources to explore and schedule an appointment for individual psychotherapy. Next: 08/09/24 [facility]11-[facility] Miscellaneous Notes* Telephone Encounter - Christy Burgos - 07/15/2024 7:46 AM EST Last: 06/14/24 TREATMENT PLAN: 1.Increase Pristiq to 75 mg to address mood and anxiety symptoms. 2.Utilize Hydroxyzine 50 mg as needed at bedtime to help with anxiety and sleep difficulties. 3.Utilize Hydroxyzine 10 mg as needed to manage breakthrough symptoms of anxiety. 4.Provided a list of resources to explore and schedule an appointment for individual psychotherapy. Next: 08/09/24 documented in this encounterC[facility] Telephone encounter Note * Telephone Encounter - Jeannette Dalal APRN.CNP - 07/12/2024 11:25 AM EST Updated prescription of Pristiq 50 mg and Pristiq 25 mg sent to the pharmacy to equal 75 mg due to insurance restrictions. [facility] Miscellaneous Notes* Telephone Encounter - Jeannette Dalal APRN.CNP - 07/12/2024 11:25 AM EST Updated prescription of Pristiq 50 mg and Pristiq 25 mg sent to the pharmacy to equal 75 mg due to insurance restrictions. * Telephone Encounter - Opal Bauman - 07/10/2024 3:30 PM EST Pharmacy comment: Alternative Requested:INS WILL NOT COVER 3 PER DAY, CHANGE STRENGTH? Last appt: 06-14-24 Next appt: 08-19-24 documented in this encounterC[facility] Telephone encounter Note * Telephone Encounter - Opal Bauman - 07/10/2024 3:30 PM EST Pharmacy comment: Alternative Requested:INS WILL NOT COVER 3 PER DAY, CHANGE STRENGTH? Last appt: 06-14-24 Next appt: 08-19-24 [facility] Telephone encounter Note* Telephone Encounter - Jeannette Dalal APRN.CNP - 07/10/2024 2:15 PM EST 90 day refill provided based on request from pharmacy. [facility] Miscellaneous Notes* Telephone Encounter - Jeannette Dalal APRN.CNP - 07/10/2024 2:15 PM EST 90 day refill provided based on request from pharmacy. * Telephone Encounter - Opal Bauman - 07/10/2024 1:19 PM EST Pharmacy comment: REQUEST FOR 90 DAYS PRESCRIPTION. documented in this encounterC[facility]11-[facility] Telephone encounter Note * Telephone Encounter - Opal Bauman - 07/10/2024 1:19 PM EST Pharmacy comment: REQUEST FOR 90 DAYS PRESCRIPTION. [facility] Telephone encounter Note* Telephone Encounter - Vandana Barrera LPN - 07/10/2024 11:56 AM EST Call placed to patient after receiving refill request on Pristiq. Medication was increased at last visit and wanted to make sure patient was tolerating medication well without side effects. Message left for patient to return call to [phone]. Vandana Barrera LPN [facility]11-06-2024 Miscellaneous Notes* Telephone Encounter - Vandana Barrera LPN - 07/10/2024 11:56 AM EST Call placed to patient after receiving refill request on Pristiq. Medication was increased at last visit and wanted to make sure patient was tolerating medication well without side effects. Message left for patient to return call to [phone]. Vandana Barrera LPN documented in this encounterC[facility]10-22-2024 Instructions* Patient Instructions* Jeannette Dalal APRN.CNP - 06/25/2024 1:11 AM EDT Rhett Salas, It was good to talk with you today. Below is a summary of the plan that we discussed during your appointment for reference. Of course, if you have any questions or concerns do not hesitate to reach out to me via a message or call. Jeannette Garcia APRN.CNP PLAN AND FOLLOW UP: TREATMENT PLAN: Increase Pristiq to 75 mg to address mood and anxiety symptoms. Utilize Hydroxyzine 50 mg as needed at bedtime to help with anxiety and sleep difficulties. Utilize Hydroxyzine 10 mg as needed to manage breakthrough symptoms of anxiety. Provided a list of resources to explore and schedule an appointment for individual psychotherapy. For those experiencing a suicidal crisis: --call the National Suicide Prevention Lifeline at 988 (190.392.1656) --text the Crisis Text Line (text HOME to 184027) --call 631 and let them know you are having a mental health crisis or go to your nearest Emergency Room for stabilization. --You can also call Mobile Crisis at [phone]. Next appointment: --Schedule in 2 months or sooner if needed -- You may call the department appointment line at [phone] to schedule your appointment. -- Please call my nurse at [phone] or send me a message in Quibb with any questions or concerns between appointments. documented in this encounterC[facility]10-11-2024 NoteHNO ID: [id number] Author: JEANNETTE DALAL APRN.CNP Service: ? Author Type: Nurse Practitioner Type: Progress Notes Filed: 06/25/2024 01:11 Note Text: FOLLOW UP - PSYCHIATRIC PROGRESS NOTE PATIENT: Maritza Garay DATE: June 14, 2024 Visit Type: Virtual Visit utilizing two-way audio and video for at least a portion of the visit. Consent for virtual visit obtained verbally. Confidentiality limitations with virtual visits reviewed with the patient and guardian, if present, who have accepted the risk verbally prior to proceeding with encounter. I have communicated my name and active licensure. The patient's identity and physical location were verified at the time of this visit. Either the patient or their legal manufacturing sales representative has been informed of the risks and benefits of -- and alternatives to -- treatment through a remote evaluation and consents to proceed with the evaluation remotely. All information is from Patient report except when noted. This evaluation is NOT intended for forensic, disability or child custody purposes. CC: Presenting today for follow up regarding psychiatric medication management. HPI: Treatment Plan from Last Visit on 04/12/2024: TREATMENT PLAN: Discontinue Venlafaxine due to side effects of nausea, dizziness, and decrease in sexual drive. Start Pristiq (Desvenlafaxine) at 25 mg and gradually increase dose to 50 mg in 1 week. Take with breakfast every morning. Increase Hydroxyzine to 50 mg at bedtime to address sleep difficulties. Utilize Zofran as needed to manage nausea related side effect. Utilize Hydroxyzine 10 mg as needed to address breakthrough anxiety symptoms. Today Maritza shares that I think its been better. Overall, she feels that her mood is better. Denies any side effects from Pristiq increase. Shares that she feels tired and struggles with talking to others and engage in conversations. Feels mentally and physically exhausted. She has been sleeping better. Being anxious was making it hard to sleep before. Uses Hydroxyzine 25 mg just a couple times a week. Denies side effect. Uses Hydroxyzine 10 mg as needed for breakthrough anxiety. Has been struggling with nausea after eating. Sometimes will get nauseous even before eating in the morning. Has not gotten established with a therapist yet. A year or 2 ago, she did not have a good experience and that manan her this time. Interval Progress: Slightly improved PATIENT DATA: Generalized Anxiety Disorder Scale (KAREEM-7) 01/25/2024 04/08/2024 06/14/2024 KAREEM - 7 SCORES Score 14 17 9 (0-4) minimal anxiety, (5-9) mild anxiety, (10-14) moderate anxiety, (15-21) severe anxiety Patient Health Questionnaire (PHQ-9) 01/25/2024 04/08/2024 06/14/2024 PHQ-9 Score 20 19 17 (0-4) minimal depression, (5-9) mild depression, (10-14) moderate depression, (15-19) moderately severe depression, (20-27) severe depression PAST MEDICAL HISTORY Diagnosis Date NEGATIVE MEDICAL HISTORY PAST SURGICAL HISTORY Procedure Laterality Date EXCISION GANGLION WRIST DORSAL/VOLAR PRIMARY Right 04/03/2024 Right wrist, 4th extensor compartment tenosynovectomy NASAL/SINUS NDSC DSTRJ RF ABLATION PST NSL NRV ALLERGIES No Known Allergies Current Outpatient Medications on File Prior to Visit Medication Sig cetirizine (ZYRTEC) 10 mg tablet Take 1 tablet by mouth once daily. etonogestrel (NEXPLANON) 68 mg impl subdermal implant 68 mg by SUBDERMAL route one time only. triamcinolone acetonide (KENALOG) 0.5 % cream Apply to affected area three times a day. desvenlafaxine ER (PRISTIQ) 50 mg 24 hr tablet TAKE 1 TABLET BY MOUTH DAILY WITH BREAKFAST. START AFTER COMPLETING 7 DAYS OF THE 25 MG DOSE. desvenlafaxine ER (PRISTIQ) 25 mg 24 hr tablet Take 1 tablet by mouth daily with breakfast for 7 days. hydrOXYzine HCl (ATARAX) 50 mg tablet Take 1 tablet by mouth daily at bedtime. No current facility-administered medications on file prior to visit. ROS: See HPI PFSH: See HPI VITAL SIGNS: There were no vitals filed for this visit. Last 3 Encounter BP Readings: Date: BP: 06/13/2024 126/82 04/03/2024 102/54 03/20/2024 130/82 MENTAL STATUS EXAMINATION: Appearance: Well dressed, well groomed Behavior: Behaves appropriately during the encounter Social relatedness: Euthymic Speech/Language: The patient demonstrates appropriate tone, prosody, keven, phonetics, and syntax Mood: anxious Affect: Full and appropriate to topic Orientation: Person, Place, Time and Situation Associations: Intact and linear Hallucinations: None Delusions: None Suicidal Ideation: No suicidal ideation, intent or plan. Homicidal Ideation: No homicidal ideation, intent or plan. Insight: Appropriate Judgment: Appropriate DATA REVIEWED: Psychiatric scales, Electronic medical record, Labs DIAGNOSIS: Kareem (generalized anxiety disorder) (primary encounter diagnosis) Mdd (major depressiv (more content not included)...[facility] 06-14-2024 History of Present illness Narrative* Jeannette Dalal APRN.PIER HAND - 06/14/2024 3:59 PM EDT Images from the original note were not included. FOLLOW UP - PSYCHIATRIC PROGRESS NOTE PATIENT: Maritza Garay DATE: June 14, 2024 Visit Type: Virtual Visit utilizing two-way audio and video for at least a portion of the visit. Consent for virtual visit obtained verbally. Confidentiality limitations with virtual visits reviewed with the patient and guardian, if present, who have accepted the risk verbally prior to proceeding wi th encounter. I have communicated my name and active licensure. The patient's identity and physicallocation were verified at the time of this visit. Either the patient or their legal manufacturing sales representative has been informed of the risks and benefits of -- and alternatives to -- treatment through a remote evaluation and consents to proceed with the evaluation remotely. All information is from Patient report except when noted. This evaluation is NOT intended for forensic, disability or child custody purposes. CC: Presenting today for follow up regarding psychiatric medication management. HPI: Treatment Plan from Last Visit on 04/12/2024: TREATMENT PLAN: Discontinue Venlafaxine due to side effects of nausea, dizziness, and decrease in sexual drive. Start Pristiq (Desvenlafaxine) at 25 mg and gradually increase dose to 50 mg in 1 week. Take with breakfast every morning. Increase Hydroxyzine to 50 mg at bedtime to address sleep difficulties. Utilize Zofran as needed to manage nausea related side effect. Utilize Hydroxyzine 10 mg as needed to address breakthrough anxiety symptoms. Today Maritza shares that I think its been better. Overall, she feels that her mood is better. Denies any side effects from Pristiq increase. Shares that she feels tired and struggles with talking to others and engage in conversations. Feelsmentally and physically exhausted. She has been sleeping better. Being anxious was making it hard to sleep before. Uses Hydroxyzine 25 mg just a couple times a week. Denies side effect. Uses Hydroxyzine 10 mg as needed for breakthrough anxiety. Has been struggling with nausea after eating. Sometimes will get nauseous even before eating in the morning. Has not gotten established with a therapist yet. A year or 2 ago, she did not have a good experience and that manan her this time. Interval Progress: Slightly improved PATIENT DATA: Generalized Anxiety Disorder Scale (KAREEM-7) 01/25/2024 04/08/2024 06/14/2024 KAREEM - 7 SCORES Score 14 17 9 (0-4) minimal anxiety, (5-9) mild anxiety, (10-14) moderate anxiety, (15-21) severe anxiety Patient Health Questionnaire (PHQ-9) 01/25/2024 04/08/2024 06/14/2024 PHQ-9 Score 20 19 17 (0-4) minimal depression, (5-9) mild depression, (10-14) moderate depression, (15-19) moderately severe depression, (20-27) severe depression PAST MEDICAL HISTORY Diagnosis Date NEGATIVE MEDICAL HISTORY PAST SURGICAL HISTORY Procedure Laterality Date EXCISION GANGLION WRIST DORSAL/VOLAR PRIMARY Right 04/03/2024 Right wrist, 4th extensor compartment tenosynovectomy NASAL/SINUS NDSC DSTRJ RF ABLATION PST NSL NRV ALLERGIES No Known Allergies Current Outpatient Medications on File Prior to Visit Medication Sig cetirizine (ZYRTEC) 10 mg tablet Take 1 tablet by mouth once daily. etonogestrel (NEXPLANON) 68 mg impl subdermal implant 68 mg by SUBDERMAL route one time only. triamcinolone acetonide (KENALOG) 0.5 % cream Apply to affected area three times a day. desvenlafaxine ER (PRISTIQ) 50 mg 24 hr tablet TAKE 1 TABLET BY MOUTH DAILY WITH BREAKFAST. START AFTER COMPLETING 7 DAYS OF THE 25 MG DOSE. desvenlafaxine ER (PRISTIQ) 25 mg 24 hr tablet Take 1 tablet by mouth daily with breakfast for 7 days. hydrOXYzine HCl (ATARAX) 50 mg tablet Take 1 tablet by mouth daily at bedtime. No current facility-administered medications on file prior to visit. ROS: See HPI PFSH: See HPI VITAL SIGNS: There were no vitals filed for this visit. Last 3 Encounter BP Readings: Date: BP: 06/13/2024 126/82 04/03/2024 102/54 03/20/2024 130/82 MENTAL STATUS EXAMINATION: Appearance: Well dressed, well groomed Behavior: Behaves appropriately during the encounter Social relatedness: Euthymic Speech/Language: The patient demonstrates appropriate tone, prosody, keven, phonetics, and syntax Mood: anxious Affect: Full and appropriate to topic Orientation: Person, Place, Time and Situation Associations: Intact and linear Hallucinations: None Delusions: None Suicidal Ideation: No suicidal ideation, intent or plan. Homicidal Ideation: No homicidal ideation, intent or plan. Insight: Appropriate Judgment: Appropriate DATA REVIEWED: Psychiatric scales, Electronic medical record, Labs DIAGNOSIS: Kareem (generalized anxiety disorder) (primary encounter diagnosis) Mdd (major depressive disorder), single episode, moderate (hcc) Social anxiety disorder Eating disorder, unspecified type Marijuana use Nausea GAF: -60-51 Moderate symptoms or moderate difficulty in social, occupational or school functioning. TREATMENT PLAN: Increase Pristiq to 75 mg to address mood and anxiety symptoms. Utilize Hydroxyzine 50 mg as needed at bedtime to help with anxiety and sleep difficulties. Utilize Hydroxyzine 10 mg as needed to manage breakthrough symptoms of anxiety. Provided a list of resources to explore and schedule an appointment for individual psychotherapy. MEDICATION CHANGES: See above Risks and benefits of the medication, including any black box warnings, were discussed with the patient. Patient is aware to reach out with any questions, concerns, or worsening of symptoms prior to the next appointment. Patient educated on risks of substance use in combination with medications and advised that any substance use along with medications may alter their effectiveness. Follow Up: 2 months Medical Decision Making: Problems: Moderate: 1+ chronic illnesses with change Data: Unique source(s) for external note(s) reviewed: 2 Independent interpretation of test from other physician/QHCP Risk: Moderate: Moderate risk from testing/treatment and Drug management Medical Decision Making Level: 4 - Moderate ADD ON PSYCHOTHERAPY CODE : No SIGNATURE: Jeannette Dalal APRN.CNP PATIENT NAME: Maritza Garay DATE: June 14, 2024 TIME: 4:00 PM [facility] NoteHNO ID: [id number] Author: REA POLO MD Service: ? Author Type: Physician Type: Progress Notes Filed: 06/13/2024 17:26 Note Text: Patient brought in today by self presents today with fatigue for the past few years. This has been present even when Paiten is getting enough sleep. More recently, she has not been sleeping well b/c she and her boyfriend got two kittens. She also recently moved in with her boyfriend. She does not snore. She does not fall asleep while at work or while driving She drinks coffee and tea, not usually past 4pm. Feels that mood is good ROS Gen; weight has been stable HEENT: neg Resp; neg GI; neg Skin nails are thin, no changes in hair Neuro: sometimes has a CAMPBELL in the morning PAST MEDICAL HISTORY Diagnosis Date NEGATIVE MEDICAL HISTORY ACTIVE PROBLEM LIST Social Anxiety Disorder of Childhood Dysmenorrhea Mdd (Major Depressive Disorder), Single Episode, Moderate (Hcc) Current Outpatient Medications on File Prior to Visit Medication Sig etonogestrel (NEXPLANON) 68 mg impl subdermal implant 68 mg by SUBDERMAL route one time only. cetirizine (ZYRTEC) 10 mg tablet Take 1 tablet by mouth once daily. triamcinolone acetonide (KENALOG) 0.5 % cream Apply to affected area three times a day. desvenlafaxine ER (PRISTIQ) 50 mg 24 hr tablet TAKE 1 TABLET BY MOUTH DAILY WITH BREAKFAST. START AFTER COMPLETING 7 DAYS OF THE 25 MG DOSE. desvenlafaxine ER (PRISTIQ) 25 mg 24 hr tablet Take 1 tablet by mouth daily with breakfast for 7 days. hydrOXYzine HCl (ATARAX) 50 mg tablet Take 1 tablet by mouth daily at bedtime. No current facility-administered medications on file prior to visit. GENERAL: alert and active in no apparent distress EYES: conjunctiva clear, no drainage EARS: Right color pale, light reflex normal, Left color pale, light reflex normal NOSE/SINUSES : no drainage OROPHARYNX:moist mucous membranes, tonsils without hypertrophy, and no exudates present NECK: supple, no adenopathy CARDIOVASCULAR : Regular Rate and Rhythm without murmurs or clicks LUNGS: clear to auscultation ABDOMEN : Abdomen is soft, nontender, without organomegaly or masses. ASSESSMENT: fatigue PLAN: Per orders. Will check screening labs I spent a total of 30 minutes on the date of the service which included preparing to see the patient, [id number] patient care, completing clinical documentation, obtaining and/or reviewing separately obtained history, performing a medically appropriate examination, counseling and educating the patient/family/caregiver, and ordering medications, tests, or procedures. Rea Polo [facility]10-10-2024 History of Present illness Narrative* Rea Polo MD - 06/13/2024 5:23 PM EDT Patient brought in today by self presents today with fatigue for the past few years. This has been present even when Paiten is getting enough sleep. More recently, she has not been sleeping well b/c she and her boyfriend got two kittens. She also recently moved in with her boyfriend. She does not snore. She does not fall asleep while at work or while driving She drinks coffee and tea, not usually past 4pm. Feels that mood is good ROS Gen; weight has been stable HEENT: neg Resp; neg GI; neg Skin nails are thin, no changes in hair Neuro: sometimes has a CAMPBELL in the morning PAST MEDICAL HISTORY Diagnosis Date NEGATIVE MEDICAL HISTORY ACTIVE PROBLEM LIST Social Anxiety Disorder of Childhood Dysmenorrhea Mdd (Major Depressive Disorder), Single Episode, Moderate (Hcc) Current Outpatient Medications on File Prior to Visit Medication Sig etonogestrel (NEXPLANON) 68 mg impl subdermal implant 68 mg by SUBDERMAL route one time only. cetirizine (ZYRTEC) 10 mg tablet Take 1 tablet by mouth once daily. triamcinolone acetonide (KENALOG) 0.5 % cream Apply to affected area three times a day. desvenlafaxine ER (PRISTIQ) 50 mg 24 hr tablet TAKE 1 TABLET BY MOUTH DAILY WITH BREAKFAST. START AFTER COMPLETING 7 DAYS OF THE 25 MG DOSE. desvenlafaxine ER (PRISTIQ) 25 mg 24 hr tablet Take 1 tablet by mouth daily with breakfast for 7 days. hydrOXYzine HCl (ATARAX) 50 mg tablet Take 1 tablet by mouth daily at bedtime. No current facility-administered medications on file prior to visit. GENERAL: alert and active in no apparent distress EYES: conjunctiva clear, no drainage EARS: Right color pale, light reflex normal, Left color pale, light reflex normal NOSE/SINUSES : no drainage OROPHARYNX:moist mucous membranes, tonsils without hypertrophy, and no exudates present NECK: supple, no adenopathy CARDIOVASCULAR : Regular Rate and Rhythm without murmurs or clicks LUNGS: clear to auscultation ABDOMEN : Abdomen is soft, nontender, without organomegaly or masses. ASSESSMENT: fatigue PLAN: Per orders. Will check screening labs I spent a total of 30 minutes on the date of the service which included preparing to see the patient, [id number] patient care, completing clinical documentation, obtaining and/or reviewing separately obtained history, performing a medically appropriate examination, counseling and educating the pat ient/family/caregiver, and ordering medications, tests, or procedures. Rea Polo MD documented in this encounterC[facility] Telephone encounter Note * Telephone Encounter - Rea Polo MD - 05/28/2024 3:37 PM EDT Patient's request for medication is as follows Requested Prescriptions Pending Prescriptions Disp Refills cetirizine (ZYRTEC) 10 mg tablet 30 tablet 2 Sig: Take 1 tablet by mouth once daily. Order entered - please phone pharmacy and notify patient. Rea Polo MD [facility]09-24-2024 Miscellaneous Notes* Telephone Encounter - Rea Polo MD - 05/28/2024 3:37 PM EDT Patient's request for medication is as follows Requested Prescriptions Pending Prescriptions Disp Refills cetirizine (ZYRTEC) 10 mg tablet 30 tablet 2 Sig: Take 1 tablet by mouth once daily. Order entered - please phone pharmacy and notify patient. Rea Polo MD * Telephone Encounter - Marcia Wright LPN - 05/28/2024 1:00 PM EDT Prescription Refill Information The patient has been identified by name and date of : Yes Caregiver verified no other encounters exist for this prescription request: Yes Caregiver confirmed with patient/requestor that no other refills are due, in the near future, with this provider at this time: Yes The last office visit in the department: 10/06/2023 Does the patient have a future office visit with this provider/department: No Requested Prescriptions Pending Prescriptions Disp Refills cetirizine (ZYRTEC) 10 mg tablet 30 tablet 2 Sig: Take 1 tablet by mouth once daily. Marcia Wright LPN May 28, 2024 1:01 PM documented in this encounterC[facility]24 Telephone encounter Note * Telephone Encounter - Marcia Wright LPN - 05/28/2024 1:00 PM EDT Prescription Refill Information The patient has been identified by name and date of : Yes Caregiver verified no other encounters exist for this prescription request: Yes Caregiver confirmed with patient/requestor that no other refills are due, in the near future, with this provider at this time: Yes The last office visit in the department: 10/06/2023 Does the patient have a future office visit with this provider/department: No Requested Prescriptions Pending Prescriptions Disp Refills cetirizine (ZYRTEC) 10 mg tablet 30 tablet 2 Sig: Take 1 tablet by mouth once daily. Marcia Wright LPN May 28, 2024 1:01 PM [facility]2024 NoteHNO ID: [id number] Author: REA POLO MD Service: ? Author Type: Physician Type: Progress Notes Filed: 05/17/2024 17:15 Note Text: Patient brought in today by self presents today for f/u scalp lesion. Paiten had been Dx with possible tinea and has been applying clotrimazole cream for the past few wks. Fungal cx of hair was negative. Lesion is slightly pruritic ROS Gen; no fever Skin; no other lesions GENERAL: alert and active in no apparent distress SKIN : posterior/inferior scalp with slightly rash pink lesion about 3mm x 7mm, no scaling or flaking ASSESSMENT: Skin lesion - most c/w mild eczema. Could be early psoriasis PLAN: Per orders Call if not improved in 1 month [facility] of Present illness Narrative* Rea Polo MD - 05/17/2024 5:13 PM EDT Patient brought in today by self presents today for f/u scalp lesion. Maritza had been Dx with possible tinea and has been applying clotrimazole cream for the past few wks. Fungal cx of hair was negative. Lesion is slightly pruritic ROS Gen; no fever Skin; no other lesions GENERAL: alert and active in no apparent distress SKIN : posterior/inferior scalp with slightly rash pink lesion about 3mm x 7mm, no scaling or flaking ASSESSMENT: Skin lesion - most c/w mild eczema. Could be early psoriasis PLAN: Per orders Call if not improved in 1 month Rea Polo MD documented in this encounterC[facility]09-12-2024 Telephone encounter Note * Telephone Encounter - Tosin Davis OCCA - 05/16/2024 12:10 PM EDT Additional TC no answer. Left VM to return call. RONAN Benítez [facility]09-12-2024 Miscellaneous Notes* Telephone Encounter - Tosin Davis OCCA - 05/16/2024 12:10 PM EDT Additional TC no answer. Left VM to return call. RONAN Benítez * Telephone Encounter - Vandana Barrera LPN - 05/14/2024 9:18 AM EDT Telephone call to patient to verify the need of a refill. Message left to call back or send a [employer] message to get her the refill if needed. Vandana Barrera LPN * Telephone Encounter - Jeannette Dalal APRN.THELMA - 05/13/2024 10:07 AM EDT This appears to be an automatic refill request. Patient needs to verify if they really need this medication as it is an as needed medication. * Telephone Encounter - Christy Burgos - 05/13/2024 9:25 AM EDT Last: 04/12/24 TREATMENT PLAN: 1.Discontinue Venlafaxine due to side effects of nausea, dizziness, and decrease in sexual drive. 2.Start Pristiq (Desvenlafaxine) at 25 mg and gradually increase dose to 50 mg in 1 week. Take withbreakfast every morning. 3.Increase Hydroxyzine to 50 mg at bedtime to address sleep difficulties. 4.Utilize Zofran as needed to manage nausea related side effect. 5.Utilize Hydroxyzine 10 mg as needed to address breakthrough anxiety symptoms. Next: 06/14/24 documented in this encounterC[facility]09-10-2024 NoteHNO ID: [id number] Author: MEY AGUILERA OT/L Service: ? Author Type: Occupational Therapist Type: Progress Notes Filed: 09/24/2024 15:11 Note Text: 09/24/2024 REHABILITATION AND SPORTS THERAPY OCCUPATIONAL THERAPY DISCONTINUANCE OF CARE Plan of Care Period: Start of Care Date: 05/14/24 Last Visit Date: 05/14/2024 Therapy Program: Patient did not return for follow up care as planned. Please refer to last visit note for interventions provided for this episode of care. Assessment: Unable to formally assess goal achievement. Reason for Discontinuation of Care: Patient has not returned to therapy or scheduled additional follow-up appointments. Mey Aguilera OT/L Episode Visit Count: 1 Therapist That Will Accept/Oversee The Plan Of Care: Dannie Mathias Start of Care Date: 05/14/24 Onset Date: 04/03/24 Plan of Care Certification Date: 05/14/24 Next Certification Due Date: 06/21/24 Patient Identified by Name and Date of : Yes [facility] SPORTS THERAPY OCCUPATIONAL THERAPY EVALUATION PLAN OF CARE: Assessment: Maritza Garay presents with chief complaint of wrist stiffness after surgery that interferes with lifting, gripping, weight bearing, pinching . She presents with impairments in range of motion. PROMIS? (Patient-Reported Outcomes Measurement Information System) scores were reviewed and identified as a rehabilitation concern. Prognosis for therapy is Good due to: current objective clinical presentation . She will benefit from skilled therapy services to meet the goals established for this plan of care as noted below. Goals for Episode of Care: established 05/14/24 Patient will report a good understanding of diagnosis and OT recommendations for progression of program. Patient will have normal wrist AROM Patient will have increased outsole cutter machine strength by 5 lbs Patient Goals: to regain full motion Time Frame for Goals and Treatment : 07/12/24 Planned Interventions, Frequency, and Duration: Current Frequency: 1x/week Duration: 2 weeks Total Number of Visits Planned: 2 Planned Treatment Interventions: Therapeutic exercise (18227), Self-correction management (62367) PLAN FOR NEXT VISIT:JAMIE wills strengthening JG Patient demonstrates good understanding of plan of care and treatment. The above goals and plan of care were discussed and agreed upon by patient/family. 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 5 points is clinically meaningfully difference Percentiles provide an indication of how the patient's score ranks in relation to the general population. Higher percentile rankings indicate better function/quality of life. 50th percentile is the average of the general population and indicates half of respondents had a worse score. OBJECTIVE MEASURES WITH LEVEL OF FUNCTION: Hand Skin / Wound: Scar Scar: Tender, Mild adherance Edema Description: Mild Edema Measurements: Wrist (DWC) (cm) R Wrist (DWC) (cm): 17.5 L Wrist (DWC) (cm): 17.2 Wrist AROM: Bilateral Limitation Right Hand AROM: WFL Thumb AROM: WFL Strength: Billing Checker Position 2, Pinch Meter, Wrist Sensation: Denies tingling or numbness Hand Strength R Billing Checker Position 2 (lbs): 40 lbs L Billing Checker Position 2 (lbs): 52 lbs R Lateral Pinch (lbs): 12 lbs R Tripod/ 3 Jaw Bird (lbs): 13 lbs R Tip Pinch (lbs): 9 lbs L Lateral Pinch (lbs): 16 lbs L Tripod/ 3 Jaw Bird (lbs): 16 lbs L Tip Pinch (lbs): 8.5 lbs UE AROM R Forearm Supination: 90 Degrees R Forearm Pronation: 90 Degrees R Wrist Extension: 45 Degrees R Wrist Flexion: 15 Degrees R Wrist Radial Deviation: 15 Degrees R Wrist Ulnar Deviation: 15 Degrees Right Hand AROM: WFL L Forearm Supination: 90 Degrees L Forearm Pronation: 90 Degrees L Wrist Extension: 50 Degrees L Wrist Flexion: 60 Degrees L Wrist Radial Deviation: 20 Degrees L Wrist Ulnar Deviation (more content not included)...[id number] History of Present illness Narrative* Mey Aguilera OT/L - 05/14/2024 5:13 PM EDT Images from the original note were not included. Episode Visit Count: 1 Therapist That Will Accept/Oversee The Plan Of Care: Dannie Mathias Start of Care Date: 05/14/24 Onset Date: 04/03/24 Plan of Care Certification Date: 05/14/24 Next Certification Due Date: 06/21/24 Patient Identified by Name and Date of : Yes [facility] OCCUPATIONAL THERAPY EVALUATION PLAN OF CARE: Assessment: Maritza Garay presents with chief complaint of wrist stiffness after surgery that interferes with lifting, gripping, weight bearing, pinching . She presents with impairments in range of motion. PROMIS (Patient-Reported Outcomes Measurement Information System) scores were reviewed and identified as a rehabilitation concern. Prognosis for therapy is Good due to: current objective clinical presentation . She will benefit from skilled therapy services to meet the goals established for this plan of care as noted below. Goals for Episode of Care: established 05/14/24 Patient will report a good understanding of diagnosis and OT recommendations for progression of program. Patient will have normal wrist AROM Patient will have increased outsole cutter machine strength by 5 lbs Patient Goals: to regain full motion Time Frame for Goals and Treatment : 07/12/24 Planned Interventions, Frequency, and Duration: Current Frequency: 1x/week Duration: 2 weeks Total Number of Visits Planned: 2 Planned Treatment Interventions: Therapeutic exercise (01455), Self-correction management (00913) PLAN FOR NEXT VISIT:JAMIE wills Patient demonstrates good understanding of plan of care and treatment. The above goals and plan of care were discussed and agreed upon by patient/family. 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 5 points is clinically meaningfully difference Percentiles provide an indication of how the patient's score ranks in relation to the general population. Higher percentile rankings indicate better function/quality of life. 50th percentile is the average of the general population and indicates half of respondents had a worse score. OBJECTIVE MEASURES WITH LEVEL OF FUNCTION: Hand Skin / Wound: Scar Scar: Tender, Mild adherance Edema Description: Mild Edema Measurements: Wrist (DWC) (cm) R Wrist (DWC) (cm): 17.5 L Wrist (DWC) (cm): 17.2 Wrist AROM: Bilateral Limitation Right Hand AROM: WFL Thumb AROM: WFL Strength: Billing Checker Position 2, Pinch Meter, Wrist Sensation: Denies tingling or numbness Hand Strength R Billing Checker Position 2 (lbs): 40 lbs L Billing Checker Position 2 (lbs): 52 lbs R Lateral Pinch (lbs): 12 lbs R Tripod/ 3 Jaw Bird (lbs): 13 lbs R Tip Pinch (lbs): 9 lbs L Lateral Pinch (lbs): 16 lbs L Tripod/ 3 Jaw Bird (lbs): 16 lbs L Tip Pinch (lbs): 8.5 lbs UE AROM R Forearm Supination: 90 Degrees R Forearm Pronation: 90 Degrees R Wrist Extension: 45 Degrees R Wrist Flexion: 15 Degrees R Wrist Radial Deviation: 15 Degrees R Wrist Ulnar Deviation: 15 Degrees Right Hand AROM: WFL L Forearm Supination: 90 Degrees L Forearm Pronation: 90 Degrees L Wrist Extension: 50 Degrees L Wrist Flexion: 60 Degrees L Wrist Radial Deviation: 20 Degrees L Wrist Ulnar Deviation: 20 Degrees Thumb AROM: WFL Education: Education Learning Preferences: Demonstration, Explanation, Performance, Printed Materials Barriers: None Learning/educational needs: Procedure / Surgery, Home exercise program, Plan of Care Education Provided: Yes, see treatment interventions for education provided Education Provided To: Patient Education Mode/Type: Demonstration, Explanation/Discussion, Literature/Printed Materials Response to Education/Teach Back: States/Identifies, Return Demonstration, Requires Review/Additional Education TREATMENT: OT Treatment Interventions : Therapeutic Exercise, Self-Fdc Management Evaluation Evaluation Therapeutic Exercise: 1: size b compression instructed in wear schedule and precautions 2: AROM wrist flex, wrist ext (straight digits, then with a fist) dev and sup pro 3: instructed in scar management Skilled Intervention: Patient was educated in proper exercise technique and purpose for exercises. Skilled judgment was used in selection of appropriate interventions.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 Medication Sig venlafaxine (EFFEXOR) 50 mg tablet TAKE 1 TABLET BY MOUTH EVERY DAY WITH BREAKFAST cetirizine (ZYRTEC) 10 mg tablet Take 1 tablet by mouth once daily. hydrOXYzine HCl (ATARAX) 10 mg tablet Take 1 tablet by mouth three times a day as needed for anxiety. hydrOXYzine HCl (ATARAX) 25 mg tablet Take 1 tablet by mouth daily at bedtime. etodolac (LODINE) 400 mg tablet Take 1 tablet by mouth two times a day. APRI 0.15-0.03 mg per tablet (Patient not taking: Reported on 04/12/2024) No current facility-administered medications on file prior to visit. ROS: See HPI PFSH: See HPI VITAL SIGNS: There were no vitals filed for this visit. Last 3 Encounter BP Readings: Date: BP: 04/03/2024 102/54 03/20/2024 130/82 02/16/2024 124/80 MENTAL STATUS EXAMINATION: Appearance: Well dressed, well groomed Behavior: Behaves appropriately during the encounter Social relatedness: Anxious Speech/Language: The patient demonstrates appropriate tone, prosody, keven, phonetics, and syntax Mood: Anxious Affect: Full and appropriate to topic Orientation: Person, Place, Time and Situation Associations: Intact and linear Hallucinations: None Delusions: None Suicidal Ideation: No suicidal ideation, intent or plan. Homicidal Ideation: No homicidal ideation, intent or plan. Insight: Fair Judgment: Fair DATA REVIEWED: Psychiatric scales, Electronic medical record, Labs, and PDMP report. DIAGNOSIS: Kareem (generalized anxiety disorder) (primary encounter diagnosis) Mdd (major depressive disorder), single episode, moderate (hcc) Social anxiety disorder Eating disorder, unspecified type Marijuana use Decreased libido Nausea Dizziness GAF: -60-51 Moderate symptoms or moderate difficulty in social, occupational or school functioning. TREATMENT PLAN: Discontinue Venlafaxine due to side effects of nausea, dizziness, and decrease in sexual drive. Start Pristiq (Desvenlafaxine) at 25 mg and gradually increase dose to 50 mg in 1 week. Take with breakfast every morning. Increase Hydroxyzine to 50 mg at bedtime to address sleep difficulties. Utilize Zofran as needed to manage nausea related side effect. Utilize Hydroxyzine 10 mg as needed to address breakthrough anxiety symptoms. MEDICATION CHANGES: -see above Risks and benefits of the medication, including any black box warnings, were discussed with the patient. Patient is aware to reach out with any questions, concerns, or worsening of symptoms prior to the next appointment. Patient educated on risks of substance use in combination with medications and advised that any substance use along with medications may alter their effectiveness. Follow Up: 2 months or sooner if needed I spent a total of 38 minutes on the date of the service which included preparing to see the patient, [id number] patient care, completing clinical documentation, and counseling and educating the patient/family/caregiver, ordering medications/labs. ADD ON PSYCHOTHERAPY CODE : No SIGNATURE: Jeannette Dalal APRN.CNP PATIENT NAME: Maritza Garay DATE: April 12, 2024 TIME: 4:03 PM documented in this encounterC[facility] NoteHNO ID: [id number] Author: ?, ?, ? Service: Pharmacy Author Type: ? Type: Plan of Care Filed: 04/03/2024 12:24 Note Text: PHARMACY BEDSIDE DELIVERY SERVICE Patient Name: Maritza Garay The marked outpatient medications were Filled at: [place] and delivered to the patient's bedside to pharm p/u Medication List START taking these medications HYDROcodone-acetaminophen 5-325 mg per tablet Commonly known as: NORCO Take 1 tablet by mouth every 8 hours as needed for pain for up to 7 days. X CONTINUE taking these medications APRI 0.15-0.03 mg per tablet Generic drug: Desogestrel-Ethinyl Estradiol cetirizine 10 mg tablet Commonly known as: ZyrTEC Take 1 tablet by mouth once daily. etodolac 400 mg tablet Commonly known as: LODINE Take 1 tablet by mouth two times a day. * hydrOXYzine HCl 10 mg tablet Commonly known as: ATARAX Take 1 tablet by mouth three times a day as needed for anxiety. * hydrOXYzine HCl 25 mg tablet Commonly known as: ATARAX Take 1 tablet by mouth daily at bedtime. venlafaxine 50 mg tablet Commonly known as: EFFEXOR TAKE 1 TABLET BY MOUTH EVERY DAY WITH BREAKFAST * This list has 2 medication(s) that are the same as other medications prescribed for you. Read the directions carefully, and ask your doctor or other care provider to review them with you. You might also be taking other medications not listed above. If you have questions about any of your other medications, talk to the person who prescribed them or your Primary Care Provider. Jocelyne Stevens (New Car Sales Manager) PAGER: [phone] April 03, 2024 12:23 PMToledo [id number] Telephone encounter Note* Telephone Encounter - Polina Griffiths MA - 04/02/2024 10:04 AM EDT Form has been submitted and scanned into chart. [facility]07-30[facility] Miscellaneous Notes* Telephone Encounter - Polina Griffiths MA - 04/02/2024 10:04 AM EDT Form has been submitted and scanned into chart. * Telephone Encounter - Jeanie Tinsley RN - 03/27/2024 8:43 AM EDT Short term Disability paperwork is filled out and will get Dr White's signature 03/28/24 when at [place]. Jeanie RN * Telephone Encounter - Sophia Quevedo MA - 03/25/2024 4:05 PM EDT Type of form: Short-term Disability Form received via walk in When form is completed, Fax form to [phone] Form has been forwarded to formerly [facility] in [facility]. Sophia Quevedo MA documented in this encounterC[facility]07-24-[facility]24 Telephone encounter Note * Telephone Encounter - Jeanie Tinsley RN - 03/27/2024 8:43 AM EDT Short term Disability paperwork is filled out and will get Dr White's signature 03/28/24 when at [place]. Jeanie RN [facility]07-22-2024 Telephone encounter Note* Telephone Encounter - Sophia Quevedo MA - 03/25/2024 4:05 PM EDT Type of form: Short-term Disability Form received via walk in When form is completed, Fax form to [phone] Form has been forwarded to formerly [facility] in [facility]. Sophia Quevedo MA [facility]07-19-2024 History of Present illness Narrative* Rea Polo MD - 03/22/2024 5:04 PM EDT Patient brought in today by self presents today with two concerns: Erythema and crusting at right eye for the past 1-2 days. Pt does not wear contacts. No acute pain,but they are somewhat pruritic. Hendley lesion at posterior scalp. Another doctor suggested that this may be tinea, and pt has been apply OTC antifungal cream for the past week. Maritza feels that it is improving ROS Gen; no fever HEENT: mild right otalgia Skin no other lesions GENERAL: alert and active in no apparent distress EYES: left eye: conjunctiva clear, no drainage, right eye: + conjunctival erythema, no drainage EARS: Right color pale, light reflex normal, Left color pale, light reflex normal SKIN : base of posterior scalp with pink, minimally raised lesion approx 2-3mm x 10mm ASSESSMENT /PLAN: Conjunctivitis - will treat with polytrim drops. Call if not improving in 3-4 days Skin lesion at scalp - most c/w tinea. Several hairs were plucked and sent for fungal culture. Recommend continuing on topical Tx for now. Will determine Tx based on Cx results and if lesion is stillpresent in two wks Rea Polo MD documented in this encounterC[facility]07-17-2024 Instructions* Patient Instructions* Ana Maria Evans, MEDICAL CASE WORKER.PIER HAND - 03/20/2024 3:45 PM EDT Images from the original note were not included. [facility] PATIENT PREOPERATIVE INSTRUCTIONS Brice White MD has scheduled you for your procedure at this surgery center: [facility]: [phone] -- [address] [facility] [address]. Please read below carefully for your personalized instructions. Dietary Restrictions: - No solid food after midnight. - You may have 12 ounces of clear liquids (water, clear juices such as apple juice or gatorade, carbonated beverages, clear tea, black coffee, jello) until 2 hours before scheduled arrival at facility. No red/purple coloring and no creamer/sugar Medications: Unless instructed differently below, stay on all of your medications until your surgery. If you start any new medications after today's visit, please contact your surgeon. Pre-Surgery Med Instructions Medication Instructions etodolac (LODINE) 400 mg tablet Stop 7 days before surgery venlafaxine (EFFEXOR) 50 mg tablet Take the day of surgery with a small sip of water cetirizine (ZYRTEC) 10 mg tablet IF needed hydrOXYzine HCl (ATARAX) 10 mg tablet IF needed hydrOXYzine HCl (ATARAX) 25 mg tablet IF needed APRI 0.15-0.03 mg per tablet Take the day of surgery with a small sip of water If you start any new medications after today's visit, please contact the surgeon's office. Blood Thinning Medications: - Stop NSAIDS (Ibuprofen, Advil, Aleve, Motrin, Celebrex, Mobic, etc.) 7 days before surgery, as directed by your surgeon. - Stop Aspirin 7 days before surgery, as directed by your surgeon. - Stop Vitamin E, ALL multi-vitamins, herbals and dietary supplements 7 days before surgery. - You may take Tylenol (Acetaminophen) or any of your pain medications that do not contain aspirin or NSAIDS as needed. Important Reminders: - Candy, mints, and tobacco products are NOT permitted the morning of surgery. - Hearing aids, dentures and glasses may be worn the morning of surgery. - NO jewelry, body piercings, makeup, hairpins or contacts are to be worn the day of surgery. If you develop symptoms such as a fever, cold, or flu, or have other changes to your health within TWO DAYS of scheduled surgery or the morning of surgery, please contact the surgery center above. Personal Belongings: -Please have photo ID and insurance cards. -If you do not have a copy of advance directives on file with us, please bring a copy with you on the day of surgery. - Leave ALL valuables and money at home or with family members. For Outpatient Procedures: - YOU MUST HAVE A RESPONSIBLE SEQUINS SLINGER TAKE YOU HOME. A SOFT TOP INSTALLER OR LIQUID YEAST SUPERVISOR CANNOT BE MADE A RESPONSIBLE SEQUINS SLINGER. - We recommend that a responsible person stays with you overnight to take care of you. - You cannot stay in a hotel alone after outpatient surgery. You will not be permitted to have yoursurgery, if you do not have someone to take care of you. Arrival Time for Surgery: - The Surgery Center or hospital where you are having surgery will call the afternoon before surgery (or Monday for Monday surgery) with a scheduled arrival time. - If you have not heard by 4 pm, please contact the surgery center above. Please be aware that emergency situations arise, which may delay or change your surgical time. If this happens, we will notify you as soon as possible and regret any inconvenience. If you already have an Advance Directive, please fax a copy to [phone] or email to for it to be added to your chart. If you do not have an Advance Directive, you can find the appropriate form and more information at [email or web address]. We recommend that youcomplete the Advance Directive form found on the website and bring it with you the day of your surgery. It can be witnessed and scanned into your chart that day. Ana Maria Evans APRN.CNP documented in this encounterC[facility]07-17-2024 History and physical note * Ana Maria Evans APRN.CNP - 03/20/2024 3:42 PM EDT Images from the original note were not included. [facility] HISTORY AND PHYSICAL EXAMINATION SERVICE DATE: 03/20/2024 SERVICE TIME: 6:40 PM PRIMARY CARE PHYSICIAN: Rea Polo MD Assessment Patient has the following medical conditions which may affect masetr-operative course: MDD (major depressive disorder), single episode, moderate (HCC) Assessment: stable on rx per pt Social anxiety disorder of childhood Assessment: rx as needed Ramos Activity Status Index: METS: Climb a flight of stairs or walk up a hill (5.50 METs) DASI Score: 5.5 Patient denies any chest pain or undue shortness of breath with the above physical activity. Clinical Frailty Scale: 1. Very fit STOP-Bang Score: Denies snoring loudly Denies feeling tired, fatigued, or sleepy during the daytime Has not been observed to stop breathing or choking/gasping during sleep Denies having high blood pressure BMI less than or equal to 35 kg/m^2 Patient 50 years old or younger Does not have a large neck Non-male patient STOP-Bang Score: 0 [id number] Score: Age: <65 Sex: female CHF history: No Hypertension history: No Stroke/TIA/thromboembolism history: No Vascular disease history: No Diabetes history: No [id number] Score: 1 ARISCAT Score: Age: <=50 Preoperative SpO2: >=96% Respiratory infection in the last month: No Preoperative anemia: Yes Surgical incision: peripheral Duration of surgery: <2 hrs Emergency procedure: No ARISCAT Score: 11 ANESTHESIA FINDINGS: Intubation History: No history of difficult intubation Significant Anesthesia Considerations: none Airway History: No history of difficult airway I - PHYSICAL EVALUATION AIRWAY Patient intubated: No. Tracheostomy tube not present Mallampati: II. TM distance: >3 FB. Neck ROM: full ROM without neurological symptoms. Mouth opening: adequate. Short neck: no. Thick neck: no Walsh present: no Lip Bite Test: I Microretrognathia/Micronagthia/Recessed Chin: No DENTAL Dental findings: teeth intact. II - ANESTHESIA PLAN Anesthetic Plan: other Beta Maddie Monitoring Plan Post Procedure Analgesic Plan Informed Consent Anesthetic risks, benefits, alternatives, personnel and consent discussed: yes. Patient / Responsible Republican agrees to proceed: yes Patient / Surrogate agrees to blood products: blood products not planned Discussed the possibility of lip / dental damage: yes Prepared for Surgery: optimally prepared for surgery. CONSULTS: Patient does not require consults for optimization at this time Planned Anesthetic: other anesthesia choice The Following Tests/Procedures Have Been Initiated: No orders of the defined types were placed in this encounter. REASON FOR VISIT: Maritza Garay is a 18 year old female who is scheduled for Procedure(s): EXCISION GANGLION WRIST (Right) at the request of Dr. Brice White for consultation. My final recommendation will be communicated back to the requesting physician by way of shared medical record orletter. Subjective The patient has the following: ACTIVE PROBLEM LIST Social Anxiety Disorder of Childhood Dysmenorrhea Mdd (Major Depressive Disorder), Single Episode, Moderate (Hcc) COVID-19 Immunization Status Overdue - Covid-19 Vaccine () Never done No completion, postpone, frequency change, or communication history exists for this topic. CHIEF COMPLAINT: Pre-op exam HPI: Maritza Garay is a 18 year old seen for PAC due to scheduled above surgery because of a ganglion cyst. 12/18/23, Shraddha Lozoya PA-C CHIEF COMPLAINT: No chief complaint on file. Ms. Maritza Garay is a 18 year old female who presents with a cyst on the back of her right wrist which has been present for about the past 3 years. Cyst is painful during day-to-day activities. Pain today is a 7 out of 10 continuous aching. She reports that the cyst has ruptured in the past but it always seems to return. She is right-hand dominant. The patient works at [employer]. Not able to wear a brace during work. REVIEW OF SYSTEMS: General: No weight loss, malaise or fevers. Neurological: No history of TIA's, stroke, SAP BASIS ADMINISTRATOR tumor, impaired sensorium, hemiplegia, paraplegia orquadraplegia. No neurological symptoms or problems. Respiratory: No history of current cough or dyspnea, or pneumonia in the past 6 weeks. No history of respiratory/pulmonary symptoms or problems. Cardiovascular: No history of HTN requiring medication, no history of angina, CHF, NM, cardiac surgery or stents. Denies rest pain, gangrene or revascularization/amputation for PVD. No history of cardiovascular symptoms or problems. GI: No history of GI symptoms or problems. No history of esophageal varices, recent ascites, or ETOH greater than 2 drinks per day. : No history of dysuria, frequency or incontinence, stones or chronic kidney disease. No difficulty urinating, nocturia > 1 time per night or hematuria. 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 Endocrine: No history of diabetes. Has not taken steroids within the past 30 days. No history of endocrinological symptoms or problems. Hematology: No history of bleeding or clotting disorder. Patient is not taking anti-coagulation or platelet medications. No history of hematological symptoms or problems. Oncology: No history of CA metastasis, chemo within 30 days, or radiotherapy within 90 days. No history of oncological symptoms or problems. Psych: Positive for: anxiety (on rx, and rx as needed). Musculoskeletal: See HPI. Skin: +ring worm, scalp, pending tx PAST MEDICAL HISTORY Diagnosis Date NEGATIVE MEDICAL HISTORY PAST SURGICAL HISTORY Procedure Laterality Date NASAL/SINUS NDSC DSTRJ RF ABLATION PST NSL NRV FAMILY HISTORY Problem Relation Age of Onset other (MVP) Mother Social History Tobacco Use Smoking status: Never Smokeless tobacco: Never Vaping Use Vaping Use: Never used Substance Use Topics Alcohol use: Never Drug use: Never Prior to Admission medications as of 03/20/24 1550 Medication Sig Last Dose Taking etodolac (LODINE) 400 mg tablet Take 1 tablet by mouth two times a day. Taking Yes venlafaxine (EFFEXOR) 50 mg tablet TAKE 1 TABLET BY MOUTH EVERY DAY WITH BREAKFAST Taking Yes cetirizine (ZYRTEC) 10 mg tablet Take 1 tablet by mouth once daily. Taking Yes hydrOXYzine HCl (ATARAX) 10 mg tablet Take 1 tablet by mouth three times a day as needed for anxiety. Taking Yes hydrOXYzine HCl (ATARAX) 25 mg tablet Take 1 tablet by mouth daily at bedtime. Taking Yes APRI 0.15-0.03 mg per tablet Taking Yes No medication comments found. ALLERGIES No Known Allergies Objective PHYSICAL EXAM: General: alert and oriented (x3) and healthy appearance. Pertinent negatives noted - not distressed. Skin: normal color, no rash or lesions. HEENT: EOM intact and pupils equal round. Pertinent negatives noted - no carotid bruit. Cardiovascular: regular rate and rhythm, normal S1 and S2, no rub, murmurs, or gallop. Respiratory: normal breath sounds, no wheezes or crackles. No chest wall deformity or tenderness. Abdomen: soft. Pertinent negatives noted - not tender. Extremities: no deformity, no edema or tenderness, no joint swelling or clubbing. Neurological: normal cognition and motor skills. Gait normal. No weakness or sensory deficit. PAIN ASSESSMENT: Pain Pain Level: 3 Pain Location: Wrist-Right Description: Aching, Shooting Duration Amount of Time: 3 Duration Units: Years Frequency: Continuous Intervention/Comfort measure: Medication VITALS: BP 130/82 Pulse 96 Temp (Src) 99 (Temporal) Resp 14 Ht 5' 6 (1.68m) Wt 163 lb (73.9kg) SpO2 99% LMP 02/28/2024 BMI 26.32 kg/(m^2). Diagnostic tests reviewed for today's visit: Lab Value Units Date High Low HB No results within date range. HCT No results within date range. WBC No results within date range. PLT No results within date range. NA No results within date range. K No results within date range. GLUC No results within date range. BUN No results within date range. CREAT No results within date range. PTSEC No results within date range. INR No results within date range. APTT No results within date range. ALT No results within date range. AST No results within date range. TBILI No results within date range. TSH No results within date range. Lab Value Units Date High Low HCGQT No results within date range. UHCG No results within date range. HCG, BODY* No results within date range. Lab Value Units Date High Low ABORHD No results within date range. ABSCREEN No results within date range. No results found for: HBA1C No results found for this or any previous visit (from the past 8760 hour(s)). No results found for this or any previous visit (from the past 14116 hour(s)). Instructions Given to Patient: Instructions located in the after visit summary. Patient given verbal and written preop instructions and voices comprehension and compliance. SIGNATURE: Ana Maria Evans APRN.CNP PATIENT NAME: Maritza Garay DATE: March 20, 2024 TIME: 3:42 PM PAGER/CONTACT #: [facility] History and physical note* Ana Maria Evans APRN.CNP - 03/20/2024 3:42 PM EDT Images from the original note were not included. [facility] HISTORY AND PHYSICAL EXAMINATION SERVICE DATE: 03/20/2024 SERVICE TIME: 6:40 PM PRIMARY CARE PHYSICIAN: Rea Polo MD Assessment Patient has the following medical conditions which may affect master-operative course: MDD (major depressive disorder), single episode, moderate (HCC) Assessment: stable on rx per pt Social anxiety disorder of childhood Assessment: rx as needed Ramos Activity Status Index: METS: Climb a flight of stairs or walk up a hill (5.50 METs) DASI Score: 5.5 Patient denies any chest pain or undue shortness of breath with the above physical activity. Clinical Frailty Scale: 1. Very fit STOP-Bang Score: Denies snoring loudly Denies feeling tired, fatigued, or sleepy during the daytime Has not been observed to stop breathing or choking/gasping during sleep Denies having high blood pressure BMI less than or equal to 35 kg/m^2 Patient 50 years old or younger Does not have a large neck Non-male patient STOP-Bang Score: 0 [id number] Score: Age: <65 Sex: female CHF history: No Hypertension history: No Stroke/TIA/thromboembolism history: No Vascular disease history: No Diabetes history: No [id number] Score: 1 ARISCAT Score: Age: <=50 Preoperative SpO2: >=96% Respiratory infection in the last month: No Preoperative anemia: Yes Surgical incision: peripheral Duration of surgery: <2 hrs Emergency procedure: No ARISCAT Score: 11 ANESTHESIA FINDINGS: Intubation History: No history of difficult intubation Significant Anesthesia Considerations: none Airway History: No history of difficult airway I - PHYSICAL EVALUATION AIRWAY Patient intubated: No. Tracheostomy tube not present Mallampati: II. TM distance: >3 FB. Neck ROM: full ROM without neurological symptoms. Mouth opening: adequate. Short neck: no. Thick neck: no Walsh present: no Lip Bite Test: I Microretrognathia/Micronagthia/Recessed Chin: No DENTAL Dental findings: teeth intact. II - ANESTHESIA PLAN Anesthetic Plan: other Beta Maddie Monitoring Plan Post Procedure Analgesic Plan Informed Consent Anesthetic risks, benefits, alternatives, personnel and consent discussed: yes. Patient / Responsible Republican agrees to proceed: yes Patient / Surrogate agrees to blood products: blood products not planned Discussed the possibility of lip / dental damage: yes Prepared for Surgery: optimally prepared for surgery. CONSULTS: Patient does not require consults for optimization at this time Planned Anesthetic: other anesthesia choice The Following Tests/Procedures Have Been Initiated: No orders of the defined types were placed in this encounter. REASON FOR VISIT: Maritza Garay is a 18 year old female who is scheduled for Procedure(s): EXCISION GANGLION WRIST (Right) at the request of Dr. Brice White for consultation. My final recommendation will be communicated back to the requesting physician by way of shared medical record orletter. Subjective The patient has the following: ACTIVE PROBLEM LIST Social Anxiety Disorder of Childhood Dysmenorrhea Mdd (Major Depressive Disorder), Single Episode, Moderate (Hcc) COVID-19 Immunization Status Overdue - Covid-19 Vaccine ( season) Never done No completion, postpone, frequency change, or communication history exists for this topic. CHIEF COMPLAINT: Pre-op exam HPI: Maritza Garay is a 18 year old seen for PAC due to scheduled above surgery because of a ganglion cyst. 12/18/23, Shraddha Lozoya PA-C CHIEF COMPLAINT: No chief complaint on file. Ms. Maritza Garay is a 18 year old female who presents with a cyst on the back of her right wrist which has been present for about the past 3 years. Cyst is painful during day-to-day activities. Pain today is a 7 out of 10 continuous aching. She reports that the cyst has ruptured in the past but it always seems to return. She is right-hand dominant. The patient works at [employer]. Not able to wear a brace during work. REVIEW OF SYSTEMS: General: No weight loss, malaise or fevers. Neurological: No history of TIA's, stroke, SAP BASIS ADMINISTRATOR tumor, impaired sensorium, hemiplegia, paraplegia orquadraplegia. No neurological symptoms or problems. Respiratory: No history of current cough or dyspnea, or pneumonia in the past 6 weeks. No history of respiratory/pulmonary symptoms or problems. Cardiovascular: No history of HTN requiring medication, no history of angina, CHF, NM, cardiac surgery or stents. Denies rest pain, gangrene or revascularization/amputation for PVD. No history of cardiovascular symptoms or problems. GI: No history of GI symptoms or problems. No history of esophageal varices, recent ascites, or ETOH greater than 2 drinks per day. : No history of dysuria, frequency or incontinence, stones or chronic kidney disease. No difficulty urinating, nocturia > 1 time per night or hematuria. 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 Endocrine: No history of diabetes. Has not taken steroids within the past 30 days. No history of endocrinological symptoms or problems. Hematology: No history of bleeding or clotting disorder. Patient is not taking anti-coagulation or platelet medications. No history of hematological symptoms or problems. Oncology: No history of CA metastasis, chemo within 30 days, or radiotherapy within 90 days. No history of oncological symptoms or problems. Psych: Positive for: anxiety (on rx, and rx as needed). Musculoskeletal: See HPI. Skin: +ring worm, scalp, pending tx PAST MEDICAL HISTORY Diagnosis Date NEGATIVE MEDICAL HISTORY PAST SURGICAL HISTORY Procedure Laterality Date NASAL/SINUS NDSC DSTRJ RF ABLATION PST NSL NRV FAMILY HISTORY Problem Relation Age of Onset other (MVP) Mother Social History Tobacco Use Smoking status: Never Smokeless tobacco: Never Vaping Use Vaping Use: Never used Substance Use Topics Alcohol use: Never Drug use: Never Prior to Admission medications as of 03/20/24 1550 Medication Sig Last Dose Taking etodolac (LODINE) 400 mg tablet Take 1 tablet by mouth two times a day. Taking Yes venlafaxine (EFFEXOR) 50 mg tablet TAKE 1 TABLET BY MOUTH EVERY DAY WITH BREAKFAST Taking Yes cetirizine (ZYRTEC) 10 mg tablet Take 1 tablet by mouth once daily. Taking Yes hydrOXYzine HCl (ATARAX) 10 mg tablet Take 1 tablet by mouth three times a day as needed for anxiety. Taking Yes hydrOXYzine HCl (ATARAX) 25 mg tablet Take 1 tablet by mouth daily at bedtime. Taking Yes APRI 0.15-0.03 mg per tablet Taking Yes No medication comments found. ALLERGIES No Known Allergies Objective PHYSICAL EXAM: General: alert and oriented (x3) and healthy appearance. Pertinent negatives noted - not distressed. Skin: normal color, no rash or lesions. HEENT: EOM intact and pupils equal round. Pertinent negatives noted - no carotid bruit. Cardiovascular: regular rate and rhythm, normal S1 and S2, no rub, murmurs, or gallop. Respiratory: normal breath sounds, no wheezes or crackles. No chest wall deformity or tenderness. Abdomen: soft. Pertinent negatives noted - not tender. Extremities: no deformity, no edema or tenderness, no joint swelling or clubbing. Neurological: normal cognition and motor skills. Gait normal. No weakness or sensory deficit. PAIN ASSESSMENT: Pain Pain Level: 3 Pain Location: Wrist-Right Description: Aching, Shooting Duration Amount of Time: 3 Duration Units: Years Frequency: Continuous Intervention/Comfort measure: Medication VITALS: BP 130/82 Pulse 96 Temp (Src) 99 (Temporal) Resp 14 Ht 5' 6 (1.68m) Wt 163 lb (73.9kg) SpO2 99% LMP 02/28/2024 BMI 26.32 kg/(m^2). Diagnostic tests reviewed for today's visit: Lab Value Units Date High Low HB No results within date range. HCT No results within date range. WBC No results within date range. PLT No results within date range. NA No results within date range. K No results within date range. GLUC No results within date range. BUN No results within date range. CREAT No results within date range. PTSEC No results within date range. INR No results within date range. APTT No results within date range. ALT No results within date range. AST No results within date range. TBILI No results within date range. TSH No results within date range. Lab Value Units Date High Low HCGQT No results within date range. UHCG No results within date range. HCG, BODY* No results within date range. Lab Value Units Date High Low ABORHD No results within date range. ABSCREEN No results within date range. No results found for: HBA1C No results found for this or any previous visit (from the past 8760 hour(s)). No results found for this or any previous visit (from the past 77564 hour(s)). Instructions Given to Patient: Instructions located in the after visit summary. Patient given verbal and written preop instructions and voices comprehension and compliance. SIGNATURE: Ana Maria Evans APRN.CNP PATIENT NAME: Maritza Garay DATE: March 20, 2024 TIME: 3:42 PM PAGER/CONTACT #: documented in this encounterC[facility] Instructions* Patient Instructions* Yvonne Huynh APRN.CNP - 02/16/2024 4:08 PM EDT Recommend using zyrtec daily and Flonase nasal spray twice daily, rinse mouth afterwards. Continue supportive care at home. Stay well hydrated Follow up if no improvement. documented in this encounterC[facility] History of Present illness Narrative* Yvonne Huynh APRN.CNP - 02/16/2024 4:03 PM EDT This is a 18 year old female who presents today with: Patient presents with: Ear Pain: R ear pain x3 days, sneezing, congestion, jaw pain HISTORY OF PRESENT ILLNESS: Maritza Garay is a 18 year old female. Patient presents with: Ear Pain: R ear pain x3 days, sneezing, congestion, jaw pain Right ear pain that started 3 days. On going sinus congestion and sneezing. No cough, SOB, os fever. Has not tried any OTC medications at this time. PAST MEDICAL HISTORY: PAST MEDICAL HISTORY Diagnosis Date NEGATIVE MEDICAL HISTORY PAST SURGICAL HISTORY Procedure Laterality Date NONE ALLERGIES Patient has no known allergies. MEDICATIONS Current Outpatient Medications Medication Sig hydrOXYzine HCl (ATARAX) 10 mg tablet Take 1 tablet by mouth three times a day as needed for anxiety. hydrOXYzine HCl (ATARAX) 25 mg tablet Take 1 tablet by mouth daily at bedtime. venlafaxine (EFFEXOR) 50 mg tablet Take 1 tablet by mouth daily with breakfast. etodolac (LODINE) 400 mg tablet Take 1 tablet by mouth two times a day. APRI 0.15-0.03 mg per tablet No current facility-administered medications for this visit. FAMILY HISTORY Problem Relation Age of Onset other (MVP) Mother Social History Tobacco Use Smoking status: Never Smokeless tobacco: Never Vaping Use Vaping Use: Never used Substance Use Topics Alcohol use: Never Drug use: Never REVIEW OF SYSTEMS GENERAL: No weight loss, malaise or fevers/chills HEENT: + Right ear pain/sinus congestion/sneezing NECK: Negative for lumps, goiter, pain and significant neck swelling RESPIRATORY: Negative for cough, hemoptysis, wheezing, dyspnea or shortness of breath CARDIOVASCULAR: Negative for chest pain, leg swelling, orthopnea, or palpitations GI: No nausea, vomiting, or diarrhea/constipation. No hematochezia/melena. No heartburn or reflux symptoms. : No history of dysuria, frequency or incontinence MUSCULOSKELETAL: Negative for joint pain or swelling. SKIN: Negative for lesions, rash, and itching ENDOCRINE: Negative for cold or heat intolerance, polyuria, polydipsia and goiter NEURO: No history of headaches, syncope, paralysis, seizures or tremors MOOD: Negative for depression, anxiety, or suicidal ideation. EXAM: BP 124/80 Pulse 82 Temp 37.3 C (99.2 F) Resp 18 Wt 72.7 kg (160 lb 4.4 oz) LMP 04/11/2022 SpO2 100% BMI 25.61 kg/m PHYSICAL EXAM: General Appearance: Well appearing, alert, in no acute distress, well-hydrated, well nourished. Skin: Skin color, texture, turgor normal, no suspicious rashes or lesions. Head: Normocephalic, no masses, lesions, tenderness or abnormalities. Eyes: Anicteric sclera. Pupils are equally round and reactive to light. Extraocular movements are intact. Ears: External ears normal, canals clear. TMs pearly stuart. Nose/Sinuses: Positive findings: mucosa erythematous and swollen. No frontal or maxillary tenderness. Oropharynx: Lips, mucosa, and tongue normal, teeth and gums normal, oropharynx normal. Neck: Supple, no adenopathy; thyroid symmetric, normal size, no bruits. Lungs: Lungs clear to auscultation. No wheezing, rhonchi, rales. Heart: RRR without murmur, gallop, or rubs. No ectopy. Extremities: No deformities, edema, skin discoloration, clubbing or cyanosis. Good capillary refill. Peripheral Pulses: Normal, Capillary refill <2secs, strong peripheral pulses, Pulses palpable. Neurologic: Gait normal. Sensation grossly intact. ASSESSMENT/PLAN: 1. URI, acute - ICD9: 465.9, ICD10: J06.9 (primary diagnosis) - URI vs Seasonal allergies - May use Zyrtec 10 mg daily and Flonase twice daily for the next 7 to 10 days. - Discussed viral etiology and rationale for treatment. - Symptomatic treatment with prn analgesia - Supportive care with fluids and rest 2. Seasonal allergies - ICD9: 477.9, ICD10: J30.2 - CETIRIZINE 10 MG TABLET Follow up if no improvement. Discussed treatment plan and patient voices understanding. Patient's questions answered appropriately. Medications and potential side effects were discussed and patient voices understanding. Yvonne Huynh APRN.PIER HAND This note was partially generated using [employer] voice recognition system. Note was reviewed for accuracy. There may be minor misspellings or grammar miscues with [employer] voice recognition. documented in this encounterC[facility]05-28-[facility] Telephone encounter Note * Telephone Encounter - Brianna Billings RN - 01/30/2024 9:22 AM EDT Patient notified of results and provider's instructions. Patient verbalizes understanding. Brianna Billings RN [facility] Miscellaneous Notes* Telephone Encounter - Brianna Billings RN - 01/30/2024 9:22 AM EDT Patient notified of results and provider's instructions. Patient verbalizes understanding. Brianna Billings RN * Telephone Encounter - Rea Munoz MA - 01/30/2024 9:12 AM EDT Left message for patient to return call. Rea Munoz MA * Telephone Encounter - Iveth Key APRN.CNP - 01/30/2024 8:48 AM EDT Please call and let patient know she is on the correct antibiotic according to urine culture. If symptoms or not improving patient should follow-up with primary care documented in this encounterC[facility]05-[facility] Telephone encounter Note * Telephone Encounter - Rea Munoz MA - 01/30/2024 9:12 AM EDT Left message for patient to return call. Rea Munoz MA [facility] Telephone encounter Note* Telephone Encounter - Iveth Kye APRN.CNP - 01/30/2024 8:48 AM EDT Please call and let patient know she is on the correct antibiotic according to urine culture. If symptoms or not improving patient should follow-up with primary care [facility] Work Phone: [phone] 936-901705-26-2024 History of Present illness Narrative* Delfina Jacobs PA-C - 01/28/2024 9:12 AM EDT This note was created using [employer]. Subjective Maritza Garay is a 18 year old female. HPI Patient presents with urinary frequency, urgency and pelvic cramping over the past 3 days. She denies any blood in her urine. She has had some low back pain. No fever or vomiting. No chills. She has had a UTI previously. She is sexually active with 1 partner the past 5 months. She is on oral control, last menstrual cycle was 3 weeks ago. Denies vaginal itching or discharge. Denies concern for . Scanned in so I thank you for giving us to the MAs are up from Review of Systems Constitutional: Negative. HENT: Negative. Respiratory: Negative. Cardiovascular: Negative. Gastrointestinal: Negative. Genitourinary: Positive for dysuria, frequency, pelvic pain and urgency. Negative for flank pain, hematuria, vaginal bleeding, vaginal discharge and vaginal pain. Musculoskeletal: Positive for back pain. All other systems reviewed and are negative. PAST MEDICAL HISTORY Diagnosis Date NEGATIVE MEDICAL HISTORY Current Outpatient Medications Medication Sig Dispense Refill hydrOXYzine HCl (ATARAX) 10 mg tablet Take 1 tablet by mouth three times a day as needed for anxiety. 270 tablet 0 hydrOXYzine HCl (ATARAX) 25 mg tablet Take 1 tablet by mouth daily at bedtime. 90 tablet 0 venlafaxine (EFFEXOR) 50 mg tablet Take 1 tablet by mouth daily with breakfast. 30 tablet 1 etodolac (LODINE) 400 mg tablet Take 1 tablet by mouth two times a day. 30 tablet 0 APRI 0.15-0.03 mg per tablet nitrofurantoin monohydrate and macrocrystal (MACROBID) 100 mg capsule Take 1 capsule by mouth two times a day with meals for 5 days. 10 capsule 0 No current facility-administered medications for this visit. PAST SURGICAL HISTORY Procedure Laterality Date NONE FAMILY HISTORY Problem Relation Age of Onset other (MVP) Mother Social History Tobacco Use Smoking status: Never Smokeless tobacco: Never Vaping Use Vaping Use: Never used Substance Use Topics Alcohol use: Never Drug use: Never Objective BP 110/80 Pulse 95 Temp 36.6 C (97.9 F) Resp 20 Wt 72.3 kg (159 lb 6.3 oz) LMP 04/11/2022 SpO2 99% BMI 25.46 kg/m Physical Exam Vitals reviewed. HENT: Head: Normocephalic and atraumatic. Cardiovascular: Rate and Rhythm: Normal rate and regular rhythm. Heart sounds: Normal heart sounds. Pulmonary: Effort: Pulmonary effort is normal. Breath sounds: Normal breath sounds. Abdominal: General: Abdomen is flat. Palpations: Abdomen is soft. Tenderness: There is abdominal tenderness (suprapubic. mild, no guarding). There is no right CVA tenderness, left CVA tenderness or guarding. Musculoskeletal: Cervical back: Neck supple. Skin: General: Skin is warm and dry. Findings: No rash. Neurological: Mental Status: She is alert. Assessment and Plan ASSESSMENT/PLAN: 1. Acute UTI - ICD9: 599.0, ICD10: N39.0 acute - UA positive for dallin esterase and nitrates - Send urine for culture - Begin treatment with Macrobid 100 mg BID for 5 days I did make patient aware her oral control may not be effective-this cycle while on antibioticand to use condoms or abstain. Patient voiced understanding. - UA DIP, URINE (POC) - URINE CULTURE Delfina Jacobs PA-C documented in this encounterC[facility] History of Present illness Narrative* Jeannette Dalal, MISAEL.PIER HAND - 01/26/2024 4:28 PM EDT Images from the original note were not included. FOLLOW UP - PSYCHIATRIC PROGRESS NOTE PATIENT: Maritza Garay DATE: January 26, 2024 Visit Type: Virtual Visit utilizing two-way audio and video for at least a portion of the visit. Consent for virtual visit obtained verbally. Confidentiality limitations with virtual visits reviewed with the patient and guardian, if present, who have accepted the risk verbally prior to proceeding wi th encounter. I have communicated my name and active licensure. The patient's identity and physicallocation were verified at the time of this visit. Either the patient or their legal manufacturing sales representative has been informed of the risks and benefits of -- and alternatives to -- treatment through a remote evaluation and consents to proceed with the evaluation remotely. All information is from Patient report except when noted. This evaluation is NOT intended for forensic, disability or child custody purposes. Some elements were copied from the previous note which have been updated where appropriate and reflect current decision making from today January 26, 2024. CC: Presenting today for follow up regarding psychiatric medication management. HPI: Treatment Plan from Last Visit on 12/22/2023: Discontinue Prozac due to lack of efficacy. Start Venlafaxine to address anxiety and mood symptoms. Utilize Hydroxyzine as needed to manage anxiety symptoms and sleep difficulties. 4. Encouraged the patient to reduce marijuana use due to interaction with medication and executive dysfunction concerns. Today Maritza shares that she has not noticed any change in her anxiety or mood. Denies any side effects from the Venlafaxine. Able to take consistently with food. In agreement to try a higher dose of Venlafaxine to address her anxiety symptoms. Has noticed benefit from Hydroxyzine 20 mg at bedtime. It has helped with her anxiety and sleep. Willing to try the 10 mg dose during the day to help with anxiety. Discussed increasing the bedtime hydroxyzine to 25 mg dose. Interval Progress: Slightly improved PATIENT DATA: Generalized Anxiety Disorder Scale (KAREEM-7) 11/03/2023 12/22/2023 01/25/2024 KAREEM - 7 SCORES Score 14 14 14 (0-4) minimal anxiety, (5-9) mild anxiety, (10-14) moderate anxiety, (15-21) severe anxiety Patient Health Questionnaire (PHQ-9) 11/03/2023 12/22/2023 01/25/2024 PHQ-9 Score 18 20 20 (0-4) minimal depression, (5-9) mild depression, (10-14) moderate depression, (15-19) moderately severe depression, (20-27) severe depression PAST MEDICAL HISTORY Diagnosis Date NEGATIVE MEDICAL HISTORY PAST SURGICAL HISTORY Procedure Laterality Date NONE ALLERGIES No Known Allergies Current Outpatient Medications on File Prior to Visit Medication Sig etodolac (LODINE) 400 mg tablet Take 1 tablet by mouth two times a day. hydrOXYzine HCl (ATARAX) 10 mg tablet Take 1 tablet by mouth three times a day as needed for anxiety (and sleep difficulties). venlafaxine (EFFEXOR) 25 mg tablet TAKE 1 TABLET BY MOUTH EVERY DAY WITH BREAKFAST APRI 0.15-0.03 mg per tablet No current facility-administered medications on file prior to visit. ROS: All other systems negative. PFSH: See HPI VITAL SIGNS: There were no vitals filed for this visit. Last 3 Encounter BP Readings: Date: BP: 11/24/2023 114/68 09/25/2023 118/70 04/18/2022 116/78 MENTAL STATUS EXAMINATION: Mental Status Exam General/Sensorium: Alert Orientation: AAOx3 Appearance: Casually dressed Eye contact: Fair Demeanor: Withdrawn and passive Motor activity: Normal Speech: Soft Mood: Anxious Affect: Flat and anxious Thought process: [place] and vague Associations: Normal Thought content: Focused on history, symptoms, and management Suicidal ideation: SI: no Plan: no Intent: no Homicidal ideation: HI: no Plan: no Intent: no Abnormal/psychotic thoughts: Absent Perceptions: She does not appear internally stimulated. Intelligence: Average Attention: Intact Memory: Short-term: Intact Long-term: Intact Language: Intact Fund of knowledge: Fair Insight: Fair Judgment: Poor Gait: Not observed Station: Sitting DATA REVIEWED: Psychiatric scales, Electronic medical record, Labs DIAGNOSIS: Generalized Anxiety Disorder MDD, single episode, moderate Social Anxiety Disorder Eating disorder, unspecified type Marijuana use GAF: -60-51 Moderate symptoms or moderate difficulty in social, occupational or school functioning. TREATMENT PLAN: Increase Venlafaxine to 50 mg to address mood and anxiety symptoms. Increase bedtime dose of hydroxyzine to 25 mg to help with sleep difficulties. Utilize Hydroxyzine 10 mg dose during the day to help with anxiety symptoms as needed during the day. MEDICATION CHANGES: See above Risks and benefits of the medication, including any black box warnings, were discussed with the patient. Patient is aware to reach out with any questions, concerns, or worsening of symptoms prior to the next appointment. Patient educated on risks of substance use in combination with medications and advised that any substance use along with medications may alter their effectiveness. Follow Up: 2 months I spent a total of 38 minutes on the date of the service which included preparing to see the patient, [id number] patient care, completing clinical documentation, and counseling and educating the patient/family/caregiver, ordering medications/labs. ADD ON PSYCHOTHERAPY CODE : No SIGNATURE: Jeannette Dalal APRN.CNP PATIENT NAME: Maritza Garay DATE: January 26, 2024 TIME: 4:28 PM documented in this encounterC[facility] Telephone encounter Note * Telephone Encounter - Dru Nowak V, DO - 01/20/2024 6:27 AM EDT I will refill one more. After that she will need labs to check renal and liver function before continuing. [facility] Miscellaneous Notes* Telephone Encounter - Dru Nowak V, DO - 01/20/2024 6:27 AM EDT I will refill one more. After that she will need labs to check renal and liver function before continuing. * Telephone Encounter - Vania Ortega MA - 01/18/2024 3:56 PM EDT Patient has been identified by name and date of : Yes, Provider Eliu Date 01/18/24 Time 3:57 pm Patient phones for refill(s): Requested Prescriptions Pending Prescriptions Disp Refills etodolac (LODINE) 400 mg tablet 30 tablet 0 Sig: Take 1 tablet by mouth two times a day. Please advise. Thank you. Vania Ortega MA. documented in this encounterC[facility] Telephone encounter Note * Telephone Encounter - Vania Ortega MA - 01/18/2024 3:56 PM EDT Patient has been identified by name and date of : Yes, Provider Eliu Date 01/18/24 Time 3:57 pm Patient phones for refill(s): Requested Prescriptions Pending Prescriptions Disp Refills etodolac (LODINE) 400 mg tablet 30 tablet 0 Sig: Take 1 tablet by mouth two times a day. Please advise. Thank you. Vania Ortega MA. [facility]05-13-[facility] Telephone encounter Note* Telephone Encounter - Opal Bauman - 01/15/2024 2:41 PM EDT Pharmacy comment: REQUEST FOR 90 DAYS PRESCRIPTION. Last appt: 12-22-23 Next appt: 01-26-24 [facility]05-[facility] Miscellaneous Notes* Telephone Encounter - Opal Bauman - 01/15/2024 2:41 PM EDT Pharmacy comment: REQUEST FOR 90 DAYS PRESCRIPTION. Last appt: 12-22-23 Next appt: 01-26-24 documented in this encounterC[facility]04-22-[facility]24 Telephone encounter Note * Telephone Encounter - Polina Griffiths MA - 12/25/2023 4:35 PM EDT Patient changed the date of her surgery to 04/03/2024. [facility]04[facility] Miscellaneous Notes* Telephone Encounter - Polina Griffiths MA - 12/25/2023 4:35 PM EDT Patient changed the date of her surgery to 04/03/2024. * Telephone Encounter - Dwayne Delucarie - 12/25/2023 11:10 AM EDT Pre Op has not been able to reach patient to schedule pre op for surgery. She has left several voicemails documented in this encounterC[facility]04-[facility]-2024 Telephone encounter Note * Telephone Encounter - audraankur Maryann Jasmine - 12/25/2023 11:10 AM EDT Pre Op has not been able to reach patient to schedule pre op for surgery. She has left several voicemails [facility] Instructions* Patient Instructions* Jeannette Dalal APRN.THELMA - 12/22/2023 5:26 PM EDT Rhett Salas, It was good to meet and talk with you today. Below is a summary of the plan that we discussed during your appointment for reference. Of course, if you have any questions or concerns do not hesitate to reach out to me via a message or call. Jeannette Garcia APRN.PIER HAND PLAN AND FOLLOW UP: 1) Start Venlafaxine 25 mg - take 1 tablet once daily with breakfast. 2) Use Hydroxyzine 10 mg up to three times a day as needed to manage anxiety symptoms or difficultywith sleep. Work on reducing the use of marijuana so that medications will work better. For those experiencing a suicidal crisis: --call the National Suicide Prevention Lifeline at 980 (335-151-8857) --text the Crisis Text Line (text HOME to 974398) --call 531 and let them know you are having a mental health crisis or go to your nearest Emergency Room for stabilization. --You can also call Mobile Crisis at [phone]. Next appointment: --Schedule in 3 to 4 weeks or sooner if needed -- You may call the department appointment line at [phone] to schedule your appointment. -- Please call my nurse Tasha at [phone] or send me a message in Qu[employer] with any questions or concerns between appointments. documented in this encounterC[facility]04-19-2024 History of Present illness Narrative* Jeannette Dalal APRN.CNP - 12/22/2023 4:05 PM EDT Images from the original note were not included. PSYC NEW - PSYCHIATRIC ASSESSMENT PATIENT: Maritza Garay DATE: December 22, 2023 Patient was seen for an initial evaluation. I have communicated my name and active licensure. The patient's identity and physical location were verified at the time of this visit. Either the patient or their legal manufacturing sales representative has been informed of the risks and benefits of -- and alternatives to -- treatment through a remote evaluation and consents to proceed with the evaluation remotely All information is from Patient report except when noted. This evaluation is NOT intended for forensic, disability or child custody purposes. AGE: [age] year old RACE: White REFERRAL SOURCE: PCP - Dr. Rea Polo CHIEF COMPLAINT: I have always really struggled with anxiety all my life. I was seeing my honing machine operator tool and she said that you can probably better help me. HPI: Today Maritza shares that she can't remember a time when anxiety wasn't a part of her life. Does not think that she was managing anxiety well before she started taking medications. She tended to be nervous and avoidant. Does not think that she coped with anxiety in a healthy manner and relied heavily on avoidant behavior. Psychiatric ROS: REVIEW OF SYMPTOMS PSYCH: Sleep: Wakes up around the same time in the middle of the night between 2 and 3 am. Then she has a hard time falling back asleep due to racing thoughts. Melatonin and Tylenol PM have made her feel more tired in the morning. Patient reports difficulty falling asleep and difficulty staying asleep. Eating: Feels like anxiety makes her emotionally eat. Thinks she eats too much. She worries about eating during the day and being tired. Does report intentional restriction during the day. Per chart BMI is 24.67 On and off for a while, I will feel that I am fat and I shouldn't eat. Shares that she gets full quickly and sometimes will get nauseous when she eats Patient reports fear of gaining weight, poor body image and binge eating. There is no concern for lack of recent menses, excessive exercise or purging. Depression: Feels like she is just going through the motions. Patient reports sadness, irritability, loss of interest, fatigue, poor motivation, inattention due to mood, poor self esteem and thoughts of . Safety: There is no current active SI/HI, intent, or plan. Patient reports passive wish. Anxiety: KAREEM: Patient reports anxiety about friends, family, school, or patient's future, anxiety about potentialcatastrophes, ruminative worries at bedtime and feeling as though mind never goes blank. OCD: Patient denies symptoms Panic Disorder: Used to happen more in highschool, about once a week. Occurs maybe a couple times a month. Feels this way when she is starting to get overwhelmed. Panic symptoms happen at home and outside. Patient reports episodes of shortness of breath, chest pain, light-headedness, avoiding public spaces and avoiding being in areas without a clear exit. Social Anxiety: Feels that people are judging her based on what she is eating. Patient reports intense fear of being watched or judged, intense worry about embarrassing self, difficulty with small talk, difficulty with meeting strangers, difficulty asking for help in public, feeling uncomfortable while being observed, reluctance to eat or drink in front of others and fear of public speaking. Psychosis: Patient denies symptoms ADHD: Not assessed Current Psychiatric Medication Regimen: Past Medication Trials (With Reaction): Lexapro 15 mg - fatigue and vivid dream. It helped for a short time but then stopped. On the Lexapro, it was easier for her to socialize. It helped her talk to people more. Did not notice a difference between 10 and 15 mg. Prozac 20 mg - was only able to take it for a couple weeks. Denied any side effects. VITAL SIGNS: There were no vitals filed for this visit. ROS She has a ganglion cyst on her right hand. Shares that it impacts her work. She still needs to schedule a surgery. Taking Lodine. Also takes a control. PSYCHIATRIC HISTORY: Prior Diagnosis: Anxiety and Depression Prior Provider: No prior psychiatrist Therapist: Yes, but cannot recall. She just went for 1 visit about a year ago. And did not feel like it was a good fit. Casino Floor Walker: none Last Hospitalization: Denies hospitalization. ECT/TMS/Ketamine: none Previous Discontinued Psychiatric Med Trials: See HPI SUBSTANCE USE HISTORY: Nicotine: None Vape: none Caffeine: Energy drinks but makes her more anxious. Drinks either 1 cup of coffee or tea. Alcohol: No history of use or dependence Marijuana: Uses a few times a week via a vape or a joint. Shares that it helps shut her mind off and sleep. It helps with her nausea. Tried 2 years ago and frequency increased in the past few months.There have been instances in the past where she has felt more anxious while using it and out of control. Cocaine: No history of use or dependence Opioids: No history of use or dependence Other Illicit Substances: none SPIRITUALITY: none PFSH: Maritza Garay is the middle of 5 siblings. Also has half siblings. The patient was born and raised in [place], [place]. Maritza Garay completed High school. Maritza Garay described childhood as pretty stressful. It wasn't all bad. Parents got when she was 5 years old as father cheated on mother. Witnessed parents arguing a lot and talking behind their back. She was home schooled till and then it was hard for her to adjust to going to school for the firs time. Children: none Pets: none Support people include: Mother and Boyfriend. Elder sister. Her best friend moved to [place] so she doesn't get to see her anymore. The patient lives with Mother, step-father and 3 siblings. Marital Status: In a relationship. With current boyfriend for the last 4 years. 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 denied any past legal history FAMILY PSYCHIATRIC HISTORY: Relation Maternal: M Paternal: P Medical History Alcohol Use Drug Use Psychiatric Disorders Suicide attempts or completions Mother Depression and Anxiety Father Grandfather Grandmother Brother Sister Depression and Anxiety Uncle M Alcohol and Drugs PATIENT DATA: Generalized Anxiety Disorder Scale (KAREEM-7) 10/17/2023 11/03/2023 12/22/2023 KAREEM - 7 SCORES Score 13 14 14 (0-4) minimal anxiety, (5-9) mild anxiety, (10-14) moderate anxiety, (15-21) severe anxiety Patient Health Questionnaire (PHQ-9) 10/17/2023 11/03/2023 12/22/2023 PHQ-9 Score 21 18 20 (0-4) minimal depression, (5-9) mild depression, (10-14) moderate depression, (15-19) moderately severe depression, (20-27) severe depression PAST MEDICAL HISTORY Diagnosis Date NEGATIVE MEDICAL HISTORY PAST SURGICAL HISTORY Procedure Laterality Date NONE ALLERGIES No Known Allergies Current Outpatient Medications on File Prior to Visit Medication Sig FLUoxetine (PROZAC) 10 mg capsule Take 1 capsule by mouth once daily. etodolac (LODINE) 400 mg tablet Take 1 tablet by mouth two times a day. escitalopram oxalate (LEXAPRO) 10 mg tablet Take 1.5 tablets by mouth once daily. APRI 0.15-0.03 mg per tablet No current facility-administered medications on file prior to visit. MENTAL STATUS EXAMINATION: Mental Status Exam General/Sensorium: Alert Orientation: AAOx3 Appearance: Casually dressed Eye contact: Fair Demeanor: Withdrawn and passive Motor activity: Normal Speech: Soft Mood: Anxious Affect: Flat and anxious Thought process: [place] and vague Associations: Normal Thought content: Focused on history, symptoms, and management Suicidal ideation: SI: no Plan: no Intent: no Homicidal ideation: HI: no Plan: no Intent: no Abnormal/psychotic thoughts: Absent Perceptions: She does not appear internally stimulated. Intelligence: Average Attention: Intact Memory: Short-term: Intact Long-term: Intact Language: Intact Fund of knowledge: Fair Insight: Fair Judgment: Poor Gait: Not observed Station: Sitting MINI-MENTAL STATUS EXAMINATION: Unable to complete due to time constraint DATA REVIEWED: Psychiatric scales, Electronic medical record, and Labs DIAGNOSIS: Generalized Anxiety Disorder with significant social anxiety component MDD, recurrent, moderate Disordered eating behavior Marijuana use TREATMENT PLAN: Medications: Discontinue Prozac due to lack of efficacy. Start Venlafaxine to address anxiety and mood symptoms. Utilize Hydroxyzine as needed to manage anxiety symptoms and sleep difficulties. 4. Encouraged the patient to reduce marijuana use due to interaction with medication and executive dysfunction concerns. MEDICATION CHANGES: See above for changes Risks and benefits of the medication, including any black box warnings, were discussed with the patient. Patient educated on risks of substance use in combination with medications and advised that any substance use along with medications may alter their effectiveness. Follow Up: 3 to 4 weeks I spent a total of 90 minutes on the date of the service which included preparing to see the patient, [id number] patient care, completing clinical documentation, obtaining and/or reviewing separately obtained history, counseling and educating the patient/family/caregiver, ordering medications, jeison ts, or procedures, communicating with other HCPs (not separately reported), independently interpreting results (not separately reported), and communicating results to the patient/family/caregiver. ADD ON PSYCHOTHERAPY CODE : No SIGNATURE: Jeannette Dalal APRN.CNP PATIENT NAME: Maritza Garay DATE: December 22, 2023 TIME: 4:05 PM documented in this encounterC[facility]04-18-2024 Miscellaneous Notes* Telephone Encounter - Polina Griffiths MA - 12/21/2023 2:23 PM EDT Surgery has been scheduled as requested. * Telephone Encounter - Polina Griffiths MA - 12/20/2023 9:46 AM EDT Surgical request completed for right wrist excision of ganglion cyst at [facility] on 01/03/2024. Post op appointments have been scheduled and mailed to the patient. documented in this encounterC[facility]04-15-[facility]24 History of Present illness Narrative* Shraddha Lozoya PA-C - 12/18/2023 8:37 AM EDT Shraddha Lozoya PA-C Department of Orthopaedics Orthopaedics [address] [facility] [address] Dept: [phone] Dept December 18, [address] Dru Nowak for an opinion regarding right wrist cyst. My final recommendations will be communicated back to the requesting physician by way of shared Medical record orletter to requesting physician via US mail. CHIEF COMPLAINT: No chief complaint on file. Ms. Maritza Garay is a 18 year old female who presents with a cyst on the back of her right wrist which has been present for about the past 3 years. Cyst is painful during day-to-day activities. Pain today is a 7 out of 10 continuous aching. She reports that the cyst has ruptured in the past but it always seems to return. She is right-hand dominant. The patient works at [employer]. Not able to wear a brace during work. ASSESSMENT: M67.40 Ganglion cyst (primary encounter diagnosis) M25.531 Right wrist pain PLAN: She has a palpable cyst in the dorsum of her wrist, we discussed trying a corticosteroid injection. She declines and would like the cyst to be removed. We discussed her surgical options. She isinterested in pursuing cyst excision under MAC anesthesia. We discussed surgical intervention, the patients questions were addressed. The risks, benefits, alternatives and were discussed, patinet unde rstands and wishes to pursue surgical intervention. Ms. Maritza Garay was advised as to contrast therapies and/or to take analgesics/anti-inflammatories as needed and all contraindications were reviewed. OBJECTIVE: Ms. Maritza Garay is a pleasant 18 year old in no apparent distress. Gen:LMP 04/11/2022 nl development, non obese, no deformities ENT: Normocephalic, normal hearing, moist mucosa CV: Pulses:Radial= 2+ and symmetric, capillary refill < 2 secs, no peripheral edema/varicosities Skin: no rash, bruising or lesions. Good turgor. Psych: cooperative and appropriate, alert and oriented x 3, good mood and affect. Musculoskeletal: Inspection: Positive: A palpable cyst on the dorsum of the right wrist over the second compartment. Cyst is adjacent to Ana Paula's tubercle. No evidence of surgical incisions. No evidence of muscular atrophy. Range of Motion: Elbow flexion/extension WNL. Forearm pronation/supination WNL. Wrist flexion/wrist extension WNL. Radial deviation/ulnar deviation WNL. MCP flexion/extension WNL. IP flexion/extension WNL. Palpation: Positive tenderness to palpation: Small palpable cyst over the dorsum of the wrist, cyst is painful. Stability: Negative: elbow valgus, elbow varus, grind test, thumb laxity, DRUJ, and SL ligament instability. 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 Barrel Lathe Operator Inside: PSCMarla Transcribe Date/Time: Oct 26 2023 11:11A Dictated by : JT MCKEON DO This examination was interpreted and the report reviewed and electronically signed by: JT MCKEON DO on Oct 26 2023 11:41AM EST Results-Findings * * *Final Report* * * DATE OF EXAM: Oct 24 2023 6:50PM [facility] 0266 - MRI WRIST WO IVCON RT / PROCEDURE REASON: M67.431-Ganglion cyst of dorsum of right wrist * * * * Physician Interpretation * * * * EXAMINATION: MRI WRIST WO IVCON RT PATIENT/TECHNOLOGIST PROVIDED HISTORY: right wrist pain/mass off & on x3 years CLINICAL HISTORY: 18 years old Female with Ganglion cyst of dorsum of right wrist. Mass. COMPARISON: Right wrist radiographs 09/25/2023 TECHNIQUE: Multiplanar PD, T1 and T2 weighted images. RESULT: Two markers are placed in dorsal aspect of the wrist at the site of palpable abnormality. Triangular fibrocartilage: Intact. Scapholunate ligament: Intact. Lunotriquetral ligament: Intact. Flexor tendons and carpal tunnel: Within normal limits. Carpal tunnel is within normal limits. Extensor tendons: There is trace fluid within the 2nd and 3rd extensor compartments (5: 13-20). There is fluid signal surrounding the EPL tendon as it crosses the 2nd extensor compartment (5:15-17) with adjacent 9 x 4 x 11 mm ganglion cyst just distal to the Ana Paula's tubercle at the site of palpable abnormality. Remainder of the extensor compartments are within normal limits. Bones and bone marrow: No fractures or marrow replacing lesions. Joint fluid: Trace fluid within the pisotriquetral recess. No joint effusion or synovitis. Other: 4 x 2 x 5 mm ganglion volar radial aspect of the radiocarpal joint (5:16, 7:8). Supporting Subjective Information Below: Past Surgical History: PAST SURGICAL HISTORY Procedure Laterality Date NONE Medications: Current Outpatient Medications Medication Sig etodolac (LODINE) 400 mg tablet Take 1 tablet by mouth two times a day. APRI 0.15-0.03 mg per tablet FLUoxetine (PROZAC) 10 mg capsule Take 1 capsule by mouth once daily. escitalopram oxalate (LEXAPRO) 10 mg tablet Take 1.5 tablets by mouth once daily. No current facility-administered medications for this visit. Allergies: Patient has no known allergies. ROS: General (negative for fatigue, malaise, weight loss/gain) HEENT (negative for headache, earache, recent vision changes, sinus pain, sore throat) Respiratory (no recent shortness of breath, hemoptysis) CV (negative for chest tightness, palpitations) Musculoskeletal (see HPI) Psych (no depression, anxiety) This note was partially generated using [employer] voice recognition system, and there may be some incorrect words, spellings, and punctuation that were not noted in checking the note before saving. Shraddha Lozoya PA-C * Polina Griffiths MA - 12/18/2023 7:41 AM EDT AMB ROOMING INTAKE FLOWSHEET DATA Pain Pain Level: 7 Pain Location: Wrist-Right Description: Aching, Numbness, Pressure, Shooting, Sore, Stiffness, Tightness Frequency: Continuous Intervention/Comfort measure: Medication, Cold Patient here today for right wrist ganglion cyst. She states it popped a few days ago and the wholewrist feels swollen. She is right hand dominant. Works at [employer]. documented in this encounterC[facility]04-06-[facility]24 Miscellaneous Notes* Telephone Encounter - Rea Polo MD - 12/09/2023 11:30 AM EDT Patient's request for medication is as follows Requested Prescriptions Pending Prescriptions Disp Refills FLUoxetine (PROZAC) 10 mg capsule 30 capsule 0 Sig: Take 1 capsule by mouth once daily. Order entered - please phone pharmacy and notify patient. It's ok to cancel appt with me if she is seeing psychiatry the next day Rea Polo MD * Telephone Encounter - Shraddah Faye RN - 12/09/2023 9:40 AM EDT Has Med check scheduled 12/20 with PCP and appt with psychiatry on 12/21 Shraddha Faye RN documented in this encounterCleveland [facility]03-22-2024 Instructions* Patient Instructions* Rea Polo MD - 11/24/2023 3:53 PM EDT Take lexapro 10mg and prozac 10mg daily for one week, then transition to prozac 20mg. Schedule with psychiatry Follow up with Dr. Polo in 2-3 wks. documented in this encounterCleveland Clinic [facility]03-22-2024 History of Present illness Narrative* Rea Polo MD - 11/24/2023 3:43 PM EDT KAREEM-7 10/17/2023 11/03/2023 KAREEM-7 All Questions Feeling nervous, anxious, or on edge Nearly Everyday Nearly Everyday Not being able to stop or control worrying Several days Nearly Everyday Worrying too much about different things More than half the days Nearly Everyday Trouble relaxing More than half the days Several days Being so restless that it is hard to sit still More than half the days Several days Becoming easily annoyed or irritable More than half the days Several days Feeling afraid, as if something awful might happen Several days More than half the days KAREEM-7 Score 13 14 PHQ-9 04/18/2022 10/17/2023 11/03/2023 11/24/2023 PHQ-9 Scores Feeling down, depressed, irritable, or hopeless? More than half the days - - Several days Little interest or pleasure in doing things? Several days - - More than half the days Trouble falling asleep, staying asleep, or sleeping too much? Not at all - - Nearly every day Poor appetite, weight loss, or overeating? More than half the days - - More than half the days Feeling tired, or having little energy? Several days - - Nearly every day Feeling bad about yourself - or feeling that you are a failure, or have let yourself or your familydown? More than half the days - - More than half the days Trouble concentrating on things like school work, reading, or watching TV? Nearly every day - - Nearly every day Moving or speaking so slowly that other people could have noticed? Or the opposite- being so fidgety or restless that you have been moving around a lot more than usual? Several days - - Several days Thoughts that you would be better off , or of hurting yourself in some way? Not at all - - Not at all In the PAST YEAR have you felt depressed or sad most days, even if you felt okay sometimes? Yes - -Yes If you are experiencing any of the problems on this questionnaire, how difficult have these problems made it for you to do your work, take care of things at home, or get along with other people? Verydifficult - - Very difficult Has there been a time in the PAST MONTH when you have had serious thoughts about ending your life? No - - No Have you EVER, in your WHOLE LIFE, tried to kill yourself or made a suicide attempt? No - - No PHQ-A Score 12 - - - Little interest or pleasure in doing things - Nearly every day More than half the days - Feeling down, depressed, or hopeless - More than half the days More than half the days - Trouble falling or staying asleep, or sleeping too much - Nearly every day Nearly every day - Feeling tired or having little energy - Nearly every day More than half the days - Poor appetite or overeating - Nearly every day Nearly every day - Feeling bad about yourself - or that you are a failure or have let yourself or your family down - More than half the days More than half the days - Trouble concentrating on things, such as reading the newspaper or watching television - Nearly every day More than half the days - Moving or speaking so slowly that other people could have noticed. Or the opposite - being so fidgety or restless that you have been moving around a lot more than usual - Several days Several days - Thoughts that you would be better off , or of hurting yourself in some way - Several days Several days - PHQ-9 Score - 21 18 - PEDIATRIC FOLLOW UP VISIT Maritza Garay is a 18 year old female who presents with Currently taking Escitalopram 15mg. Shehas been on lexapro for the past two months, initially 5, then 10, and now 15mg. The medication is helping minimally. Maritza reports having a sensitive stomach and GI upset for the past two months. She is unsure if this is due to lexapro. No emesis or diarrhea History was obtained from: patient Current symptoms: sadness, low energy, lack of motivation, anxiety, and panic attacks Severity of Symptoms: moderate Context: home and work, working at [employer] Recent stress includes best friend moving to [employer] PAST MEDICAL HISTORY Diagnosis Date NEGATIVE MEDICAL HISTORY ROS for medication side effects: Abdominal pain: yes Appetite problems: no Drowsiness: no Sleep problems: no Headaches: no Depression: no Suicidal ideation: no Agitation: no Gissel: no Tremors: no Weight change: no PHYSICAL EXAM: BP 114/68 Pulse 90 Temp 36.3 C (97.4 F) (Temporal) Resp 16 Ht 168.5 cm (5' 6.34) Wt 70 kg (154 lb 6.4 oz) LMP 04/11/2022 BMI 24.67 kg/m Blood pressure %fer are not available for patients who are 18 years or older. General: Well developed, No acute distress Psych: quiet, soft spoken, good eye contact ASSESSMENT & PLAN: 18 year old female with MDD and KAREEM without optimization of symptoms. GI upset may be due to lexapro or due to mood. Cross-titrate from lexapro to prozac as per instructions F/u in 2-3 wks. Refer to adult psychiatry - I spent a total of 30 minutes on the date of the service which included preparing to see the patient, [id number] patient care, completing clinical documentation, obtaining and/or reviewing separately obtained history, performing a medically appropriate examination, counseling and educating the p atient/family/caregiver, and ordering medications, tests, or procedures. Rea Polo MD documented in this encounterC[facility] History of Present illness Narrative* Rea Polo MD - 11/03/2023 3:49 PM EST PEDIATRIC FOLLOW UP VISIT Maritza Garay is a 18 year old female who presents with depressed mood for follow up visit. Currently taking Escitalopram 10 mg since 2 wks ago. The medication is helping some. History was obtained from: patient Current symptoms: sadness, lack of motivation, and anxiety Severity of Symptoms: moderate Context: home and work KAREEM-7 KAREEM-7 All Questions 10/17/2023 11/03/2023 Nervous, anxious or on edge 3 3 Not being able to stop or control worrying 1 3 Worrying too much 2 3 Trouble relaxing 2 1 Restless 2 1 Annoyed or irritable 2 1 Afraid something awful might happen 1 2 KAREEM-7 Score 13 14 PHQ-9 PHQ-9 Scores 04/18/2022 10/17/2023 11/03/2023 Feeling down, depressed, irritable, or hopeless? More than half the days - - Little interest or pleasure in doing things? Several days - - Trouble falling asleep, staying asleep, or sleeping too much? Not at all - - Poor appetite, weight loss, or overeating? More than half the days - - Feeling tired, or having little energy? Several days - - Feeling bad about yourself - or feeling that you are a failure, or have let yourself or your familydown? More than half the days - - Trouble concentrating on things like school work, reading, or watching TV? Nearly every day - - Moving or speaking so slowly that other people could have noticed? Or the opposite- being so fidgety or restless that you have been moving around a lot more than usual? Several days - - Thoughts that you would be better off , or of hurting yourself in some way? Not at all - - In the PAST YEAR have you felt depressed or sad most days, even if you felt okay sometimes? Yes - - If you are experiencing any of the problems on this questionnaire, how difficult have these problems made it for you to do your work, take care of things at home, or get along with other people? Verydifficult - - Has there been a time in the PAST MONTH when you have had serious thoughts about ending your life? No - - Have you EVER, in your WHOLE LIFE, tried to kill yourself or made a suicide attempt? No - - PHQ-A Score 12 - - Little interest or pleasure in doing things - Nearly every day More than half the days Feeling down, depressed, or hopeless - More than half the days More than half the days Trouble falling or staying asleep, or sleeping too much - Nearly every day Nearly every day Feeling tired or having little energy - Nearly every day More than half the days Poor appetite or overeating - Nearly every day Nearly every day Feeling bad about yourself - or that you are a failure or have let yourself or your family down - More than half the days More than half the days Trouble concentrating on things, such as reading the newspaper or watching television - Nearly every day More than half the days Moving or speaking so slowly that other people could have noticed. Or the opposite - being so fidgety or restless that you have been moving around a lot more than usual - Several days Several days Thoughts that you would be better off , or of hurting yourself in some way - Several days Several days PHQ-9 Score - 21 18 PAST MEDICAL HISTORY Diagnosis Date NEGATIVE MEDICAL HISTORY ROS for medication side effects: Abdominal pain: no Appetite problems: no Drowsiness: no Sleep problems: no Headaches: no Depression: no Suicidal ideation: no Agitation: no Gissel: no Tremors: no PHYSICAL EXAM: Pulse 88 Temp 36.3 C (97.4 F) (Temporal) Resp 16 Wt 71 kg (156 lb 9.6 oz) LMP 04/11/2022 Blood pressure %fer are not available for patients who are 18 years or older. General: Well developed, No acute distress Psych: alert and oriented, quiet ASSESSMENT & PLAN: 18 year old female with MDD and anxious mood without optimization of symptoms and without significant medication side effects. Increase lexapro to 15mg daily F/u in 2-3 wks - Encourage counseling Rea Polo MD documented in this encounterC[facility]02-23-[facility]24 Miscellaneous Notes* Telephone Encounter - Polina Griffiths Ma - 10/27/2023 10:49 AM EST I called and left a message for the patient to contact the office. * Telephone Encounter - Polina Griffiths Ma - 10/27/2023 10:46 AM EST Images from the original note were not included. Dru Nowak V, DO [facility] confirmed ganglion cyst. For definitive treatment, I recommend referral to Dr. White. Dru Nowak DO documented in this encounterCleveland Clinic [facility]02-20-2024 Nurse Note* Lorraine Sosa RT(R) - 10/24/2023 6:23 PM EST Radiology Service Progress Note PATIENT NAME: Maritza Garay DATE OF SERVICE: October 24, 2023 TIME: 6:23 PM PATIENT IDENTITY VERIFICATION COMPLETED USING TWO (2) IDENTIFIERS: Name and Date of confirmedby patient verbally and Name and Date of confirmed by identification band. FALL SCREENING: Has the patient had 2 falls in the last year or 1 fall with injury or currently using an Ambulatory Assistive Device (Walker, Cane, Wheelchair, Crutches, etc.)? No PATIENT GENDER DATA: Female. status: : No status: NO. PATIENT RELEVANT IMPLANT DATA REVIEWED: Yes PATIENT PRESENTS WITH AN IMPLANTABLE OR ATTACHED CURRENCY EXAMINER: No RADIOLOGY DEPARTMENT: MR; Exam(s) Completed: Upper MSK: Wrist, right PERIPHERAL IV DATA: Not applicable SIGNED BY: RT Boris(R) October 24, 2023 6:23 PM documented in this encounterC[facility]02-13-2024 History of Present illness Narrative* Rea Polo MD - 10/17/2023 2:18 PM EST PEDIATRIC FOLLOW UP VISIT Maritza Garay is a 18 year old female who presents with depressed mood for follow up visit accompanied by her mother. Currently taking Escitalopram 5 mg since 2 wks ago. The medication is helpingminimally. Maritza is sleeping a bit better since starting the medication History was obtained from: mother and patient Current symptoms: sadness and low energy Severity of Symptoms: moderate PHQ-9 PHQ-9 Scores 04/18/2022 10/17/2023 Feeling down, depressed, irritable, or hopeless? More than half the days - Little interest or pleasure in doing things? Several days - Trouble falling asleep, staying asleep, or sleeping too much? Not at all - Poor appetite, weight loss, or overeating? More than half the days - Feeling tired, or having little energy? Several days - Feeling bad about yourself - or feeling that you are a failure, or have let yourself or your familydown? More than half the days - Trouble concentrating on things like school work, reading, or watching TV? Nearly every day - Moving or speaking so slowly that other people could have noticed? Or the opposite- being so fidgety or restless that you have been moving around a lot more than usual? Several days - Thoughts that you would be better off , or of hurting yourself in some way? Not at all - In the PAST YEAR have you felt depressed or sad most days, even if you felt okay sometimes? Yes - If you are experiencing any of the problems on this questionnaire, how difficult have these problems made it for you to do your work, take care of things at home, or get along with other people? Verydifficult - Has there been a time in the PAST MONTH when you have had serious thoughts about ending your life? No - Have you EVER, in your WHOLE LIFE, tried to kill yourself or made a suicide attempt? No - PHQ-A Score 12 - Little interest or pleasure in doing things - Nearly every day Feeling down, depressed, or hopeless - More than half the days Trouble falling or staying asleep, or sleeping too much - Nearly every day Feeling tired or having little energy - Nearly every day Poor appetite or overeating - Nearly every day Feeling bad about yourself - or that you are a failure or have let yourself or your family down - More than half the days Trouble concentrating on things, such as reading the newspaper or watching television - Nearly every day Moving or speaking so slowly that other people could have noticed. Or the opposite - being so fidgety or restless that you have been moving around a lot more than usual - Several days Thoughts that you would be better off , or of hurting yourself in some way - Several days PHQ-9 Score - 21 KAREEM-7 KAREEM-7 All Questions 10/17/2023 Nervous, anxious or on edge 3 Not being able to stop or control worrying 1 Worrying too much 2 Trouble relaxing 2 Restless 2 Annoyed or irritable 2 Afraid something awful might happen 1 KAREEM-7 Score 13 PAST MEDICAL HISTORY Diagnosis Date NEGATIVE MEDICAL HISTORY Current Outpatient Medications on File Prior to Visit Medication Sig etodolac (LODINE) 400 mg tablet Take 1 tablet by mouth two times a day. APRI 0.15-0.03 mg per tablet Lexapro 5mg daily No current facility-administered medications on file prior to visit. ROS for medication side effects: Abdominal pain: no Appetite problems: no Drowsiness: no Sleep problems: no Headaches: no Depression: no Suicidal ideation: no Agitation: no Gissel: no PHYSICAL EXAM: Pulse 72 Temp 36.7 C (98.1 F) (Temporal) Resp 16 Wt 68.9 kg (151 lb 12.8 oz) LMP 04/11/2022 Blood pressure %fer are not available for patients who are 18 years or older. General: Well developed, No acute distress Psych: quiet, good eye contact ASSESSMENT & PLAN: 18 year old female with MDD without optimization of symptoms and without significant medication side effects. - Increase dose to lexapro 10mg daily F/u in 2-3 wks Strongly encouraged scheduling appt with a therapist. Rea Polo MD documented in this encounterC[facility]02-02-2024 History of Present illness Narrative* Dru Nowak V, DO - 10/06/2023 3:46 PM EST Images from the original note were not included. SERVICE DATE: October 06, 2023 PCP: Rea Polo MD Subjective Patient ID: Maritza is a 18 year old female. Chief Complaint: Patient presents with: right wrist pain REF: [facility] x-ray: 09/25/2023 PAIN EVALUATION 10/06/2023 1528 Pain Level: 3 Pain Location: Wrist-Right Description: Numbness;Dull Duration Amount of Time: -- few weeks Frequency: Continuous Intervention/Comfort measure: Other: See comment wrist brace HPI 18 y/o female, right hand dominant, right dorsal wrist pain x 2 weeks. History of episodic wrist pain over the past 3 years. Usually related to repetitive activity. Occasional numbness, weakness intoright hand. No history of prior injury. Review of Systems ACTIVE PROBLEM LIST Social Anxiety Disorder of Childhood Dysmenorrhea PAST MEDICAL HISTORY Diagnosis Date NEGATIVE MEDICAL HISTORY PAST SURGICAL HISTORY Procedure Laterality Date NONE FAMILY HISTORY Problem Relation Age of Onset other (MVP) Mother Social History Tobacco Use Smoking status: Never Smokeless tobacco: Never Vaping Use Vaping Use: Never used Substance Use Topics Alcohol use: Never Drug use: Never ALLERGIES No Known Allergies MEDICATIONS: escitalopram oxalate (LEXAPRO) 10 mg tablet Take 0.5 tablets by mouth once daily. APRI 0.15-0.03 mg per tablet etodolac (LODINE) 400 mg tablet Take 1 tablet by mouth two times a day. Allergies, medications, past surgical history, family history and past medical history were reviewed per this encounter. Objective Ortho Exam Alert, no distress, right wrist- tender soft tissue mass over dorsal aspect of wrist. No pain over snuffbox or ulnar styloid. Hand outsole cutter machine 5/5. No focal sensorineural deficits. Assessment/Plan ASSESSMENT Diagnosis (M67.431) Ganglion cyst of dorsum of right wrist (primary encounter diagnosis) Plan: MRI WRIST WO IVCON RIGHT (M25.531) Acute wrist pain, right Plan: CONSULT TO ORTHOPAEDICS Office Visit on 10/06/23 MRI WRIST WO IVCON RIGHT CONSULT TO ORTHOPAEDICS PLAN suspect ganglion cyst of wrist, with chronic symptoms- Imaging to confirm consult to ortho-hand FOLLOW-UP: No follow-ups on file. SIGNATURE: Dru Nowak DO PATIENT NAME: Maritza Garay DATE: October 06, 2023 TIME: 3:46 PM * Polina Griffiths Ma - 10/06/2023 3:30 PM EST AMB ROOMING INTAKE FLOWSHEET DATA Pain Pain Level: 3 Pain Location: Wrist-Right Description: Numbness, Dull Duration Amount of Time: (few weeks) Frequency: Continuous Intervention/Comfort measure: Other: See comment (wrist brace) documented in this encounterC[facility]01-22-2024 History of Present illness Narrative* Vanessa Wong RT(R) - 09/25/2023 5:40 PM EST Radiology Service Progress Note PATIENT NAME: Maritza Garay DATE OF SERVICE: September 25, 2023 TIME: 5:51 PM PATIENT IDENTITY VERIFICATION COMPLETED USING TWO (2) IDENTIFIERS: Name and Date of confirmedby patient verbally. FALL SCREENING: Has the patient had 2 falls in the last year or 1 fall with injury or currently using an Ambulatory Assistive Device (Walker, Cane, Wheelchair, Crutches, etc.)? No PATIENT GENDER DATA: Female. status: : No status: NO. PATIENT RELEVANT IMPLANT DATA REVIEWED: Not Applicable RADIOLOGY DEPARTMENT: General X-ray: Exam(s) Completed: Upper Extremity X- Ray(s): Wrist, right PERIPHERAL IV DATA: Not applicable SIGNED BY: RT Jaguar(R) September 25, 2023 5:51 PM documented in this encounterCleveland Clinic [facility]08-15-2022 Instructions* Patient Instructions* Rea Polo MD - 04/18/2022 4:58 PM EDT [facility] [place]: [facility] It may be worthwhile for Maritza to see a plastic worker for her heavy periods and cramping documented in this encounterCleveland Clinic [facility]08-15-2022 History of Present illness Narrative* Rea Polo MD - 04/18/2022 4:38 PM EDT WELL VISIT PEDIATRIC FEMALE 14-17 YRS OLD SERVICE DATE: 04/18/2022 Maritza is a 16 year old female who presents today for well exam accompanied by her mother. SUBJECTIVE CONCERNS: no concerns HISTORY ACTIVE PROBLEM LIST Social Anxiety Disorder of Childhood - 08/11/2017 PAST MEDICAL HISTORY Diagnosis Date NEGATIVE MEDICAL HISTORY PAST SURGICAL HISTORY Procedure Laterality Date NONE ALLERGIES No Known Allergies Medications: No prescriptions on file. FAMILY HISTORY Problem Relation Age of Onset other (MVP) Mother Social History Social History Narrative Not on file Smoking Exposure: Does your child spend a significant amount of time in the care of anyone who smokes? No School: Grade: 11th; grades B. Physical Activity: more than 1 hour of physical activity per day Screen Time totaling more than 2 hours of screen time per day. Safety: Pediatric SDOH - Response to gun questions 04/14/2022 Are there any guns kept in or around your home or where your child spends time? Decline Reviewed seat belts, bike helmets, and smoke detectors Diet: -Eats 3 meals per day and 0 snacks per day -Typical beverages include water -Fruits and vegetables are eaten with nearly every meal Elimination: no concerns, normal size and consistency Dental: dental care current Sleep: -no sleep concerns Yes, cell phone turned off before bedtime- No -television in bedroom -computer in bedroom Gynecological history: LMP: 04/11/22 Cycles are irregular and last 10 days. Menarche: 11 years of age. Dysmenorrhea: severe Heavy periods: yes Substance use: none Sexual History: Attraction: male Sexually Active: No Body image: unsatisfactory Screening tools reviewed and discussed with patient/[id number]-[id number]-J and Social Determinants of Health.Please see Patient Entered Data. REVIEW OF SYSTEMS GENERAL: No fevers EYES: No vision concerns ENT: No hearing concerns RESPIRATORY: Negative for cough, wheezing or respiratory distress CARDIOVASCULAR: Negative for chest pain, syncope, lightheadness or heart racing SKIN: Negative for lesions, rash, and itching ENDOCRINE: No growth concerns OBJECTIVE Physical Exam: BP 116/78 Pulse 80 Temp 36.5 C (97.7 F) (Temporal) Resp 20 Ht 167.9 cm (5' 6.1) Wt 67.1 kg (148 lb) LMP 04/11/2022 BMI 23.81 kg/m Blood pressure percentiles are 71 % systolic and 91 % diastolic based on the 2017 AAP Clinical Practice Guideline. This reading is in the normal blood pressure range. 76 %ile (Z= 0.71) based on [facility] (Girls, 2-20 Years) BMI-for-age based on BMI available as of 04/18/2022. Last BMI: Wt: 67.3 kg (148 lb 6.4 oz) (85 %, Z= 1.04)* BMI: 24.28 kg/(m^2) Last 4 Encounter Wt Readings: Date: Wt: 08/09/2021 67.3 kg (148 lb 6.4 oz) (85 %, Z= 1.04)* 07/25/2018 73 kg (161 lb) (96 %, Z= 1.71)* 07/06/2018 71.7 kg (158 lb) (95 %, Z= 1.66)* 01/08/2018 73.9 kg (163 lb) (97 %, Z= 1.88)* Last 4 Encounter Ht Readings: Date: Ht: 07/06/2018 166.5 cm (5' 5.55) (84 %, Z= 0.99)* 06/09/2017 163.8 cm (5' 4.5) (87 %, Z= 1.14)* 06/03/2016 153.7 cm (5' 0.5) (73 %, Z= 0.61)* 07/08/2014 141.7 cm (4' 7.8) (76 %, Z= 0.70)* General: Well developed, No acute distress Head: normocephalic Eyes: conjunctivae/corneas clear Ears: normal external ear and canal, tympanic membranes with normal landmarks Nose: no erythema or rhinorrhea Oropharynx: moist mucous membranes, no erythema or exudate Neck: Supple, no adenopathy; thyroid symmetric, normal size, no bruits Spine: Back symmetric, no curvature Resp: lungs clear to auscultation Heart: RRR, normal S1 and S2. , No murmurs Abdomen: Soft, nontender, nondistended, no palpable organomegaly or masses, normal bowel sounds Extremities: No clubbing, cyanosis, or edema., No deformities or skin discoloration. Good capillaryrefill. Full range of motion. Neuro: No focal deficits or abnormal findings present Skin: no rashes, lesions or jaundice ASSESSMENT & PLAN Well 16yo Anxious mood - recommend counseling Dysmenorrhea - consider gynecology evaluation 76 %ile (Z= 0.71) based on CDC (Girls, 2-20 Years) BMI-for-age based on BMI available as of 04/18/2022. Maritza is normal weight (BMI 5th% - 84th%): -To maintain a healthy weight, discussed limiting screen time to less than 2 hours per day, physical activity for at least one hour per day, 5 servings of fruits and vegetables per day, 3 meals per day, family meals ar home and no sugar containing beverages Based on PHQ-A Score: (recommended cut off score is 11) and interview, presentation is consistent with possible depression: -Referred to psychology for further evaluation - Adolescent anticipatory guidance discussed. - Discussed diet and safety. - Dental care discussed. - Busaps handout given (See Patient Instructions). - Parent/guardian was counseled [id number] by myself (the billing provider) for the following immunizations and vaccine components, including side effects: MenQuadFi. Parent/guardian consents for immunization and understands risks and benefits. A VIS sheet on each immunization was given to the parent/guardian. - Follow up in one year for routine physical. SIGNATURE: Rea Polo MD PATIENT NAME: Maritza Garay DATE: April 18, 2022 TIME: 4:38 PM documented in this encounterCleveland Clinic [facility]04-18-2022 History of Present illness Narrative* Jna Shipman APRN.PIER HAND - 12/20/2021 5:51 PM EDT Temp (!) (P) 39.2 C (102.6 F) Wt (P) 66.5 kg (146 lb 9.6 oz) LMP 05/19/2018 hr 134 resp 24 Patient presents to urgent care accompanied by mother. Chief complaint flulike symptoms. Mother states patient has been getting dizzy today. On presentation patient did have near syncopal episode. Patient states she is feeling better after laying down. When patient sat up and walked around exam room she became dizzy again. With patient's presenting symptoms multiple near syncopal episodes I recommended patient be seen in ED for further evaluation care. EMS transport offered mother declined. Will be seen at [facility] further evaluation care. Jan Shipman APRN.THELMA documented in this encounterCleveland Clinic [facility]06-24-2021 History of Present illness Narrative* Didi Cao Tech - 02/25/2021 8:30 AM EDT Radiology Service Progress Note PATIENT NAME: Maritza Garay DATE OF SERVICE: February 25, 2021 TIME: 9:08 AM PATIENT IDENTITY VERIFICATION COMPLETED USING TWO (2) IDENTIFIERS: Name and Date of confirmedby patient verbally. FALL SCREENING: Has the patient had 2 falls in the last year or 1 fall with injury or currently using an Ambulatory Assistive Device (Walker, Cane, Wheelchair, Crutches, etc.)? No PATIENT GENDER DATA: Female. status: : No status: NO. PATIENT RELEVANT IMPLANT DATA REVIEWED: Not Applicable RADIOLOGY DEPARTMENT: General X-ray: Exam(s) Completed: Upper Extremity X- Ray(s): Wrist, right PERIPHERAL IV DATA: Not applicable SIGNED BY: Yola Vann February 25, 2021 9:08 AM documented in this encounterCleveland Clinic [facility]11-04-2014 History of Past illness Narrative* Problem Noted Date Resolved Date Nocturnal enuresis 07/08/2014 04/18/2022 documented as of this encounter (statuses as of 04/18/2022) [facility] History of Past illness Narrative* Problem Noted Date Diagnosed Date Resolved Date Nocturnal enuresis 07/08/2014 documented as of this encounter (statuses as of 10/06/2023) [facility] History of Past illness Narrative* Problem Noted Date Diagnosed Date Resolved Date Nocturnal enuresis 07/08/2014 2 documented as of this encounter (statuses as of 10/17/2023) [address]04-2014 History of Past illness Narrative* Problem Noted Date Diagnosed Date Resolved Date Nocturnal enuresis 07/08/2014 2 documented as of this encounter (statuses as of 10/25/2023) [address]04-2014 History of Past illness Narrative* Problem Noted Date Diagnosed Date Resolved Date Nocturnal enuresis 07/08/2014 2 documented as of this encounter (statuses as of 11/03/2023) [address]04-2014 History of Past illness Narrative* Problem Noted Date Diagnosed Date Resolved Date Nocturnal enuresis 07/08/2014 2 documented as of this encounter (statuses as of 11/03/2023) [address]04-2014 History of Past illness Narrative* Problem Noted Date Diagnosed Date Resolved Date Nocturnal enuresis 07/08/2014 2 documented as of this encounter (statuses as of 11/24/2023) [place] [address]-04-2014 History of Past illness Narrative* Problem Noted Date Diagnosed Date Resolved Date Nocturnal enuresis 07/08/2014 2 documented as of this encounter (statuses as of 12/05/2023) [address]04-2014 History of Past illness Narrative* Problem Noted Date Diagnosed Date Resolved Date Nocturnal enuresis 07/08/2014 2 documented as of this encounter (statuses as of 12/09/2023) [place] [birth year] History of Past illness Narrative* Problem Noted Date Diagnosed Date Resolved Date Nocturnal enuresis 07/08/2014 2 documented as of this encounter (statuses as of 12/18/2023) [address]04-2014 History of Past illness Narrative* Problem Noted Date Diagnosed Date Resolved Date Nocturnal enuresis 07/08/2014 2 documented as of this encounter (statuses as of 12/22/2023) [facility] Diagnosis Procedure not carried out- Primary Procedure not carried out for other reasons [facility] Diagnosis Encounter for immunization- Primary Need for other specified prophylactic vaccination against single bacterial disease Dysmenorrhea Encounter for routine child health examination without abnormal findings Routine infant or child health check documented in this encounter [facility] note* Diagnosis Ganglion cyst of dorsum of right wrist- Primary Acute wrist pain, right documented in this encounter [facility] note* Diagnosis MDD (major depressive disorder), single episode, moderate (HCC) Major depressive disorder, single episode, moderate documented in this encounter [facility] note* Diagnosis Ganglion cyst of dorsum of right wrist documented in this encounter [facility] note* Diagnosis MDD (major depressive disorder), single episode, moderate (HCC) Major depressive disorder, single episode, moderate documented in this encounter [facility] note* Diagnosis MDD (major depressive disorder), single episode, moderate (HCC)- Primary Major depressive disorder, single episode, moderate documented in this encounter [facility] note* Diagnosis Ganglion cyst- Primary Ganglion, unspecified Right wrist pain Pain in joint, forearm documented in this encounter [facility] note* Diagnosis Ganglion cyst of wrist, right- Primary Ganglion cyst of wrist, right documented in this encounter [facility] note* Diagnosis KAREEM (generalized anxiety disorder)- Primary Generalized anxiety disorder MDD (major depressive disorder), single episode, moderate (HCC) Major depressive disorder, single episode, moderate Social anxiety disorder Social phobia Eating disorder, unspecified type Marijuana use Cannabis abuse, unspecified Ganglion cyst of wrist, right documented in this encounter [facility] note* Diagnosis Acute UTI- Primary Urinary tract infection, site not specified Ganglion cyst of wrist, right [facility] Diagnosis KAREEM (generalized anxiety disorder)- Primary Generalized anxiety disorder MDD (major depressive disorder), single episode, moderate (HCC) Major depressive disorder, single episode, moderate Social anxiety disorder Social phobia Eating disorder, unspecified type Marijuana use Cannabis abuse, unspecified Ganglion cyst of wrist, right documented in this encounter [facility] note* Diagnosis URI, acute- Primary Acute upper respiratory infections of unspecified site Seasonal allergies Allergic rhinitis, cause unspecified Ganglion cyst of wrist, right [facility] Diagnosis Seasonal allergies Allergic rhinitis, cause unspecified Ganglion cyst of wrist, right [facility]* Diagnosis Pre-operative examination- Primary Preoperative examination, unspecified MDD (major depressive disorder), single episode, moderate (HCC) Major depressive disorder, single episode, moderate 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 Ganglion cyst of wrist, right * Assessment & Plan Note - Ana Maria Evans APRN.CNP - 03/21/2024 6:39 PM EDT Associated Problem(s): Social anxiety disorder of childhood Assessment: rx as needed * Assessment & Plan Note - Ana Maria Evans APRN.CNP - 03/21/2024 6:38 PM EDT Associated Problem(s): MDD (major depressive disorder), single episode, moderate (HCC) Assessment: stable on rx per pt [facility] Diagnosis Rash and nonspecific skin eruption- Primary Rash and other nonspecific skin eruption Acute bacterial conjunctivitis of right eye Ganglion cyst of wrist, right [facility]* Diagnosis Seasonal allergies Allergic rhinitis, cause unspecified [facility]* Diagnosis KAREEM (generalized anxiety disorder)- Primary Generalized anxiety disorder MDD (major depressive disorder), single episode, moderate (HCC) Major depressive disorder, single episode, moderate Social anxiety disorder Social phobia Eating disorder, unspecified type Marijuana use Cannabis abuse, unspecified Decreased libido Nausea Nausea alone Dizziness Dizziness and giddiness [facility] Ganglion [facility] of wrist, right- Primary Right wrist pain Pain in joint, forearm [facility]* Diagnosis Pre-operative examination- Primary Preoperative examination, unspecified MDD (major depressive disorder), single episode, moderate (HCC) Major depressive disorder, single episode, moderate 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 Seasonal allergies Allergic rhinitis, cause unspecified [facility] Diagnosis Pre-operative examination- Primary Preoperative examination, unspecified MDD (major depressive disorder), single episode, moderate (HCC) Major depressive disorder, single episode, moderate 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 Ganglion cyst of wrist, right- Primary [facility] Diagnosis Pre-operative examination- Primary Preoperative examination, unspecified MDD (major depressive disorder), single episode, moderate (HCC) Major depressive disorder, single episode, moderate 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 Ganglion cyst of wrist, right- Primary Right wrist pain Pain in joint, forearm [facility] Diagnosis Pre-operative examination- Primary Preoperative examination, unspecified MDD (major depressive disorder), single episode, moderate (HCC) Major depressive disorder, single episode, moderate 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 Ganglion cyst of wrist, right [facility] Diagnosis Acute wrist pain, right Pre-operative examination- Primary Preoperative examination, unspecified MDD (major depressive disorder), single episode, moderate (HCC) Major depressive disorder, single episode, moderate 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 documented in this encounter [facility] note* Diagnosis Pre-operative examination- Primary Preoperative examination, unspecified MDD (major depressive disorder), single episode, moderate (HCC) Major depressive disorder, single episode, moderate 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 Rash and nonspecific skin eruption- Primary Rash and other nonspecific skin eruption [facility] Diagnosis Pre-operative examination- Primary Preoperative examination, unspecified MDD (major depressive disorder), single episode, moderate (HCC) Major depressive disorder, single episode, moderate 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 Seasonal allergies Allergic rhinitis, cause unspecified [facility]* Diagnosis Pain Generalized pain Pre-operative examination- Primary Preoperative examination, unspecified MDD (major depressive disorder), single episode, moderate (HCC) Major depressive disorder, single episode, moderate 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 [facility]* Diagnosis Pre-operative examination- Primary Preoperative examination, unspecified MDD (major depressive disorder), single episode, moderate (HCC) Major depressive disorder, single episode, moderate 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 Malaise and fatigue- Primary Other malaise and fatigue documented in this encounter [facility] note* Diagnosis Pre-operative examination- Primary Preoperative examination, unspecified MDD (major depressive disorder), single episode, moderate (HCC) Major depressive disorder, single episode, moderate 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 KAREEM (generalized anxiety disorder)- Primary Generalized anxiety disorder MDD (major depressive disorder), single episode, moderate (HCC) Major depressive disorder, single episode, moderate Social anxiety disorder Social phobia Eating disorder, unspecified type Marijuana use Cannabis abuse, unspecified Nausea Nausea alone [facility]* Diagnosis Pre-operative examination- Primary Preoperative examination, unspecified MDD (major depressive disorder), single episode, moderate (HCC) Major depressive disorder, single episode, moderate 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 Seasonal allergies Allergic rhinitis, cause unspecified [facility]* Diagnosis Pre-operative examination- Primary Preoperative examination, unspecified MDD (major depressive disorder), single episode, moderate (HCC) Major depressive disorder, single episode, moderate 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 KAREEM (generalized anxiety disorder)- Primary Generalized anxiety disorder MDD (major depressive disorder), single episode, moderate (HCC) Major depressive disorder, single episode, moderate Social anxiety disorder Social phobia Eating disorder, unspecified type Nausea Nausea alone Drug-induced constipation Other constipation Encounter for long-term (current) use of medications Encounter for long-term (current) use of other medications documented in this encounter [facility] note* Diagnosis Pre-operative examination- Primary Preoperative examination, unspecified MDD (major depressive disorder), single episode, moderate (HCC) Major depressive disorder, single episode, moderate 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 Urinary frequency- Primary documented in this encounter [facility] note* Diagnosis Pre-operative examination- Primary Preoperative examination, unspecified MDD (major depressive disorder), single episode, moderate (HCC) Major depressive disorder, single episode, moderate 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 Urinary frequency- Primary documented in this encounter [facility] note* Diagnosis Pre-operative examination- Primary Preoperative examination, unspecified MDD (major depressive disorder), single episode, moderate (HCC) Major depressive disorder, single episode, moderate 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 Encounter to establish care- Primary Other reasons for seeking consultation Seasonal allergies Allergic rhinitis, cause unspecified [facility]* Diagnosis Pre-operative examination- Primary Preoperative examination, unspecified MDD (major depressive disorder), single episode, moderate (HCC) Major depressive disorder, single episode, moderate 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 Encounter for long-term (current) use of medications- Primary Encounter for long-term (current) use of other medications KAREEM (generalized anxiety disorder) Generalized anxiety disorder MDD (major depressive disorder), single episode, moderate (HCC) Major depressive disorder, single episode, moderate Social anxiety disorder Social phobia Eating disorder, unspecified type Drug-induced constipation Other constipation [facility] Diagnosis Pre-operative examination- Primary Preoperative examination, unspecified MDD (major depressive disorder), single episode, moderate (HCC) Major depressive disorder, single episode, moderate 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 KAREEM (generalized anxiety disorder)- Primary Generalized anxiety disorder Encounter for long-term (current) use of medications Encounter for long-term (current) use of other medications Severe episode of recurrent major depressive disorder, without psychotic features (HCC) Psychosocial stressors Other psychological or physical stress, not elsewhere classified Social anxiety disorder Social phobia Insomnia due to other mental disorder [facility] Diagnosis Pre-operative examination- Primary Preoperative examination, unspecified MDD (major depressive disorder), single episode, moderate (HCC) Major depressive disorder, single episode, moderate 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 Urinary frequency- Primary Urinary tract infection with hematuria, site unspecified Hematuria, unspecified type Proteinuria, unspecified type [facility] Diagnosis Pre-operative examination- Primary Preoperative examination, unspecified MDD (major depressive disorder), single episode, moderate (HCC) Major depressive disorder, single episode, moderate 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 Seasonal allergies Allergic rhinitis, cause unspecified [facility] Diagnosis Pre-operative examination- Primary Preoperative examination, unspecified MDD (major depressive disorder), single episode, moderate (HCC) Major depressive disorder, single episode, moderate 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 MDD (major depressive disorder), recurrent episode, moderate (HCC)- Primary Major depressive disorder, recurrent episode, moderate KAREEM (generalized anxiety disorder) Generalized anxiety disorder Psychosocial stressors Other psychological or physical stress, not elsewhere classified Encounter for long-term (current) use of medications Encounter for long-term (current) use of other medications Insomnia due to other mental disorder documented in this encounter [facility] for referral (narrative)* Diagnostic Procedure Only (Urgent) - Closed Specialty Diagnoses / Procedures Referred By Contac t Referred To Contact XR IMAGING Diagnoses Acute wrist pain, right Procedures XR WRIST GENERAL 3V PA/LAT/OBL RIGHT RADEX WRIST COMPLETE MINIMUM 3 VIEWS Kevin Randolph MD [address] [place] [address] [place] [address] Referral ID Status Reason Start Date Expiration Date V isits Requested Visits Authorized [id number] Closed Auto-Generate d Referral 09/25/2023 10/24/2024 1 1 [facility] for referral (narrative)No reason for referral information [facility]: Reason for visit Narrative* Diagnostic Procedure Only (Urgent) - Closed Specialty Diagnoses / Procedures Referred By Contac t Referred To Contact XR IMAGING Diagnoses Acute wrist pain, right Procedures XR WRIST GENERAL 3V PA/LAT/OBL RIGHT RADEX WRIST COMPLETE MINIMUM 3 VIEWS Kevin Randolph MD [address] [place] [address] [place] [address] Referral ID Status Reason Start Date Expiration Date V isits Requested Visits Authorized [id number] Closed Auto-Generate d Referral 09/25/2023 10/24/2024 1 1 [facility] Reason for Referral Specialty Diagnoses / Procedures Referred By Contac t Referred To Contact MR IMAGING Diagnoses Ganglion cyst of dorsum of right wrist Procedures MRI WRIST WO IVCON RIGHT MRI ANY JT UPPER EXTREMITY W/O CONTRAST Dru Chen V, DO [address] [place] [address] [place] [address] Referral ID Status Reason Start Date Expiration Date Visits Requested Visits Authorized [id number] Authorized Auto-Generat ed Referral 10/06/2023 11/04/2024 1 1 Specialty Diagnoses / Procedures Referred By Contac t Referred To Contact Diagnoses MDD (major depressive disorder), single episode, moderate (HCC) Procedures CONSULT TO PSYCHIATRY OFFICE/OUTPATIENT [facility] 60 MINUTES Rea Polo MD [address] [place] [address] Referral ID Status Reason Start Date Expiration Date Visits Requested Visits Authorized [id number] Pending Review PCP Requested Referral 11/24/2023 11/23/2024 1 1 Specialty Diagnoses / Procedures Referred By Contac t Referred To Contact [facility] Diagnoses Ganglion cyst of wrist, right Procedures CONSULT TO RESEARCH PROGRAM MANAGER OCCUPATIONAL THERAPY EVAL HIGH COMPLEX 60 MINS Shraddha Lozoya PA-C [address] [place] [address] [facility] [address] [place] [address] Referral ID Status Reason Start Date Expiration Date Visits Requested Visits Authorized [id number] Pending Review Auto-Generat ed Referral 05/09/2024 05/09/2025 1 1 Summary Purpose Family History No Family History Records Found Relationship Condition Age at Onset Recorded Date/T kelly sister Asthma Unknown Relationship Condition Age at Onset Recorded Date/T kelly sister Asthma Unknown grandmother Celiac disease Unknown Irritable bowel syndrome Unknown Gastric ulcer Unknown Advance Directives No Advanced Directives Records Found Advance Directive Response Recorded Date/ Time Living Will No November 23, 2024 2:56pm Do you have a Healthcare Power of Manufacturing Sales Representative? No November 23, 2024 2:56pm Advance Directives No April 30, 2015 1:06pm Advance Directive Response Recorded Date/ Time Advance Directives No April 30, 2015 1:06pm Chief Complaint and Reason for Visit Chief Complaint Admit Date NEXPLANON REMOVAL/DISCUSS DIFFERENT BC F ebruary 2024 3:33pm ABD November 23, 2024 2:4 5pm Reason for Visit Admit Date Contraceptive management November 01, 2024 3:33pm Chief Complaint Admit Date NEXPLANON REMOVAL/DISCUSS DIFFERENT BC F ebruary 2024 3:33pm ABD November 23, 2024 2:4 5pm pelvic cramping no bleeding November 28, 2024 8:59am Reason for Visit Admit Date Contraceptive management November 01, 2024 3:33pm Pelvic pain November 28, 2024 8:5 9am Possible exposure to STI November 28 8:59am Chief Complaint Admit Date NEXPLANON REMOVAL/DISCUSS DIFFERENT BC F ebruary 2024 3:33pm ABD November 23, 2024 2:4 5pm pelvic cramping no bleeding November 28, 2024 8:59am PERSISTANT PELVIC PAIN December 09, 2024 4 :29pm Chief Complaint Admit Date NEXPLANON REMOVAL/DISCUSS DIFFERENT BC F ebruary 2024 3:33pm ABD November 23, 2024 2:4 5pm pelvic cramping no bleeding November 28, 2024 8:59am PERSISTANT PELVIC PAIN December 09, 2024 4 :29pm PELVIC AND PERINEAL PAIN December 24 8:09am ABD PAIN December 30, 2024 10: 07am 2 W FU January 09, 2025 2:47pm ABDOMINAL PAIN February 26, 2025 8:33 am Reason for Visit Admit Date Contraceptive management November 01, 2024 3:33pm Pelvic pain November 28, 2024 8:5 9am Possible exposure to STI November 28 8:59am Diarrhea December 24, 2024 8:0 9am Early satiety December 24, 2024 8:0 9am Nausea December 24, 2024 8:0 9am Pelvic pain December 24, 2024 8:0 9am Weight loss December 24, 2024 8:0 9am Diarrhea January 09, 2025 2:47pm Nausea January 09, 2025 2:47pm Pelvic pain January 09, 2025 2:47pm Chief Complaint Admit Date ABD November 23, 2024 2:4 5pm pelvic cramping no bleeding November 28, 2024 8:59am PERSISTANT PELVIC PAIN December 09, 2024 4 :29pm PELVIC AND PERINEAL PAIN December 24 8:09am ABD PAIN December 30, 2024 10: 07am 2 W FU January 09, 2025 2:47pm ABDOMINAL PAIN February 26, 2025 8:33 am Test Result March 03, 2025 7:50 am Reason for Visit Admit Date Pelvic pain November 28, 2024 8:5 9am Possible exposure to STI November 28 8:59am Diarrhea December 24, 2024 8:0 9am Early satiety December 24, 2024 8:0 9am Nausea December 24, 2024 8:0 9am Pelvic pain December 24, 2024 8:0 9am Weight loss December 24, 2024 8:0 9am Diarrhea January 09, 2025 2:47pm Nausea January 09, 2025 2:47pm Pelvic pain January 09, 2025 2:47pm Chief Complaint Admit Date ABD November 23, 2024 2:4 5pm pelvic cramping no bleeding November 28, 2024 8:59am PERSISTANT PELVIC PAIN December 09, 2024 4 :29pm PELVIC AND PERINEAL PAIN December 24 8:09am ABD PAIN December 30, 2024 10: 07am 2 W FU January 09, 2025 2:47pm ABDOMINAL PAIN February 26, 2025 8:33 am Test Result March 03, 2025 3:53 pm Chief Complaint Admit Date PELVIC AND PERINEAL PAIN December 24 8:09am ABD PAIN December 30, 2024 10: 07am 2 W FU January 09, 2025 2:47pm ABDOMINAL PAIN February 26, 2025 8:33 am Test Result March 03, 2025 3:53 pm INT LABS April 03, 2025 9:15 am Reason for Visit Admit Date Diarrhea December 24, 2024 8:0 9am Early satiety December 24, 2024 8:0 9am Nausea December 24, 2024 8:0 9am Pelvic pain December 24, 2024 8:0 9am Weight loss December 24, 2024 8:0 9am Diarrhea January 09, 2025 2:47pm Nausea January 09, 2025 2:47pm Pelvic pain January 09, 2025 2:47pm Additional Source Comments Source Comments (unrecognize d section and content) In the event this informatio n is protected by the Federal Confidentiality of Alcohol and Drug Abuse Patient Records regulations: The Federal rules restrict any use of the information to criminally investigate or prosecute any alcohol or drug abuse patient.[facility] the event this information is protected by the Federal Confidentiality of Alcohol and Drug Abuse Patient Records regulations: The Federal rules restrict any use of the information to criminally investigate or prosecute any alcohol or drug abuse patient.[facility] the event this information is protected by the Federal Confidentiality of Alcohol and Drug Abuse Patient Records regulations: The Federal rules restrict any use of the information to criminally investigate or prosecute any alcohol or drug abuse patient.[facility] the event this information is protected by the Federal Confidentiality of Alcohol and Drug Abuse Patient Records regulations: The Federal rules restrict any use of the information to criminally investigate or prosecute any alcohol or drug abuse patient.[facility] the event this information is protected by the Federal Confidentiality of Alcohol and Drug Abuse Patient Records regulations: The Federal rules restrict any use of the information to criminally investigate or prosecute any alcohol or drug abuse patient.[facility] the event this information is protected by the Federal Confidentiality of Alcohol and Drug Abuse Patient Records regulations: The Federal rules restrict any use of the information to criminally investigate or prosecute any alcohol or drug abuse patient.[facility] the event this information is protected by the Federal Confidentiality of Alcohol and Drug Abuse Patient Records regulations: The Federal rules restrict any use of the information to criminally investigate or prosecute any alcohol or drug abuse patient.[facility] the event this information is protected by the Federal Confidentiality of Alcohol and Drug Abuse Patient Records regulations: The Federal rules restrict any use of the information to criminally investigate or prosecute any alcohol or drug abuse patient.[facility] the event this information is protected by the Federal Confidentiality of Alcohol and Drug Abuse Patient Records regulations: The Federal rules restrict any use of the information to criminally investigate or prosecute any alcohol or drug abuse patient.[facility] HospitalIn the event this information is protected by the Federal Confidentiality of Alcohol and Drug Abuse Patient Records regulations: The Federal rules restrict any use of the information to criminally investigate or prosecute any alcohol or drug abuse patient.[facility] HospitalIn the event this information is protected by the Federal Confidentiality of Alcohol and Drug Abuse Patient Records regulations: The Federal rules restrict any use of the information to criminally investigate or prosecute any alcohol or drug abuse patient.[facility] HospitalIn the event this information is protected by the Federal Confidentiality of Alcohol and Drug Abuse Patient Records regulations: The Federal rules restrict any use of the information to criminally investigate or prosecute any alcohol or drug abuse patient.[facility] HospitalIn the event this information is protected by the Federal Confidentiality of Alcohol and Drug Abuse Patient Records regulations: The Federal rules restrict any use of the information to criminally investigate or prosecute any alcohol or drug abuse patient.[facility] HospitalIn the event this information is protected by the Federal Confidentiality of Alcohol and Drug Abuse Patient Records regulations: The Federal rules restrict any use of the information to criminally investigate or prosecute any alcohol or drug abuse patient.[facility] HospitalIn the event this information is protected by the Federal Confidentiality of Alcohol and Drug Abuse Patient Records regulations: The Federal rules restrict any use of the information to criminally investigate or prosecute any alcohol or drug abuse patient.[facility] HospitalIn the event this information is protected by the Federal Confidentiality of Alcohol and Drug Abuse Patient Records regulations: The Federal rules restrict any use of the information to criminally investigate or prosecute any alcohol or drug abuse patient.[facility] HospitalIn the event this information is protected by the Federal Confidentiality of Alcohol and Drug Abuse Patient Records regulations: The Federal rules restrict any use of the information to criminally investigate or prosecute any alcohol or drug abuse patient.[facility] HospitalIn the event this information is protected by the Federal Confidentiality of Alcohol and Drug Abuse Patient Records regulations: The Federal rules restrict any use of the information to criminally investigate or prosecute any alcohol or drug abuse patient.[facility] HospitalIn the event this information is protected by the Federal Confidentiality of Alcohol and Drug Abuse Patient Records regulations: The Federal rules restrict any use of the information to criminally investigate or prosecute any alcohol or drug abuse patient.[facility] HospitalIn the event this information is protected by the Federal Confidentiality of Alcohol and Drug Abuse Patient Records regulations: The Federal rules restrict any use of the information to criminally investigate or prosecute any alcohol or drug abuse patient.[facility] HospitalIn the event this information is protected by the Federal Confidentiality of Alcohol and Drug Abuse Patient Records regulations: The Federal rules restrict any use of the information to criminally investigate or prosecute any alcohol or drug abuse patient.[facility] HospitalIn the event this information is protected by the Federal Confidentiality of Alcohol and Drug Abuse Patient Records regulations: The Federal rules restrict any use of the information to criminally investigate or prosecute any alcohol or drug abuse patient.[facility] HospitalIn the event this information is protected by the Federal Confidentiality of Alcohol and Drug Abuse Patient Records regulations: The Federal rules restrict any use of the information to criminally investigate or prosecute any alcohol or drug abuse patient.[facility] HospitalIn the event this information is protected by the Federal Confidentiality of Alcohol and Drug Abuse Patient Records regulations: The Federal rules restrict any use of the information to criminally investigate or prosecute any alcohol or drug abuse patient.[facility] HospitalIn the event this information is protected by the Federal Confidentiality of Alcohol and Drug Abuse Patient Records regulations: The Federal rules restrict any use of the information to criminally investigate or prosecute any alcohol or drug abuse patient.[facility] HospitalIn the event this information is protected by the Federal Confidentiality of Alcohol and Drug Abuse Patient Records regulations: The Federal rules restrict any use of the information to criminally investigate or prosecute any alcohol or drug abuse patient.[facility] HospitalIn the event this information is protected by the Federal Confidentiality of Alcohol and Drug Abuse Patient Records regulations: The Federal rules restrict any use of the information to criminally investigate or prosecute any alcohol or drug abuse patient.[facility] HospitalIn the event this information is protected by the Federal Confidentiality of Alcohol and Drug Abuse Patient Records regulations: The Federal rules restrict any use of the information to criminally investigate or prosecute any alcohol or drug abuse patient.[facility] HospitalIn the event this information is protected by the Federal Confidentiality of Alcohol and Drug Abuse Patient Records regulations: The Federal rules restrict any use of the information to criminally investigate or prosecute any alcohol or drug abuse patient.[facility] HospitalIn the event this information is protected by the Federal Confidentiality of Alcohol and Drug Abuse Patient Records regulations: The Federal rules restrict any use of the information to criminally investigate or prosecute any alcohol or drug abuse patient.[facility] HospitalIn the event this information is protected by the Federal Confidentiality of Alcohol and Drug Abuse Patient Records regulations: The Federal rules restrict any use of the information to criminally investigate or prosecute any alcohol or drug abuse patient.[facility] HospitalIn the event this information is protected by the Federal Confidentiality of Alcohol and Drug Abuse Patient Records regulations: The Federal rules restrict any use of the information to criminally investigate or prosecute any alcohol or drug abuse patient.[facility] HospitalIn the event this information is protected by the Federal Confidentiality of Alcohol and Drug Abuse Patient Records regulations: The Federal rules restrict any use of the information to criminally investigate or prosecute any alcohol or drug abuse patient.[facility] HospitalIn the event this information is protected by the Federal Confidentiality of Alcohol and Drug Abuse Patient Records regulations: The Federal rules restrict any use of the information to criminally investigate or prosecute any alcohol or drug abuse patient.[facility] HospitalIn the event this information is protected by the Federal Confidentiality of Alcohol and Drug Abuse Patient Records regulations: The Federal rules restrict any use of the information to criminally investigate or prosecute any alcohol or drug abuse patient.[facility] HospitalIn the event this information is protected by the Federal Confidentiality of Alcohol and Drug Abuse Patient Records regulations: The Federal rules restrict any use of the information to criminally investigate or prosecute any alcohol or drug abuse patient.[facility] HospitalIn the event this information is protected by the Federal Confidentiality of Alcohol and Drug Abuse Patient Records regulations: The Federal rules restrict any use of the information to criminally investigate or prosecute any alcohol or drug abuse patient.[facility] HospitalIn the event this information is protected by the Federal Confidentiality of Alcohol and Drug Abuse Patient Records regulations: The Federal rules restrict any use of the information to criminally investigate or prosecute any alcohol or drug abuse patient.[facility] HospitalIn the event this information is protected by the Federal Confidentiality of Alcohol and Drug Abuse Patient Records regulations: The Federal rules restrict any use of the information to criminally investigate or prosecute any alcohol or drug abuse patient.[facility] HospitalIn the event this information is protected by the Federal Confidentiality of Alcohol and Drug Abuse Patient Records regulations: The Federal rules restrict any use of the information to criminally investigate or prosecute any alcohol or drug abuse patient.[facility] HospitalIn the event this information is protected by the Federal Confidentiality of Alcohol and Drug Abuse Patient Records regulations: The Federal rules restrict any use of the information to criminally investigate or prosecute any alcohol or drug abuse patient.[facility] HospitalIn the event this information is protected by the Federal Confidentiality of Alcohol and Drug Abuse Patient Records regulations: The Federal rules restrict any use of the information to criminally investigate or prosecute any alcohol or drug abuse patient.[facility] HospitalIn the event this information is protected by the Federal Confidentiality of Alcohol and Drug Abuse Patient Records regulations: The Federal rules restrict any use of the information to criminally investigate or prosecute any alcohol or drug abuse patient.[facility] HospitalIn the event this information is protected by the Federal Confidentiality of Alcohol and Drug Abuse Patient Records regulations: The Federal rules restrict any use of the information to criminally investigate or prosecute any alcohol or drug abuse patient.[facility] HospitalIn the event this information is protected by the Federal Confidentiality of Alcohol and Drug Abuse Patient Records regulations: The Federal rules restrict any use of the information to criminally investigate or prosecute any alcohol or drug abuse patient.[facility] HospitalIn the event this information is protected by the Federal Confidentiality of Alcohol and Drug Abuse Patient Records regulations: The Federal rules restrict any use of the information to criminally investigate or prosecute any alcohol or drug abuse patient.[facility] HospitalIn the event this information is protected by the Federal Confidentiality of Alcohol and Drug Abuse Patient Records regulations: The Federal rules restrict any use of the information to criminally investigate or prosecute any alcohol or drug abuse patient.[facility] HospitalIn the event this information is protected by the Federal Confidentiality of Alcohol and Drug Abuse Patient Records regulations: The Federal rules restrict any use of the information to criminally investigate or prosecute any alcohol or drug abuse patient.[facility] HospitalIn the event this information is protected by the Federal Confidentiality of Alcohol and Drug Abuse Patient Records regulations: The Federal rules restrict any use of the information to criminally investigate or prosecute any alcohol or drug abuse patient.[facility] HospitalIn the event this information is protected by the Federal Confidentiality of Alcohol and Drug Abuse Patient Records regulations: The Federal rules restrict any use of the information to criminally investigate or prosecute any alcohol or drug abuse patient.[facility] HospitalIn the event this information is protected by the Federal Confidentiality of Alcohol and Drug Abuse Patient Records regulations: The Federal rules restrict any use of the information to criminally investigate or prosecute any alcohol or drug abuse patient.[facility] HospitalIn the event this information is protected by the Federal Confidentiality of Alcohol and Drug Abuse Patient Records regulations: The Federal rules restrict any use of the information to criminally investigate or prosecute any alcohol or drug abuse patient.[facility] HospitalIn the event this information is protected by the Federal Confidentiality of Alcohol and Drug Abuse Patient Records regulations: The Federal rules restrict any use of the information to criminally investigate or prosecute any alcohol or drug abuse patient.[facility] HospitalIn the event this information is protected by the Federal Confidentiality of Alcohol and Drug Abuse Patient Records regulations: The Federal rules restrict any use of the information to criminally investigate or prosecute any alcohol or drug abuse patient.[facility] HospitalIn the event this information is protected by the Federal Confidentiality of Alcohol and Drug Abuse Patient Records regulations: The Federal rules restrict any use of the information to criminally investigate or prosecute any alcohol or drug abuse patient.[facility] HospitalIn the event this information is protected by the Federal Confidentiality of Alcohol and Drug Abuse Patient Records regulations: The Federal rules restrict any use of the information to criminally investigate or prosecute any alcohol or drug abuse patient.[facility] HospitalIn the event this information is protected by the Federal Confidentiality of Alcohol and Drug Abuse Patient Records regulations: The Federal rules restrict any use of the information to criminally investigate or prosecute any alcohol or drug abuse patient.[facility] HospitalIn the event this information is protected by the Federal Confidentiality of Alcohol and Drug Abuse Patient Records regulations: The Federal rules restrict any use of the information to criminally investigate or prosecute any alcohol or drug abuse patient.[facility] HospitalIn the event this information is protected by the Federal Confidentiality of Alcohol and Drug Abuse Patient Records regulations: The Federal rules restrict any use of the information to criminally investigate or prosecute any alcohol or drug abuse patient.[facility] HospitalIn the event this information is protected by the Federal Confidentiality of Alcohol and Drug Abuse Patient Records regulations: The Federal rules restrict any use of the information to criminally investigate or prosecute any alcohol or drug abuse patient.[facility] HospitalIn the event this information is protected by the Federal Confidentiality of Alcohol and Drug Abuse Patient Records regulations: The Federal rules restrict any use of the information to criminally investigate or prosecute any alcohol or drug abuse patient.[facility] HospitalIn the event this information is protected by the Federal Confidentiality of Alcohol and Drug Abuse Patient Records regulations: The Federal rules restrict any use of the information to criminally investigate or prosecute any alcohol or drug abuse patient.[facility] HospitalIn the event this information is protected by the Federal Confidentiality of Alcohol and Drug Abuse Patient Records regulations: The Federal rules restrict any use of the information to criminally investigate or prosecute any alcohol or drug abuse patient.[facility] Reason for Visit (unrecogniz ed section and content) Reason Comments Follow Up Specialty Diagnoses / Procedures Referred By Nayely t Referred To Contact Diagnoses Encounter for long-term (current) use of medications Procedures PROVIDER ORDERED FOLLOW UP OFFICE/OUTPATIENT NEW HIGH MDM 60 MINUTES Jeannette Dalal, MEDICAL CASE WORKER.[employer] [address] [place] [address] Phone: tel: fax: Referral ID Status Reason Start Date Expiration Date V isits Requested Visits Authorized [id number] Closed PCP Requested Referral 11/18/2024 11/18/2025 1 1 Reason Comments Follow Up Specialty Diagnoses / Procedures Referred By Nayely t Referred To Contact Psychiatry / ADULT PSYCHIATRY Diagnoses 2 month follow up Procedures VIDEO PSYC/PSYL EST Jeannette Dalal, MEDICAL CASE WORKER.[employer] [address] [place] [address] Jeannette Dalal, MEDICAL CASE WORKER.[employer] [address] [place] [address] Referral ID Status Reason Start Date Expiration Date V isits Requested Visits Authorized [id number] New Request 08/19/2024 11/17/2024 1 1 Reason Comments OT EVAL Specialty Diagnoses / Procedures Referred By Contac t Referred To Contact [facility] Diagnoses Ganglion cyst of wrist, right Procedures CONSULT TO RESEARCH PROGRAM MANAGER OCCUPATIONAL THERAPY EVAL HIGH COMPLEX 60 MINS Shraddha Lozoya PA-C [address] [place] [address] [facility] [address] [place] [address] Referral ID Status Reason Start Date Expiration Date Visits Requested Visits Authorized [id number] Authorized Auto-Generat ed Referral 09/04/2023 09/03/2024 99 99 Reason Comments Fatigue chills, fever, body aches, runny nose x 1 day Reason Comments Well Child 16 year old Reason Comments right wrist pain REF: [facility]a x-ray: Specialty Diagnoses / Procedures Referred By Contac t Referred To Contact Orthopedics Diagnoses Acute wrist pain, right Procedures CONSULT TO ORTHOPAEDICS OFFICE/OUTPATIENT [facility] MDM 60 MINUTES Kevin Randolph MD [address] [place] [address] Referral ID Status Reason Start Date Expiration Date V isits Requested Visits Authorized [id number] Closed PCP Requested Referral 09/25/2023 09/24/2024 1 1 Reason Comments medication check Lexapro 5mg Specialty Diagnoses / Procedures Referred By Contac t Referred To Contact MR IMAGING Diagnoses Ganglion cyst of dorsum of right wrist Procedures MRI WRIST WO IVCON RIGHT MRI ANY JT UPPER EXTREMITY W/O CONTRAST Dru Chen V, DO [address] [place] [address] Mr Imaging [facility] Referral ID Status Reason Start Date Expiration Date V isits Requested Visits Authorized [id number] Closed Auto-Generate d Referral 10/06/2023 11/04/2024 1 1 Reason Comments Results Reason Comments Medication check Lexapro 10mg Reason Comments Med Check Med Check - Pt repor ts no real change ; states continued anxiousness when going places or making phone calls ; states difficulty falling asleep or staying asleep ; states since starting medication, has had a more sensitive stomach, especially with greasy or sugary foods. Reason Onset Date Comments Refill Request 12/04/2023 Reason Onset Date Comments Refill Request 12/09/2023 Reason Comments Schedule Surgery Reason Comments Patient Update Reason Comments New Patient Evaluation Specialty Diagnoses / Procedures Referred By Contac t Referred To Contact Diagnoses MDD (major depressive disorder), single episode, moderate (HCC) Procedures CONSULT TO PSYCHIATRY OFFICE/OUTPATIENT [facility] MDM 60 MINUTES Rea Polo MD [address] [place] [address] Referral ID Status Reason Start Date Expiration Date Visits Requested Visits Authorized [id number] Pending Review PCP Requested Referral 11/24/2023 11/23/2024 1 1 Reason Comments Med Change Request Reason Onset Date Comments Refill Request 01/18/2024 Reason Comments Urinary Problem Frequency, painful u rination, pressure and cramping x 3 days Reason Comments Ear Pain R ear pain x3 days, sneezing, congestion, jaw pain Reason Onset Date Comments Refill Request 02/20/2024 Reason Comments Consult Reason Comments ringworm On scalp, using ACV and OTC creams, check right eye-swollen and crusting x 1 day Reason Comments Short term disability paperwork Reason Comments Established Patient Post Op Reason Comments Post Op 5 weeks 5 days post op 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 Reason Comments Rash On scalp, back of he ad-ongoing issue, also has bump behind right ear and left axilla Reason Comments Refill Request Reason Onset Date Comments Refill Request 05/28/2024 Reason Comments Radio Gen RMP Reason Comments Fatigue Chronic issue, heada arnoldo every morning, would like to get bloodwork to check for anemia, eats a vegetarian diet Reason Comments Urinary Frequency Frequency x 4 days Reason Comments Urinary Frequency Frequency and lower abdominal pain and cramping x 1 week Reason Comments Refill Request Specialty Diagnoses / Procedures Referred By Nayely byrne Referred To Contact Psychiatry / ADULT PSYCHIATRY Diagnoses 3 month follow up Procedures VIDEO PSYC/PSYL EST Jeannette Dalal, MEDICAL CASE WORKER.[employer] [address] [place] [address] Phone: tel: fax: Jeannette Dalal, MEDICAL CASE WORKER.[employer] [address] [place] [address] Phone: tel: fax: Referral ID Status Reason Start Date Expiration Date V isits Requested Visits Authorized [id number] New Request 11/18/2024 02/16/2025 1 1 Reason Comments Urinary Problem Frequency and burnin g x 1 week Specialty Diagnoses / Procedures Referred By Nayely byrne Referred To Contact Diagnoses Encounter for long-term (current) use of medications Procedures PROVIDER ORDERED FOLLOW UP OFFICE/OUTPATIENT [facility] MDM 60 MINUTES Jeannette Dalal, MEDICAL CASE WORKER.[employer] [address] [place] [address] Phone: tel: fax: Referral ID Status Reason Start Date Expiration Date V isits Requested Visits Authorized [id number] Closed PCP Requested Referral 01/13/2025 01/13/2026 1 1 Care Teams (unrecognized sec tion and content) Analyst Relationship Specialty Start Date End Date Rea Polo MD [address] [place], [place] [id number] PCP - General Pediatrics 11/17/11 Analyst Relationship Specialty Start Date End Date Rea Polo MD [address] [place], [place] [id number] PCP - General Pediatrics 11/17/11 Analyst Relationship Specialty Start Date End Date Rea Polo MD [address] [place], [place] [id number] PCP - General Pediatrics 11/17/11 Analyst Relationship Specialty Start Date End Date Rea Polo MD [address] [place], [place] [id number] PCP - General Pediatrics 11/17/11 Analyst Relationship Specialty Start Date End Date Rea Polo MD [address] [place], [place] [id number] PCP - General Pediatrics 11/17/11 Analyst Relationship Specialty Start Date End Date Rea Polo MD [address] [place], [place] [id number] PCP - General Pediatrics 11/17/11 Analyst Relationship Specialty Start Date End Date Rea Polo MD [address] [place], [place] [id number] PCP - General Pediatrics 11/17/11 Analyst Relationship Specialty Start Date End Date Rea Polo MD [address] [place] [address] PCP - General Pediatrics 11/17/11 Analyst Relationship Specialty Start Date End Date Rea Polo MD [address] [place] [address] PCP - General Pediatrics 11/17/11 Analyst Relationship Specialty Start Date End Date Rea Polo MD [address] [place] [address] PCP - General Pediatrics 11/17/11 Analyst Relationship Specialty Start Date End Date Rea Polo MD [address] [place] [address] PCP - General Pediatrics 11/17/11 Analyst Relationship Specialty Start Date End Date Rea Polo MD [address] [place] [address] PCP - General Pediatrics 11/17/11 Analyst Relationship Specialty Start Date End Date Rea Polo MD [address] [place] [address] PCP - General Pediatrics 11/17/11 Analyst Relationship Specialty Start Date End Date Rea Polo MD [address] [place] [address] PCP - General Pediatrics 11/17/11 Analyst Relationship Specialty Start Date End Date Rea Polo MD [address] [place] [address] PCP - General Pediatrics 11/17/11 Analyst Relationship Specialty Start Date End Date Rea Polo MD [address] [place] [address] PCP - General Pediatrics 11/17/11 Analyst Relationship Specialty Start Date End Date Rea Polo MD [address] [place] [address] PCP - General Pediatrics 11/17/11 Analyst Relationship Specialty Start Date End Date Rea Polo MD [address] [place] [address] PCP - General Pediatrics 11/17/11 Analyst Relationship Specialty Start Date End Date Rea Polo MD [address] [place] [address] PCP - General Pediatrics 11/17/11 Analyst Relationship Specialty Start Date End Date Rea Polo MD [address] [place] [address] PCP - General Pediatrics 11/17/11 Analyst Relationship Specialty Start Date End Date Rea Polo MD [address] [place] [address] PCP - General Pediatrics 11/17/11 Analyst Relationship Specialty Start Date End Date Rea Polo MD [address] [place] [address] PCP - General Pediatrics 11/17/11 Analyst Relationship Specialty Start Date End Date Rea Polo MD [address] [place] [address] PCP - General Pediatrics 11/17/11 Analyst Relationship Specialty Start Date End Date Rea Polo MD [address] [place] [address] PCP - General Pediatrics 11/17/11 Analyst Relationship Specialty Start Date End Date Rea Polo MD [address] [place] [address] PCP - General Pediatrics 11/17/11 Analyst Relationship Specialty Start Date End Date Rea Polo MD [address] [place] [address] PCP - General Pediatrics 11/17/11 Analyst Relationship Specialty Start Date End Date Rea Polo MD [address] [place] [address] PCP - General Pediatrics 11/17/11 Analyst Relationship Specialty Start Date End Date Rea Polo MD [address] [place] [address] PCP - General Pediatrics 11/17/11 Analyst Relationship Specialty Start Date End Date Rea Polo MD [address] [place] [address] PCP - General Pediatrics 11/17/11 Team Status: Active Member Role Status Dates Dr. Rea Polo MD Primary Care Provider Active Team Status: Inactive Member Role Status Dates Dr. Rea Ploo MD Primary Care Provider Active Start: November 01, 2024 End: November 01, 2024 Dr. Rea Polo MD Referring Provider Active Start: November 01, 2024 End: November 01, 2024 Bharati Beth CNM Attending Provider Active S tart: November 01, 2024 End: November 01, 2024 Team Status: Inactive Member Role Status Dates Dr. Rea Polo MD Primary Care Provider Active Start: November 23, 2024 End: November 23, 2024 Dr. Graham Birmingham DO Emergency Provider Active S tart: November 23, 2024 End: November 23, 2024 Team Status: Inactive Member Role Status Dates Dr. Rea Polo MD Primary Care Provider Active Start: November 23, 2024 End: November 23, 2024 Dr. Graham Birmingham DO Attending Provider Active S tart: November 23, 2024 End: November 23, 2024 Dr. Graham Birmingham DO Emergency Provider Active S tart: November 23, 2024 End: November 23, 2024 Team Status: Inactive Member Role Status Dates Dr. Rea Polo MD Primary Care Provider Active Start: November 28, 2024 End: November 28, 2024 Dr. Rea Polo MD Referring Provider Active Start: November 28, 2024 End: November 28, 2024 JOSH Burns Attending Provider Active Start: November 28, 2024 End: November 28, 2024 Team Status: Inactive Member Role Status Dates Dr. Rea Polo MD Primary Care Provider Active Start: November 28, 2024 End: November 28, 2024 JOSH Burns Attending Provider Active Start: November 28, 2024 End: November 28, 2024 JOSH Burns Referring Provider Active Start: November 28, 2024 End: November 28, 2024 Team Status: Inactive Member Role Status Dates Dr. Rea Polo MD Primary Care Provider Active Start: December 09, 2024 End: December 09, 2024 JOSH Burns Attending Provider Active Start: December 09, 2024 End: December 09, 2024 JOSH Burns Referring Provider Active Start: December 09, 2024 End: December 09, 2024 Analyst Relationship Specialty Start Date End Date Rea Polo MD [address] [place] [address] PCP - General Pediatrics 11/17/11 Analyst Relationship Specialty Start Date End Date Rea Polo MD [address] [place] [address] PCP - General Pediatrics 11/17/11 Team Status: Active Member Role/Relationship Status Dates Dr. Rea Polo MD Primary Care Provider Active Team Status: Inactive Member Role/Relationship Status Dates Dr. Rea Polo MD Primary Care Provider Active Start: November 01, 2024 End: November 01, 2024 Dr. Rea Polo MD Referring Provider Active Start: November 01, 2024 End: November 01, 2024 Bharati Beth CNM Attending Provider Active S tart: November 01, 2024 End: November 01, 2024 Team Status: Inactive Member Role/Relationship Status Dates Dr. Rea Polo MD Primary Care Provider Active Start: November 23, 2024 End: November 23, 2024 Dr. Graham Birmingham DO Attending Provider Active S tart: November 23, 2024 End: November 23, 2024 Dr. Graham Birmingham DO Emergency Provider Active S tart: November 23, 2024 End: November 23, 2024 Team Status: Inactive Member Role/Relationship Status Dates Dr. Rea Polo MD Primary Care Provider Active Start: November 28, 2024 End: November 28, 2024 Dr. Rea Polo MD Referring Provider Active Start: November 28, 2024 End: November 28, 2024 JOSH Burns Attending Provider Active Start: November 28, 2024 End: November 28, 2024 Team Status: Inactive Member Role/Relationship Status Dates Dr. Rea Polo MD Primary Care Provider Active Start: November 28, 2024 End: November 28, 2024 JOSH Burns Attending Provider Active Start: November 28, 2024 End: November 28, 2024 JOSH Burns Referring Provider Active Start: November 28, 2024 End: November 28, 2024 Team Status: Inactive Member Role/Relationship Status Dates Dr. Rea Polo MD Primary Care Provider Active Start: December 09, 2024 End: December 09, 2024 Courtney Ac NP-C Attending Provider Active Start: December 09, 2024 End: December 09, 2024 Courtney Ac NP-C Referring Provider Active Start: December 09, 2024 End: December 09, 2024 Team Status: Inactive Member Role/Relationship Status Dates Dr. Rea Polo MD Primary Care Provider Active Start: December 24, 2024 End: December 24, 2024 Dr. Rea Polo MD Referring Provider Active Start: December 24, 2024 End: December 24, 2024 Opal Rock NP-C Attending Provider Active Start: December 24, 2024 End: December 24, 2024 Team Status: Inactive Member Role/Relationship Status Dates Dr. Rea Polo MD Primary Care Provider Active Start: December 30, 2024 End: December 30, 2024 Opal Rock NP-C Attending Provider Active Start: December 30, 2024 End: December 30, 2024 Opal Rock NP-C Referring Provider Active Start: December 30, 2024 End: December 30, 2024 Team Status: Inactive Member Role/Relationship Status Dates Dr. Rea Polo MD Primary Care Provider Active Start: January 09, 2025 End: January 09, 2025 Dr. Rea Polo MD Referring Provider Active Start: January 09, 2025 End: January 09, 2025 Opal Rock NP-C Attending Provider Active Start: January 09, 2025 End: January 09, 2025 Team Status: Inactive Member Role/Relationship Status Dates Dr. Rea Polo MD Primary Care Provider Active Start: February 26, 2025 End: February 26, 2025 Opal Rock NP-C Attending Provider Active Start: February 26, 2025 End: February 26, 2025 Opal Rock NP-C Referring Provider Active Start: February 26, 2025 End: February 26, 2025 Team Status: Inactive Member Role/Relationship Status Dates Dr. Rea Polo MD Primary Care Provider Active Start: November 23, 2024 End: November 23, 2024 Dr. Graham Birmingham DO Attending Provider Active S tart: November 23, 2024 End: November 23, 2024 Dr. Graham Birmingham DO Emergency Provider Active S tart: November 23, 2024 End: November 23, 2024 Team Status: Inactive Member Role/Relationship Status Dates Dr. Rea Polo MD Primary Care Provider Active Start: November 28, 2024 End: November 28, 2024 Dr. Rea Polo MD Referring Provider Active Start: November 28, 2024 End: November 28, 2024 BETO BurnsC Attending Provider Active Start: November 28, 2024 End: November 28, 2024 Team Status: Inactive Member Role/Relationship Status Dates Dr. Rea Polo MD Primary Care Provider Active Start: November 28, 2024 End: November 28, 2024 Courtney Ac NP-C Attending Provider Active Start: November 28, 2024 End: November 28, 2024 Courtney Ac NP-C Referring Provider Active Start: November 28, 2024 End: November 28, 2024 Team Status: Inactive Member Role/Relationship Status Dates Dr. Rea Polo MD Primary Care Provider Active Start: December 09, 2024 End: December 09, 2024 Courtney Ac NP-C Attending Provider Active Start: December 09, 2024 End: December 09, 2024 Courtney Ac NP-C Referring Provider Active Start: December 09, 2024 End: December 09, 2024 Team Status: Inactive Member Role/Relationship Status Dates Dr. Rea Polo MD Primary Care Provider Active Start: December 24, 2024 End: December 24, 2024 Dr. Rea Polo MD Referring Provider Active Start: December 24, 2024 End: December 24, 2024 BETO PinaC Attending Provider Active Start: December 24, 2024 End: December 24, 2024 Team Status: Inactive Member Role/Relationship Status Dates Dr. Rea Polo MD Primary Care Provider Active Start: December 30, 2024 End: December 30, 2024 BETO PinaC Attending Provider Active Start: December 30, 2024 End: December 30, 2024 Opal Rock NP-C Referring Provider Active Start: December 30, 2024 End: December 30, 2024 Team Status: Inactive Member Role/Relationship Status Dates Dr. Rea Polo MD Primary Care Provider Active Start: January 09, 2025 End: January 09, 2025 Dr. Rea Pool MD Referring Provider Active Start: January 09, 2025 End: January 09, 2025 BETO PinaC Attending Provider Active Start: January 09, 2025 End: January 09, 2025 Team Status: Inactive Member Role/Relationship Status Dates Dr. Rea Polo MD Primary Care Provider Active Start: February 26, 2025 End: February 26, 2025 Opal Rock NP-C Attending Provider Active Start: February 26, 2025 End: February 26, 2025 BETO PinaC Referring Provider Active Start: February 26, 2025 End: February 26, 2025 Team Status: Inactive Member Role/Relationship Status Dates Dr. Rea Polo MD Primary Care Provider Active Start: March 03, 2025 End: March 03, 2025 Dr. Rea Polo MD Referring Provider Active Start: March 03, 2025 End: March 03, 2025 BETO PinaC Attending Provider Active Start: March 03, 2025 End: March 03, 2025 Team Status: Inactive Member Role/Relationship Status Dates Dr. Rea Polo MD Primary Care Provider Active Start: March 03, 2025 End: March 03, 2025 Dr. Rea Polo MD Referring Provider Active Start: March 03, 2025 End: March 03, 2025 BETO ValadezC Attending Provider Active S tart: March 03, 2025 End: March 03, 2025 Team Status: Inactive Member Role/Relationship Status Dates Dr. Rea Polo MD Primary Care Provider Active Start: December 24, 2024 End: December 24, 2024 Dr. Rea Polo MD Referring Provider Active Start: December 24, 2024 End: December 24, 2024 JOSH Pina Attending Provider Active Start: December 24, 2024 End: December 24, 2024 Team Status: Inactive Member Role/Relationship Status Dates Dr. Rea Polo MD Primary Care Provider Active Start: December 30, 2024 End: December 30, 2024 BETO PinaC Attending Provider Active Start: December 30, 2024 End: December 30, 2024 JOSH Pina Referring Provider Active Start: December 30, 2024 End: December 30, 2024 Team Status: Inactive Member Role/Relationship Status Dates Dr. Rea Polo MD Primary Care Provider Active Start: January 09, 2025 End: January 09, 2025 Dr. Rea Polo MD Referring Provider Active Start: January 09, 2025 End: January 09, 2025 JOSH Pina Attending Provider Active Start: January 09, 2025 End: January 09, 2025 Team Status: Inactive Member Role/Relationship Status Dates Dr. Rea Polo MD Primary Care Provider Active Start: February 26, 2025 End: February 26, 2025 JOSH Pina Attending Provider Active Start: February 26, 2025 End: February 26, 2025 JOSH Pina Referring Provider Active Start: February 26, 2025 End: February 26, 2025 Team Status: Inactive Member Role/Relationship Status Dates Dr. Rea Polo MD Primary Care Provider Active Start: March 03, 2025 End: March 03, 2025 Dr. eRa Polo MD Referring Provider Active Start: March 03, 2025 End: March 03, 2025 JOSH Valadez Attending Provider Active S tart: March 03, 2025 End: March 03, 2025 Team Status: Inactive Member Role/Relationship Status Dates Dr. Rea Polo MD Primary Care Provider Active Start: April 03, 2025 End: April 03, 2025 JOSH Pina Attending Provider Active Start: April 03, 2025 End: April 03, 2025 JOSH Pina Referring Provider Active Start: April 03, 2025 End: April 03, 2025 INFORMATION SOURCE (unrecogn ized section and content) DATE CREATED AUTHOR 09/26/2024 [facility] DATE CREATED AUTHOR AUTHOR'S ORGANIZ ATION 04/05/2025 [facility] DATE CREATED AUTHOR AUTHOR'S ORGANIZ ATION 04/26/2025 [facility] Goals (unrecognized section and content) Goals may be documented in a n alternate sectionGoals may be documented in an alternate sectionGoals may be documented in an alternate sectionGoals may be documented in an alternate sectionGoals may be documented in an alternate sectionGoals may be documented in an alternate sectionGoals may be documented in an alternate section FOR RECORDS PERTAINING TO PATIENTS WHO ARE OR HAVE BEEN ENROLLED IN A CHEMICAL DEPENDENCY/SUBSTANCEABUSE PROGRAM, SOME INFORMATION MAY BE OMITTED. This clinical summary was aggregated from multiple sources. Caution should be exercised in using it in the provision of clinical care. This summary normalizes information from multiple sources, and as a consequence, information in this document may materially change the coding, format and clinical context of patient data. In addition, data may be omitted in some cases. CLINICAL DECISIONS SHOULD BE BASED ON THE PRIMARY CLINICAL RECORDS. [facility]. provides no warranty or guarantee of the accuracy or completeness of information in this document.
[2025-04-29 06:32] LABS: Internal QC Validated? YES +Cl - CLEAR BKGD; Pregnancy, Urine Negative Negative; Record Kit Lot#,Urine Preg 0000962302
--- NOTE | 2025-04-29 06:36 | HP.PCM_ITS ---
[facility] - General General Date of Admission: 04/29/25 Date of Service: 04/29/25 Chief Complaint: abdominal pain and weight loss HPI Narrative BRUNA DAMIAN, is a 19 F who presents with the Chief Complaint: abdominal pain OV 12/24/2024 19y/o female presents for consultation with complaints abdominal cramping/pain and diarrhea x4-6 weeks, early satiety, and nausea with a 10 pound weight loss over the past 3 weeks. She was seen in the emergency department on 11/23/2024 with complaints of abdominal cramping, nausea and [address] scan and labs were unremarkable. Her symptoms have been severe enough that she has been unable to work. She is experiencing frequent diarrhea, nocturnal diarrhea, urgency and episodes of fecal incontinence. She previously noted mild improvement in symptoms with dicyclomine. I have ordered stool testing, abdominal ultrasound and started her on pantoprazole 40 mg once daily. She will follow-up in the office in 2 weeks. Patient Instructions: Complete PD4 GI stool testing - kit provided to patient Resume Dicyclomine 10mg TID AC Start pantoprazole 40mg daily after completion of stool tetsing ABD US Follow-up in 2 weeks - STOOL: Blastocystis Hominis - started on Metronidazole 250mg TID x10 days - weight is up 7lbs in the past 2 weeks - she reports early satiety has improved and she is eating better - she reports abdominal cramping.pain remains in the lower abdomen - no change with dicyclomine - dicycmoine causes dizziness and blurry vision - she is still having diarrhea, watery stools, 1-2x a day - urgency - [place] 5-6 - symptoms now ongoing for a couple months - denies any dietary changes - she reports she is missing work due to symptoms due to nausea and urgency with stools and abdominal cramping - c/o hot flashes - missing full days or work - denies any fevers - c/o night sweats - menstrual cycles are regular Plan 19-year-old female presents for follow-up with continued complaints of lower abdominal pain/cramping, diarrhea and nausea. Abdominal ultrasound was unremarkable. Stool testing was significant for few Blastocystis hominis and she will complete a 10-day treatment of metronidazole 250 mg 3 times daily tomorrow. With antibiotic she reports minimal improvement in symptoms and is missing work due to persistent symptoms. Her weight is up 7 pounds in the past 2 weeks. I have recommended she start a probiotic and scheduled a CT with contrast. If CT is negative and symptoms are persisting we will proceed with colonoscopy. Patient Instructions: Complete Metronidazole Discontinue Dicyclomine due to dizziness, blurred vision and lack of improvement of symptoms with PRN use Continue pantoprazole 40mg daily Start a probiotic (Align, [employer] or [facility]) once daily. These are all multispecies probiotics, pick the cheapest one. Complete CT If CT is negative and symptoms are persisting will proceed with colonoscopy Follow-up in the office 02.26.25 CT abd/pelvis borderline splenomegaly, no acute abdominal process. 03.03.25 OV Continues to report hot flashes. Reports the abdominal cramping happens 1 to 2 times a day, every 3 days or so. She denies noting a correlation to food intake or activity. She is taking [employer] probiotics daily. She complains of a diffuse rash. She inspected her home for bed bugs, spiders, and fleas and did not note any infestations. Pets in the home are medicated. She states that her boyfriend doesn't have a kaden on him. She shares pictures that she's taken of the rashes that have appeared on her limbs, torso, face and palms. She states that her PCP has her using hydrocortisone cream topically to the affected areas. She denies fever and chills. She denies exposure to new foods or detergents. [facility] Medical History Depression Anxiety Alcohol use Gastric reflux Non-smoker Contraceptive management Home Medications ?Medication ?Instructions ?Recorded ?Last Taken ?Type desogestrel 0.15 mg-ethinyl 1 tab PO DAILY #84 tabs Unknown Rx estradiol 0.03 mg tablet (Apri) desvenlafaxine 100 mg 100 mg PO QDAY 11/28/24 Unkn own History tablet,extended release 24 hr hydroxyzine HCl 10 mg tablet 10 mg PO TID PRN anxiety 11/28/24 Unknown History hydroxyzine HCl 50 mg tablet 50 mg PO QHS 11/28/24 Unk nown History pantoprazole 40 mg tablet,delayed 40 mg PO QDAY #90 ta bs 02/25/25 Unknown Rx release famotidine 20 mg tablet 20 mg PO QHS #30 tabs Unknown Rx Allergy/AdvReac Type Severity Reaction Status Date / Time No Known Allergies Allergy Verified 04/28/25 13:42 Family History Sister Asthma Grandmother Celiac disease IBS (irritable bowel syndrome) Stomach ulcer Surgical History H/O wrist surgery H/O of nasal cauterization Social History Smoking Status: Never smoker alcohol intake: current alcohol intake frequency: a few times a month Alcohol type: beer substance use type: marijuana seatbelt use: always ROS Constitutional Constitutional: Denies fatigue, fever(s), poor appetite, weight gain or weight loss Gastrointestinal Gastrointestinal: Denies belching, bloating, change in bowel habits, change in stool character, chewing difficulty, coffee ground emesis, constipation, cramping, diarrhea, dyspepsia, dysphagia, early satiety, excessive flatus, fecal incontinence, heartburn, hematemesis, hematochezia, hemorrhoids, loose stools, melena, nausea, odynophagia, rectal bleeding, tenesmus, vomiting or weight changes Physical Exam Const alert, oriented x3, no apparent distress and healthy appearing General Appearance: cooperative GI normal to inspection, nondistended, normoactive bowel sounds, soft to palpation, non-tender and non-distended Percussion: normal to percussion Rectal Exam: deferred Results Lab / Micro Data Labs: Laboratory Results - last 24 hr 04/29/25 06:27: Urine Test Negative Assessment & Plan Assessment/Plan (1) Weight loss: (2) Early satiety: (3) Nausea: (4) Diarrhea: QUALIFIERS: Diarrhea type: unspecified type Qualified Code(s): R19.7 - Diarrhea, unspecified PLAN: Assessment and Plan Assessment and Plan (1) Nausea: Status: Acute (2) Abdominal pain: Status: Chronic Qualifiers: Abdominal location: generalized Qualified Code(s): R10.84 - Generalized abdominal pain (3) Papular urticaria: Status: Acute Medications: New famotidine 20 mg PO QDAY 30 tabs 2RF famotidine 20 mg PO QHS 30 tabs 2RF Plan BRUNA DAMIAN, is a 19 F who presents to the office today for FU. Plan from Lupe Rock CNP included scheduling colonoscopy to investigate abdominal pain if CT abd/pelvis was negative. Reviewed CT results and this plan with Bruna. She continues to report abdominal cramping and intermittent nausea. Discussed current dermatologic rash. * schedule colonoscopy * continue hydrocortisone cream topically to raised areas, papular urticaria * add famotidine as additional antihistamine * seek opinion of PCP
[2025-04-29] MEDS: Lactated Ringers 1,000 ML 15 ML IV (06:51)
--- NOTE | 2025-04-29 06:55 | PCM.PRE.AN2 ---
ASA Classification* ASA Classification ASA Classification: 1 Assessment & Plan Anesthesia* Anesthesia Assessment Anesthesia Assessment: Discussed sedation and/or anesthesia options, risks, benefits, and alternatives with patient/parents/legal guardian/POA. Questions invited. The patient/parents/legal guardian/POA seems to understand and agrees to proceed with anesthesia plan. Reviewed the physical assessment, medical history, allergy history and patient home medications list prior to surgery/procedure/anesthetic and documented any changes. Performed airway and anesthesia risk assessments. Anesthesia Type Anesthesia Type: MAC History Source History Obtained from:: Patient and Chart Anesthesia Focused Assessment* Temperature: 97.0 F Pulse Rate: 88 Blood Pressure: 119/85 Respiratory Rate: 18 Pulse Ox: 99 Oxygen Delivery Method: Room Air Airway Assessment Mouth opens: >3 cm Mallampati Score: I Teeth Condition: Intact Neck Range of motion (ROM): Full ROM Labs Anesthesia Preop lab: CBC WBC 5.1 K/mm3 (4.4-11.0) 04/03/25 09:04/03/25 RBC 4.52 M/mm3 (4.2-5.4) 04/03/25 09:30 04/03/25 Hgb 13.6 g/dL (12.0-15.0) 04/03/25 09:30 04/03/25 Hct 39.8 % (37-47) 04/03/25 09:30 04/03/25 Plt Count 191 K/mm3 (150-450) 04/03/25 09:30 04/03/25 CHEMISTRY Potassium 4.0 mmol/L (3.3-5.1) 04/03/25 09:30 04/03/25 Sodium 138 mmol/L (133-145) 04/03/25 09:30 04/03/25 BUN 10 mg/dL (4-19) 04/03/25 09:30 04/03/25 Creatinine 0.79 mg/dL (0.70-1.20) 04/03/25 09:30 04/03/25 Glucose 84 mg/dL (70-99) 04/03/25 09:30 04/03/25 TSH 6.030 uIU/mL (0.300-4.200) H 04/03/25 09:30 04/03/25 COAG Urine Test Negative Negative 04/29/25 06:27 04/29/25 Tst Clinic Negative 05/07/24 14:11 05/07/24 Pre-Assessment Diagnosis/Proposed Procedure Planned Operative Procedure(s): COLONOSCOPY Anesthesia History Anesthesia History - photo print specialist: Anesthesia History - photo print specialist Hx Hospitalization No 04/28/25 13:44 Any Problems With Anesthesia No 04/28/25 13:44 Cholinesterase deficiency No 04/28/25 13:44 You/Your Family Experience No 04/28/25 13:44 fever (hyperthermia) with Relationship Recent Exposure to Contagious No 04/29/25 06:41 Disease Does patient have nerve No 04/28/25 13:44 stimulator Patient instructed to have device shut off --Does patient have Pacemaker No 04/29/25 06:41 or ICD? When Was Last Pacemaker Check QUESTION #4 FULL TEXT: You/Your Family Experience fever (hyperthermia) with Anesthesia Last Oral Intake Last Oral intake: Last Oral Intake NPO since 20:00 04/29/25 06:41 Meds taken in AM with sips of water? Meds patient instructed to take am of surgery PONV PONV - photo print specialist: PONV - photo print specialist Female Yes 04/28/25 13:44 HX of Motion Sickness No 04/28/25 13:44 HX of N/V After Surgery No 04/28/25 13:44 Non-Smoker Yes 04/28/25 13:44 Duration of Surgery greater No 04/28/25 13:44 than 60 minutes Number of Risk Factors 2 04/28/25 13:44 PONV Score Moderate Risk 04/28/25 13:44 Height & Weight Height & Weight: Anesthesia: Height & Weight Height 5 ft 6 in 04/29/25 06:41 Weight: 68 kg 04/29/25 06:41 Body Mass Index (BMI) 24.2 04/29/25 06:41 Respiratory Assessment Respiratory Assessment - photo print specialist: Respiratory Tract Infection Hx - photo print specialist Hx Respiratory Tract Infection No 04/28/25 13:44 STOP Sleep Apnea STOP Sleep Apnea - photo print specialist: STOP Sleep Apnea - photo print specialist Hx Hypertension No 04/28/25 13:44 Hx Sleep Apnea No 04/28/25 13:44 CPAP No 05/04/15 10:38 BIPAP No 04/30/15 13:06 Do you snore loudly (louder No 04/28/25 13:44 than talking or can be heard Do you often feel tired/ No 04/28/25 13:44 fatigued/ sleepy during daytime? Has anyone observed you stop No 04/28/25 13:44 breathing during sleep? STOP Results Negative 04/28/25 13:44 QUESTION #5 FULL TEXT : Do you snore loudly (louder than talking or can be heard through closed doors)? Tobacco Use History Tobacco Use History - photo print specialist: Tobacco Use History - photo print specialist Tobacco Use Smoking Status Never smoker 04/28/25 13:44 Hx Tobacco Use No 04/28/25 13:44 Years Smoking Packs Smoked per Day Smoking Cessation Date was within the last 15 years Hx Smoking Cessation Date Hx Smoking Cessation Counseling Hematologic Medial History Hematologic Hx - photo print specialist: Hematologic Medical Hx - bend sorter Hx of Blood Transfusion No 04/28/25 13:44 Hx of Transfusion in last 3 No 04/28/25 13:44 Months Date of Last Transfusion (if within last 3 months) Ever experience any problems No 04/28/25 13:44 with transfusion(s)? Specify any problems Hx of Preganancy in last 3 No 04/28/25 13:44 Months Nurse Filling Out Transfusion DSCHRIBER 04/28/25 13:44 & Questions: Date: 04/28/25 04/28/25 13:44 Time: 13:45 04/28/25 13:44 Patient unable to answer at this time (ie. confused, unrespo /Reproduction History /Reproductive History - photo print specialist: /Reproductive Hx- photo print specialist Hx Now No 04/28/25 13:44 Gestational Age (in weeks): EDC: Hx Hx Para Hx Section SAB No 04/28/25 13:44 Active Medications Active Medications: Current Medications Generic Name Dose Route Start Last Admin Trade Name Freq PRN Reason Stop Dose Admin Lactated Ringer's 1,000 mls @ 15 mls/hr 04/29/25 06:30 04/29/25 06:51 IV 15 mls/hr .Q48H KATYA Administration PFSH Medical History Depression Anxiety Alcohol use Gastric reflux Non-smoker Contraceptive management Home Medications ?Medication ?Instructions ?Recorded ?Last Taken ?Type desogestrel 0.15 mg-ethinyl 1 tab PO DAILY #84 tabs 11/01/24 04/28/25 Rx estradiol 0.03 mg tablet (Apri) desvenlafaxine 100 mg 100 mg PO QDAY 11/28/24 04/28/25 History tablet,extended release 24 hr hydroxyzine HCl 10 mg tablet 10 mg PO TID PRN anxiety 11/28/24 Unknown History hydroxyzine HCl 50 mg tablet 50 mg PO QHS 11/28/24 Unknown History pantoprazole 40 mg tablet,delayed 40 mg PO QDAY #90 tabs 02/25/25 04/28/25 Rx release famotidine 20 mg tablet 20 mg PO QHS #30 tabs 03/03/25 04/28/25 Rx Allergy/AdvReac Type Severity Reaction Status Date / Time No Known Allergies Allergy Verified 04/29/25 06:40 Family History Sister Asthma Grandmother Celiac disease IBS (irritable bowel syndrome) Stomach ulcer Surgical History H/O wrist surgery H/O of nasal cauterization Social History Smoking Status: Never smoker alcohol intake: current alcohol intake frequency: a few times a month Alcohol type: beer substance use type: marijuana seatbelt use: always Review of Systems (Anesthesia) ROS Narrative System reviewed and no additional complaints, except as documented.
--- NOTE | 2025-04-29 07:00 | COLBX_PTH ---
PATIENT: BRUNA DAMIAN LOC: EN U#:[id number] AGE/SX: 19/F ROOM: RE04/29/[address]: Dr. Marvel Ogden DO : 2005 BED: DIS: 04/29/2025 SPEC #: [id number] RECD: 04/29/25 07:51 STATUS: RUBEN DODGE #: [id number] NINA: 04/29/25 07:[address]: Marvel Ogden DEPT: SURGICAL PATHOLOGY RECD BY: Jose Guzman ENTERED: 04/29/25 10:33 SP TYPE: COLON BX OTHR DR: Dr. Rea Polo MD Tissues: A - Ileum, NOS B - Cecum, NOS C - COLON BIOPSY D - COLON BIOPSY E - Rectum, NOS Procedures: Immunohistochemical Stains Surgery Specimen Level IV IHC Stain ADDITIONAL HEADER OPERATION: Colonoscopy PRE-OP DIAGNOSIS: Weight loss, early satiety, nausea, diarrhea TISSUE SUBMITTED: A- Terminal ileum biopsy, B- Cecal biopsy, C- Right side colon biopsy, D- Left side colon biopsy, E- Rectum biopsy MICROSCOPIC DIAGNOSIS A. Terminal ileum, biopsy: - Prominent mucosal lymphoid aggregates, favor reactive - see note. Note: Further evaluation was performed utilizing IHC and CHLOE stains. There is a mixture of CD3+CD5+ T-lymphocytes and CD20+ B-lymphocytes. CD10 highlights the germinal centers which are BCL6+ and negative for BCL2. CD23 highlights follicular dendritic meshworks. BCL1 is negative. Ki67 is appropriately increased within the germinal centers and low in the interfollicular areas. CHLOE for [place] and lambda light chains is polytypic (ratio of 3:2). These findings support the above diagnosis. Recommend clinical correlation. B. Cecum, biopsy: - No specific pathologic change. C. Colon, right side, biopsy: - No specific pathologic change. D. Colon, left side, biopsy: - No specific pathologic change. E. Rectum, biopsy: - No specific pathologic change. MICROSCOPIC DESCRIPTION Slides are reviewed. All matched controls reacted appropriately. These tests were developed and their performance characteristics determined by [facility]. They may not have been cleared or approved by the U.S. Food and Drug Administration. The FDA has determined that such clearance or approval is not necessary.? The above immunohistochemical?markers and/or special stains have been reviewed by the Pathologist. All controls show appropriate reactivity. (kappa and lambda CHLOE) All immunohistochemistry, in situ hybridization, and histochemical tests were developed by and are performed at the [facility], [address] [place] [address], [place] [id number]. All Immunofluorescent (IF)?tests were developed by and are performed at the [facility], [address] [place] [id number]. All tests reported here, except those addressing HER2 overexpression as a predictive marker, have not been cleared by or approved by the US Food and Drug Administration (FDA). The laboratory is regulated under CLIA as qualified to perform high-complexity testing. The tests are used for clinical purposes. They should not be regarded as investigational or for research GROSS DESCRIPTION A. Received in fixative is one container labeled with the patient's name and designated Terminal ileum biopsy. The specimen consists of two irregular fragments of light schuster soft tissue that measure 0.4 and 0.5 cm. The specimen is totally submitted in one cassette. B. Received in fixative is one container labeled with the patient's name and designated Cecal biopsy. The specimen consists of two irregular fragments of light schuster soft tissue, each measuring 0.4 cm. The specimen is totally submitted in one cassette. C. Received in fixative is one container labeled with the patient's name and designated Right side colon biopsy. The specimen consists of multiple irregular fragments of light schuster soft tissue that in aggregate measure 1.4 x 0.4 x 0.1 cm. The specimen is totally submitted in one cassette. D. Received in fixative is one container labeled with the patient's name and designated Left side colon biopsy. The specimen consists of four irregular fragments of light schuster soft tissue that measure 0.4 to 0.7 cm. The specimen is totally submitted in one cassette. E. Received in fixative is one container labeled with the patient's name and designated Rectum biopsy. The specimen consists of two irregular fragments of light schuster soft tissue that measure 0.2 and 0.3 cm. The specimen is totally submitted in one cassette. [place] 04/29/2025 CPT:25242y1,[id number],[id number], [id number]
[2025-04-29] MEDS: Lactated Ringers 500 ML IV (07:17)
--- NOTE | 2025-04-29 07:38 | OP.COLON_ITS ---
Patient Name: Maritza Garay Procedure Date: 04/29/2025 7:11 AM Date of : 2005 Age: 19 Procedure: Colonoscopy Indications: Generalized abdominal pain, Chronic diarrhea Providers: Marvel Ogden DO Referring MD: Rea Polo Medicines: Monitored Anesthesia Care Patient Profile: This is a 19 year old female. Refer to note in patient chart for documentation of history and physical. Last Colonoscopy: none. The patient's first colonoscopy is today. Complications: No immediate complications. Procedure: Pre-Anesthesia Assessment: - Prior to the procedure, a History and Physical was performed, and patient medications and allergies were reviewed. The patient is competent. The risks and benefits of the procedure and the sedation options and risks were discussed with the patient. All questions were answered and informed consent was obtained. Patient identification and proposed procedure were verified by the physician in the pre-procedure area. Mental Status Examination: alert and oriented. Airway Examination: normal oropharyngeal airway and neck mobility. Respiratory Examination: clear to auscultation. CV Examination: normal. Prophylactic Antibiotics: The patient does not require prophylactic antibiotics. Prior Anticoagulants: The patient has taken no anticoagulant or antiplatelet agents. ASA Grade Assessment: II - A patient with mild systemic disease. After reviewing the risks and benefits, the patient was deemed in satisfactory condition to undergo the procedure. The anesthesia plan was to use deep sedation / analgesia. Immediately prior to administration of medications, the patient was re-assessed for adequacy to receive sedatives. The heart rate, respiratory rate, oxygen saturations, blood pressure, adequacy of pulmonary ventilation, and response to care were monitored throughout the procedure. The physical status of the patient was re-assessed after the procedure. After I obtained informed consent, the scope was passed under direct vision. Throughout the procedure, the patient's blood pressure, pulse, and oxygen saturations were monitored continuously. The Colonoscope was introduced through the anus and advanced to the terminal ileum. The colonoscopy was performed without difficulty. The patient tolerated the procedure well. The quality of the bowel preparation was good. The terminal ileum, ileocecal valve, appendiceal orifice, and rectum were photographed. Scope In: 7:22:43 AM Scope Withdrawal Time 0 hours 8 minutes 2 seconds Scope Out: 7:33:09 AM Total Procedure Duration Time 0 hours 10 minutes 26 seconds Findings: The perianal and digital rectal examinations were normal. An area of mildly congested mucosa was found in the rectum, in the recto-sigmoid colon, in the sigmoid colon and in the cecum. Biopsies were taken with a cold forceps for histology. Verification of patient identification for the specimen was done. Estimated blood loss was minimal. The terminal ileum appeared normal. Biopsies were taken with a cold forceps for histology. Verification of patient identification for the specimen was done. Estimated blood loss was minimal. The exam was otherwise without abnormality on direct and retroflexion views. Impression: - Congested mucosa in the rectum, in the recto-sigmoid colon, in the sigmoid colon and in the cecum. Biopsied. - The examined portion of the ileum was normal. Biopsied. - The examination was otherwise normal on direct and retroflexion views. Recommendation: - Discharge patient to home. - Resume previous diet. - Continue present medications. - Await pathology results. - Repeat colonoscopy for surveillance based on pathology results. Procedure Code(s): --- Professional --- 74395, Colonoscopy, flexible; with biopsy, single or multiple CPT copyright 2021 [employer]. All rights reserved. The codes documented in this report are preliminary and upon employer relations representative review may be revised to meet current compliance requirements. Marvel Ogden DO 04/29/2025 7:38:14 AM This report has been signed electronically. Number of Addenda: 0 Note Initiated On: 04/29/2025 7:11 AM
--- NOTE | 2025-04-29 07:39 | OP.PROVAT_ITS ---
04/29/2025 Rea Polo [address] [place] [address] Re : Colonoscopy procedure for Maritza Garay Dear Dr. Polo This procedure was performed on Tuesday, April 29, 2025. My impressions and recommendations are as follows: Impressions : - Congested mucosa in the rectum, in the recto-sigmoid colon, in the sigmoid colon and in the cecum. Biopsied. - The examined portion of the ileum was normal. Biopsied. - The examination was otherwise normal on direct and retroflexion views. Recommendations : - Discharge patient to home. - Resume previous diet. - Continue present medications. - Await pathology results. - Repeat colonoscopy for surveillance based on pathology results. My findings are described in the full procedure note, which is enclosed. If I can be of further assistance, please feel free to contact me at . Sincerely, Marvel Ogden, 04/29/2025 7:38:14 AM This report has been signed electronically.
--- NOTE | 2025-04-29 07:43 | PCM.POST.ANE ---
Anesthesia: Postop Eval I Current Vital Signs Temperature: 98 F Pulse Rate: 71 Blood Pressure: 113/74 Respiratory Rate: 18 Pulse Ox: 99 Oxygen Delivery Method: Room Air Assessment Airway patent: Yes Spontaneous unlabored respirations: Yes Mental status: Awake nausea: No Vomiting: No Anesthesia Complication: No Fluid Hydration Crystalloid volume administer (ml): 500 Total IV fluid infused: 500 Progress Note Anesthesia document: Postop Eval 1 completed: Yes
--- NOTE | 2025-04-29 09:01 | POSTOPAN2_ITS ---
Anesthesia Postop Eval I Sum Postop Eval Completion status Anesthesia document: Postop Eval 1 completed: Yes Anesthesia Postop Eval I Summary Anesthesia Postop Eval I Summary: Anesthesia Postop Eval I: Assessment Summary Airway patent Yes 04/29/25 07:43 [email or web address].[email or web address] Spontaneous unlabored Yes 04/29/25 07:43 PERIPATOLOGIST.ACAR respirations Mental status Awake 04/29/25 07:43 [email or web address].ACAR nausea No 04/29/25 07:43 PERIPATOLOGIST.ACAR Vomiting No 04/29/25 07:43 PERIPATOLOGIST.ACAR Anesthesia Postop Eval I: Fluid Summary Crystalloid volume administer 500 04/29/25 07:43 [email or web address].ACAR (ml) Colloids volume administered ( ml) Blood Product volume administered (ml) Total IV fluid infused 500 04/29/25 07:43 [email or web address].ACAR Anesthesia Postop Eval I: Summary Notes Anesthesia Complication No 04/29/25 07:43 [email or web address].ACAR Anesthesia Complication Comment: Post-operative progress note Anesthesia: Postop Eval II Evaluation Mental status: Awake Pain Level: 0 nausea: No Vomiting: No Complications Anesthesia Complication: No
--- NOTE | 2025-04-29 09:01 | PCM.POSTANE2 ---
Anesthesia Postop Eval I Sum Postop Eval Completion status Anesthesia document: Postop Eval 1 completed: Yes Anesthesia Postop Eval I Summary Anesthesia Postop Eval I Summary: Anesthesia Postop Eval I: Assessment Summary Airway patent Yes 04/29/25 07:43 PROFESSOR OF RELIGION.ACAR Spontaneous unlabored Yes 04/29/25 07:43 PROFESSOR OF RELIGION.ACAR respirations Mental status Awake 04/29/25 07:43 PROFESSOR OF RELIGION.ACAR nausea No 04/29/25 07:43 PROFESSOR OF RELIGION.ACAR Vomiting No 04/29/25 07:43 PROFESSOR OF RELIGION.ACAR Anesthesia Postop Eval I: Fluid Summary Crystalloid volume administer 500 04/29/25 07:43 PROFESSOR OF RELIGION.ACAR (ml) Colloids volume administered ( ml) Blood Product volume administered (ml) Total IV fluid infused 500 04/29/25 07:43 PROFESSOR OF RELIGION.ACAR Anesthesia Postop Eval I: Summary Notes Anesthesia Complication No 04/29/25 07:43 PROFESSOR OF RELIGION.ACAR Anesthesia Complication Comment: Post-operative progress note Anesthesia: Postop Eval II Evaluation Mental status: Awake Pain Level: 0 nausea: No Vomiting: No Complications Anesthesia Complication: No
== END 2025-04-29 08:14 | disposition home or self-care (01) ==
LOC: EN 06:12 → AC 06:13
PROVIDERS: Anesthesiology; PCP Pediatrics; Referring Provider Pediatrics; Visit Provider Internal Medicine Gastroenterology
PROC: 0DJD8ZZ Inspection of Lower Intestinal Tract, Via Natural or Artificial Opening Endoscopic (ICD-10-PCS; CPT 45378; principal; 2025-04-29 06:55)
DX: K63.9 Disease of intestine, unspecified (principal); K21.9 Gastro-esophageal reflux disease without esophagitis; Z79.899 Other long term (current) drug therapy; L28.2 Other prurigo
CPT/HCPCS: 45380; 81025; 88305; 88341; 88342